=== PATIENT | male | born 1935 | race Caucasian/White ===

== ENCOUNTER 2019-05-26 15:54 | Inpatient (IN) ==
--- NOTE | 2019-05-26 18:42 | DR.GENAD ---
HPI Time Seen Time Seen by Provider: 05/26/19 18:20 PCP Primary Care Physician: BRIDGER Complaint/Symptoms Chief Complaint:: PT HAD HEART STENTS PLACED LAST Saturday05/22/2019 IN [facility]. LEFT FOOT STARTED GETTING SORE LAST NIGHT, DAUGHTER NOTICED RAISED SPOT ON BOTTOM OF OUTER SIDE OF FOOT. REDNESS NOTED TO TOP OF LEFT FOOT WELL. PT STATES THAT IT IS SORE AND HARD TO WALK ON FOOT. CALLED NURSE EDUCATOR IN [facility] AND THEY TOLD PT TO COME TO NEAREST ER. Source History Provided: Patient and Family Member Mode of Arrival Mode of Arrival: Ambulatory Timing Onset of Chief Complaint: 05/25/19 PMH PMH Past Medical History: Yes Past Medical History: Arthritis, Diabetes, Dyslipidemia, GERD and Hypertension Past Surgical History: Yes Surgical History: Angioplasty/Stents, Cholecystectomy and Other Past Surgical History Comment: HERNIA Family History History of Family Medical Conditions: Yes Family Medical History: Hypertension Social History Do you use any recreational Drugs:: No Lives With: Alone Lives Where: Home infectious screening In the last 2 months have you had wt loss of >10#?: NO Have you had fever, night sweats or hemotysis?: No Have you traveled outside the country in the last 6 months?: No Isolation: Standard PE Vital Signs Vitals: Temperature 97 F Pulse Rate 84 Respiratory Rate 22 Blood Pressure [Left Arm] 198/92 Blood Pressure 162/72 O2 Sat by Pulse Oximetry 99 ROR Labs Reviewed Result Diagrams: 05/26/19 18:30 05/26/19 18:30 Laboratory: WBC 12.0 X10^3/uL (3.6-10.0) H 05/26/19 18:30 RBC 4.77 X10^6/uL (4.7-6.0) 05/26/19 18:30 Hgb 14.7 g/dL (13.5-18.0) 05/26/19 18:30 Hct 42.8 % (42.0-54.0) 05/26/19 18:30 MCV 89.7 fL (80.0-100.0) 05/26/19 18:30 MCH 30.7 pg (27.0-34.0) 05/26/19 18:30 MCHC 34.3 g/dL (33.0-35.0) 05/26/19 18:30 RDW 13.6 % (11.6-16.5) 05/26/19 18:30 Plt Count 365 X10^3/uL (150.0-450.0) 05/26/19 18:30 MPV 8.1 fL (7.4-11.0) 05/26/19 18:30 Neut % (Auto) 75.7 % (42.0-75.0) H 05/26/19 18:30 Lymph % (Auto) 11.8 % (21.0-51.0) L 05/26/19 18:30 [place] % (Auto) 10.3 % (0.0-13.0) 05/26/19 18:30 Eos % (Auto) 1.6 % (0.9-2.9) 05/26/19 18:30 Baso % (Auto) 0.6 % (0.2-1.0) 05/26/19 18:30 Neut # (Auto) 9.1 x10^3/uL (2.2-4.8) H 05/26/19 18:30 Lymph # (Auto) 1.4 X10^3/uL (1.3-2.9) 05/26/19 18:30 [place] # (Auto) 1.2 x10^3/uL (0.3-0.8) H 05/26/19 18:30 Eos # (Auto) 0.2 x10^3/uL (0.0-0.2) 05/26/19 18:30 Baso # (Auto) 0.1 X10^3/uL (0.0-0.1) 05/26/19 18:30 Absolute Nucleated RBC 0.0 /100WBC 05/26/19 18:30 Sodium 140 mmol/L (136-145) 05/26/19 18:30 Corrected Sodium 141 mmol/L (136-145) 05/26/19 18:30 Potassium 3.8 mmol/L (3.5-5.1) 05/26/19 18:30 Chloride 105 mmol/L (98-107) 05/26/19 18:30 Carbon Dioxide 25.2 mmol/L (21-32) 05/26/19 18:30 BUN 24 mg/dL (7-18) H 05/26/19 18:30 Creatinine 0.92 mg/dL (0.70-1.30) 05/26/19 18:30 Est GFR (MDRD) Af Amer > 60 (>60) 05/26/19 18:30 Est GFR (MDRD) Non-Af > 60 (>60) 05/26/19 18:30 Glucose 138 mg/dL (65-99) H 05/26/19 18:30 Lactic Acid 1.1 mmol/L (0.4-2.0) 05/26/19 18:30 Calcium 10.4 mg/dL (8.5-10.1) H 05/26/19 18:30 Corrected Calcium TNP 05/26/19 18:30 Total Bilirubin 0.70 mg/dL (0.2-1.0) 05/26/19 18:30 AST 24 Units/L (15-37) 05/26/19 18:30 ALT 40 Units/L (12-78) 05/26/19 18:30 Alkaline Phosphatase 98 Units/L (46-116) 05/26/19 18:30 Total Protein 6.7 g/dL (6.4-8.2) 05/26/19 18:30 Albumin 3.4 g/dL (3.4-5.0) 05/26/19 18:30 Globulin 3.3 g/dL (2.5-4.5) 05/26/19 18:30 Albumin/Globulin Ratio 1.0 Ratio (1.1-2.1) L 05/26/19 18:30 Opioid Opioid Risk Tool Age (Zeb box if 16-45): No History of Preadolescent Sexual Abuse: No Total: 0 Total Score Risk Category: Low Risk Copyright: Shamir PRESCOTT predicting aberrant behaviors Diagnosis Discharge Problem: Anemia Qualifiers: Anemia type: iron deficiency Iron deficiency anemia type: unspecified iron deficiency Qualified Code(s): D50.9 - Iron deficiency anemia, unspecified Instructions Forms: Excuse From Work Patient Portal
[2019-05-26 18:51] LABS: BASOPHILS # (AUTO) 0.1 X10^3/uL (0.0-0.1); BASOPHILS % (AUTO) 0.6 % (0.2-1.0); EOSINOPHILS # (AUTO) 0.2 x10^3/uL (0.0-0.2); EOSINOPHILS % (AUTO) 1.6 % (0.9-2.9); HEMATOCRIT 42.8 % (42.0-54.0); HEMOGLOBIN 14.7 g/dL (13.5-18.0); LYMPHOCYTES # (AUTO) 1.4 X10^3/uL (1.3-2.9); LYMPHOCYTES % (AUTO) 11.8 % (21.0-51.0); MEAN CORPUSCULAR HEMOGLOBIN 30.7 pg (27.0-34.0); MEAN CORPUSCULAR HGB CONC 34.3 g/dL (33.0-35.0); MEAN CORPUSCULAR VOLUME 89.7 fL (80.0-100.0); MEAN PLATELET VOLUME 8.1 fL (7.4-11.0); MONOCYTES # (AUTO) 1.2 x10^3/uL (0.3-0.8); MONOCYTES % (AUTO) 10.3 % (0.0-13.0); NEUTROPHILS # (AUTO) 9.1 x10^3/uL (2.2-4.8); NEUTROPHILS % (AUTO) 75.7 % (42.0-75.0); PLATELET COUNT 365 X10^3/uL (150.0-450.0); RED BLOOD COUNT 4.77 X10^6/uL (4.7-6.0); RED CELL DISTRIBUTION WIDTH 13.6 % (11.6-16.5)
[2019-05-26 19:13] LABS: ALANINE AMINOTRANSFERASE 40 Units/L (12-78); ALBUMIN 3.4 g/dL (3.4-5.0); ALKALINE PHOSPHATASE 98 Units/L (46-116); ASPARTATE AMINO TRANSFERASE 24 Units/L (15-37); BLOOD UREA NITROGEN 24 mg/dL (7-18); CALCIUM 10.4 mg/dL (8.5-10.1); CARBON DIOXIDE 25.2 mmol/L (21-32); CHLORIDE 105 mmol/L (98-107); COR NA(FOR HYPERGLY) 141 mmol/L (136-145); CREATININE 0.92 mg/dL (0.70-1.30); SODIUM 140 mmol/L (136-145); TOTAL PROTEIN 6.7 g/dL (6.4-8.2); eGFR NON BLACK RACES > 60 (>60)
[2019-05-26 19:15] LABS: LACTIC ACID 1.1 mmol/L (0.4-2.0)
[2019-05-26] MEDS ORDERED: VANCOMYCIN HCL 1 G in D5W 250 ML IV 250 ML IV SCH (21:12)
[2019-05-26] MEDS ORDERED: GLUCOPHAGE ONE (21:37)
[2019-05-26] MEDS: COREG TAB 6.25 MG PO SCH (21:48)
[2019-05-26] MEDS: ARICEPT TAB 5 MG PO SCH (22:13)
[2019-05-26] MEDS: LIPITOR TAB 40 MG PO SCH (22:14)
[2019-05-26] MEDS: NAMENDA TAB 10 MG PO SCH (22:14)
[2019-05-26] MEDS: BRILINTA PO SCH (22:14)
[2019-05-26] MEDS: GLUCOPHAGE PO SCH (22:14)
[2019-05-26 22:37] LABS: BILIRUBIN,URINE NEGATIVE (NEGATIVE); BLOOD/HEMOGLOBIN,URINE NEGATIVE (NEGATIVE); GLUCOSE, URINE 1+ (NEGATIVE); KETONES,URINE 1+ (NEGATIVE); LEUKOCYTE ESTERASE ,URINE NEGATIVE (NEGATIVE); NITRITES,URINE NEGATIVE (NEGATIVE); PROTEIN,URINE 2+ (NEGATIVE); UROBILINOGEN,URINE NORMAL (NORMAL)
[2019-05-26] MEDS ORDERED: NS 250 ML IV 250 ML IV ONE (22:37)
[2019-05-26] MEDS ORDERED: VANCOMYCIN HCL ONE ×2 (22:37→23:03)
[2019-05-26 22:41] LABS: APPEARANCE,URINE CLEAR (CLEAR); COLOR,URINE YELLOW (YELLOW)
[2019-05-26 22:44] LABS: BACTERIA,URINE NEGATIVE /HPF (NEGATIVE); GRANULAR CASTS,URINE FEW /LPF (NEGATIVE); RBC,URINE 0-2 /HPF (0-3); SQUAMOUS EPITHELIAL CELL,UR RARE /HPF (NEGATIVE)
[2019-05-26] MEDS ORDERED: NS 500 ML IV 500 ML IV ONE (23:31)
[2019-05-26 23:33] LABS: CKMB % 2.2 % (<4); CREATINE KINASE MB 1.1 ng/mL (0-4.0); TROPONIN I 0.75 ng/mL (0-1.5)
[2019-05-26] MEDS: VANCOMYCIN HCL 500 MG, VANCOMYCIN HCL 1 G in D5W 250 ML IV 250 ML IV SCH (23:54)
[2019-05-27 00:32] VITALS: BMI 29.3
[2019-05-27 05:24] LABS: BASOPHILS # (AUTO) 0.2 X10^3/uL (0.0-0.1); BASOPHILS % (AUTO) 1.1 % (0.2-1.0); EOSINOPHILS # (AUTO) 0.3 x10^3/uL (0.0-0.2); EOSINOPHILS % (AUTO) 2.2 % (0.9-2.9); HEMATOCRIT 40.6 % (42.0-54.0); HEMOGLOBIN 13.4 g/dL (13.5-18.0); LYMPHOCYTES # (AUTO) 1.9 X10^3/uL (1.3-2.9); LYMPHOCYTES % (AUTO) 13.4 % (21.0-51.0); MEAN CORPUSCULAR HEMOGLOBIN 30.2 pg (27.0-34.0); MEAN CORPUSCULAR HGB CONC 32.9 g/dL (33.0-35.0); MEAN CORPUSCULAR VOLUME 91.8 fL (80.0-100.0); MEAN PLATELET VOLUME 8.8 fL (7.4-11.0); MONOCYTES # (AUTO) 1.4 x10^3/uL (0.3-0.8); MONOCYTES % (AUTO) 10.1 % (0.0-13.0); NEUTROPHILS # (AUTO) 10.2 x10^3/uL (2.2-4.8); NEUTROPHILS % (AUTO) 73.2 % (42.0-75.0); PLATELET COUNT 314 X10^3/uL (150.0-450.0); RED BLOOD COUNT 4.42 X10^6/uL (4.7-6.0); RED CELL DISTRIBUTION WIDTH 13.6 % (11.6-16.5)
[2019-05-27 05:56] LABS: PLATELET MORPHOLOGY COMMENT NORMAL (NORMAL); WHITE BLOOD COUNT 14.8 X10^3/uL (3.6-10.0)
[2019-05-27 06:01] LABS: ALANINE AMINOTRANSFERASE 39 Units/L (12-78); ALBUMIN 2.8 g/dL (3.4-5.0); ALKALINE PHOSPHATASE 93 Units/L (46-116); ASPARTATE AMINO TRANSFERASE 31 Units/L (15-37); BLOOD UREA NITROGEN 23 mg/dL (7-18); CALCIUM 9.8 mg/dL (8.5-10.1); CARBON DIOXIDE 23.3 mmol/L (21-32); CHLORIDE 108 mmol/L (98-107); COR CA(FOR HYPOALB) 10.8 mg/dL (8.5-10.1); COR NA(FOR HYPERGLY) 140 mmol/L (136-145); CREATINE KINASE 64 Units/L (39-308); CREATINE KINASE MB 1.3 ng/mL (0-4.0); CREATININE 0.68 mg/dL (0.70-1.30); SODIUM 140 mmol/L (136-145); TOTAL PROTEIN 5.9 g/dL (6.4-8.2); TROPONIN I 0.62 ng/mL (0-1.5); eGFR NON BLACK RACES > 60 (>60)
[2019-05-27] MEDS ORDERED: GLUCOPHAGE ONE ×2 (07:29→20:18)
[2019-05-27] MEDS: VANCOMYCIN HCL 500 MG, VANCOMYCIN HCL 1 G in D5W 250 ML IV 250 ML IV SCH ×2 (07:59→20:40)
[2019-05-27] MEDS: PROTONIX TAB 40 MG PO SCH (07:59)
[2019-05-27] MEDS: ASPIRIN EC 81 MG PO SCH (07:59)
[2019-05-27] MEDS: GLUCOPHAGE PO SCH ×2 (08:00→20:26)
[2019-05-27] MEDS: NORVASC TAB 10 MG PO SCH (08:00)
[2019-05-27] MEDS: MOBIC TAB 15 MG PO SCH (08:00)
[2019-05-27] MEDS: COREG TAB 6.25 MG PO SCH ×2 (08:00→20:26)
[2019-05-27] MEDS: BENICAR TAB 40 MG PO SCH (08:00)
[2019-05-27] MEDS: NAMENDA TAB 10 MG PO SCH ×2 (08:00→20:27)
[2019-05-27] MEDS: BRILINTA PO SCH ×2 (08:00→20:26)
--- NOTE | 2019-05-27 08:42 | DR.H&P ---
H&P - History & Physical for Day of: H&P Date: 05/26/19 - Chief Complaint Chief Complaint: LEFT FOOT PAIN, REDNESS, SWELLING - History of Present Illness History of Present Illness: IS A 84 YEAR OLD PATIENT OF OURS WHO PRESENTED TO THE ER WITH COMPLAINTS OF LEFT FOOT PAIN, REDNESS, AND EDEMA. PATIENT RECENTLY HAD STENTS PLACED ON 05/22/2019. [facility] REPAIR TECHNICIAN ADVISED THAT PATIENT REPORT TO THE ER. ON ARRIVAL, VITALS WERE 97.0-84-22-99%-162/72. LABS WERE OBTAINED. ABNORMAL LAB VALUES INCLUDE THE FOLLOWING: WBC 12.0, BUN 24, GLUCOSE 138, CALCIUM 10.4. CARDIAC ENZYMES WERE OBTAINED AND ARE WITHIN NORMAL LEVELS. URINALYSIS WAS OBTAINED AND IS UNREMARKABLE. BLOOD CULTURES OBTAINED. AN EKG WAS OBTAINED AND REVEALED: SINUS RHYTHM WITH HR 69. HE WAS ADMITTED FOR FURTHER EVALUATION AND TREATMENT OF CELLULITIS OF THE LEFT FOOT. HE WAS STARTED ON VANCOMYCIN 1G IV Q12H AND HOME MEDICATIONS WERE RESUMED. WE PLAN TO FOLLOW UP WITH AM LABS AND CONTINUE TO MONITOR. - Past Medical History Past Medical History: Hypertension, Dyslipidemia, Diabetes, GERD, Arthritis - Past Surgical History Surgical History: Angioplasty/Stents, Cholecystectomy - Family History Family Medical History: Diabetes Mellitus, Cancer, Hypertension - Social History Alcohol Use: None Drug Use: None Prescription drug monitoring program results: PDMP was not reviewed - Medications Home Medications: prednisone Allergy (Verified 05/21/19 10:19) CONTINUE taking the following medications aspirin [Aspirin Low Dose] 81 mg PO DAILY 05/26/19 [History] atorvastatin 80 mg PO HS 05/26/19 [History] carvedilol 6.25 mg PO BID 05/26/19 [History] hydralazine 25 mg PO TID 05/26/19 [History] ticagrelor [Brilinta] 90 mg PO BID 05/26/19 [History] - Review of Systems Constitutional: No Symptoms Reported Eyes: No Symptoms Reported ENT: No Symptoms Reported Respiratory: No Symptoms Reported Cardiovascular: Edema (LEFT FOOT TRACE EDEMA ) Gastrointestinal: No Symptoms Reported Genitourinary: No Symptoms Reported Musculoskeletal: Foot Pain (LEFT FOOT PAIN ) Neurological: No Symptoms Reported - Physical Exam Vital Signs: Temperature 98.1 F Pulse Rate [Right Brachial] 69 Pulse Rate 84 Respiratory Rate 14 Blood Pressure [Left Arm] 181/80 Blood Pressure 162/72 O2 Sat by Pulse Oximetry 96 Oriented: Normal Eyes: Normal Ear: Normal Nose: Normal Throat: Normal Respiratory: Diminished Throughout Cardiovascular: Edema (LEFT FOOT TRACE EDEMA ) : Normal Auscultation: Bowel Sounds: Normal Palpation: Normal Tenderness: Normal Skin: Normal Musculoskeletal: Left, Foot, Swelling, Tender Psychiatric: Normal Mood Description: Calm Affect: Normal Speech Pattern: Clear - Assessment/Plan (1) Cellulitis of foot, left Status: Acute Plan: ADMIT, VANCOMYCIN 1G IV Q12H, BLOOD CULTURES, RESUME HOME MEDS - Review Patient was examined?: Yes - Allergies Allergies/Adverse Reactions: Allergies Allergy/AdvReac Type Severity Reaction Status Date / Time prednisone Allergy Verified 05/21/19 10:19
[2019-05-27] MEDS ORDERED: AMLODIPINE OLMESARTAN PO SCH (09:00)
[2019-05-27] MEDS ORDERED: NS 1000 ML 1,000 ML ONE (12:24)
[2019-05-27] MEDS ORDERED: XYLOCAINE 1 % (PLAIN) ONE (12:24)
[2019-05-27] MEDS ORDERED: DILAUDID INJ ONE (12:46)
[2019-05-27] MEDS ORDERED: BACITRACIN VIAL ONE (12:49)
[2019-05-27] MEDS ORDERED: PERCOCET TAB 5/325 MG PO PRN (13:11)
--- NOTE | 2019-05-27 15:46 | OR.IMMED ---
Immediate Post-Op Note - Immediate Post-Op Note Pre-Op Diagnosis: Lt foot abscess with cellulitis . Post-Op Diagnosis: Lt foot abscess with skin necrosis and cellulitis . diabetic neuropathy . Procedure: excisional debridement and drainage Lt foot abscess . Surgeon/Caregiver Services Home: Jen. Specimens Removed: infected skin and necrotic tissue Lt foot . Estimated Blood Loss: 5 cc. Drains: NONE Complications: non Condition: Stable (to change dressing and packing daily ..)
[2019-05-27] MEDS: ARICEPT TAB 5 MG PO SCH (20:26)
[2019-05-27] MEDS: LIPITOR TAB 40 MG PO SCH (20:27)
--- NOTE | 2019-05-27 20:35 | PCM.PROG ---
Progress Note - Progress Note for Day of Date of Exam: 05/27/19 - Subjective Subjective: WAS ADMITTED FOR CELLULITIS OF THE LEFT FOOT. LEFT FOOT IS ALSO NOTED WITH AN ABSCESS TO THE ATERAL ASPECT OF THE FOOT. THERE IS ALSO CALLUS FORMATION AND A HEALED ULCER TO THE RIGHT LATERAL ASPECT OF THE FOOT. HE HAS A HISTORY OF CAD AND IS STATUS POST RECENT CARDIAC CATHETERIZATION WITH STENTING. TODAY, HE IS ALERT AND ORIENTED, SITTING UP IN BED ON MORNING ROUNDS. HE CONTINUES WITH PAIN AND ERYTHEM TO THE LEFT FOOT. HIS VITALS THIS MORNING ARE: 98.4-73-20-96%-163/80. LABS WERE OBTAINED. ABNORMAL LAB VALUES INCLUDE THE FOLLOWING: WBC 14.8, RBC 4.42, HGB 13.4, HCT 40.6, CHLORIDE 108, BUN 23, CREATININE 0.68, GLUCOSE 119, TOTAL PROTEIN 5.9, ALBUMIN 2.8. BLOOD AND WOUND CULTURES ARE PENDING. HE IS CURRENTLY RECEIVING VANCOMYCIN 1G IV Q12H. TODAY, WE WILL CONTINUE WITH CURRENT PLAN OF CARE AND CONSULT WITH FOR I&D AND DEBRIDEMENT. OTHERWISE, WE WILL FOLLOW UP WITH AM LABS AND CONTINUE TO MONITOR. - Past Medical Family Social History Past Med/Fam/Surg Hx: No changes since H&P Allergies: Allergies prednisone Allergy (Verified 05/21/19 10:19) - Review of Systems ROS: No change since H&P - Vital Signs and I&O's Vital Signs: Temperature 98.6 F Pulse Rate [Right Brachial] 60 Pulse Rate 59 Respiratory Rate 18 Blood Pressure [Left Arm] 162/73 Blood Pressure 138/67 O2 Sat by Pulse Oximetry 98 Intake and Output: Intake & Output 05/25/19 05/26/19 05/27/19 05/28/19 11:59 11:59 11:59 11:59 Intake Total 470 / 470 950 / 950 Output Total 95 / 95 Balance 470 / 470 855 / 855 - Physical Exam Oriented: Normal Eyes: Normal Ear: Normal Nose: Normal Throat: Normal Respiratory: Generalized, Diminished Cardiovascular: Edema (LEFT FOOT TRACE EDEMA ) : Normal Auscultation: Bowel Sounds: Normal Palpation: Normal Tenderness: Normal Skin: Normal, Wound (ABSCESS TO THE ATERAL ASPECT OF THE FOOT. THERE IS ALSO CALLUS FORMATION AND A HEALED ULCER TO THE RIGHT LATERAL ASPECT OF THE FOOT. ) Musculoskeletal: Left, Foot, Swelling, Tender Psychiatric: Normal Mood Description: Calm Affect: Normal Speech Pattern: Clear - Laboratory and Diagnostics Result Diagrams: 05/27/19 05:07 05/27/19 05:07 Labs: 05/27/19 13:00 Foot - Left Gram Stain - Final Laboratory WBC 14.8 X10^3/uL (3.6-10.0) H 05/27/19 05:07 RBC 4.42 X10^6/uL (4.7-6.0) L 05/27/19 05:07 Hgb 13.4 g/dL (13.5-18.0) L 05/27/19 05:07 Hct 40.6 % (42.0-54.0) L 05/27/19 05:07 MCV 91.8 fL (80.0-100.0) 05/27/19 05:07 MCH 30.2 pg (27.0-34.0) 05/27/19 05:07 MCHC 32.9 g/dL (33.0-35.0) L 05/27/19 05:07 RDW 13.6 % (11.6-16.5) 05/27/19 05:07 Plt Count 314 X10^3/uL (150.0-450.0) 05/27/19 05:07 Plt Count Comment Adequate (ADEQUATE) 05/27/19 05:07 MPV 8.8 fL (7.4-11.0) 05/27/19 05:07 Neut % (Auto) 73.2 % (42.0-75.0) 05/27/19 05:07 Lymph % (Auto) 13.4 % (21.0-51.0) L 05/27/19 05:07 [place] % (Auto) 10.1 % (0.0-13.0) 05/27/19 05:07 Eos % (Auto) 2.2 % (0.9-2.9) 05/27/19 05:07 Baso % (Auto) 1.1 % (0.2-1.0) H 05/27/19 05:07 Neut # (Auto) 10.2 x10^3/uL (2.2-4.8) H 05/27/19 05:07 Lymph # (Auto) 1.9 X10^3/uL (1.3-2.9) 05/27/19 05:07 [place] # (Auto) 1.4 x10^3/uL (0.3-0.8) H 05/27/19 05:07 Eos # (Auto) 0.3 x10^3/uL (0.0-0.2) H 05/27/19 05:07 Baso # (Auto) 0.2 X10^3/uL (0.0-0.1) H 05/27/19 05:07 Absolute Nucleated RBC 0.1 /100WBC 05/27/19 05:07 Plt Morphology Comment Normal (NORMAL) 05/27/19 05:07 RBC Morphology Normal (NORMAL) 05/27/19 05:07 Sodium 140 mmol/L (136-145) 05/27/19 05:07 Corrected Sodium 140 mmol/L (136-145) 05/27/19 05:07 Potassium 4.0 mmol/L (3.5-5.1) 05/27/19 05:07 Chloride 108 mmol/L (98-107) H 05/27/19 05:07 Carbon Dioxide 23.3 mmol/L (21-32) 05/27/19 05:07 BUN 23 mg/dL (7-18) H 05/27/19 05:07 Creatinine 0.68 mg/dL (0.70-1.30) L 05/27/19 05:07 Est GFR (MDRD) Af Amer > 60 (>60) 05/27/19 05:07 Est GFR (MDRD) Non-Af > 60 (>60) 05/27/19 05:07 Glucose 119 mg/dL (65-99) H 05/27/19 05:07 POC Glucose (mg/dL) 118 mg/dL (65-99) H 05/27/19 16:21 Lactic Acid 1.1 mmol/L (0.4-2.0) 05/26/19 18:30 Calcium 9.8 mg/dL (8.5-10.1) 05/27/19 05:07 Corrected Calcium 10.8 mg/dL (8.5-10.1) H 05/27/19 05:07 Total Bilirubin 0.70 mg/dL (0.2-1.0) 05/27/19 05:07 AST 31 Units/L (15-37) 05/27/19 05:07 ALT 39 Units/L (12-78) 05/27/19 05:07 Alkaline Phosphatase 93 Units/L (46-116) 05/27/19 05:07 Creatine Kinase 64 Units/L (39-308) 05/27/19 05:07 CK-MB (CK-2) 1.3 ng/mL (0-4.0) 05/27/19 05:07 CK/CKMB % Calc 2.0 % (<4) 05/27/19 05:07 Troponin I 0.62 ng/mL (0-1.5) 05/27/19 05:07 Total Protein 5.9 g/dL (6.4-8.2) L 05/27/19 05:07 Albumin 2.8 g/dL (3.4-5.0) L 05/27/19 05:07 Globulin 3.1 g/dL (2.5-4.5) 05/27/19 05:07 Albumin/Globulin Ratio 0.9 Ratio (1.1-2.1) L 05/27/19 05:07 Specimen Type Clean catch urine 05/26/19 22:20 Urine Color Yellow (YELLOW) 05/26/19 22:20 Urine Appearance Clear (CLEAR) 05/26/19 22:20 Urine pH 6.0 (5.0 - 8.0) 05/26/19 22:20 Ur Specific [place] 1.025 (1.000-1.030) 05/26/19 22:20 Urine Protein 2+ (NEGATIVE) 05/26/19 22:20 Urine Glucose (UA) 1+ (NEGATIVE) 05/26/19 22:20 Urine Ketones 1+ (NEGATIVE) 05/26/19 22:20 Urine Occult Blood Negative (NEGATIVE) 05/26/19 22:20 Urine Nitrite Negative (NEGATIVE) 05/26/19 22:20 Urine Bilirubin Negative (NEGATIVE) 05/26/19 22:20 Urine Urobilinogen Normal (NORMAL) 05/26/19 22:20 Ur Leukocyte Esterase Negative (NEGATIVE) 05/26/19 22:20 Urine RBC 0-2 /HPF (0-3) 05/26/19 22:20 Urine WBC 0-2 /HPF (0-5) 05/26/19 22:20 Ur Squamous Epith Cells Rare /HPF (NEGATIVE) 05/26/19 22:20 Urine Bacteria Negative /HPF (NEGATIVE) 05/26/19 22:20 Granular Casts Few /LPF (NEGATIVE) 05/26/19 22:20 Ur Culture Indicated? No/not indicated 05/26/19 22:20 Tissue Pathology To follow 05/27/19 13:00 - Plan (1) Cellulitis of foot, left Status: Acute Plan: SURGICAL CONSULT, VANCOMYCIN 1G IV Q12H, BLOOD CULTURES, RESUME HOME MEDS (2) Abscess Status: Acute Plan: SURGICAL CONSULT, CONTINUE TO MONITOR
[2019-05-28 04:59] LABS: BASOPHILS % (AUTO) 0.3 % (0.2-1.0); EOSINOPHILS # (AUTO) 0.2 x10^3/uL (0.0-0.2); EOSINOPHILS % (AUTO) 1.7 % (0.9-2.9); HEMOGLOBIN 12.8 g/dL (13.5-18.0); LYMPHOCYTES % (AUTO) 9.4 % (21.0-51.0); MEAN CORPUSCULAR HEMOGLOBIN 30.5 pg (27.0-34.0); MEAN CORPUSCULAR HGB CONC 33.7 g/dL (33.0-35.0); MEAN CORPUSCULAR VOLUME 90.4 fL (80.0-100.0); MEAN PLATELET VOLUME 8.5 fL (7.4-11.0); MONOCYTES # (AUTO) 1.1 x10^3/uL (0.3-0.8); MONOCYTES % (AUTO) 10.1 % (0.0-13.0); NEUTROPHILS # (AUTO) 8.5 x10^3/uL (2.2-4.8); NEUTROPHILS % (AUTO) 78.5 % (42.0-75.0); PLATELET COUNT 327 X10^3/uL (150.0-450.0); RED CELL DISTRIBUTION WIDTH 13.6 % (11.6-16.5); WHITE BLOOD COUNT 10.8 X10^3/uL (3.6-10.0)
[2019-05-28 05:13] LABS: ALANINE AMINOTRANSFERASE 47 Units/L (12-78); ALBUMIN 2.7 g/dL (3.4-5.0); ALKALINE PHOSPHATASE 106 Units/L (46-116); ASPARTATE AMINO TRANSFERASE 33 Units/L (15-37); BLOOD UREA NITROGEN 18 mg/dL (7-18); CALCIUM 9.4 mg/dL (8.5-10.1); CARBON DIOXIDE 23.9 mmol/L (21-32); CHLORIDE 106 mmol/L (98-107); COR CA(FOR HYPOALB) 10.4 mg/dL (8.5-10.1); COR NA(FOR HYPERGLY) 139 mmol/L (136-145); CREATININE 0.75 mg/dL (0.70-1.30); SODIUM 138 mmol/L (136-145); TOTAL PROTEIN 5.7 g/dL (6.4-8.2); eGFR NON BLACK RACES > 60 (>60)
[2019-05-28] MEDS ORDERED: POTASSIUM CHLORIDE LIQ 20 MEQ UDC PO PRN (05:41)
[2019-05-28] MEDS ORDERED: POTASSIUM CHL 60 MEQ/NS 0.45% 500 ML IV PRN (05:41)
[2019-05-28] MEDS ORDERED: MICRO K EXTEN CAP 10 MEQ PO PRN (05:41)
[2019-05-28] MEDS ORDERED: K-RIDER 10 MEQ/NS 100 ML 10 MEQ/100 ML BAG IV PRN (05:41)
[2019-05-28] MEDS ORDERED: POTASSIUM CHL 40 MEQ/NS 0.45% 500 ML IV PRN (05:41)
[2019-05-28] MEDS ORDERED: KLOR-CON PO PRN (05:41)
[2019-05-28] MEDS: K-DUR TAB 20 MEQ PO PRN ×2 (06:24→20:39)
[2019-05-28 08:45] LABS: CREATININE 0.94 mg/dL (0.70-1.30); VANCOMYCIN,TROUGH 10.8 ug/mL (15-20)
[2019-05-28] MEDS: PHARMACY COMMENT IV SCH (09:00)
[2019-05-28] MEDS ORDERED: GLUCOPHAGE ONE ×2 (09:07→20:13)
[2019-05-28] MEDS: VANCOMYCIN HCL 500 MG, VANCOMYCIN HCL 1 G in D5W 250 ML IV 250 ML IV SCH ×2 (09:44→20:35)
[2019-05-28] MEDS: MOBIC TAB 15 MG PO SCH (09:44)
[2019-05-28] MEDS: PROTONIX TAB 40 MG PO SCH (09:45)
[2019-05-28] MEDS: COREG TAB 6.25 MG PO SCH ×2 (09:45→20:36)
[2019-05-28] MEDS: BRILINTA PO SCH ×2 (09:45→20:36)
[2019-05-28] MEDS: GLUCOPHAGE PO SCH ×2 (09:45→20:36)
[2019-05-28] MEDS: NORVASC TAB 10 MG PO SCH (09:45)
[2019-05-28] MEDS: ASPIRIN EC 81 MG PO SCH (09:46)
[2019-05-28] MEDS: BENICAR TAB 40 MG PO SCH (09:46)
[2019-05-28] MEDS: NAMENDA TAB 10 MG PO SCH ×2 (09:46→20:36)
[2019-05-28] MEDS: MAGNESIUM SULFATE 1 GRAM/100 mL PREMIX 1 GM/100 ML BAG IV PRN ×2 (09:49→15:41)
--- NOTE | 2019-05-28 10:37 | DR.PROGNOT ---
Hospital Progress Notes - Progress Note for Day of: Progress Note Date: 05/28/19 - Chief Complaint Chief Complaint: only mild drainage from Lt foot abscess . less cellulitis . BS 161 . WBC normal . woumnd culture shows Gm + cocci . - Past Medical Family Social History Past Med/Fam/Surg Hx: No changes since H&P Allergies: Allergies prednisone Allergy (Verified 05/21/19 10:19) - Review Of Systems ROS: No change since H&P - Vital Signs Vital Signs: Temperature 98.4 F Pulse Rate [Right Brachial] 77 Pulse Rate 76 Respiratory Rate 26 Blood Pressure [Left Arm] 174/83 Blood Pressure 151/70 O2 Sat by Pulse Oximetry 96 - Physical Exam Oriented: Normal Eyes: Normal Ear: Normal Nose: Normal Throat: Normal Respiratory: Generalized, Diminished Cardiovascular: Edema (LEFT FOOT TRACE EDEMA ) : Normal GI:Auscultation: Normal GI:Palpation: Normal GI: Tenderness: Normal Skin: Normal, Wound (open wound 3x2cm LATERAL ASPECT OF THE FOOT. THERE IS ALSO CALLUS FORMATION AND A HEALED ULCER TO THE RIGHT LATERAL ASPECT OF THE FOOT. ) Musculoskeletal: Left, Foot, Swelling, Tender Psychiatric: Normal Mood Description: Calm Affect: Normal Speech Pattern: Clear, Appropriate - Laboratory and Diagnostics Result Diagrams: 05/28/19 03:45 05/28/19 08:16 Labs: 05/26/19 18:36 Blood Blood Culture - Preliminary 05/26/19 18:30 Blood Blood Culture - Preliminary 05/27/19 13:00 Foot - Left Gram Stain - Final 05/27/19 13:00 Foot - Left Wound Culture - Preliminary Laboratory WBC 10.8 X10^3/uL (3.6-10.0) H 05/28/19 03:45 RBC 4.20 X10^6/uL (4.7-6.0) L 05/28/19 03:45 Hgb 12.8 g/dL (13.5-18.0) L 05/28/19 03:45 Hct 38.0 % (42.0-54.0) L 05/28/19 03:45 MCV 90.4 fL (80.0-100.0) 05/28/19 03:45 MCH 30.5 pg (27.0-34.0) 05/28/19 03:45 MCHC 33.7 g/dL (33.0-35.0) 05/28/19 03:45 RDW 13.6 % (11.6-16.5) 05/28/19 03:45 Plt Count 327 X10^3/uL (150.0-450.0) 05/28/19 03:45 Plt Count Comment Adequate (ADEQUATE) 05/27/19 05:07 MPV 8.5 fL (7.4-11.0) 05/28/19 03:45 Neut % (Auto) 78.5 % (42.0-75.0) H 05/28/19 03:45 Lymph % (Auto) 9.4 % (21.0-51.0) L 05/28/19 03:45 [place] % (Auto) 10.1 % (0.0-13.0) 05/28/19 03:45 Eos % (Auto) 1.7 % (0.9-2.9) 05/28/19 03:45 Baso % (Auto) 0.3 % (0.2-1.0) 05/28/19 03:45 Neut # (Auto) 8.5 x10^3/uL (2.2-4.8) H 05/28/19 03:45 Lymph # (Auto) 1.0 X10^3/uL (1.3-2.9) L 05/28/19 03:45 [place] # (Auto) 1.1 x10^3/uL (0.3-0.8) H 05/28/19 03:45 Eos # (Auto) 0.2 x10^3/uL (0.0-0.2) 05/28/19 03:45 Baso # (Auto) 0.0 X10^3/uL (0.0-0.1) 05/28/19 03:45 Absolute Nucleated RBC 0.0 /100WBC 05/28/19 03:45 Plt Morphology Comment Normal (NORMAL) 05/27/19 05:07 RBC Morphology Normal (NORMAL) 05/27/19 05:07 Sodium 138 mmol/L (136-145) 05/28/19 03:45 Corrected Sodium 139 mmol/L (136-145) 05/28/19 03:45 Potassium 3.7 mmol/L (3.5-5.1) 05/28/19 03:45 Chloride 106 mmol/L (98-107) 05/28/19 03:45 Carbon Dioxide 23.9 mmol/L (21-32) 05/28/19 03:45 BUN 18 mg/dL (7-18) 05/28/19 03:45 Creatinine 0.94 mg/dL (0.70-1.30) 05/28/19 08:16 Est GFR (MDRD) Af Amer > 60 (>60) 05/28/19 03:45 Est GFR (MDRD) Non-Af > 60 (>60) 05/28/19 03:45 Glucose 137 mg/dL (65-99) H 05/28/19 03:45 POC Glucose (mg/dL) 161 mg/dL (65-99) H 05/28/19 05:55 Lactic Acid 1.1 mmol/L (0.4-2.0) 05/26/19 18:30 Calcium 9.4 mg/dL (8.5-10.1) 05/28/19 03:45 Corrected Calcium 10.4 mg/dL (8.5-10.1) H 05/28/19 03:45 Magnesium 1.7 mg/dL (1.7-2.9) 05/28/19 03:45 Total Bilirubin 0.50 mg/dL (0.2-1.0) 05/28/19 03:45 AST 33 Units/L (15-37) 05/28/19 03:45 ALT 47 Units/L (12-78) 05/28/19 03:45 Alkaline Phosphatase 106 Units/L (46-116) 05/28/19 03:45 Creatine Kinase 64 Units/L (39-308) 05/27/19 05:07 CK-MB (CK-2) 1.3 ng/mL (0-4.0) 05/27/19 05:07 CK/CKMB % Calc 2.0 % (<4) 05/27/19 05:07 Troponin I 0.62 ng/mL (0-1.5) 05/27/19 05:07 Total Protein 5.7 g/dL (6.4-8.2) L 05/28/19 03:45 Albumin 2.7 g/dL (3.4-5.0) L 05/28/19 03:45 Globulin 3.0 g/dL (2.5-4.5) 05/28/19 03:45 Albumin/Globulin Ratio 0.9 Ratio (1.1-2.1) L 05/28/19 03:45 Specimen Type Clean catch urine 05/26/19 22:20 Urine Color Yellow (YELLOW) 05/26/19 22:20 Urine Appearance Clear (CLEAR) 05/26/19 22:20 Urine pH 6.0 (5.0 - 8.0) 05/26/19 22:20 Ur Specific [place] 1.025 (1.000-1.030) 05/26/19 22:20 Urine Protein 2+ (NEGATIVE) 05/26/19 22:20 Urine Glucose (UA) 1+ (NEGATIVE) 05/26/19 22:20 Urine Ketones 1+ (NEGATIVE) 05/26/19 22:20 Urine Occult Blood Negative (NEGATIVE) 05/26/19 22:20 Urine Nitrite Negative (NEGATIVE) 05/26/19 22:20 Urine Bilirubin Negative (NEGATIVE) 05/26/19 22:20 Urine Urobilinogen Normal (NORMAL) 05/26/19 22:20 Ur Leukocyte Esterase Negative (NEGATIVE) 05/26/19 22:20 Urine RBC 0-2 /HPF (0-3) 05/26/19 22:20 Urine WBC 0-2 /HPF (0-5) 05/26/19 22:20 Ur Squamous Epith Cells Rare /HPF (NEGATIVE) 05/26/19 22:20 Urine Bacteria Negative /HPF (NEGATIVE) 05/26/19 22:20 Granular Casts Few /LPF (NEGATIVE) 05/26/19 22:20 Ur Culture Indicated? No/not indicated 05/26/19 22:20 Vancomycin Trough 10.8 ug/mL (15-20) L 05/28/19 08:16 Tissue Pathology To follow 05/27/19 13:00 - Assessment and Plan 1: Lt foot abscess and cellulitis , s/p debridement and drainage . DM with neuropathy . same IV ATB and local care . anticoagulant .. - Problem Patient Problems: Patient Problems Anemia (Acute) D64.9 Cellulitis of foot, left (Acute) L03.116 Abscess (Acute) L02.91
[2019-05-28] MEDS: ARICEPT TAB 5 MG PO SCH (20:36)
[2019-05-28] MEDS: LIPITOR TAB 40 MG PO SCH (20:36)
--- NOTE | 2019-05-28 20:49 | PCM.PROG ---
Progress Note - Progress Note for Day of Date of Exam: 05/28/19 - Subjective Subjective: WAS ADMITTED FOR CELLULITIS OF THE LEFT FOOT WITH AN ABSCESS TO THE LATERAL ASPECT OF THE FOOT. TOOK PATIENT TO THE OR YESTERDAY FOR DEBRIDEMENT AND DRAINAGE OF LEFT FOOT ABSCESS. TODAY, HE IS ALERT AND ORIENTED, SITTING UP IN BED ON MORNING ROUNDS. HE CONTINUES WITH PAIN TO THE LEFT FOOT. DRESSING IS DRY AND INTACT WITH A SMALL AMOUNT OF DRAINAGE NOTED. HIS VITALS THIS MORNING ARE: 98.4-85-24-95%-156/77. LABS WERE OBTAINED. ABNORMAL LAB VALUES INCLUDE THE FOLLOWING: WBC 10.8, RBC 4.20, HGB 12.8, HCT 38.0, GLUCOSE 137, TOTAL PROTEIN 5.7, ALBUMIN 2.7. BLOOD AND WOUND CULTURES ARE PENDING. HE IS CURRENTLY RECEIVING VANCOMYCIN 1G IV Q12H. TODAY, WE WILL CONTINUE WITH CURRENT PLAN OF CARE. OTHERWISE, WE WILL FOLLOW UP WITH AM LABS AND CONTINUE TO MONITOR. - Past Medical Family Social History Past Med/Fam/Surg Hx: No changes since H&P Allergies: Allergies prednisone Allergy (Verified 05/21/19 10:19) - Review of Systems ROS: No change since H&P - Vital Signs and I&O's Vital Signs: Temperature 98.5 F Pulse Rate [Right Brachial] 77 Pulse Rate 80 Respiratory Rate 32 Blood Pressure [Left Arm] 174/83 Blood Pressure 190/87 O2 Sat by Pulse Oximetry 99 Intake and Output: Intake & Output 05/26/19 05/27/19 05/28/19 05/29/19 11:59 11:59 11:59 11:59 Intake Total 470 / 470 2220 / 2220 450 / 450 Output Total 895 / 895 Balance 470 / 470 1325 / 1325 450 / 450 - Physical Exam Oriented: Normal Eyes: Normal Ear: Normal Nose: Normal Throat: Normal Respiratory: Generalized, Diminished Cardiovascular: Edema (LEFT FOOT TRACE EDEMA ) : Normal Auscultation: Bowel Sounds: Normal Tenderness: Normal Skin: Normal, Wound (open wound 3x2cm LATERAL ASPECT OF THE FOOT. THERE IS ALSO CALLUS FORMATION AND A HEALED ULCER TO THE RIGHT LATERAL ASPECT OF THE FOOT. ) Musculoskeletal: Left, Foot, Swelling, Tender Psychiatric: Normal Mood Description: Calm Affect: Normal Speech Pattern: Clear, Appropriate - Laboratory and Diagnostics Result Diagrams: 05/28/19 03:45 05/28/19 08:16 Labs: 05/28/19 18:30 Stool - Final 05/26/19 18:36 Blood Blood Culture - Preliminary 05/26/19 18:30 Blood Blood Culture - Preliminary 05/27/19 13:00 Foot - Left Gram Stain - Final 05/27/19 13:00 Foot - Left Wound Culture - Preliminary Laboratory WBC 10.8 X10^3/uL (3.6-10.0) H 05/28/19 03:45 RBC 4.20 X10^6/uL (4.7-6.0) L 05/28/19 03:45 Hgb 12.8 g/dL (13.5-18.0) L 05/28/19 03:45 Hct 38.0 % (42.0-54.0) L 05/28/19 03:45 MCV 90.4 fL (80.0-100.0) 05/28/19 03:45 MCH 30.5 pg (27.0-34.0) 05/28/19 03:45 MCHC 33.7 g/dL (33.0-35.0) 05/28/19 03:45 RDW 13.6 % (11.6-16.5) 05/28/19 03:45 Plt Count 327 X10^3/uL (150.0-450.0) 05/28/19 03:45 Plt Count Comment Adequate (ADEQUATE) 05/27/19 05:07 MPV 8.5 fL (7.4-11.0) 05/28/19 03:45 Neut % (Auto) 78.5 % (42.0-75.0) H 05/28/19 03:45 Lymph % (Auto) 9.4 % (21.0-51.0) L 05/28/19 03:45 [place] % (Auto) 10.1 % (0.0-13.0) 05/28/19 03:45 Eos % (Auto) 1.7 % (0.9-2.9) 05/28/19 03:45 Baso % (Auto) 0.3 % (0.2-1.0) 05/28/19 03:45 Neut # (Auto) 8.5 x10^3/uL (2.2-4.8) H 05/28/19 03:45 Lymph # (Auto) 1.0 X10^3/uL (1.3-2.9) L 05/28/19 03:45 [place] # (Auto) 1.1 x10^3/uL (0.3-0.8) H 05/28/19 03:45 Eos # (Auto) 0.2 x10^3/uL (0.0-0.2) 05/28/19 03:45 Baso # (Auto) 0.0 X10^3/uL (0.0-0.1) 05/28/19 03:45 Absolute Nucleated RBC 0.0 /100WBC 05/28/19 03:45 Plt Morphology Comment Normal (NORMAL) 05/27/19 05:07 RBC Morphology Normal (NORMAL) 05/27/19 05:07 Sodium 138 mmol/L (136-145) 05/28/19 03:45 Corrected Sodium 139 mmol/L (136-145) 05/28/19 03:45 Potassium 3.7 mmol/L (3.5-5.1) 05/28/19 03:45 Chloride 106 mmol/L (98-107) 05/28/19 03:45 Carbon Dioxide 23.9 mmol/L (21-32) 05/28/19 03:45 BUN 18 mg/dL (7-18) 05/28/19 03:45 Creatinine 0.94 mg/dL (0.70-1.30) 05/28/19 08:16 Est GFR (MDRD) Af Amer > 60 (>60) 05/28/19 03:45 Est GFR (MDRD) Non-Af > 60 (>60) 05/28/19 03:45 Glucose 137 mg/dL (65-99) H 05/28/19 03:45 POC Glucose (mg/dL) 126 mg/dL (65-99) H 05/28/19 20:38 Lactic Acid 1.1 mmol/L (0.4-2.0) 05/26/19 18:30 Calcium 9.4 mg/dL (8.5-10.1) 05/28/19 03:45 Corrected Calcium 10.4 mg/dL (8.5-10.1) H 05/28/19 03:45 Magnesium 1.7 mg/dL (1.7-2.9) 05/28/19 03:45 Total Bilirubin 0.50 mg/dL (0.2-1.0) 05/28/19 03:45 AST 33 Units/L (15-37) 05/28/19 03:45 ALT 47 Units/L (12-78) 05/28/19 03:45 Alkaline Phosphatase 106 Units/L (46-116) 05/28/19 03:45 Creatine Kinase 64 Units/L (39-308) 05/27/19 05:07 CK-MB (CK-2) 1.3 ng/mL (0-4.0) 05/27/19 05:07 CK/CKMB % Calc 2.0 % (<4) 05/27/19 05:07 Troponin I 0.62 ng/mL (0-1.5) 05/27/19 05:07 Total Protein 5.7 g/dL (6.4-8.2) L 05/28/19 03:45 Albumin 2.7 g/dL (3.4-5.0) L 05/28/19 03:45 Globulin 3.0 g/dL (2.5-4.5) 05/28/19 03:45 Albumin/Globulin Ratio 0.9 Ratio (1.1-2.1) L 05/28/19 03:45 Specimen Type Clean catch urine 05/26/19 22:20 Urine Color Yellow (YELLOW) 05/26/19 22:20 Urine Appearance Clear (CLEAR) 05/26/19 22:20 Urine pH 6.0 (5.0 - 8.0) 05/26/19 22:20 Ur Specific [place] 1.025 (1.000-1.030) 05/26/19 22:20 Urine Protein 2+ (NEGATIVE) 05/26/19 22:20 Urine Glucose (UA) 1+ (NEGATIVE) 05/26/19 22:20 Urine Ketones 1+ (NEGATIVE) 05/26/19 22:20 Urine Occult Blood Negative (NEGATIVE) 05/26/19 22:20 Urine Nitrite Negative (NEGATIVE) 05/26/19 22:20 Urine Bilirubin Negative (NEGATIVE) 05/26/19 22:20 Urine Urobilinogen Normal (NORMAL) 05/26/19 22:20 Ur Leukocyte Esterase Negative (NEGATIVE) 05/26/19 22:20 Urine RBC 0-2 /HPF (0-3) 05/26/19 22:20 Urine WBC 0-2 /HPF (0-5) 05/26/19 22:20 Ur Squamous Epith Cells Rare /HPF (NEGATIVE) 05/26/19 22:20 Urine Bacteria Negative /HPF (NEGATIVE) 05/26/19 22:20 Granular Casts Few /LPF (NEGATIVE) 05/26/19 22:20 Ur Culture Indicated? No/not indicated 05/26/19 22:20 Stool Description 200g,lt.brown,mucoid 05/28/19 18:30 Stl Occult Blood (IFOB) Positive (NEGATIVE) A 05/28/19 18:30 Stool for White Cells Positive (NEGATIVE) A 05/28/19 18:30 Stl C. diff Tox B Gene Positive (NEGATIVE) A 05/28/19 18:30 Stl C. diff [id number] Negative (NEGATIVE) 05/28/19 18:30 Vancomycin Trough 10.8 ug/mL (15-20) L 05/28/19 08:16 C. difficile Toxin A&B Negative (NEGATIVE) 05/28/19 18:30 Tissue Pathology To follow 05/27/19 13:00 - Plan (1) Cellulitis of foot, left Status: Acute Plan: STATUS POST I&D, VANCOMYCIN 1G IV Q12H, BLOOD CULTURES, RESUME HOME MEDS (2) Abscess Status: Acute Plan: STATUS POST I&D, VANCOMYCIN, CONTINUE TO MONITOR
[2019-05-29 04:52] LABS: BASOPHILS % (AUTO) 0.2 % (0.2-1.0); EOSINOPHILS # (AUTO) 0.1 x10^3/uL (0.0-0.2); EOSINOPHILS % (AUTO) 0.7 % (0.9-2.9); HEMATOCRIT 39.3 % (42.0-54.0); HEMOGLOBIN 13.4 g/dL (13.5-18.0); LYMPHOCYTES # (AUTO) 1.1 X10^3/uL (1.3-2.9); LYMPHOCYTES % (AUTO) 7.2 % (21.0-51.0); MEAN CORPUSCULAR HEMOGLOBIN 30.5 pg (27.0-34.0); MEAN CORPUSCULAR HGB CONC 34.1 g/dL (33.0-35.0); MEAN CORPUSCULAR VOLUME 89.6 fL (80.0-100.0); MEAN PLATELET VOLUME 8.5 fL (7.4-11.0); MONOCYTES # (AUTO) 1.2 x10^3/uL (0.3-0.8); MONOCYTES % (AUTO) 8.1 % (0.0-13.0); NEUTROPHILS # (AUTO) 12.8 x10^3/uL (2.2-4.8); NEUTROPHILS % (AUTO) 83.8 % (42.0-75.0); PLATELET COUNT 375 X10^3/uL (150.0-450.0); RED BLOOD COUNT 4.38 X10^6/uL (4.7-6.0); RED CELL DISTRIBUTION WIDTH 13.2 % (11.6-16.5); WHITE BLOOD COUNT 15.2 X10^3/uL (3.6-10.0)
[2019-05-29 05:00] LABS: ALANINE AMINOTRANSFERASE 55 Units/L (12-78); ALBUMIN 3.1 g/dL (3.4-5.0); ALKALINE PHOSPHATASE 121 Units/L (46-116); ASPARTATE AMINO TRANSFERASE 36 Units/L (15-37); BLOOD UREA NITROGEN 15 mg/dL (7-18); CALCIUM 9.5 mg/dL (8.5-10.1); CARBON DIOXIDE 23.6 mmol/L (21-32); CHLORIDE 104 mmol/L (98-107); COR CA(FOR HYPOALB) 10.2 mg/dL (8.5-10.1); COR NA(FOR HYPERGLY) 138 mmol/L (136-145); CREATININE 0.83 mg/dL (0.70-1.30); MAGNESIUM 1.8 mg/dL (1.7-2.9); SODIUM 136 mmol/L (136-145); TOTAL PROTEIN 6.3 g/dL (6.4-8.2); eGFR NON BLACK RACES > 60 (>60)
[2019-05-29] MEDS ORDERED: GLUCOPHAGE ONE (09:44)
[2019-05-29] MEDS: BENICAR TAB 40 MG PO SCH (09:49)
[2019-05-29] MEDS: PROTONIX TAB 40 MG PO SCH (09:49)
[2019-05-29] MEDS: GLUCOPHAGE PO SCH (09:49)
[2019-05-29] MEDS: COREG TAB 6.25 MG PO SCH (09:49)
[2019-05-29] MEDS: NORVASC TAB 10 MG PO SCH (09:50)
[2019-05-29] MEDS: ASPIRIN EC 81 MG PO SCH (09:50)
[2019-05-29] MEDS: BRILINTA PO SCH (09:50)
[2019-05-29] MEDS: NAMENDA TAB 10 MG PO SCH (09:50)
[2019-05-29] MEDS: MOBIC TAB 15 MG PO SCH (09:50)
[2019-05-29] MEDS: VANCOMYCIN HCL 500 MG, VANCOMYCIN HCL 1 G in D5W 250 ML IV 250 ML IV SCH (10:24)
[2019-05-29] MEDS ORDERED: D5W 250 ML IV 250 ML IV ONE (10:29)
[2019-05-29] MEDS ORDERED: VANCOMYCIN HCL ONE ×2 (10:29)
[2019-05-29] MEDS: PHARMACY COMMENT IV SCH (10:48)
[2019-05-29 11:36] VITALS: BP 184/84
== END 2019-05-29 13:20 | disposition home health service (06) | DRG 603 ==
LOC: ICU 15:59 → ER 15:59 → OBSVTOIN 18:54 → ICU 21:27
PROVIDERS: ADMIT Internal Medicine; ATTEND Internal Medicine
DX: Z98.890 Other specified postprocedural states; I10 Essential (primary) hypertension; B95.61 Methicillin susceptible Staphylococcus aureus infection as the cause of diseases classified elsewhere; L03.116 Cellulitis of left lower limb; K21.9 Gastro-esophageal reflux disease without esophagitis; E78.2 Mixed hyperlipidemia; E11.65 Type 2 diabetes mellitus with hyperglycemia; E11.42 Type 2 diabetes mellitus with diabetic polyneuropathy; I25.10 Atherosclerotic heart disease of native coronary artery without angina pectoris; L02.612 Cutaneous abscess of left foot; M79.672 Pain in left foot; I73.9 Peripheral vascular disease, unspecified; D50.9 Iron deficiency anemia, unspecified
CPT/HCPCS: 36415; 80053; 80202; 81001; 82270; 82550; 82553; 82565; 83605; 83630; 83735; 84484; 85025; 87040; 87045; 87070; 87075; 87077; 87186; 87205; 87324; 87427; 87449; 87493; 87899; 88305; 93005; 96365; 99284; A4222; J3490; J1170; J3370; J3475; J7030; J7040; J7060

== ENCOUNTER 2019-06-26 11:22 | Inpatient (IN) ==
[2019-06-26] MEDS ORDERED: PHARMACY CONSULT - VANCOMYCIN XX SCH (13:27)
[2019-06-26] MEDS ORDERED: BACITRACIN ZINC ONE (14:05)
[2019-06-26] MEDS ORDERED: HYDROGEN PEROXIDE 3% ONE (14:05)
[2019-06-26 14:06] LABS: BASOPHILS # (AUTO) 0.1 X10^3/uL (0.0-0.1); BASOPHILS % (AUTO) 0.4 % (0.2-1.0); HEMATOCRIT 37.1 % (42.0-54.0); HEMOGLOBIN 12.6 g/dL (13.5-18.0); LYMPHOCYTES # (AUTO) 0.7 X10^3/uL (1.3-2.9); LYMPHOCYTES % (AUTO) 3.9 % (21.0-51.0); MEAN CORPUSCULAR HEMOGLOBIN 29.9 pg (27.0-34.0); MEAN CORPUSCULAR HGB CONC 33.9 g/dL (33.0-35.0); MEAN CORPUSCULAR VOLUME 88.3 fL (80.0-100.0); MEAN PLATELET VOLUME 8.5 fL (7.4-11.0); MONOCYTES # (AUTO) 1.8 x10^3/uL (0.3-0.8); MONOCYTES % (AUTO) 9.9 % (0.0-13.0); NEUTROPHILS # (AUTO) 15.6 x10^3/uL (2.2-4.8); NEUTROPHILS % (AUTO) 85.8 % (42.0-75.0); PLATELET COUNT 438 X10^3/uL (150.0-450.0); RED BLOOD COUNT 4.21 X10^6/uL (4.7-6.0); RED CELL DISTRIBUTION WIDTH 13.4 % (11.6-16.5); WHITE BLOOD COUNT 18.2 X10^3/uL (3.6-10.0)
[2019-06-26 14:17] LABS: ALBUMIN 2.5 g/dL (3.4-5.0); CALCIUM 10.6 mg/dL (8.5-10.1); CARBON DIOXIDE 20.9 mmol/L (21-32); COR CA(FOR HYPOALB) 11.8 mg/dL (8.5-10.1); CREATININE 1.48 mg/dL (0.70-1.30); TOTAL PROTEIN 6.6 g/dL (6.4-8.2)
[2019-06-26] MEDS: NS 1000 ML 1,000 ML IV SCH (14:46)
[2019-06-26 14:52] VITALS: BMI 27.2
[2019-06-26] MEDS ORDERED: NS 250 ML IV 250 ML IV ONE (14:55)
[2019-06-26] MEDS: VANCOMYCIN HCL 250 MG, VANCOMYCIN HCL 1 G in D5W 250 ML IV 250 ML IV SCH (15:30)
--- NOTE | 2019-06-26 17:01 | MRI ---
HISTORY: Right foot cellulitis, 4th toe blueStudy: MRI right foot without contrastComparison:None Technique: Multiplanar multisequence MRI of the right foot was obtained utilizing standard departmental protocol without IV contrast.Findings:There is soft tissue edema at the lateral aspect of the forefoot overlying the 5th digit with at least 2 areas of ulceration noted along the lateral and plantar aspect of the foot that extend near but not directly to the cortical bone. Cortex appears intact on T1 images. There is mild marrow edema along the plantar aspect of the distal 5th metatarsal without pathologic fracture. There is periosteal edema of the 5th metatarsal head and proximal 5th phalanx as well as edema within the overlying 5th digit extensor tendon with mild tenosynovitis that is nonspecific. No evidence of tendon rupture. Please note evaluation for abscess is limited due to lack of IV contrast. There is nonspecific soft tissue edema along the plantar and dorsal aspect of the midfoot with trace tenosynovitis of the flexor tendons. A small ankle effusion is present. The ankle mortise demonstrates normal alignment.IMPRESSION:Soft tissue ulceration with surrounding cellulitic changes along the plantar and lateral aspect of the distal 5th digit that extends very near cortical bone but without cortical exposure. There is mild reactive marrow edema as well as periosteal edema that extends into the 5th digit extensor tendon sheath with mild tenosynovitis that is nonspecific. No cortical destruction or pathologic fracture is identified to suggest osteomyelitis. Evaluation for abscess is limited due to lack of IV contrast.Reported By:
[2019-06-26] MEDS: BRILINTA PO SCH (20:29)
[2019-06-26] MEDS: COREG TAB 6.25 MG PO SCH (20:29)
[2019-06-26] MEDS: LIPITOR TAB 40 MG PO SCH (20:29)
[2019-06-26] MEDS: ARICEPT TAB 5 MG PO SCH (20:29)
[2019-06-26] MEDS: NAMENDA TAB 10 MG PO SCH (20:30)
[2019-06-26] MEDS: APRESOLINE TAB 25 MG PO SCH (21:03)
[2019-06-26] MEDS: ZOSYN VIAL 3.375 GRAMS 3.375 G in NS 100 ML IV + SPIKE MINIBAG* 100 ML IV SCH (21:03)
[2019-06-27] MEDS: NS 1000 ML 1,000 ML IV SCH ×2 (02:28→15:35)
[2019-06-27] MEDS: ZOSYN VIAL 3.375 GRAMS 3.375 G in NS 100 ML IV + SPIKE MINIBAG* 100 ML IV SCH ×5 (05:22→21:15)
[2019-06-27] MEDS: APRESOLINE TAB 25 MG PO SCH ×4 (05:25→21:17)
[2019-06-27 05:28] LABS: BASOPHILS # (AUTO) 0.1 X10^3/uL (0.0-0.1); BASOPHILS % (AUTO) 0.3 % (0.2-1.0); HEMATOCRIT 34.2 % (42.0-54.0); HEMOGLOBIN 11.6 g/dL (13.5-18.0); LYMPHOCYTES # (AUTO) 0.7 X10^3/uL (1.3-2.9); LYMPHOCYTES % (AUTO) 4.7 % (21.0-51.0); MEAN CORPUSCULAR HEMOGLOBIN 29.8 pg (27.0-34.0); MEAN CORPUSCULAR HGB CONC 33.9 g/dL (33.0-35.0); MEAN CORPUSCULAR VOLUME 88.2 fL (80.0-100.0); MEAN PLATELET VOLUME 8.3 fL (7.4-11.0); MONOCYTES # (AUTO) 1.6 x10^3/uL (0.3-0.8); NEUTROPHILS # (AUTO) 12.4 x10^3/uL (2.2-4.8); PLATELET COUNT 384 X10^3/uL (150.0-450.0); RED BLOOD COUNT 3.88 X10^6/uL (4.7-6.0); RED CELL DISTRIBUTION WIDTH 13.5 % (11.6-16.5); WHITE BLOOD COUNT 14.7 X10^3/uL (3.6-10.0)
[2019-06-27 05:36] LABS: LACTIC ACID 1.5 mmol/L (0.4-2.0)
[2019-06-27 05:42] LABS: ALBUMIN 2.1 g/dL (3.4-5.0); CALCIUM 9.6 mg/dL (8.5-10.1); CARBON DIOXIDE 20.9 mmol/L (21-32); COR CA(FOR HYPOALB) 11.1 mg/dL (8.5-10.1); CREATININE 1.43 mg/dL (0.70-1.30); MAGNESIUM 1.6 mg/dL (1.7-2.9); TOTAL PROTEIN 5.7 g/dL (6.4-8.2)
[2019-06-27] MEDS ORDERED: POTASSIUM CHLORIDE LIQ 20 MEQ UDC PO PRN (05:57)
[2019-06-27] MEDS ORDERED: POTASSIUM CHL 40 MEQ/NS 0.45% 500 ML IV PRN (05:57)
[2019-06-27] MEDS ORDERED: POTASSIUM CHL 60 MEQ/NS 0.45% 500 ML IV PRN (05:57)
[2019-06-27] MEDS ORDERED: K-RIDER 10 MEQ/NS 100 ML 10 MEQ/100 ML BAG IV PRN (05:57)
[2019-06-27] MEDS ORDERED: MICRO K EXTEN CAP 10 MEQ PO PRN (05:57)
[2019-06-27] MEDS ORDERED: K-DUR TAB 20 MEQ PO ONE (06:23)
[2019-06-27] MEDS ORDERED: MAGNESIUM SULFATE 1 GRAM/100 mL PREMIX 1 G/100 ML BAG IV ONE (06:23)
[2019-06-27] MEDS: K-DUR TAB 20 MEQ PO PRN (06:34)
[2019-06-27] MEDS: MAGNESIUM SULFATE 1 GRAM/100 mL PREMIX 1 GM/100 ML BAG IV PRN ×2 (06:35→08:11)
[2019-06-27] MEDS ORDERED: GLUCOPHAGE ONE ×2 (08:04→17:05)
[2019-06-27] MEDS: NORVASC TAB 10 MG PO SCH (08:12)
[2019-06-27] MEDS: PROTONIX INJ 40 MG VIAL IVP SCH (08:12)
[2019-06-27] MEDS: BENICAR TAB 40 MG PO SCH (08:12)
[2019-06-27] MEDS: ASPIRIN EC 81 MG PO SCH (08:12)
[2019-06-27] MEDS: MOBIC TAB 15 MG PO SCH (08:12)
[2019-06-27] MEDS: NAMENDA TAB 10 MG PO SCH ×2 (08:13→21:16)
[2019-06-27] MEDS: GLUCOPHAGE PO SCH ×2 (08:13→17:08)
[2019-06-27] MEDS: BRILINTA PO SCH ×2 (08:13→21:16)
[2019-06-27] MEDS: COREG TAB 6.25 MG PO SCH ×2 (08:13→21:16)
[2019-06-27] MEDS: VANCOMYCIN HCL 250 MG, VANCOMYCIN HCL 1 G in D5W 250 ML IV 250 ML IV SCH (09:00)
[2019-06-27] MEDS: GENTAMICIN TOPICAL CRM TOP SCH (10:30)
--- NOTE | 2019-06-27 13:07 | PCM.PROG ---
Progress Note Progress Note for Day of Date of Exam: 06/27/19 Subjective Subjective: Patient seen at bedside, doing ok. He is admitted for b/l foot ulcers, right foot cellulitis. Patient reports redness is about the same, wound continues to drain. He states this started about a month ago when he had a callous and now it has progressed. MRI done yesterday did not show osteomy elitis. He is currently on Vancomycin and Zosyn. Past Medical Family Social History Past Med/Fam/Surg Hx: No changes since H&P Allergies: Allergies prednisone Allergy (Verified 05/21/19 10:19) Review of Systems ROS: No change since H&P Vital Signs and I&O's Vital Signs: Temperature 98.7 F Pulse Rate [Right Brachial] 69 Respiratory Rate 18 Blood Pressure [Right Arm] 113/58 Blood Pressure [Left Arm] 174/83 Blood Pressure 184/84 O2 Sat by Pulse Oximetry 97 Intake and Output: Intake & Output 06/24/19 06/25/19 06/26/19 06/27/19 23:59 23:59 23:59 23:59 Intake Total 760 / 760 1130 / 1130 Output Total 0 / 0 Balance 760 / 760 1130 / 1130 Physical Exam Oriented: Normal Eyes: Normal Respiratory: Normal Cardiovascular: Normal Auscultation: Bowel Sounds: Normal Palpation: Normal Tenderness: Normal Skin: Other (right foot 5th digit, wound with purulent drainage, ulcer at the plantar surface, left foot with wounds. ) Musculoskeletal: Right and Foot Psychiatric: Normal Mood Description: Calm Affect: Normal Speech Pattern: Clear and Appropriate Laboratory and Diagnostics Result Diagrams: 06/27/19 04:09 06/27/19 08:56 Labs: Laboratory WBC 14.7 X10^3/uL (3.6-10.0) H 06/27/19 04:09 RBC 3.88 X10^6/uL (4.7-6.0) L 06/27/19 04:09 Hgb 11.6 g/dL (13.5-18.0) L 06/27/19 04:09 Hct 34.2 % (42.0-54.0) L 06/27/19 04:09 MCV 88.2 fL (80.0-100.0) 06/27/19 04:09 MCH 29.8 pg (27.0-34.0) 06/27/19 04:09 MCHC 33.9 g/dL (33.0-35.0) 06/27/19 04:09 RDW 13.5 % (11.6-16.5) 06/27/19 04:09 Plt Count 384 X10^3/uL (150.0-450.0) 06/27/19 04:09 MPV 8.3 fL (7.4-11.0) 06/27/19 04:09 Neut % (Auto) 84.0 % (42.0-75.0) H 06/27/19 04:09 Lymph % (Auto) 4.7 % (21.0-51.0) L 06/27/19 04:09 [place] % (Auto) 11.0 % (0.0-13.0) 06/27/19 04:09 Eos % (Auto) 0.0 % (0.9-2.9) L 06/27/19 04:09 Baso % (Auto) 0.3 % (0.2-1.0) 06/27/19 04:09 Neut # (Auto) 12.4 x10^3/uL (2.2-4.8) H 06/27/19 04:09 Lymph # (Auto) 0.7 X10^3/uL (1.3-2.9) L 06/27/19 04:09 [place] # (Auto) 1.6 x10^3/uL (0.3-0.8) H 06/27/19 04:09 Eos # (Auto) 0.0 x10^3/uL (0.0-0.2) 06/27/19 04:09 Baso # (Auto) 0.1 X10^3/uL (0.0-0.1) 06/27/19 04:09 Absolute Nucleated RBC 0.0 /100WBC 06/27/19 04:09 Sodium 137 mmol/L (136-145) 06/27/19 04:09 Corrected Sodium 137 mmol/L (136-145) 06/27/19 04:09 Potassium 3.9 mmol/L (3.5-5.1) 06/27/19 08:56 Chloride 105 mmol/L (98-107) 06/27/19 04:09 Carbon Dioxide 20.9 mmol/L (21-32) L 06/27/19 04:09 BUN 40 mg/dL (7-18) H 06/27/19 04:09 Creatinine 1.43 mg/dL (0.70-1.30) H 06/27/19 04:09 Est GFR (MDRD) Af Amer 60 (>60) 06/27/19 04:09 Est GFR (MDRD) Non-Af 50 (>60) L 06/27/19 04:09 Glucose 117 mg/dL (65-99) H 06/27/19 04:09 POC Glucose (mg/dL) 132 mg/dL (65-99) H 06/27/19 11:58 Lactic Acid 1.5 mmol/L (0.4-2.0) 06/27/19 04:09 Calcium 9.6 mg/dL (8.5-10.1) 06/27/19 04:09 Corrected Calcium 11.1 mg/dL (8.5-10.1) H 06/27/19 04:09 Magnesium 1.6 mg/dL (1.7-2.9) L 06/27/19 04:09 Magnesium 1.6 mg/dL (1.7-2.9) L 06/27/19 04:09 Total Bilirubin 0.30 mg/dL (0.2-1.0) 06/27/19 04:09 AST 42 Units/L (15-37) H 06/27/19 04:09 ALT 38 Units/L (12-78) 06/27/19 04:09 Alkaline Phosphatase 117 Units/L (46-116) H 06/27/19 04:09 Total Protein 5.7 g/dL (6.4-8.2) L 06/27/19 04:09 Albumin 2.1 g/dL (3.4-5.0) L 06/27/19 04:09 Globulin 3.6 g/dL (2.5-4.5) 06/27/19 04:09 Albumin/Globulin Ratio 0.6 Ratio (1.1-2.1) L 06/27/19 04:09 Plan (1) Cellulitis of right foot: Status: Acute Narrative Support Text: MRI: soft tissue ulceration, cellulitic changes, periosteal edema with mild periosteal edema, no osteomyelitis. 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
[2019-06-27] MEDS: ARICEPT TAB 5 MG PO SCH (21:15)
[2019-06-27] MEDS: LIPITOR TAB 40 MG PO SCH (21:16)
[2019-06-28] MEDS: NS 1000 ML 1,000 ML IV SCH ×2 (04:26→18:08)
[2019-06-28] MEDS ORDERED: GLUCOPHAGE ONE ×2 (05:13→17:03)
[2019-06-28] MEDS: APRESOLINE TAB 25 MG PO SCH ×3 (05:30→21:18)
[2019-06-28] MEDS: ZOSYN VIAL 3.375 GRAMS 3.375 G in NS 100 ML IV + SPIKE MINIBAG* 100 ML IV SCH ×4 (05:30→21:18)
[2019-06-28] MEDS ORDERED: NS 100 ML IV 100 ML IV ONE (05:33)
[2019-06-28] MEDS ORDERED: NS 250 ML IV 250 ML IV ONE ×2 (05:33→07:57)
[2019-06-28 06:06] LABS: BASOPHILS % (AUTO) 0.3 % (0.2-1.0); HEMATOCRIT 33.3 % (42.0-54.0); HEMOGLOBIN 11.2 g/dL (13.5-18.0); LYMPHOCYTES # (AUTO) 0.9 X10^3/uL (1.3-2.9); LYMPHOCYTES % (AUTO) 8.4 % (21.0-51.0); MEAN CORPUSCULAR HEMOGLOBIN 29.7 pg (27.0-34.0); MEAN CORPUSCULAR HGB CONC 33.6 g/dL (33.0-35.0); MEAN CORPUSCULAR VOLUME 88.5 fL (80.0-100.0); MEAN PLATELET VOLUME 8.4 fL (7.4-11.0); MONOCYTES # (AUTO) 1.2 x10^3/uL (0.3-0.8); MONOCYTES % (AUTO) 11.4 % (0.0-13.0); NEUTROPHILS # (AUTO) 8.5 x10^3/uL (2.2-4.8); NEUTROPHILS % (AUTO) 79.9 % (42.0-75.0); PLATELET COUNT 356 X10^3/uL (150.0-450.0); RED BLOOD COUNT 3.76 X10^6/uL (4.7-6.0); RED CELL DISTRIBUTION WIDTH 13.2 % (11.6-16.5); WHITE BLOOD COUNT 10.7 X10^3/uL (3.6-10.0)
[2019-06-28] MEDS: GLUCOPHAGE PO SCH ×2 (06:09→17:13)
[2019-06-28 06:25] LABS: ALANINE AMINOTRANSFERASE 79 Units/L (12-78); ALKALINE PHOSPHATASE 146 Units/L (46-116); ASPARTATE AMINO TRANSFERASE 82 Units/L (15-37); BLOOD UREA NITROGEN 27 mg/dL (7-18); CALCIUM 9.2 mg/dL (8.5-10.1); CARBON DIOXIDE 20.7 mmol/L (21-32); CHLORIDE 109 mmol/L (98-107); COR CA(FOR HYPOALB) 10.8 mg/dL (8.5-10.1); COR NA(FOR HYPERGLY) 140 mmol/L (136-145); CREATININE 1.11 mg/dL (0.70-1.30); MAGNESIUM 1.8 mg/dL (1.7-2.9); SODIUM 139 mmol/L (136-145); TOTAL PROTEIN 5.4 g/dL (6.4-8.2); eGFR NON BLACK RACES > 60 (>60)
[2019-06-28] MEDS ORDERED: VANCOMYCIN HCL ONE (07:57)
[2019-06-28] MEDS: NORVASC TAB 10 MG PO SCH (08:39)
[2019-06-28] MEDS: NAMENDA TAB 10 MG PO SCH ×2 (08:39→20:37)
[2019-06-28] MEDS: ASPIRIN EC 81 MG PO SCH (08:39)
[2019-06-28] MEDS: PROTONIX INJ 40 MG VIAL IVP SCH (08:40)
[2019-06-28] MEDS: BRILINTA PO SCH ×2 (08:40→20:37)
[2019-06-28] MEDS: COREG TAB 6.25 MG PO SCH ×2 (08:40→20:37)
[2019-06-28] MEDS: BENICAR TAB 40 MG PO SCH (08:40)
[2019-06-28] MEDS: MOBIC TAB 15 MG PO SCH (08:42)
[2019-06-28] MEDS: VANCOMYCIN HCL 250 MG, VANCOMYCIN HCL 1 G in D5W 250 ML IV 250 ML IV SCH (08:42)
--- NOTE | 2019-06-28 13:23 | PCM.PROG ---
Progress Note Progress Note for Day of Date of Exam: 06/28/19 Subjective Subjective: Patient seen at bedside, no overnight events. He reports some diarrhea this AM, 2 episodes. Denies N/V or abdominal pain, eating well. He is admitted for b/l foot ulcers, right foot cellulitis. He is currently on Vancomycin and Zosyn. Past Medical Family Social History Past Med/Fam/Surg Hx: No changes since H&P Allergies: Allergies prednisone Allergy (Verified 05/21/19 10:19) Review of Systems ROS: No change since H&P Vital Signs and I&O's Vital Signs: Temperature 97.7 F Pulse Rate [Right Brachial] 72 Respiratory Rate 18 Blood Pressure [Right Arm] 126/64 Blood Pressure [Left Arm] 108/56 Blood Pressure 184/84 O2 Sat by Pulse Oximetry 96 Intake and Output: Intake & Output 06/25/19 06/26/19 06/27/19 06/28/19 23:59 23:59 23:59 23:59 Intake Total 760 / 760 3930 / 3930 640 / 640 Output Total 0 / 0 Balance 760 / 760 3930 / 3930 640 / 640 Physical Exam Oriented: Normal Eyes: Normal Respiratory: Normal Cardiovascular: Normal Auscultation: Bowel Sounds: Normal Tenderness: Normal Skin: Other (right foot 5th digit, wound with purulent drainage, ulcer at the plantar surface, left foot with wounds. ) Musculoskeletal: Right and Foot Psychiatric: Normal Mood Description: Calm Affect: Normal Speech Pattern: Clear and Appropriate Laboratory and Diagnostics Result Diagrams: 06/28/19 04:45 06/28/19 04:45 Labs: 06/27/19 11:45 Foot - Right Gram Stain - Final 06/27/19 11:45 Foot - Right Wound Culture - Preliminary 06/26/19 13:52 Blood Blood Culture - Preliminary 06/26/19 13:45 Blood Blood Culture - Preliminary Laboratory WBC 10.7 X10^3/uL (3.6-10.0) H 06/28/19 04:45 RBC 3.76 X10^6/uL (4.7-6.0) L 06/28/19 04:45 Hgb 11.2 g/dL (13.5-18.0) L 06/28/19 04:45 Hct 33.3 % (42.0-54.0) L 06/28/19 04:45 MCV 88.5 fL (80.0-100.0) 06/28/19 04:45 MCH 29.7 pg (27.0-34.0) 06/28/19 04:45 MCHC 33.6 g/dL (33.0-35.0) 06/28/19 04:45 RDW 13.2 % (11.6-16.5) 06/28/19 04:45 Plt Count 356 X10^3/uL (150.0-450.0) 06/28/19 04:45 MPV 8.4 fL (7.4-11.0) 06/28/19 04:45 Neut % (Auto) 79.9 % (42.0-75.0) H 06/28/19 04:45 Lymph % (Auto) 8.4 % (21.0-51.0) L 06/28/19 04:45 [place] % (Auto) 11.4 % (0.0-13.0) 06/28/19 04:45 Eos % (Auto) 0.0 % (0.9-2.9) L 06/28/19 04:45 Baso % (Auto) 0.3 % (0.2-1.0) 06/28/19 04:45 Neut # (Auto) 8.5 x10^3/uL (2.2-4.8) H 06/28/19 04:45 Lymph # (Auto) 0.9 X10^3/uL (1.3-2.9) L 06/28/19 04:45 [place] # (Auto) 1.2 x10^3/uL (0.3-0.8) H 06/28/19 04:45 Eos # (Auto) 0.0 x10^3/uL (0.0-0.2) 06/28/19 04:45 Baso # (Auto) 0.0 X10^3/uL (0.0-0.1) 06/28/19 04:45 Absolute Nucleated RBC 0.0 /100WBC 06/28/19 04:45 Sodium 139 mmol/L (136-145) 06/28/19 04:45 Corrected Sodium 140 mmol/L (136-145) 06/28/19 04:45 Potassium 3.7 mmol/L (3.5-5.1) 06/28/19 04:45 Chloride 109 mmol/L (98-107) H 06/28/19 04:45 Carbon Dioxide 20.7 mmol/L (21-32) L 06/28/19 04:45 BUN 27 mg/dL (7-18) H 06/28/19 04:45 Creatinine 1.11 mg/dL (0.70-1.30) 06/28/19 04:45 Est GFR (MDRD) Af Amer > 60 (>60) 06/28/19 04:45 Est GFR (MDRD) Non-Af > 60 (>60) 06/28/19 04:45 Glucose 122 mg/dL (65-99) H 06/28/19 04:45 POC Glucose (mg/dL) 167 mg/dL (65-99) H 06/28/19 11:16 Lactic Acid 1.5 mmol/L (0.4-2.0) 06/27/19 04:09 Calcium 9.2 mg/dL (8.5-10.1) 06/28/19 04:45 Corrected Calcium 10.8 mg/dL (8.5-10.1) H 06/28/19 04:45 Magnesium 1.8 mg/dL (1.7-2.9) 06/28/19 04:45 Total Bilirubin 0.30 mg/dL (0.2-1.0) 06/28/19 04:45 AST 82 Units/L (15-37) H 06/28/19 04:45 ALT 79 Units/L (12-78) H 06/28/19 04:45 Alkaline Phosphatase 146 Units/L (46-116) H 06/28/19 04:45 Total Protein 5.4 g/dL (6.4-8.2) L 06/28/19 04:45 Albumin 2.0 g/dL (3.4-5.0) L 06/28/19 04:45 Globulin 3.4 g/dL (2.5-4.5) 06/28/19 04:45 Albumin/Globulin Ratio 0.6 Ratio (1.1-2.1) L 06/28/19 04:45 Plan (1) Cellulitis of right foot: Status: Acute Plan: Continue wound care with daily dressing change, IV antibiotics: Vanc and Zosyn Follow cultures MRI negative for osteomyelitis. 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
[2019-06-28] MEDS: GENTAMICIN TOPICAL CRM TOP SCH (14:31)
[2019-06-28] MEDS: ARICEPT TAB 5 MG PO SCH (20:37)
[2019-06-28] MEDS: LIPITOR TAB 40 MG PO SCH (20:37)
[2019-06-29] MEDS ORDERED: GLUCOPHAGE ONE ×2 (05:14→17:14)
[2019-06-29 05:30] LABS: BASOPHILS % (AUTO) 0.5 % (0.2-1.0); HEMATOCRIT 32.8 % (42.0-54.0); HEMOGLOBIN 10.9 g/dL (13.5-18.0); LYMPHOCYTES # (AUTO) 1.3 X10^3/uL (1.3-2.9); LYMPHOCYTES % (AUTO) 13.8 % (21.0-51.0); MEAN CORPUSCULAR HEMOGLOBIN 29.9 pg (27.0-34.0); MEAN CORPUSCULAR HGB CONC 33.4 g/dL (33.0-35.0); MEAN CORPUSCULAR VOLUME 89.4 fL (80.0-100.0); MEAN PLATELET VOLUME 8.4 fL (7.4-11.0); MONOCYTES # (AUTO) 1.1 x10^3/uL (0.3-0.8); MONOCYTES % (AUTO) 12.4 % (0.0-13.0); NEUTROPHILS # (AUTO) 6.8 x10^3/uL (2.2-4.8); NEUTROPHILS % (AUTO) 73.3 % (42.0-75.0); PLATELET COUNT 347 X10^3/uL (150.0-450.0); RED BLOOD COUNT 3.66 X10^6/uL (4.7-6.0); RED CELL DISTRIBUTION WIDTH 13.3 % (11.6-16.5); WHITE BLOOD COUNT 9.2 X10^3/uL (3.6-10.0)
[2019-06-29 05:37] LABS: ALANINE AMINOTRANSFERASE 109 Units/L (12-78); ALKALINE PHOSPHATASE 197 Units/L (46-116); ASPARTATE AMINO TRANSFERASE 90 Units/L (15-37); BLOOD UREA NITROGEN 17 mg/dL (7-18); CALCIUM 9.1 mg/dL (8.5-10.1); CARBON DIOXIDE 22.2 mmol/L (21-32); CHLORIDE 109 mmol/L (98-107); COR CA(FOR HYPOALB) 10.7 mg/dL (8.5-10.1); CREATININE 0.87 mg/dL (0.70-1.30); SODIUM 140 mmol/L (136-145); TOTAL PROTEIN 5.3 g/dL (6.4-8.2); eGFR NON BLACK RACES > 60 (>60)
[2019-06-29] MEDS: APRESOLINE TAB 25 MG PO SCH ×3 (06:17→22:21)
[2019-06-29] MEDS: NS 1000 ML 1,000 ML IV SCH ×3 (06:18→19:50)
[2019-06-29] MEDS: GLUCOPHAGE PO SCH ×2 (06:18→17:18)
[2019-06-29] MEDS: ZOSYN VIAL 3.375 GRAMS 3.375 G in NS 100 ML IV + SPIKE MINIBAG* 100 ML IV SCH ×3 (06:18→22:22)
[2019-06-29] MEDS: K-DUR TAB 20 MEQ PO PRN (06:50)
[2019-06-29] MEDS ORDERED: PHARMACY COMMENT IV NR (08:30)
[2019-06-29] MEDS: BENICAR TAB 40 MG PO SCH (08:46)
[2019-06-29] MEDS: NAMENDA TAB 10 MG PO SCH ×2 (08:46→20:38)
[2019-06-29] MEDS: PROTONIX INJ 40 MG VIAL IVP SCH (08:46)
[2019-06-29] MEDS: NORVASC TAB 10 MG PO SCH (08:46)
[2019-06-29] MEDS: COREG TAB 6.25 MG PO SCH ×2 (08:46→20:38)
[2019-06-29] MEDS: MOBIC TAB 15 MG PO SCH (08:46)
[2019-06-29] MEDS: ASPIRIN EC 81 MG PO SCH (08:46)
--- NOTE | 2019-06-29 09:07 | DR.UPDATE ---
H&P Update History and Physical Update: History and Physical reviewed and patient examined. Changes noted: Yes with the following: WAS SEEN IN THE OFFICE DUE TO A RIGHT FOOT DIABETIC ULCER THAT HAS BEEN PRESENT FOR ONE MONTH. VISITING NURSES HAVE BEEN MANAGING WOUND AT HOME. PATIENT REPORTS REDNESS TO THE RIGHT F OOT AND THAT HE IS UNABLE TO BEAR WEIGHT ON THAT FOOT. THE 4TH TOE ON THE RIGHT FOOT IS NOTED TO BE PURPLE. THERE IS A WOUND THAT IS APPROXIMATELY 3CM WITH NECROSIS AND SLOUGHING OF THE SKIN. THERE IS A HEALING ULCER TO THE LEFT FOOT. HE WAS ADMITTED FOR FURTHER EVALUATION AND TREATMENT. ON ADMISSION, WE WILL CONSULT WITH , GENERAL SURGEON. WE WILL OBTAIN A LOWER EXTREMITY MRI. WE WILL START IV VANCOMYCIN AND IV ZOSYN. OTHERWISE, WE WILL FOLLOW UP WITH AM LABS AND CONTINUE TO MONITOR. Prescription drug monitoring program results: PDMP was not reviewed H&P Reviewed: Yes Patient was examined?: Yes
[2019-06-29 09:20] LABS: CREATININE 1.03 mg/dL (0.70-1.30); VANCOMYCIN,TROUGH 4.9 ug/mL (15-20)
[2019-06-29] MEDS: BRILINTA PO SCH ×2 (09:30→20:38)
[2019-06-29] MEDS ORDERED: NS 250 ML IV 250 ML IV ONE (09:33)
[2019-06-29] MEDS ORDERED: VANCOMYCIN HCL ONE ×2 (09:33)
[2019-06-29] MEDS: VANCOMYCIN HCL 250 MG, VANCOMYCIN HCL 1 G in D5W 250 ML IV 250 ML IV SCH ×2 (09:34→09:37)
[2019-06-29] MEDS: GENTAMICIN TOPICAL CRM TOP SCH (14:45)
[2019-06-29] MEDS: LIPITOR TAB 40 MG PO SCH (20:38)
[2019-06-29] MEDS: ARICEPT TAB 5 MG PO SCH (20:38)
[2019-06-29] MEDS: VANCOMYCIN HCL 1 G in D5W 250 ML IV 250 ML IV SCH (20:39)
[2019-06-30 05:49] LABS: BASOPHILS # (AUTO) 0.1 X10^3/uL (0.0-0.1); BASOPHILS % (AUTO) 0.6 % (0.2-1.0); HEMOGLOBIN 11.2 g/dL (13.5-18.0); LYMPHOCYTES # (AUTO) 1.2 X10^3/uL (1.3-2.9); LYMPHOCYTES % (AUTO) 12.8 % (21.0-51.0); MEAN CORPUSCULAR HEMOGLOBIN 30.3 pg (27.0-34.0); MEAN CORPUSCULAR HGB CONC 33.9 g/dL (33.0-35.0); MEAN CORPUSCULAR VOLUME 89.4 fL (80.0-100.0); MEAN PLATELET VOLUME 8.7 fL (7.4-11.0); MONOCYTES # (AUTO) 0.9 x10^3/uL (0.3-0.8); MONOCYTES % (AUTO) 10.4 % (0.0-13.0); NEUTROPHILS # (AUTO) 6.9 x10^3/uL (2.2-4.8); NEUTROPHILS % (AUTO) 76.2 % (42.0-75.0); PLATELET COUNT 362 X10^3/uL (150.0-450.0); RED BLOOD COUNT 3.69 X10^6/uL (4.7-6.0); RED CELL DISTRIBUTION WIDTH 13.5 % (11.6-16.5)
[2019-06-30] MEDS: ZOSYN VIAL 3.375 GRAMS 3.375 G in NS 100 ML IV + SPIKE MINIBAG* 100 ML IV SCH ×3 (05:50→22:45)
[2019-06-30] MEDS: APRESOLINE TAB 25 MG PO SCH ×3 (05:50→22:45)
[2019-06-30 06:06] LABS: ALANINE AMINOTRANSFERASE 90 Units/L (12-78); ALKALINE PHOSPHATASE 202 Units/L (46-116); ASPARTATE AMINO TRANSFERASE 61 Units/L (15-37); BLOOD UREA NITROGEN 15 mg/dL (7-18); CARBON DIOXIDE 21.9 mmol/L (21-32); CHLORIDE 109 mmol/L (98-107); COR CA(FOR HYPOALB) 10.6 mg/dL (8.5-10.1); CREATININE 0.89 mg/dL (0.70-1.30); SODIUM 140 mmol/L (136-145); TOTAL PROTEIN 5.3 g/dL (6.4-8.2); eGFR NON BLACK RACES > 60 (>60)
[2019-06-30] MEDS ORDERED: GLUCOPHAGE ONE ×2 (08:11→16:13)
[2019-06-30] MEDS: ASPIRIN EC 81 MG PO SCH (08:43)
[2019-06-30] MEDS: COREG TAB 6.25 MG PO SCH ×2 (08:43→21:15)
[2019-06-30] MEDS: NAMENDA TAB 10 MG PO SCH ×2 (08:43→21:15)
[2019-06-30] MEDS: PROTONIX INJ 40 MG VIAL IVP SCH (08:43)
[2019-06-30] MEDS: MOBIC TAB 15 MG PO SCH (08:43)
[2019-06-30] MEDS: NORVASC TAB 10 MG PO SCH (08:43)
[2019-06-30] MEDS: GLUCOPHAGE PO SCH ×2 (08:44→16:37)
[2019-06-30] MEDS: VANCOMYCIN HCL 1 G in D5W 250 ML IV 250 ML IV SCH ×2 (08:44→21:16)
[2019-06-30] MEDS: BENICAR TAB 40 MG PO SCH (08:44)
[2019-06-30] MEDS: NS 1000 ML 1,000 ML IV SCH ×2 (08:44→22:44)
[2019-06-30] MEDS: BRILINTA PO SCH ×2 (08:44→21:14)
[2019-06-30] MEDS: GENTAMICIN TOPICAL CRM TOP SCH (08:44)
[2019-06-30] MEDS: MAGNESIUM SULFATE 1 GRAM/100 mL PREMIX 1 GM/100 ML BAG IV PRN ×4 (14:45→18:50)
[2019-06-30] MEDS ORDERED: HYDROGEN PEROXIDE 3% ONE (15:30)
[2019-06-30] MEDS ORDERED: PHARMACY COMMENT IV NR (20:30)
[2019-06-30] MEDS: ARICEPT TAB 5 MG PO SCH (21:14)
[2019-06-30] MEDS: LIPITOR TAB 40 MG PO SCH (21:15)
[2019-07-01 05:22] LABS: BASOPHILS % (AUTO) 0.4 % (0.2-1.0); HEMATOCRIT 33.5 % (42.0-54.0); HEMOGLOBIN 11.2 g/dL (13.5-18.0); LYMPHOCYTES % (AUTO) 10.9 % (21.0-51.0); MEAN CORPUSCULAR HEMOGLOBIN 29.9 pg (27.0-34.0); MEAN CORPUSCULAR HGB CONC 33.6 g/dL (33.0-35.0); MEAN PLATELET VOLUME 8.8 fL (7.4-11.0); MONOCYTES # (AUTO) 0.9 x10^3/uL (0.3-0.8); MONOCYTES % (AUTO) 9.8 % (0.0-13.0); NEUTROPHILS # (AUTO) 7.1 x10^3/uL (2.2-4.8); NEUTROPHILS % (AUTO) 78.9 % (42.0-75.0); PLATELET COUNT 368 X10^3/uL (150.0-450.0); RED BLOOD COUNT 3.76 X10^6/uL (4.7-6.0); RED CELL DISTRIBUTION WIDTH 13.4 % (11.6-16.5)
[2019-07-01 05:37] LABS: ALANINE AMINOTRANSFERASE 81 Units/L (12-78); ALBUMIN 2.1 g/dL (3.4-5.0); ALKALINE PHOSPHATASE 210 Units/L (46-116); ASPARTATE AMINO TRANSFERASE 51 Units/L (15-37); BLOOD UREA NITROGEN 10 mg/dL (7-18); CALCIUM 8.7 mg/dL (8.5-10.1); CARBON DIOXIDE 22.5 mmol/L (21-32); CHLORIDE 107 mmol/L (98-107); COR CA(FOR HYPOALB) 10.2 mg/dL (8.5-10.1); COR NA(FOR HYPERGLY) 138 mmol/L (136-145); CREATININE 0.76 mg/dL (0.70-1.30); MAGNESIUM 1.9 mg/dL (1.7-2.9); SODIUM 137 mmol/L (136-145); TOTAL PROTEIN 5.3 g/dL (6.4-8.2); eGFR NON BLACK RACES > 60 (>60)
[2019-07-01] MEDS: APRESOLINE TAB 25 MG PO SCH ×3 (05:57→21:49)
[2019-07-01] MEDS: ZOSYN VIAL 3.375 GRAMS 3.375 G in NS 100 ML IV + SPIKE MINIBAG* 100 ML IV SCH ×3 (05:58→21:49)
[2019-07-01] MEDS ORDERED: GLUCOPHAGE ONE ×2 (08:20→16:13)
[2019-07-01] MEDS: VANCOMYCIN HCL 1 G in D5W 250 ML IV 250 ML IV SCH ×3 (08:37→22:11)
[2019-07-01] MEDS: ASPIRIN EC 81 MG PO SCH (08:38)
[2019-07-01] MEDS: NORVASC TAB 10 MG PO SCH (08:38)
[2019-07-01] MEDS: PROTONIX INJ 40 MG VIAL IVP SCH (08:38)
[2019-07-01] MEDS: BRILINTA PO SCH ×2 (08:38→21:47)
[2019-07-01] MEDS: BENICAR TAB 40 MG PO SCH (08:38)
[2019-07-01] MEDS: NAMENDA TAB 10 MG PO SCH ×2 (08:38→21:48)
[2019-07-01] MEDS: GENTAMICIN TOPICAL CRM TOP SCH (08:39)
[2019-07-01] MEDS: GLUCOPHAGE PO SCH ×2 (08:39→16:18)
[2019-07-01] MEDS: MOBIC TAB 15 MG PO SCH (08:39)
[2019-07-01] MEDS: COREG TAB 6.25 MG PO SCH ×2 (08:40→21:48)
--- NOTE | 2019-07-01 11:44 | PCM.PROG ---
Progress Note - Progress Note for Day of Date of Exam: 06/29/19 - Subjective Subjective: WAS ADMITTED FOR RIGHT FOOT CELLULITIS. TODAY, HE IS ALERT AND ORIENTED, LYING IN BED ON MORNING ROUNDS. HE CONTINUES WITH PAIN, ERYTHEM, EDEMA, AND REDNESS TO THE RIGHT FOOT. FORTH TOE ON THE RIGHT FOOT IS NECROTIC. HIS VITALS THIS MORNING ARE 98.8-68-20-97%-131/67. LABS WERE OBTAINED. ABNORMAL LAB VALUES INCLUDE THE FOLLOWING: RBC 3.66, HGB 10.9, HCT 32.8, CHLORIDE 109, GLUCOSE 109, AST 90, ALT 109, ALK PHOS 197, TOTAL PROTEIN 5.3, ALBUMIN 2.0. RIGHT FOOT WOUND CULTURE IS PENDING. BLOOD CULTURES ARE ALSO PENDING. HE IS CURRENTLY RECEIVING IV VANCOMYCIN, ZOSYN, GENTAMICIN CREAM, AND HOME MEDICATIONS WERE RESUMED. WE WILL CONTINUE WITH CURRENT PLAN OF CARE TODAY. OTHERWISE, WE WILL FOLLOW UP WITH AM LABS AND CONTINUE TO MONITOR. - Past Medical Family Social History Past Med/Fam/Surg Hx: No changes since H&P Allergies: Allergies prednisone Allergy (Verified 05/21/19 10:19) - Review of Systems ROS: No change since H&P - Vital Signs and I&O's Vital Signs: Temperature 98.9 F Pulse Rate [Right Brachial] 52 Respiratory Rate 20 Blood Pressure [Right Arm] 164/72 Blood Pressure [Left Arm] 108/56 Blood Pressure 184/84 O2 Sat by Pulse Oximetry 94 Intake and Output: Intake & Output 06/28/19 06/29/19 06/30/19 07/01/19 11:59 11:59 11:59 11:59 Intake Total 3440 / 3440 2390 / 2390 2735 / 2735 2089 Balance 3440 / 3440 2390 / 2390 2735 / 2735 2089 - Physical Exam Oriented: Normal Eyes: Normal Ear: Normal Nose: Normal Throat: Normal Respiratory: Normal Cardiovascular: Normal : Normal Auscultation: Bowel Sounds: Normal Palpation: Normal Tenderness: Normal Skin: Red, Tender, Hot, Other (right foot 5th digit, wound with purulent drainage, ulcer at the plantar surface, left foot with wounds.) Musculoskeletal: Right, Foot, Swelling, Tender Psychiatric: Normal Mood Description: Calm Affect: Normal Speech Pattern: Clear, Appropriate - Laboratory and Diagnostics Result Diagrams: 07/01/19 04:08 07/01/19 04:08 Labs: 06/27/19 11:45 Foot - Right Gram Stain - Final 06/27/19 11:45 Foot - Right Wound Culture - Final Staphylococcus Aureus 06/26/19 13:52 Blood Blood Culture - Preliminary 06/26/19 13:45 Blood Blood Culture - Preliminary Laboratory WBC 9.0 X10^3/uL (3.6-10.0) 07/01/19 04:08 RBC 3.76 X10^6/uL (4.7-6.0) L 07/01/19 04:08 Hgb 11.2 g/dL (13.5-18.0) L 07/01/19 04:08 Hct 33.5 % (42.0-54.0) L 07/01/19 04:08 MCV 89.0 fL (80.0-100.0) 07/01/19 04:08 MCH 29.9 pg (27.0-34.0) 07/01/19 04:08 MCHC 33.6 g/dL (33.0-35.0) 07/01/19 04:08 RDW 13.4 % (11.6-16.5) 07/01/19 04:08 Plt Count 368 X10^3/uL (150.0-450.0) 07/01/19 04:08 MPV 8.8 fL (7.4-11.0) 07/01/19 04:08 Neut % (Auto) 78.9 % (42.0-75.0) H 07/01/19 04:08 Lymph % (Auto) 10.9 % (21.0-51.0) L 07/01/19 04:08 [place] % (Auto) 9.8 % (0.0-13.0) 07/01/19 04:08 Eos % (Auto) 0.0 % (0.9-2.9) L 07/01/19 04:08 Baso % (Auto) 0.4 % (0.2-1.0) 07/01/19 04:08 Neut # (Auto) 7.1 x10^3/uL (2.2-4.8) H 07/01/19 04:08 Lymph # (Auto) 1.0 X10^3/uL (1.3-2.9) L 07/01/19 04:08 [place] # (Auto) 0.9 x10^3/uL (0.3-0.8) H 07/01/19 04:08 Eos # (Auto) 0.0 x10^3/uL (0.0-0.2) 07/01/19 04:08 Baso # (Auto) 0.0 X10^3/uL (0.0-0.1) 07/01/19 04:08 Absolute Nucleated RBC 0.1 /100WBC 07/01/19 04:08 Sodium 137 mmol/L (136-145) 07/01/19 04:08 Corrected Sodium 138 mmol/L (136-145) 07/01/19 04:08 Potassium 3.4 mmol/L (3.5-5.1) L 07/01/19 04:08 Chloride 107 mmol/L (98-107) 07/01/19 04:08 Carbon Dioxide 22.5 mmol/L (21-32) 07/01/19 04:08 BUN 10 mg/dL (7-18) 07/01/19 04:08 Creatinine 0.76 mg/dL (0.70-1.30) 07/01/19 04:08 Est GFR (MDRD) Af Amer > 60 (>60) 07/01/19 04:08 Est GFR (MDRD) Non-Af > 60 (>60) 07/01/19 04:08 Glucose 128 mg/dL (65-99) H 07/01/19 04:08 POC Glucose (mg/dL) 124 mg/dL (65-99) H 07/01/19 05:47 Lactic Acid 1.5 mmol/L (0.4-2.0) 06/27/19 04:09 Calcium 8.7 mg/dL (8.5-10.1) 07/01/19 04:08 Corrected Calcium 10.2 mg/dL (8.5-10.1) H 07/01/19 04:08 Magnesium 1.9 mg/dL (1.7-2.9) 07/01/19 04:08 Total Bilirubin 0.40 mg/dL (0.2-1.0) 07/01/19 04:08 AST 51 Units/L (15-37) H 07/01/19 04:08 ALT 81 Units/L (12-78) H 07/01/19 04:08 Alkaline Phosphatase 210 Units/L (46-116) H 07/01/19 04:08 Total Protein 5.3 g/dL (6.4-8.2) L 07/01/19 04:08 Albumin 2.1 g/dL (3.4-5.0) L 07/01/19 04:08 Globulin 3.2 g/dL (2.5-4.5) 07/01/19 04:08 Albumin/Globulin Ratio 0.7 Ratio (1.1-2.1) L 07/01/19 04:08 Vancomycin Trough 4.9 ug/mL (15-20) L 06/29/19 08:57 - Plan (1) Cellulitis of right foot Status: Acute Plan: Continue wound care with daily dressing change, IV antibiotics: Vanc and Zosyn. Follow cultures. MRI negative for osteomyelitis.
--- NOTE | 2019-07-01 11:49 | PCM.PROG ---
Progress Note - Progress Note for Day of Date of Exam: 06/30/19 - Subjective Subjective: WAS ADMITTED FOR RIGHT FOOT CELLULITIS. TODAY, HE IS ALERT AND ORIENTED, LYING IN BED ON MORNING ROUNDS. HE CONTINUES WITH PAIN, ERYTHEM, EDEMA, AND REDNESS TO THE RIGHT FOOT. FORTH TOE ON THE RIGHT FOOT IS NECROTIC. HIS VITALS THIS MORNING ARE 98.9-62-20-96%-131/64. LABS WERE OBTAINED. ABNORMAL LAB VALUES INCLUDE THE FOLLOWING: RBC 3.69, HGB 11.2, HCT 33.0, GLUCOSE 103, MAGNESIUM 1.4, AST 61, ALT 90, ALK PHOS 202, TOTAL PROTEIN 5.3, ALBUMIN 2.0. RIGHT FOOT WOUND CULTURE REPORTS GROWTH OF STAPHYLOCOCCUS AUREUS. BLOOD CULTURES ARE PENDING. HE IS CURRENTLY RECEIVING IV VANCOMYCIN, ZOSYN, GENTAMICIN CREAM, THE POTASSIUM AND MAGNESIUM PROTOCOLS, AND HOME MEDICATIONS WERE RESUMED. WE WILL CONTINUE WITH CURRENT PLAN OF CARE TODAY. OTHERWISE, WE WILL FOLLOW UP WITH AM LABS AND CONTINUE TO MONITOR. - Past Medical Family Social History Past Med/Fam/Surg Hx: No changes since H&P Allergies: Allergies prednisone Allergy (Verified 05/21/19 10:19) - Review of Systems ROS: No change since H&P - Vital Signs and I&O's Vital Signs: Temperature 98.9 F Pulse Rate [Right Brachial] 52 Respiratory Rate 20 Blood Pressure [Right Arm] 164/72 Blood Pressure [Left Arm] 108/56 Blood Pressure 184/84 O2 Sat by Pulse Oximetry 94 Intake and Output: Intake & Output 06/28/19 06/29/19 06/30/19 07/01/19 11:59 11:59 11:59 11:59 Intake Total 3440 / 3440 2390 / 2390 2735 / 2735 2089 Balance 3440 / 3440 2390 / 2390 2735 / 2735 2089 - Physical Exam Oriented: Normal Eyes: Normal Ear: Normal Nose: Normal Throat: Normal Respiratory: Normal Cardiovascular: Normal : Normal Auscultation: Bowel Sounds: Normal Palpation: Normal Tenderness: Normal Skin: Red, Tender, Hot, Other (right foot 5th digit, wound with purulent drainage, ulcer at the plantar surface, left foot with wounds.) Musculoskeletal: Right, Foot, Swelling, Tender Psychiatric: Normal Mood Description: Calm Affect: Normal Speech Pattern: Clear, Appropriate - Laboratory and Diagnostics Result Diagrams: 07/01/19 04:08 07/01/19 04:08 Labs: 06/27/19 11:45 Foot - Right Gram Stain - Final 06/27/19 11:45 Foot - Right Wound Culture - Final Staphylococcus Aureus 06/26/19 13:52 Blood Blood Culture - Preliminary 06/26/19 13:45 Blood Blood Culture - Preliminary Laboratory WBC 9.0 X10^3/uL (3.6-10.0) 07/01/19 04:08 RBC 3.76 X10^6/uL (4.7-6.0) L 07/01/19 04:08 Hgb 11.2 g/dL (13.5-18.0) L 07/01/19 04:08 Hct 33.5 % (42.0-54.0) L 07/01/19 04:08 MCV 89.0 fL (80.0-100.0) 07/01/19 04:08 MCH 29.9 pg (27.0-34.0) 07/01/19 04:08 MCHC 33.6 g/dL (33.0-35.0) 07/01/19 04:08 RDW 13.4 % (11.6-16.5) 07/01/19 04:08 Plt Count 368 X10^3/uL (150.0-450.0) 07/01/19 04:08 MPV 8.8 fL (7.4-11.0) 07/01/19 04:08 Neut % (Auto) 78.9 % (42.0-75.0) H 07/01/19 04:08 Lymph % (Auto) 10.9 % (21.0-51.0) L 07/01/19 04:08 [place] % (Auto) 9.8 % (0.0-13.0) 07/01/19 04:08 Eos % (Auto) 0.0 % (0.9-2.9) L 07/01/19 04:08 Baso % (Auto) 0.4 % (0.2-1.0) 07/01/19 04:08 Neut # (Auto) 7.1 x10^3/uL (2.2-4.8) H 07/01/19 04:08 Lymph # (Auto) 1.0 X10^3/uL (1.3-2.9) L 07/01/19 04:08 [place] # (Auto) 0.9 x10^3/uL (0.3-0.8) H 07/01/19 04:08 Eos # (Auto) 0.0 x10^3/uL (0.0-0.2) 07/01/19 04:08 Baso # (Auto) 0.0 X10^3/uL (0.0-0.1) 07/01/19 04:08 Absolute Nucleated RBC 0.1 /100WBC 07/01/19 04:08 Sodium 137 mmol/L (136-145) 07/01/19 04:08 Corrected Sodium 138 mmol/L (136-145) 07/01/19 04:08 Potassium 3.4 mmol/L (3.5-5.1) L 07/01/19 04:08 Chloride 107 mmol/L (98-107) 07/01/19 04:08 Carbon Dioxide 22.5 mmol/L (21-32) 07/01/19 04:08 BUN 10 mg/dL (7-18) 07/01/19 04:08 Creatinine 0.76 mg/dL (0.70-1.30) 07/01/19 04:08 Est GFR (MDRD) Af Amer > 60 (>60) 07/01/19 04:08 Est GFR (MDRD) Non-Af > 60 (>60) 07/01/19 04:08 Glucose 128 mg/dL (65-99) H 07/01/19 04:08 POC Glucose (mg/dL) 124 mg/dL (65-99) H 07/01/19 05:47 Lactic Acid 1.5 mmol/L (0.4-2.0) 06/27/19 04:09 Calcium 8.7 mg/dL (8.5-10.1) 07/01/19 04:08 Corrected Calcium 10.2 mg/dL (8.5-10.1) H 07/01/19 04:08 Magnesium 1.9 mg/dL (1.7-2.9) 07/01/19 04:08 Total Bilirubin 0.40 mg/dL (0.2-1.0) 07/01/19 04:08 AST 51 Units/L (15-37) H 07/01/19 04:08 ALT 81 Units/L (12-78) H 07/01/19 04:08 Alkaline Phosphatase 210 Units/L (46-116) H 07/01/19 04:08 Total Protein 5.3 g/dL (6.4-8.2) L 07/01/19 04:08 Albumin 2.1 g/dL (3.4-5.0) L 07/01/19 04:08 Globulin 3.2 g/dL (2.5-4.5) 07/01/19 04:08 Albumin/Globulin Ratio 0.7 Ratio (1.1-2.1) L 07/01/19 04:08 Vancomycin Trough 4.9 ug/mL (15-20) L 06/29/19 08:57 - Plan (1) Cellulitis of right foot Status: Acute Plan: Continue wound care with daily dressing change, IV antibiotics: Vanc and Zosyn. Follow cultures. MRI negative for osteomyelitis.
[2019-07-01] MEDS: K-DUR TAB 20 MEQ PO PRN (12:05)
[2019-07-01] MEDS: NS 1000 ML 1,000 ML IV SCH (14:27)
[2019-07-01 21:03] LABS: CREATININE 0.9 mg/dL (0.70-1.30); VANCOMYCIN,TROUGH 9.4 ug/mL (15-20)
--- NOTE | 2019-07-01 21:09 | PCM.PROG ---
Progress Note - Progress Note for Day of Date of Exam: 07/01/19 - Subjective Subjective: WAS ADMITTED FOR RIGHT FOOT CELLULITIS. TODAY, HE IS ALERT AND ORIENTED, LYING IN BED ON MORNING ROUNDS. HE CONTINUES WITH PAIN, ERYTHEM, EDEMA, AND REDNESS TO THE RIGHT FOOT. FORTH TOE ON THE RIGHT FOOT IS NECROTIC. HIS VITALS THIS MORNING ARE 98.9-52-20-94%-164/72. LABS WERE OBTAINED. ABNORMAL LAB VALUES INCLUDE THE FOLLOWING: RBC 3.79, HGB 11.2, HCT 33.5, POTASSIUM 3.4, GLUCOSE 128, AST 51, ALT 81, ALK PHOS 210, TOTAL PROTEIN 5.3, ALBUMIN 2.1. RIGHT FOOT WOUND CULTURE REPORTS GROWTH OF STAPHYLOCOCCUS AUREUS. BLOOD CULTURES ARE PENDING. HE IS CURRENTLY RECEIVING IV VANCOMYCIN, ZOSYN, GENTAMICIN CREAM, THE POTASSIUM AND MAGNESIUM PROTOCOLS, AND HOME MEDICATIONS WERE RESUMED. WE WILL CONTINUE WITH CURRENT PLAN OF CARE TODAY. WILL CONSULT WITH PATIENT TODAY. OTHERWISE, WE WILL FOLLOW UP WITH AM LABS AND CONTINUE TO MONITOR. - Past Medical Family Social History Past Med/Fam/Surg Hx: No changes since H&P Allergies: Allergies prednisone Allergy (Verified 05/21/19 10:19) - Review of Systems ROS: No change since H&P - Vital Signs and I&O's Vital Signs: Temperature 98.3 F Pulse Rate [Right Brachial] 82 Respiratory Rate 20 Blood Pressure [Right Arm] 183/87 Blood Pressure [Left Arm] 108/56 Blood Pressure 184/84 O2 Sat by Pulse Oximetry 95 Intake and Output: Intake & Output 06/29/19 06/30/19 07/01/19 07/02/19 11:59 11:59 11:59 11:59 Intake Total 2390 / 2390 2735 / 2735 2089 930 / 930 Balance 2390 / 2390 2735 / 2735 2089 930 / 930 - Physical Exam Oriented: Normal Eyes: Normal Ear: Normal Nose: Normal Throat: Normal Respiratory: Normal Cardiovascular: Normal : Normal Auscultation: Bowel Sounds: Normal Tenderness: Normal Skin: Red, Tender, Hot, Other (right foot 5th digit, wound with purulent drainage, ulcer at the plantar surface, left foot with wounds.) Musculoskeletal: Right, Foot, Swelling, Tender Psychiatric: Normal Mood Description: Calm Affect: Normal Speech Pattern: Clear, Appropriate - Laboratory and Diagnostics Result Diagrams: 07/01/19 04:08 07/01/19 20:30 Labs: 06/26/19 13:52 Blood Blood Culture - Final 06/26/19 13:45 Blood Blood Culture - Final 06/27/19 11:45 Foot - Right Gram Stain - Final 06/27/19 11:45 Foot - Right Wound Culture - Final Staphylococcus Aureus Laboratory WBC 9.0 X10^3/uL (3.6-10.0) 07/01/19 04:08 RBC 3.76 X10^6/uL (4.7-6.0) L 07/01/19 04:08 Hgb 11.2 g/dL (13.5-18.0) L 07/01/19 04:08 Hct 33.5 % (42.0-54.0) L 07/01/19 04:08 MCV 89.0 fL (80.0-100.0) 07/01/19 04:08 MCH 29.9 pg (27.0-34.0) 07/01/19 04:08 MCHC 33.6 g/dL (33.0-35.0) 07/01/19 04:08 RDW 13.4 % (11.6-16.5) 07/01/19 04:08 Plt Count 368 X10^3/uL (150.0-450.0) 07/01/19 04:08 MPV 8.8 fL (7.4-11.0) 07/01/19 04:08 Neut % (Auto) 78.9 % (42.0-75.0) H 07/01/19 04:08 Lymph % (Auto) 10.9 % (21.0-51.0) L 07/01/19 04:08 Snyder % (Auto) 9.8 % (0.0-13.0) 07/01/19 04:08 Eos % (Auto) 0.0 % (0.9-2.9) L 07/01/19 04:08 Baso % (Auto) 0.4 % (0.2-1.0) 07/01/19 04:08 Neut # (Auto) 7.1 x10^3/uL (2.2-4.8) H 07/01/19 04:08 Lymph # (Auto) 1.0 X10^3/uL (1.3-2.9) L 07/01/19 04:08 Snyder # (Auto) 0.9 x10^3/uL (0.3-0.8) H 07/01/19 04:08 Eos # (Auto) 0.0 x10^3/uL (0.0-0.2) 07/01/19 04:08 Baso # (Auto) 0.0 X10^3/uL (0.0-0.1) 07/01/19 04:08 Absolute Nucleated RBC 0.1 /100WBC 07/01/19 04:08 Sodium 137 mmol/L (136-145) 07/01/19 04:08 Corrected Sodium 138 mmol/L (136-145) 07/01/19 04:08 Potassium 3.4 mmol/L (3.5-5.1) L 07/01/19 04:08 Chloride 107 mmol/L (98-107) 07/01/19 04:08 Carbon Dioxide 22.5 mmol/L (21-32) 07/01/19 04:08 BUN 10 mg/dL (7-18) 07/01/19 04:08 Creatinine 0.90 mg/dL (0.70-1.30) 07/01/19 20:30 Est GFR (MDRD) Af Amer > 60 (>60) 07/01/19 04:08 Est GFR (MDRD) Non-Af > 60 (>60) 07/01/19 04:08 Glucose 128 mg/dL (65-99) H 07/01/19 04:08 POC Glucose (mg/dL) 138 mg/dL (65-99) H 07/01/19 20:22 Lactic Acid 1.5 mmol/L (0.4-2.0) 06/27/19 04:09 Calcium 8.7 mg/dL (8.5-10.1) 07/01/19 04:08 Corrected Calcium 10.2 mg/dL (8.5-10.1) H 07/01/19 04:08 Magnesium 1.9 mg/dL (1.7-2.9) 07/01/19 04:08 Total Bilirubin 0.40 mg/dL (0.2-1.0) 07/01/19 04:08 AST 51 Units/L (15-37) H 07/01/19 04:08 ALT 81 Units/L (12-78) H 07/01/19 04:08 Alkaline Phosphatase 210 Units/L (46-116) H 07/01/19 04:08 Total Protein 5.3 g/dL (6.4-8.2) L 07/01/19 04:08 Albumin 2.1 g/dL (3.4-5.0) L 07/01/19 04:08 Globulin 3.2 g/dL (2.5-4.5) 07/01/19 04:08 Albumin/Globulin Ratio 0.7 Ratio (1.1-2.1) L 07/01/19 04:08 Stl C. diff Tox B Gene Positive (NEGATIVE) A 07/01/19 15:47 Stl C. diff 027-NAP1-BI Negative (NEGATIVE) 07/01/19 15:47 Vancomycin Trough 9.4 ug/mL (15-20) L 07/01/19 20:30 C. difficile Toxin A&B Negative (NEGATIVE) 07/01/19 15:47 - Plan (1) Cellulitis of right foot Status: Acute Plan: Continue wound care with daily dressing change, IV antibiotics: Vanc and Zosyn. Follow cultures. MRI negative for osteomyelitis.
[2019-07-01] MEDS: ARICEPT TAB 5 MG PO SCH (21:47)
[2019-07-01] MEDS: LIPITOR TAB 40 MG PO SCH (21:48)
[2019-07-01] MEDS ORDERED: VANCOMYCIN HCL ONE (22:37)
[2019-07-01] MEDS: VANCOMYCIN HCL 250 MG, VANCOMYCIN HCL 1 G in NS 250 ML IV 250 ML IV SCH (22:45)
[2019-07-02] MEDS: APRESOLINE TAB 25 MG PO SCH ×3 (05:11→21:01)
[2019-07-02] MEDS: NS 1000 ML 1,000 ML IV SCH ×2 (05:12→15:56)
[2019-07-02] MEDS: ZOSYN VIAL 3.375 GRAMS 3.375 G in NS 100 ML IV + SPIKE MINIBAG* 100 ML IV SCH ×3 (05:24→22:41)
[2019-07-02 05:45] LABS: BASOPHILS # (AUTO) 0.1 X10^3/uL (0.0-0.1); BASOPHILS % (AUTO) 0.5 % (0.2-1.0); HEMATOCRIT 35.1 % (42.0-54.0); HEMOGLOBIN 12.1 g/dL (13.5-18.0); LYMPHOCYTES # (AUTO) 1.1 X10^3/uL (1.3-2.9); LYMPHOCYTES % (AUTO) 10.3 % (21.0-51.0); MEAN CORPUSCULAR HEMOGLOBIN 30.5 pg (27.0-34.0); MEAN CORPUSCULAR HGB CONC 34.5 g/dL (33.0-35.0); MEAN CORPUSCULAR VOLUME 88.4 fL (80.0-100.0); MEAN PLATELET VOLUME 8.5 fL (7.4-11.0); MONOCYTES # (AUTO) 0.9 x10^3/uL (0.3-0.8); MONOCYTES % (AUTO) 8.1 % (0.0-13.0); NEUTROPHILS # (AUTO) 8.6 x10^3/uL (2.2-4.8); NEUTROPHILS % (AUTO) 81.1 % (42.0-75.0); PLATELET COUNT 412 X10^3/uL (150.0-450.0); RED BLOOD COUNT 3.96 X10^6/uL (4.7-6.0); RED CELL DISTRIBUTION WIDTH 13.7 % (11.6-16.5); WHITE BLOOD COUNT 10.6 X10^3/uL (3.6-10.0)
[2019-07-02 06:03] LABS: ALANINE AMINOTRANSFERASE 75 Units/L (12-78); ALBUMIN 2.2 g/dL (3.4-5.0); ALKALINE PHOSPHATASE 233 Units/L (46-116); ASPARTATE AMINO TRANSFERASE 45 Units/L (15-37); BLOOD UREA NITROGEN 8 mg/dL (7-18); CALCIUM 8.6 mg/dL (8.5-10.1); CARBON DIOXIDE 22.7 mmol/L (21-32); CHLORIDE 108 mmol/L (98-107); COR NA(FOR HYPERGLY) 138 mmol/L (136-145); CREATININE 0.78 mg/dL (0.70-1.30); SODIUM 138 mmol/L (136-145); TOTAL PROTEIN 5.5 g/dL (6.4-8.2); eGFR NON BLACK RACES > 60 (>60)
[2019-07-02] MEDS ORDERED: BACITRACIN VIAL ONE (07:29)
[2019-07-02] MEDS ORDERED: LR 1000 ML IV 1,000 ML IV ONE (08:00)
[2019-07-02] MEDS ORDERED: FENTANYL INJ 100 mcg ONE (08:09)
[2019-07-02] MEDS ORDERED: XYLOCAINE 1 % (PLAIN) ONE (08:27)
--- NOTE | 2019-07-02 09:03 | OR.IMMED ---
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 Diabetic rt foot ulcer . 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 Diabetic ulcer lateral Rt foot 6x2 cm with tunnrling . Procedure: amputation Rt 4th toe . 2- debridement Rt foot ulcer . Surgeon/W[employer]ing [employer] Engine Operator: Jen Estimated Blood Loss: 5 to 10 cc Drains: NONE Condition: Stable (change dressing daily , same IV ATB .)
[2019-07-02] MEDS ORDERED: PHENERGAN INJ 25 MG IM PRN (09:06)
[2019-07-02] MEDS ORDERED: DILAUDID INJ IVP PRN (09:06)
[2019-07-02] MEDS ORDERED: BENADRYL INJ 50 MG VIAL IVP PRN (09:06)
[2019-07-02] MEDS ORDERED: REGLAN INJ 10 MG VIAL IVP PRN (09:06)
[2019-07-02] MEDS ORDERED: ZOFRAN INJ 4 MG VIAL IVP PRN (09:06)
[2019-07-02] MEDS ORDERED: NS IRRIGATION 1000 ML ONE (10:03)
[2019-07-02] MEDS ORDERED: GLUCOPHAGE ONE ×2 (10:05→15:44)
[2019-07-02] MEDS: NAMENDA TAB 10 MG PO SCH ×2 (10:07→20:29)
[2019-07-02] MEDS: MOBIC TAB 15 MG PO SCH (10:07)
[2019-07-02] MEDS: ASPIRIN EC 81 MG PO SCH (10:07)
[2019-07-02] MEDS: BENICAR TAB 40 MG PO SCH (10:07)
[2019-07-02] MEDS: BRILINTA PO SCH ×2 (10:07→20:28)
[2019-07-02] MEDS: GLUCOPHAGE PO SCH ×2 (10:07→16:10)
[2019-07-02] MEDS: NORVASC TAB 10 MG PO SCH (10:08)
[2019-07-02] MEDS: COREG TAB 6.25 MG PO SCH ×2 (10:08→20:28)
[2019-07-02] MEDS: GENTAMICIN TOPICAL CRM TOP SCH (10:08)
[2019-07-02] MEDS: PROTONIX INJ 40 MG VIAL IVP SCH (10:08)
[2019-07-02] MEDS: K-DUR TAB 20 MEQ PO PRN ×2 (10:15→13:31)
[2019-07-02] MEDS: VANCOMYCIN HCL 250 MG, VANCOMYCIN HCL 1 G in NS 250 ML IV 250 ML IV SCH ×3 (10:35→20:30)
--- NOTE | 2019-07-02 13:00 | PCM.PROG ---
Progress Note - Progress Note for Day of Date of Exam: 07/02/19 - Subjective Subjective: WAS ADMITTED FOR RIGHT FOOT CELLULITIS. TODAY, HE IS ALERT AND ORIENTED, LYING IN BED ON MORNING ROUNDS. HE CONTINUES WITH PAIN, ERYTHEM, EDEMA, AND REDNESS TO THE RIGHT FOOT. FORTH TOE ON THE RIGHT FOOT IS NECROTIC. HIS VITALS THIS MORNING ARE 97.8-70-20-97%-188/97. LABS WERE OBTAINED. ABNORMAL LAB VALUES INCLUDE THE FOLLOWING: WBC 10.6, RBC 3.96, HGB 12.1, HCT 35.1, POTASSIUM 3.0, CHLORIDE 108, GLUCOSE 119, AST 45, MAGNESIUM 1.6, ALK PHOS 233, TOTAL PROTEIN 5.5, ALBUMIN 2.2. RIGHT FOOT WOUND CULTURE REPORTS GROWTH OF STAPHYLOCOCCUS AUREUS. BLOOD CULTURES ARE NEGATIVE. HE IS CURRENTLY RECEIVING IV VANCOMYCIN, ZOSYN, GENTAMICIN CREAM, THE POTASSIUM AND MAGNESIUM PROTOCOLS, AND HOME MEDICATIONS WERE RESUMED. CONSULTED WITH PATIENT AND TOOK HIM TO THE OR THIS MORNING. WE SPOKE WITH HIM IN LENGTH, AT LEAST 16 MINUTES, REGUARDING PROCEDURE AND FINDINGS. HE REPORTED FINDINGS OF GANGRENE TO THE RIGHT FORTH TOE. TOE WAS AMPUTATED AND DEBRIDEMENT OF DIABETIC FOOT ULCER ON THE LATERAL ASPECT OF THE RIGHT FOOT WAS PERFORMED. WE WILL CONTINUE WITH CURRENT PLAN OF CARE TODAY. OTHERWISE, WE WILL FOLLOW UP WITH AM LABS AND CONTINUE TO MONITOR. - Past Medical Family Social History Past Med/Fam/Surg Hx: No changes since H&P Allergies: Allergies prednisone Allergy (Verified 05/21/19 10:19) - Review of Systems ROS: No change since H&P - Vital Signs and I&O's Vital Signs: Temperature 97.8 F Pulse Rate [Right Brachial] 56 Pulse Rate 58 Respiratory Rate 20 Blood Pressure [Right Arm] 156/74 Blood Pressure [Left Arm] 108/56 Blood Pressure 161/82 O2 Sat by Pulse Oximetry 98 Intake and Output: Intake & Output 06/30/19 07/01/19 07/02/19 07/03/19 11:59 11:59 11:59 11:59 Intake Total 2735 / 2735 2089 2910 / 2910 Output Total 100 / 100 Balance 2735 / 2735 2089 2810 / 2810 - Physical Exam Oriented: Normal Eyes: Normal Ear: Normal Nose: Normal Throat: Normal Respiratory: Normal Cardiovascular: Normal : Normal Auscultation: Bowel Sounds: Normal Palpation: Normal Tenderness: Normal Skin: Red, Tender, Hot, Other (right foot 5th digit, wound with purulent drainage, ulcer at the plantar surface, left foot with wounds.) Musculoskeletal: Right, Foot, Swelling, Tender Psychiatric: Normal Mood Description: Calm Affect: Normal Speech Pattern: Clear, Appropriate - Laboratory and Diagnostics Result Diagrams: 07/02/19 04:19 07/02/19 12:09 Labs: 06/26/19 13:52 Blood Blood Culture - Final 06/26/19 13:45 Blood Blood Culture - Final 06/27/19 11:45 Foot - Right Gram Stain - Final 06/27/19 11:45 Foot - Right Wound Culture - Final Staphylococcus Aureus Laboratory WBC 10.6 X10^3/uL (3.6-10.0) H 07/02/19 04:19 RBC 3.96 X10^6/uL (4.7-6.0) L 07/02/19 04:19 Hgb 12.1 g/dL (13.5-18.0) L 07/02/19 04:19 Hct 35.1 % (42.0-54.0) L 07/02/19 04:19 MCV 88.4 fL (80.0-100.0) 07/02/19 04:19 MCH 30.5 pg (27.0-34.0) 07/02/19 04:19 MCHC 34.5 g/dL (33.0-35.0) 07/02/19 04:19 RDW 13.7 % (11.6-16.5) 07/02/19 04:19 Plt Count 412 X10^3/uL (150.0-450.0) 07/02/19 04:19 MPV 8.5 fL (7.4-11.0) 07/02/19 04:19 Neut % (Auto) 81.1 % (42.0-75.0) H 07/02/19 04:19 Lymph % (Auto) 10.3 % (21.0-51.0) L 07/02/19 04:19 [place] % (Auto) 8.1 % (0.0-13.0) 07/02/19 04:19 Eos % (Auto) 0.0 % (0.9-2.9) L 07/02/19 04:19 Baso % (Auto) 0.5 % (0.2-1.0) 07/02/19 04:19 Neut # (Auto) 8.6 x10^3/uL (2.2-4.8) H 07/02/19 04:19 Lymph # (Auto) 1.1 X10^3/uL (1.3-2.9) L 07/02/19 04:19 [place] # (Auto) 0.9 x10^3/uL (0.3-0.8) H 07/02/19 04:19 Eos # (Auto) 0.0 x10^3/uL (0.0-0.2) 07/02/19 04:19 Baso # (Auto) 0.1 X10^3/uL (0.0-0.1) 07/02/19 04:19 Absolute Nucleated RBC 0.0 /100WBC 07/02/19 04:19 Sodium 138 mmol/L (136-145) 07/02/19 04:19 Corrected Sodium 138 mmol/L (136-145) 07/02/19 04:19 Potassium 3.5 mmol/L (3.5-5.1) 07/02/19 12:09 Chloride 108 mmol/L (98-107) H 07/02/19 04:19 Carbon Dioxide 22.7 mmol/L (21-32) 07/02/19 04:19 BUN 8 mg/dL (7-18) 07/02/19 04:19 Creatinine 0.78 mg/dL (0.70-1.30) 07/02/19 04:19 Est GFR (MDRD) Af Amer > 60 (>60) 07/02/19 04:19 Est GFR (MDRD) Non-Af > 60 (>60) 07/02/19 04:19 Glucose 119 mg/dL (65-99) H 07/02/19 04:19 POC Glucose (mg/dL) 129 mg/dL (65-99) H 07/02/19 10:40 Lactic Acid 1.5 mmol/L (0.4-2.0) 06/27/19 04:09 Calcium 8.6 mg/dL (8.5-10.1) 07/02/19 04:19 Corrected Calcium 10.0 mg/dL (8.5-10.1) 07/02/19 04:19 Magnesium 1.6 mg/dL (1.7-2.9) L 07/02/19 04:08 Total Bilirubin 0.30 mg/dL (0.2-1.0) 07/02/19 04:19 AST 45 Units/L (15-37) H 07/02/19 04:19 ALT 75 Units/L (12-78) 07/02/19 04:19 Alkaline Phosphatase 233 Units/L (46-116) H 07/02/19 04:19 Total Protein 5.5 g/dL (6.4-8.2) L 07/02/19 04:19 Albumin 2.2 g/dL (3.4-5.0) L 07/02/19 04:19 Globulin 3.3 g/dL (2.5-4.5) 07/02/19 04:19 Albumin/Globulin Ratio 0.7 Ratio (1.1-2.1) L 07/02/19 04:19 Stl C. diff Tox B Gene Positive (NEGATIVE) A 07/01/19 15:47 Stl C. diff 027-NAP1-BI Negative (NEGATIVE) 07/01/19 15:47 Vancomycin Trough 9.4 ug/mL (15-20) L 07/01/19 20:30 C. difficile Toxin A&B Negative (NEGATIVE) 07/01/19 15:47 - Plan (1) Cellulitis of right foot Status: Acute Plan: Continue wound care with daily dressing change, IV antibiotics: Vanc and Zosyn. Follow cultures. MRI negative for osteomyelitis.
[2019-07-02] MEDS: MAGNESIUM SULFATE 1 GRAM/100 mL PREMIX 1 GM/100 ML BAG IV PRN ×2 (13:28→16:11)
[2019-07-02] MEDS ORDERED: DIPRIVAN VIAL ONE (15:14)
[2019-07-02] MEDS ORDERED: PERCOCET TAB 5/325 MG PO PRN (15:58)
[2019-07-02] MEDS: LIPITOR TAB 40 MG PO SCH (20:28)
[2019-07-02] MEDS: ARICEPT TAB 5 MG PO SCH (20:28)
[2019-07-03] MEDS ORDERED: GLUCOPHAGE ONE ×2 (05:03→15:38)
[2019-07-03] MEDS: APRESOLINE TAB 25 MG PO SCH ×3 (06:05→22:00)
[2019-07-03] MEDS: ZOSYN VIAL 3.375 GRAMS 3.375 G in NS 100 ML IV + SPIKE MINIBAG* 100 ML IV SCH ×3 (06:05→22:42)
[2019-07-03] MEDS: GLUCOPHAGE PO SCH ×2 (06:05→16:05)
[2019-07-03 06:12] LABS: BASOPHILS # (AUTO) 0.1 X10^3/uL (0.0-0.1); BASOPHILS % (AUTO) 0.8 % (0.2-1.0); HEMATOCRIT 33.9 % (42.0-54.0); HEMOGLOBIN 11.6 g/dL (13.5-18.0); LYMPHOCYTES % (AUTO) 10.1 % (21.0-51.0); MEAN CORPUSCULAR HEMOGLOBIN 29.7 pg (27.0-34.0); MEAN CORPUSCULAR HGB CONC 34.1 g/dL (33.0-35.0); MEAN CORPUSCULAR VOLUME 87.1 fL (80.0-100.0); MEAN PLATELET VOLUME 7.8 fL (7.4-11.0); MONOCYTES # (AUTO) 0.8 x10^3/uL (0.3-0.8); NEUTROPHILS # (AUTO) 7.7 x10^3/uL (2.2-4.8); NEUTROPHILS % (AUTO) 81.1 % (42.0-75.0); PLATELET COUNT 436 X10^3/uL (150.0-450.0); RED BLOOD COUNT 3.89 X10^6/uL (4.7-6.0); RED CELL DISTRIBUTION WIDTH 13.4 % (11.6-16.5); WHITE BLOOD COUNT 9.5 X10^3/uL (3.6-10.0)
[2019-07-03 06:18] LABS: ALANINE AMINOTRANSFERASE 66 Units/L (12-78); ALBUMIN 2.3 g/dL (3.4-5.0); ALKALINE PHOSPHATASE 206 Units/L (46-116); ASPARTATE AMINO TRANSFERASE 41 Units/L (15-37); BLOOD UREA NITROGEN 6 mg/dL (7-18); CALCIUM 8.9 mg/dL (8.5-10.1); CARBON DIOXIDE 25.2 mmol/L (21-32); CHLORIDE 108 mmol/L (98-107); COR CA(FOR HYPOALB) 10.3 mg/dL (8.5-10.1); COR NA(FOR HYPERGLY) 139 mmol/L (136-145); CREATININE 0.74 mg/dL (0.70-1.30); MAGNESIUM 1.8 mg/dL (1.7-2.9); SODIUM 138 mmol/L (136-145); TOTAL PROTEIN 5.4 g/dL (6.4-8.2); eGFR NON BLACK RACES > 60 (>60)
[2019-07-03] MEDS: K-DUR TAB 20 MEQ PO PRN (06:39)
[2019-07-03 08:38] LABS: CREATININE 0.77 mg/dL (0.70-1.30); VANCOMYCIN,TROUGH 13.1 ug/mL (15-20)
[2019-07-03] MEDS: NORVASC TAB 10 MG PO SCH (08:42)
[2019-07-03] MEDS: NAMENDA TAB 10 MG PO SCH ×2 (08:42→20:35)
[2019-07-03] MEDS: BENICAR TAB 40 MG PO SCH (08:42)
[2019-07-03] MEDS: BRILINTA PO SCH ×2 (08:42→20:35)
[2019-07-03] MEDS: NS 1000 ML 1,000 ML IV SCH ×3 (08:42→17:09)
[2019-07-03] MEDS: MOBIC TAB 15 MG PO SCH (08:42)
[2019-07-03] MEDS: ASPIRIN EC 81 MG PO SCH (08:42)
[2019-07-03] MEDS: COREG TAB 6.25 MG PO SCH ×2 (08:43→20:35)
[2019-07-03] MEDS: GENTAMICIN TOPICAL CRM TOP SCH (08:43)
[2019-07-03] MEDS ORDERED: SUPRANE ONE (15:35)
[2019-07-03] MEDS: PROTONIX INJ 40 MG VIAL IVP SCH (15:36)
[2019-07-03] MEDS: VANCOMYCIN HCL 250 MG, VANCOMYCIN HCL 1 G in NS 250 ML IV 250 ML IV SCH ×2 (15:36→20:35)
--- NOTE | 2019-07-03 16:15 | DR.PROGNOT ---
Hospital Progress Notes - Progress Note for Day of: Progress Note Date: 07/03/19 - Chief Complaint Chief Complaint: s/p amputation Rt 4th toe . doing fairly well . dressing was changed .. less cellulitis of the foot . no bleeding . - Past Medical Family Social History Past Med/Fam/Surg Hx: No changes since H&P Allergies: Allergies prednisone Allergy (Verified 05/21/19 10:19) - Review Of Systems ROS: No change since H&P - Vital Signs Vital Signs: Temperature 98.0 F Pulse Rate [Right Brachial] 76 Pulse Rate 58 Respiratory Rate 20 Blood Pressure [Right Arm] 178/91 Blood Pressure [Left Arm] 176/86 Blood Pressure 161/82 O2 Sat by Pulse Oximetry 96 - Physical Exam Oriented: Normal Eyes: Normal Ear: Normal Nose: Normal Throat: Normal Respiratory: Normal Cardiovascular: Normal : Normal GI:Auscultation: Normal GI:Palpation: Normal GI: Tenderness: Normal Skin: Other (as above . less cellulitis Rt foot ulcer .. amputation site is clean . no active infection .) Musculoskeletal: Right, Foot, Swelling, Tender Psychiatric: Normal Mood Description: Calm Affect: Normal Speech Pattern: Clear, Appropriate - Laboratory and Diagnostics Result Diagrams: 07/03/19 05:45 07/03/19 07:53 Labs: 06/26/19 13:52 Blood Blood Culture - Final 06/26/19 13:45 Blood Blood Culture - Final 06/27/19 11:45 Foot - Right Gram Stain - Final 06/27/19 11:45 Foot - Right Wound Culture - Final Staphylococcus Aureus Laboratory WBC 9.5 X10^3/uL (3.6-10.0) 07/03/19 05:45 RBC 3.89 X10^6/uL (4.7-6.0) L 07/03/19 05:45 Hgb 11.6 g/dL (13.5-18.0) L 07/03/19 05:45 Hct 33.9 % (42.0-54.0) L 07/03/19 05:45 MCV 87.1 fL (80.0-100.0) 07/03/19 05:45 MCH 29.7 pg (27.0-34.0) 07/03/19 05:45 MCHC 34.1 g/dL (33.0-35.0) 07/03/19 05:45 RDW 13.4 % (11.6-16.5) 07/03/19 05:45 Plt Count 436 X10^3/uL (150.0-450.0) 07/03/19 05:45 MPV 7.8 fL (7.4-11.0) 07/03/19 05:45 Neut % (Auto) 81.1 % (42.0-75.0) H 07/03/19 05:45 Lymph % (Auto) 10.1 % (21.0-51.0) L 07/03/19 05:45 Barnes % (Auto) 8.0 % (0.0-13.0) 07/03/19 05:45 Eos % (Auto) 0.0 % (0.9-2.9) L 07/03/19 05:45 Baso % (Auto) 0.8 % (0.2-1.0) 07/03/19 05:45 Neut # (Auto) 7.7 x10^3/uL (2.2-4.8) H 07/03/19 05:45 Lymph # (Auto) 1.0 X10^3/uL (1.3-2.9) L 07/03/19 05:45 Barnes # (Auto) 0.8 x10^3/uL (0.3-0.8) 07/03/19 05:45 Eos # (Auto) 0.0 x10^3/uL (0.0-0.2) 07/03/19 05:45 Baso # (Auto) 0.1 X10^3/uL (0.0-0.1) 07/03/19 05:45 Absolute Nucleated RBC 0.0 /100WBC 07/03/19 05:45 Sodium 138 mmol/L (136-145) 07/03/19 05:45 Corrected Sodium 139 mmol/L (136-145) 07/03/19 05:45 Potassium 3.4 mmol/L (3.5-5.1) L 07/03/19 05:45 Chloride 108 mmol/L (98-107) H 07/03/19 05:45 Carbon Dioxide 25.2 mmol/L (21-32) 07/03/19 05:45 BUN 6 mg/dL (7-18) L 07/03/19 05:45 Creatinine 0.77 mg/dL (0.70-1.30) 07/03/19 07:53 Est GFR (MDRD) Af Amer > 60 (>60) 07/03/19 05:45 Est GFR (MDRD) Non-Af > 60 (>60) 07/03/19 05:45 Glucose 127 mg/dL (65-99) H 07/03/19 05:45 POC Glucose (mg/dL) 105 mg/dL (65-99) H 07/03/19 15:41 Lactic Acid 1.5 mmol/L (0.4-2.0) 06/27/19 04:09 Calcium 8.9 mg/dL (8.5-10.1) 07/03/19 05:45 Corrected Calcium 10.3 mg/dL (8.5-10.1) H 07/03/19 05:45 Magnesium 1.8 mg/dL (1.7-2.9) 07/03/19 05:45 Total Bilirubin 0.30 mg/dL (0.2-1.0) 07/03/19 05:45 AST 41 Units/L (15-37) H 07/03/19 05:45 ALT 66 Units/L (12-78) 07/03/19 05:45 Alkaline Phosphatase 206 Units/L (46-116) H 07/03/19 05:45 Total Protein 5.4 g/dL (6.4-8.2) L 07/03/19 05:45 Albumin 2.3 g/dL (3.4-5.0) L 07/03/19 05:45 Globulin 3.1 g/dL (2.5-4.5) 07/03/19 05:45 Albumin/Globulin Ratio 0.7 Ratio (1.1-2.1) L 07/03/19 05:45 Stl C. diff Tox B Gene Positive (NEGATIVE) A 07/01/19 15:47 Stl C. diff 027-NAP1-BI Negative (NEGATIVE) 07/01/19 15:47 Vancomycin Trough 13.1 ug/mL (15-20) L 07/03/19 07:53 C. difficile Toxin A&B Negative (NEGATIVE) 07/01/19 15:47 Tissue Pathology To follow 07/02/19 08:49 - Assessment and Plan 1: Post op amputation Rt 4th toe and debridement Rt foot ulcer . 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 same local care , IV ATB . keep for few days and arrange for VNA and OP f/u - Problem Patient Problems: Patient Problems Anemia (Acute) D64.9 Acute renal failure (Acute) N17.9 Hypomagnesemia (Acute) E83.42 Hypokalemia (Acute) E87.6 Foot ulcer (Acute) L97.509 Cellulitis of right foot (Acute) L03.115
[2019-07-03] MEDS: LIPITOR TAB 40 MG PO SCH (20:34)
[2019-07-03] MEDS: ARICEPT TAB 5 MG PO SCH (20:39)
[2019-07-03] MEDS ORDERED: STERILE WATER IRRIGATION IR ONE (21:34)
[2019-07-04] MEDS: NS 1000 ML 1,000 ML IV SCH ×3 (03:32→22:18)
[2019-07-04] MEDS: APRESOLINE TAB 25 MG PO SCH ×3 (05:00→22:00)
[2019-07-04] MEDS: ZOSYN VIAL 3.375 GRAMS 3.375 G in NS 100 ML IV + SPIKE MINIBAG* 100 ML IV SCH ×3 (05:01→22:02)
[2019-07-04] MEDS ORDERED: GLUCOPHAGE ONE ×2 (05:43→18:08)
[2019-07-04] MEDS: GLUCOPHAGE PO SCH ×2 (06:09→17:30)
[2019-07-04 06:17] LABS: BASOPHILS % (AUTO) 0.4 % (0.2-1.0); HEMATOCRIT 33.5 % (42.0-54.0); HEMOGLOBIN 11.5 g/dL (13.5-18.0); LYMPHOCYTES # (AUTO) 1.1 X10^3/uL (1.3-2.9); LYMPHOCYTES % (AUTO) 9.9 % (21.0-51.0); MEAN CORPUSCULAR HEMOGLOBIN 29.9 pg (27.0-34.0); MEAN CORPUSCULAR HGB CONC 34.4 g/dL (33.0-35.0); MEAN PLATELET VOLUME 7.7 fL (7.4-11.0); MONOCYTES % (AUTO) 8.9 % (0.0-13.0); NEUTROPHILS # (AUTO) 8.9 x10^3/uL (2.2-4.8); NEUTROPHILS % (AUTO) 80.8 % (42.0-75.0); PLATELET COUNT 439 X10^3/uL (150.0-450.0); RED BLOOD COUNT 3.85 X10^6/uL (4.7-6.0); RED CELL DISTRIBUTION WIDTH 13.4 % (11.6-16.5)
[2019-07-04 06:27] LABS: ALANINE AMINOTRANSFERASE 66 Units/L (12-78); ALBUMIN 2.3 g/dL (3.4-5.0); ALKALINE PHOSPHATASE 215 Units/L (46-116); ASPARTATE AMINO TRANSFERASE 46 Units/L (15-37); BLOOD UREA NITROGEN 7 mg/dL (7-18); CALCIUM 9.1 mg/dL (8.5-10.1); CARBON DIOXIDE 23.2 mmol/L (21-32); CHLORIDE 106 mmol/L (98-107); COR CA(FOR HYPOALB) 10.5 mg/dL (8.5-10.1); CREATININE 0.77 mg/dL (0.70-1.30); SODIUM 137 mmol/L (136-145); TOTAL PROTEIN 5.5 g/dL (6.4-8.2); eGFR NON BLACK RACES > 60 (>60)
[2019-07-04] MEDS: VANCOMYCIN HCL 250 MG, VANCOMYCIN HCL 1 G in NS 250 ML IV 250 ML IV SCH ×2 (08:19→21:30)
[2019-07-04] MEDS: MOBIC TAB 15 MG PO SCH (08:21)
[2019-07-04] MEDS: COREG TAB 6.25 MG PO SCH ×2 (08:21→22:01)
[2019-07-04] MEDS: BENICAR TAB 40 MG PO SCH (08:22)
[2019-07-04] MEDS: NAMENDA TAB 10 MG PO SCH ×2 (08:22→22:01)
[2019-07-04] MEDS: ASPIRIN EC 81 MG PO SCH (08:22)
[2019-07-04] MEDS: BRILINTA PO SCH ×2 (08:22→22:01)
[2019-07-04] MEDS: NORVASC TAB 10 MG PO SCH (08:23)
[2019-07-04] MEDS: PROTONIX INJ 40 MG VIAL IVP SCH (08:45)
[2019-07-04 08:46] LABS: CREATININE 0.86 mg/dL (0.70-1.30); VANCOMYCIN,TROUGH 13.3 ug/mL (15-20)
[2019-07-04] MEDS: GENTAMICIN TOPICAL CRM TOP SCH (09:00)
--- NOTE | 2019-07-04 10:48 | DR.PROGNOT ---
Hospital Progress Notes - Progress Note for Day of: Progress Note Date: 07/04/19 - Chief Complaint Chief Complaint: s/p amputation Rt 4th toe . doing fairly well . dressing was changed . mild erythema around the incision , no active drainage - Past Medical Family Social History Past Med/Fam/Surg Hx: No changes since H&P Allergies: Allergies prednisone Allergy (Verified 05/21/19 10:19) - Review Of Systems ROS: No change since H&P - Vital Signs Vital Signs: Temperature 98.5 F Pulse Rate [Left Brachial] 82 Pulse Rate [Right Brachial] 76 Pulse Rate 58 Respiratory Rate 18 Blood Pressure [Right Arm] 183/85 Blood Pressure [Left Arm] 178/92 Blood Pressure 161/82 O2 Sat by Pulse Oximetry 96 - Physical Exam Oriented: Normal Eyes: Normal Ear: Normal Nose: Normal Throat: Normal Respiratory: Normal Cardiovascular: Normal : Normal GI:Auscultation: Normal GI:Palpation: Normal GI: Tenderness: Normal Skin: Other (as above . less cellulitis Rt foot ulcer .. amputation site is clean . no active infection .) Musculoskeletal: Right, Foot, Swelling, Tender Psychiatric: Normal Mood Description: Calm Affect: Normal Speech Pattern: Clear, Appropriate - Laboratory and Diagnostics Result Diagrams: 07/04/19 05:24 07/04/19 08:19 Labs: 06/26/19 13:52 Blood Blood Culture - Final 06/26/19 13:45 Blood Blood Culture - Final 06/27/19 11:45 Foot - Right Gram Stain - Final 06/27/19 11:45 Foot - Right Wound Culture - Final Staphylococcus Aureus Laboratory WBC 11.0 X10^3/uL (3.6-10.0) H 07/04/19 05:24 RBC 3.85 X10^6/uL (4.7-6.0) L 07/04/19 05:24 Hgb 11.5 g/dL (13.5-18.0) L 07/04/19 05:24 Hct 33.5 % (42.0-54.0) L 07/04/19 05:24 MCV 87.0 fL (80.0-100.0) 07/04/19 05:24 MCH 29.9 pg (27.0-34.0) 07/04/19 05:24 MCHC 34.4 g/dL (33.0-35.0) 07/04/19 05:24 RDW 13.4 % (11.6-16.5) 07/04/19 05:24 Plt Count 439 X10^3/uL (150.0-450.0) 07/04/19 05:24 MPV 7.7 fL (7.4-11.0) 07/04/19 05:24 Neut % (Auto) 80.8 % (42.0-75.0) H 07/04/19 05:24 Lymph % (Auto) 9.9 % (21.0-51.0) L 07/04/19 05:24 [place] % (Auto) 8.9 % (0.0-13.0) 07/04/19 05:24 Eos % (Auto) 0.0 % (0.9-2.9) L 07/04/19 05:24 Baso % (Auto) 0.4 % (0.2-1.0) 07/04/19 05:24 Neut # (Auto) 8.9 x10^3/uL (2.2-4.8) H 07/04/19 05:24 Lymph # (Auto) 1.1 X10^3/uL (1.3-2.9) L 07/04/19 05:24 [place]ven # (Auto) 1.0 x10^3/uL (0.3-0.8) H 07/04/19 05:24 Eos # (Auto) 0.0 x10^3/uL (0.0-0.2) 07/04/19 05:24 Baso # (Auto) 0.0 X10^3/uL (0.0-0.1) 07/04/19 05:24 Absolute Nucleated RBC 0.1 /100WBC 07/04/19 05:24 Sodium 137 mmol/L (136-145) 07/04/19 05:24 Corrected Sodium TNP 07/04/19 05:24 Potassium 3.2 mmol/L (3.5-5.1) L 07/04/19 05:24 Chloride 106 mmol/L (98-107) 07/04/19 05:24 Carbon Dioxide 23.2 mmol/L (21-32) 07/04/19 05:24 BUN 7 mg/dL (7-18) 07/04/19 05:24 Creatinine 0.86 mg/dL (0.70-1.30) 07/04/19 08:19 Est GFR (MDRD) Af Amer > 60 (>60) 07/04/19 05:24 Est GFR (MDRD) Non-Af > 60 (>60) 07/04/19 05:24 Glucose 103 mg/dL (65-99) H 07/04/19 05:24 POC Glucose (mg/dL) 104 mg/dL (65-99) H 07/04/19 05:32 Lactic Acid 1.5 mmol/L (0.4-2.0) 06/27/19 04:09 Calcium 9.1 mg/dL (8.5-10.1) 07/04/19 05:24 Corrected Calcium 10.5 mg/dL (8.5-10.1) H 07/04/19 05:24 Magnesium 1.8 mg/dL (1.7-2.9) 07/03/19 05:45 Total Bilirubin 0.50 mg/dL (0.2-1.0) 07/04/19 05:24 AST 46 Units/L (15-37) H 07/04/19 05:24 ALT 66 Units/L (12-78) 07/04/19 05:24 Alkaline Phosphatase 215 Units/L (46-116) H 07/04/19 05:24 Total Protein 5.5 g/dL (6.4-8.2) L 07/04/19 05:24 Albumin 2.3 g/dL (3.4-5.0) L 07/04/19 05:24 Globulin 3.2 g/dL (2.5-4.5) 07/04/19 05:24 Albumin/Globulin Ratio 0.7 Ratio (1.1-2.1) L 07/04/19 05:24 Stl C. diff Tox B Gene Positive (NEGATIVE) A 07/01/19 15:47 Stl C. diff [id number] Negative (NEGATIVE) 07/01/19 15:47 Vancomycin Trough 13.3 ug/mL (15-20) L 07/04/19 08:19 C. difficile Toxin A&B Negative (NEGATIVE) 07/01/19 15:47 Tissue Pathology To follow 07/02/19 08:49 - Assessment and Plan 1: Post op amputation Rt 4th toe and debridement Rt foot ulcer . 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 same local care , IV ATB . keep for few days and arrange for VNA and OP f/u - Problem Patient Problems: Patient Problems Anemia (Acute) D64.9 Acute renal failure (Acute) N17.9 Hypomagnesemia (Acute) E83.42 Hypokalemia (Acute) E87.6 Foot ulcer (Acute) L97.509 Cellulitis of right foot (Acute) L03.115
[2019-07-04] MEDS: K-DUR TAB 20 MEQ PO PRN (11:37)
[2019-07-04] MEDS: LIPITOR TAB 40 MG PO SCH (22:00)
[2019-07-04] MEDS: ARICEPT TAB 5 MG PO SCH (22:01)
[2019-07-05] MEDS: NS 1000 ML 1,000 ML IV SCH (05:03)
[2019-07-05] MEDS: ZOSYN VIAL 3.375 GRAMS 3.375 G in NS 100 ML IV + SPIKE MINIBAG* 100 ML IV SCH ×3 (05:20→21:16)
[2019-07-05] MEDS: APRESOLINE TAB 25 MG PO SCH ×3 (05:20→21:16)
[2019-07-05 06:02] LABS: BASOPHILS # (AUTO) 0.1 X10^3/uL (0.0-0.1); BASOPHILS % (AUTO) 0.4 % (0.2-1.0); HEMATOCRIT 33.6 % (42.0-54.0); HEMOGLOBIN 11.5 g/dL (13.5-18.0); LYMPHOCYTES # (AUTO) 1.2 X10^3/uL (1.3-2.9); LYMPHOCYTES % (AUTO) 9.7 % (21.0-51.0); MEAN CORPUSCULAR HGB CONC 34.4 g/dL (33.0-35.0); MEAN CORPUSCULAR VOLUME 87.2 fL (80.0-100.0); MEAN PLATELET VOLUME 7.9 fL (7.4-11.0); MONOCYTES # (AUTO) 1.1 x10^3/uL (0.3-0.8); MONOCYTES % (AUTO) 8.9 % (0.0-13.0); NEUTROPHILS # (AUTO) 10.3 x10^3/uL (2.2-4.8); PLATELET COUNT 470 X10^3/uL (150.0-450.0); RED BLOOD COUNT 3.85 X10^6/uL (4.7-6.0); RED CELL DISTRIBUTION WIDTH 13.7 % (11.6-16.5); WHITE BLOOD COUNT 12.8 X10^3/uL (3.6-10.0)
[2019-07-05 06:20] LABS: ALANINE AMINOTRANSFERASE 73 Units/L (12-78); ALBUMIN 2.5 g/dL (3.4-5.0); ALKALINE PHOSPHATASE 222 Units/L (46-116); ASPARTATE AMINO TRANSFERASE 55 Units/L (15-37); BLOOD UREA NITROGEN 7 mg/dL (7-18); CALCIUM 9.2 mg/dL (8.5-10.1); CARBON DIOXIDE 22.6 mmol/L (21-32); CHLORIDE 107 mmol/L (98-107); COR CA(FOR HYPOALB) 10.4 mg/dL (8.5-10.1); CREATININE 0.81 mg/dL (0.70-1.30); SODIUM 140 mmol/L (136-145); TOTAL PROTEIN 5.7 g/dL (6.4-8.2); eGFR NON BLACK RACES > 60 (>60)
[2019-07-05] MEDS ORDERED: GLUCOPHAGE ONE ×2 (07:34→18:22)
[2019-07-05] MEDS: ASPIRIN EC 81 MG PO SCH (08:26)
[2019-07-05] MEDS: BENICAR TAB 40 MG PO SCH (08:44)
[2019-07-05] MEDS: GLUCOPHAGE PO SCH ×2 (08:44→17:30)
[2019-07-05] MEDS: BRILINTA PO SCH ×2 (08:44→20:37)
[2019-07-05] MEDS: NORVASC TAB 10 MG PO SCH (08:45)
[2019-07-05] MEDS: COREG TAB 6.25 MG PO SCH ×2 (08:45→20:38)
[2019-07-05] MEDS: MOBIC TAB 15 MG PO SCH (08:45)
[2019-07-05] MEDS: VANCOMYCIN HCL 250 MG, VANCOMYCIN HCL 1 G in NS 250 ML IV 250 ML IV SCH ×2 (08:46→20:45)
[2019-07-05] MEDS: PROTONIX INJ 40 MG VIAL IVP SCH (08:46)
[2019-07-05] MEDS: NAMENDA TAB 10 MG PO SCH ×2 (09:11→20:37)
[2019-07-05] MEDS: KLOR-CON PO PRN (09:12)
[2019-07-05] MEDS: GENTAMICIN TOPICAL CRM TOP SCH (11:45)
--- NOTE | 2019-07-05 12:40 | DR.PROGNOT ---
Hospital Progress Notes - Progress Note for Day of: Progress Note Date: 07/05/19 - Chief Complaint Chief Complaint: s/p amputation Rt 4th toe . doing fairly well . dressing was changed . cellulitis is subsiding ,mild erythema around the incisions , no active drainage - Past Medical Family Social History Past Med/Fam/Surg Hx: No changes since H&P Allergies: Allergies prednisone Allergy (Verified 05/21/19 10:19) - Review Of Systems ROS: No change since H&P - Vital Signs Vital Signs: Temperature 98.2 F Pulse Rate [Left Brachial] 67 Pulse Rate [Right Brachial] 76 Pulse Rate 58 Respiratory Rate 18 Blood Pressure [Right Arm] 152/69 Blood Pressure [Left Arm] 178/92 Blood Pressure 161/82 O2 Sat by Pulse Oximetry 97 - Physical Exam Oriented: Normal Eyes: Normal Ear: Normal Nose: Normal Throat: Normal Respiratory: Normal Cardiovascular: Normal : Normal GI:Auscultation: Normal GI:Palpation: Normal GI: Tenderness: Normal Skin: Other (as above . less cellulitis Rt foot ulcer .. amputation site is clean . no active infection .) Musculoskeletal: Right, Foot, Swelling, Tender Psychiatric: Normal Mood Description: Calm Affect: Normal Speech Pattern: Clear, Appropriate - Laboratory and Diagnostics Result Diagrams: 07/05/19 05:27 07/05/19 05:27 Labs: 06/26/19 13:52 Blood Blood Culture - Final 06/26/19 13:45 Blood Blood Culture - Final 06/27/19 11:45 Foot - Right Gram Stain - Final 06/27/19 11:45 Foot - Right Wound Culture - Final Staphylococcus Aureus Laboratory WBC 12.8 X10^3/uL (3.6-10.0) H 07/05/19 05:27 RBC 3.85 X10^6/uL (4.7-6.0) L 07/05/19 05:27 Hgb 11.5 g/dL (13.5-18.0) L 07/05/19 05:27 Hct 33.6 % (42.0-54.0) L 07/05/19 05:27 MCV 87.2 fL (80.0-100.0) 07/05/19 05:27 MCH 30.0 pg (27.0-34.0) 07/05/19 05:27 MCHC 34.4 g/dL (33.0-35.0) 07/05/19 05:27 RDW 13.7 % (11.6-16.5) 07/05/19 05:27 Plt Count 470 X10^3/uL (150.0-450.0) H 07/05/19 05:27 MPV 7.9 fL (7.4-11.0) 07/05/19 05:27 Neut % (Auto) 81.0 % (42.0-75.0) H 07/05/19 05:27 Lymph % (Auto) 9.7 % (21.0-51.0) L 07/05/19 05:27 [place] % (Auto) 8.9 % (0.0-13.0) 07/05/19 05:27 Eos % (Auto) 0.0 % (0.9-2.9) L 07/05/19 05:27 Baso % (Auto) 0.4 % (0.2-1.0) 07/05/19 05:27 Neut # (Auto) 10.3 x10^3/uL (2.2-4.8) H 07/05/19 05:27 Lymph # (Auto) 1.2 X10^3/uL (1.3-2.9) L 07/05/19 05:27 [place] # (Auto) 1.1 x10^3/uL (0.3-0.8) H 07/05/19 05:27 Eos # (Auto) 0.0 x10^3/uL (0.0-0.2) 07/05/19 05:27 Baso # (Auto) 0.1 X10^3/uL (0.0-0.1) 07/05/19 05:27 Absolute Nucleated RBC 0.0 /100WBC 07/05/19 05:27 Sodium 140 mmol/L (136-145) 07/05/19 05:27 Corrected Sodium TNP 07/05/19 05:27 Potassium 3.2 mmol/L (3.5-5.1) L 07/05/19 05:27 Chloride 107 mmol/L (98-107) 07/05/19 05:27 Carbon Dioxide 22.6 mmol/L (21-32) 07/05/19 05:27 BUN 7 mg/dL (7-18) 07/05/19 05:27 Creatinine 0.81 mg/dL (0.70-1.30) 07/05/19 05:27 Est GFR (MDRD) Af Amer > 60 (>60) 07/05/19 05:27 Est GFR (MDRD) Non-Af > 60 (>60) 07/05/19 05:27 Glucose 99 mg/dL (65-99) 07/05/19 05:27 POC Glucose (mg/dL) 111 mg/dL (65-99) H 07/05/19 11:15 Lactic Acid 1.5 mmol/L (0.4-2.0) 06/27/19 04:09 Calcium 9.2 mg/dL (8.5-10.1) 07/05/19 05:27 Corrected Calcium 10.4 mg/dL (8.5-10.1) H 07/05/19 05:27 Magnesium 1.8 mg/dL (1.7-2.9) 07/03/19 05:45 Total Bilirubin 0.40 mg/dL (0.2-1.0) 07/05/19 05:27 AST 55 Units/L (15-37) H 07/05/19 05:27 ALT 73 Units/L (12-78) 07/05/19 05:27 Alkaline Phosphatase 222 Units/L (46-116) H 07/05/19 05:27 Total Protein 5.7 g/dL (6.4-8.2) L 07/05/19 05:27 Albumin 2.5 g/dL (3.4-5.0) L 07/05/19 05:27 Globulin 3.2 g/dL (2.5-4.5) 07/05/19 05:27 Albumin/Globulin Ratio 0.8 Ratio (1.1-2.1) L 07/05/19 05:27 Stl C. diff Tox B Gene Positive (NEGATIVE) A 07/01/19 15:47 Stl C. diff 027-NAP1-BI Negative (NEGATIVE) 07/01/19 15:47 Vancomycin Trough 13.3 ug/mL (15-20) L 07/04/19 08:19 C. difficile Toxin A&B Negative (NEGATIVE) 07/01/19 15:47 Tissue Pathology To follow 07/02/19 08:49 - Assessment and Plan 1: Post op amputation Rt 4th toe and debridement Rt foot ulcer . 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 same local care , IV ATB . to arrange for VNA and OP F/U in 2 weeks .. - Problem Patient Problems: Patient Problems Anemia (Acute) D64.9 Acute renal failure (Acute) N17.9 Hypomagnesemia (Acute) E83.42 Hypokalemia (Acute) E87.6 Foot ulcer (Acute) L97.509 Cellulitis of right foot (Acute) L03.115
[2019-07-05] MEDS: ARICEPT TAB 5 MG PO SCH (20:37)
[2019-07-05] MEDS: LIPITOR TAB 40 MG PO SCH (20:38)
--- NOTE | 2019-07-05 21:49 | PCM.PROG ---
Progress Note - Progress Note for Day of Date of Exam: 07/03/19 - Subjective Subjective: WAS ADMITTED FOR RIGHT FOOT CELLULITIS. HE IS DAY 1 STATUS POST I&D AND AMPUTATION OF THE 4TH DIGIT OF THE RIGHT FOOT. TODAY, HE IS ALERT AND ORIENTED, LYING IN BED ON MORNING ROUNDS. HE CONTINUES WITH PAIN TO THE RIGHT FOOT. HIS VITALS THIS MORNING ARE 98.0-66-20-96%-179/85. LABS WERE OBTAINED. ABNORMAL LAB VALUES INCLUDE THE FOLLOWING: RBC 3.89, HGB 11.6, HCT 33.9, POTASSIUM 3.4, CHLORIDE 108, BUN 6, GLUCOSE 127, AST 41, ALK PHOS 206, TOTAL PROTEIN 5.5, ALBUMIN 2.3. RIGHT FOOT WOUND CULTURE REPORTS GROWTH OF STAPHYLOCOCCUS AUREUS. BLOOD CULTURES ARE NEGATIVE. HE IS CURRENTLY RECEIVING IV VANCOMYCIN, ZOSYN, GENTAMICIN CREAM, THE POTASSIUM AND MAGNESIUM PROTOCOLS, AND HOME MEDICATIONS WERE RESUMED. WE WILL CONTINUE WITH CURRENT PLAN OF CARE TODAY. OTHERWISE, WE WILL FOLLOW UP WITH AM LABS AND CONTINUE TO MONITOR. - Past Medical Family Social History Past Med/Fam/Surg Hx: No changes since H&P Allergies: Allergies prednisone Allergy (Verified 05/21/19 10:19) - Review of Systems ROS: No change since H&P - Vital Signs and I&O's Vital Signs: Temperature 98.0 F Pulse Rate [Left Brachial] 81 Pulse Rate [Right Brachial] 76 Pulse Rate 58 Respiratory Rate 18 Blood Pressure [Right Arm] 157/68 Blood Pressure [Left Arm] 178/92 Blood Pressure 161/82 O2 Sat by Pulse Oximetry 96 Intake and Output: Intake & Output 07/03/19 07/04/19 07/05/19 07/06/19 11:59 11:59 11:59 11:59 Intake Total 1823 / 1823 2129 384 / 384 Output Total 470 / 470 Balance 1353 / 1353 2129 384 / 384 - Physical Exam Oriented: Normal Eyes: Normal Ear: Normal Nose: Normal Throat: Normal Respiratory: Normal Cardiovascular: Normal : Normal Auscultation: Bowel Sounds: Normal Palpation: Normal Tenderness: Normal Skin: Other (as above . less cellulitis Rt foot ulcer .. amputation site is clean . no active infection .) Musculoskeletal: Right, Foot, Swelling, Tender Psychiatric: Normal Mood Description: Calm Affect: Normal Speech Pattern: Clear, Appropriate - Laboratory and Diagnostics Result Diagrams: 07/05/19 05:27 07/05/19 05:27 Labs: 06/26/19 13:52 Blood Blood Culture - Final 06/26/19 13:45 Blood Blood Culture - Final 06/27/19 11:45 Foot - Right Gram Stain - Final 06/27/19 11:45 Foot - Right Wound Culture - Final Staphylococcus Aureus Laboratory WBC 12.8 X10^3/uL (3.6-10.0) H 07/05/19 05:27 RBC 3.85 X10^6/uL (4.7-6.0) L 07/05/19 05:27 Hgb 11.5 g/dL (13.5-18.0) L 07/05/19 05:27 Hct 33.6 % (42.0-54.0) L 07/05/19 05:27 MCV 87.2 fL (80.0-100.0) 07/05/19 05:27 MCH 30.0 pg (27.0-34.0) 07/05/19 05:27 MCHC 34.4 g/dL (33.0-35.0) 07/05/19 05:27 RDW 13.7 % (11.6-16.5) 07/05/19 05:27 Plt Count 470 X10^3/uL (150.0-450.0) H 07/05/19 05:27 MPV 7.9 fL (7.4-11.0) 07/05/19 05:27 Neut % (Auto) 81.0 % (42.0-75.0) H 07/05/19 05:27 Lymph % (Auto) 9.7 % (21.0-51.0) L 07/05/19 05:27 [place] % (Auto) 8.9 % (0.0-13.0) 07/05/19 05:27 Eos % (Auto) 0.0 % (0.9-2.9) L 07/05/19 05:27 Baso % (Auto) 0.4 % (0.2-1.0) 07/05/19 05:27 Neut # (Auto) 10.3 x10^3/uL (2.2-4.8) H 07/05/19 05:27 Lymph # (Auto) 1.2 X10^3/uL (1.3-2.9) L 07/05/19 05:27 [place] # (Auto) 1.1 x10^3/uL (0.3-0.8) H 07/05/19 05:27 Eos # (Auto) 0.0 x10^3/uL (0.0-0.2) 07/05/19 05:27 Baso # (Auto) 0.1 X10^3/uL (0.0-0.1) 07/05/19 05:27 Absolute Nucleated RBC 0.0 /100WBC 07/05/19 05:27 Sodium 140 mmol/L (136-145) 07/05/19 05:27 Corrected Sodium TNP 07/05/19 05:27 Potassium 3.2 mmol/L (3.5-5.1) L 07/05/19 05:27 Chloride 107 mmol/L (98-107) 07/05/19 05:27 Carbon Dioxide 22.6 mmol/L (21-32) 07/05/19 05:27 BUN 7 mg/dL (7-18) 07/05/19 05:27 Creatinine 0.81 mg/dL (0.70-1.30) 07/05/19 05:27 Est GFR (MDRD) Af Amer > 60 (>60) 07/05/19 05:27 Est GFR (MDRD) Non-Af > 60 (>60) 07/05/19 05:27 Glucose 99 mg/dL (65-99) 07/05/19 05:27 POC Glucose (mg/dL) 113 mg/dL (65-99) H 07/05/19 20:05 Lactic Acid 1.5 mmol/L (0.4-2.0) 06/27/19 04:09 Calcium 9.2 mg/dL (8.5-10.1) 07/05/19 05:27 Corrected Calcium 10.4 mg/dL (8.5-10.1) H 07/05/19 05:27 Magnesium 1.8 mg/dL (1.7-2.9) 07/03/19 05:45 Total Bilirubin 0.40 mg/dL (0.2-1.0) 07/05/19 05:27 AST 55 Units/L (15-37) H 07/05/19 05:27 ALT 73 Units/L (12-78) 07/05/19 05:27 Alkaline Phosphatase 222 Units/L (46-116) H 07/05/19 05:27 Total Protein 5.7 g/dL (6.4-8.2) L 07/05/19 05:27 Albumin 2.5 g/dL (3.4-5.0) L 07/05/19 05:27 Globulin 3.2 g/dL (2.5-4.5) 07/05/19 05:27 Albumin/Globulin Ratio 0.8 Ratio (1.1-2.1) L 07/05/19 05:27 Stl C. diff Tox B Gene Positive (NEGATIVE) A 07/01/19 15:47 Stl C. diff 027-NAP1-BI Negative (NEGATIVE) 07/01/19 15:47 Vancomycin Trough 13.3 ug/mL (15-20) L 07/04/19 08:19 C. difficile Toxin A&B Negative (NEGATIVE) 07/01/19 15:47 Tissue Pathology To follow 07/02/19 08:49 - Plan (1) Cellulitis of right foot Status: Acute Plan: STATUS POST I&D AND AMPUTATION OF 4TH DIGIT. Continue wound care with daily dressing change, IV antibiotics: Vanc and Zosyn. MRI negative for osteomyelitis.
[2019-07-06] MEDS ORDERED: GLUCOPHAGE ONE (05:04)
[2019-07-06] MEDS: ZOSYN VIAL 3.375 GRAMS 3.375 G in NS 100 ML IV + SPIKE MINIBAG* 100 ML IV SCH (05:10)
[2019-07-06] MEDS: APRESOLINE TAB 25 MG PO SCH (05:10)
[2019-07-06] MEDS: NS 1000 ML 1,000 ML IV SCH ×2 (05:11→11:00)
[2019-07-06] MEDS: GLUCOPHAGE PO SCH (06:03)
[2019-07-06 06:07] LABS: BASOPHILS # (AUTO) 0.1 X10^3/uL (0.0-0.1); BASOPHILS % (AUTO) 0.7 % (0.2-1.0); HEMATOCRIT 34.8 % (42.0-54.0); HEMOGLOBIN 11.7 g/dL (13.5-18.0); LYMPHOCYTES # (AUTO) 0.9 X10^3/uL (1.3-2.9); MEAN CORPUSCULAR HEMOGLOBIN 29.5 pg (27.0-34.0); MEAN CORPUSCULAR HGB CONC 33.6 g/dL (33.0-35.0); MEAN CORPUSCULAR VOLUME 87.7 fL (80.0-100.0); MEAN PLATELET VOLUME 7.8 fL (7.4-11.0); MONOCYTES # (AUTO) 1.1 x10^3/uL (0.3-0.8); MONOCYTES % (AUTO) 9.2 % (0.0-13.0); NEUTROPHILS # (AUTO) 9.4 x10^3/uL (2.2-4.8); NEUTROPHILS % (AUTO) 82.1 % (42.0-75.0); PLATELET COUNT 443 X10^3/uL (150.0-450.0); RED BLOOD COUNT 3.97 X10^6/uL (4.7-6.0); RED CELL DISTRIBUTION WIDTH 13.9 % (11.6-16.5); WHITE BLOOD COUNT 11.4 X10^3/uL (3.6-10.0)
[2019-07-06 06:15] LABS: BLOOD UREA NITROGEN 9 mg/dL (7-18); CALCIUM 9.4 mg/dL (8.5-10.1); CHLORIDE 106 mmol/L (98-107); CREATININE 0.84 mg/dL (0.70-1.30); SODIUM 141 mmol/L (136-145); eGFR NON BLACK RACES > 60 (>60)
[2019-07-06 06:35] LABS: ALANINE AMINOTRANSFERASE 75 Units/L (12-78); ALBUMIN 2.5 g/dL (3.4-5.0); ALKALINE PHOSPHATASE 231 Units/L (46-116); ASPARTATE AMINO TRANSFERASE 60 Units/L (15-37); COR CA(FOR HYPOALB) 10.6 mg/dL (8.5-10.1); TOTAL PROTEIN 5.7 g/dL (6.4-8.2)
[2019-07-06] MEDS: KLOR-CON PO PRN (06:39)
[2019-07-06] MEDS: MOBIC TAB 15 MG PO SCH (08:39)
[2019-07-06] MEDS: NAMENDA TAB 10 MG PO SCH (08:40)
[2019-07-06] MEDS: PROTONIX INJ 40 MG VIAL IVP SCH (08:40)
[2019-07-06] MEDS: NORVASC TAB 10 MG PO SCH (08:40)
[2019-07-06] MEDS: COREG TAB 6.25 MG PO SCH (08:40)
[2019-07-06] MEDS: BRILINTA PO SCH (08:40)
[2019-07-06] MEDS: BENICAR TAB 40 MG PO SCH (08:42)
[2019-07-06] MEDS: ASPIRIN EC 81 MG PO SCH (08:43)
[2019-07-06] MEDS: GENTAMICIN TOPICAL CRM TOP SCH (09:00)
[2019-07-06 09:04] LABS: CREATININE 0.83 mg/dL (0.70-1.30)
[2019-07-06] MEDS: VANCOMYCIN HCL 250 MG, VANCOMYCIN HCL 1 G in NS 250 ML IV 250 ML IV SCH (09:57)
--- NOTE | 2019-07-06 10:46 | PCM.PROG ---
Progress Note - Progress Note for Day of Date of Exam: 07/04/19 - Subjective Subjective: WAS ADMITTED FOR RIGHT FOOT CELLULITIS. HE IS DAY 2 STATUS POST I&D AND AMPUTATION OF THE 4TH DIGIT OF THE RIGHT FOOT. TODAY, HE IS ALERT AND ORIENTED, LYING IN BED ON MORNING ROUNDS. HE CONTINUES WITH PAIN TO THE RIGHT FOOT. MILD ERYTHEM NOTED AROUND INCISION BUT NO ACTIVE DRAINING. HIS VITALS THIS MORNING ARE 98.5-82-18-96%-183/85. LABS WERE OBTAINED. ABNORMAL LAB VALUES INCLUDE THE FOLLOWING: WBC 11.0, RBC 3.85, HGB 11.5, HCT 33.5, POTASSIUM 3.2, GLUCOSE 103, AST 46, ALK PHOS 215, TOTAL PROTEIN 5.5, ALBUMIN 2.3. RIGHT FOOT WOUND CULTURE REPORTS GROWTH OF STAPHYLOCOCCUS AUREUS. BLOOD CULTURES ARE NEGATIVE. HE IS CURRENTLY RECEIVING IV VANCOMYCIN, ZOSYN, GENTAMICIN CREAM, THE POTASSIUM AND MAGNESIUM PROTOCOLS, AND HOME MEDICATIONS WERE RESUMED. WE WILL CONTINUE WITH CURRENT PLAN OF CARE TODAY. CASE MANAGEMENT WILL ARRANGE FOR VISITING NURSES FOR WOUND CARE. OTHERWISE, WE WILL FOLLOW UP WITH AM LABS AND CONTINUE TO MONITOR. - Past Medical Family Social History Past Med/Fam/Surg Hx: No changes since H&P Allergies: Allergies prednisone Allergy (Verified 05/21/19 10:19) - Review of Systems ROS: No change since H&P - Vital Signs and I&O's Vital Signs: Temperature 97.7 F Pulse Rate [Left Brachial] 66 Pulse Rate [Right Brachial] 76 Pulse Rate 58 Respiratory Rate 18 Blood Pressure [Right Arm] 183/85 Blood Pressure [Left Arm] 156/69 Blood Pressure 161/82 O2 Sat by Pulse Oximetry 96 Intake and Output: Intake & Output 07/03/19 07/04/19 07/05/19 07/06/19 11:59 11:59 11:59 11:59 Intake Total 1823 / 1823 2129 / 2323 Output Total 470 / 470 Balance 1353 / 1353 2129 / 2314 - Physical Exam Oriented: Normal Eyes: Normal Ear: Normal Nose: Normal Throat: Normal Respiratory: Normal Cardiovascular: Normal : Normal Auscultation: Bowel Sounds: Normal Tenderness: Normal Skin: Other (as above . less cellulitis Rt foot ulcer .. amputation site is clean . no active infection .) Musculoskeletal: Right, Foot, Swelling, Tender Psychiatric: Normal Mood Description: Calm Affect: Normal Speech Pattern: Clear, Appropriate - Laboratory and Diagnostics Result Diagrams: 07/06/19 05:35 07/06/19 08:40 Labs: 07/06/19 06:30 Stool - Final 06/26/19 13:52 Blood Blood Culture - Final 06/26/19 13:45 Blood Blood Culture - Final 06/27/19 11:45 Foot - Right Gram Stain - Final 06/27/19 11:45 Foot - Right Wound Culture - Final Staphylococcus Aureus Laboratory WBC 11.4 X10^3/uL (3.6-10.0) H 07/06/19 05:35 RBC 3.97 X10^6/uL (4.7-6.0) L 07/06/19 05:35 Hgb 11.7 g/dL (13.5-18.0) L 07/06/19 05:35 Hct 34.8 % (42.0-54.0) L 07/06/19 05:35 MCV 87.7 fL (80.0-100.0) 07/06/19 05:35 MCH 29.5 pg (27.0-34.0) 07/06/19 05:35 MCHC 33.6 g/dL (33.0-35.0) 07/06/19 05:35 RDW 13.9 % (11.6-16.5) 07/06/19 05:35 Plt Count 443 X10^3/uL (150.0-450.0) 07/06/19 05:35 MPV 7.8 fL (7.4-11.0) 07/06/19 05:35 Neut % (Auto) 82.1 % (42.0-75.0) H 07/06/19 05:35 Lymph % (Auto) 8.0 % (21.0-51.0) L 07/06/19 05:35 [place] % (Auto) 9.2 % (0.0-13.0) 07/06/19 05:35 Eos % (Auto) 0.0 % (0.9-2.9) L 07/06/19 05:35 Baso % (Auto) 0.7 % (0.2-1.0) 07/06/19 05:35 Neut # (Auto) 9.4 x10^3/uL (2.2-4.8) H 07/06/19 05:35 Lymph # (Auto) 0.9 X10^3/uL (1.3-2.9) L 07/06/19 05:35 [place] # (Auto) 1.1 x10^3/uL (0.3-0.8) H 07/06/19 05:35 Eos # (Auto) 0.0 x10^3/uL (0.0-0.2) 07/06/19 05:35 Baso # (Auto) 0.1 X10^3/uL (0.0-0.1) 07/06/19 05:35 Absolute Nucleated RBC 0.0 /100WBC 07/06/19 05:35 Sodium 141 mmol/L (136-145) 07/06/19 05:35 Corrected Sodium TNP 07/06/19 05:35 Potassium 3.4 mmol/L (3.5-5.1) L 07/06/19 08:40 Chloride 106 mmol/L (98-107) 07/06/19 05:35 Carbon Dioxide 23.0 mmol/L (21-32) 07/06/19 05:35 BUN 9 mg/dL (7-18) 07/06/19 05:35 Creatinine 0.83 mg/dL (0.70-1.30) 07/06/19 08:40 Est GFR (MDRD) Af Amer > 60 (>60) 07/06/19 05:35 Est GFR (MDRD) Non-Af > 60 (>60) 07/06/19 05:35 Glucose 107 mg/dL (65-99) H 07/06/19 05:35 POC Glucose (mg/dL) 104 mg/dL (65-99) H 07/06/19 05:13 Lactic Acid 1.5 mmol/L (0.4-2.0) 06/27/19 04:09 Calcium 9.4 mg/dL (8.5-10.1) 07/06/19 05:35 Corrected Calcium 10.6 mg/dL (8.5-10.1) H 07/06/19 05:35 Magnesium 1.5 mg/dL (1.7-2.9) L 07/06/19 05:35 Total Bilirubin 0.40 mg/dL (0.2-1.0) 07/06/19 05:35 AST 60 Units/L (15-37) H 07/06/19 05:35 ALT 75 Units/L (12-78) 07/06/19 05:35 Alkaline Phosphatase 231 Units/L (46-116) H 07/06/19 05:35 Total Protein 5.7 g/dL (6.4-8.2) L 07/06/19 05:35 Albumin 2.5 g/dL (3.4-5.0) L 07/06/19 05:35 Globulin 3.2 g/dL (2.5-4.5) 07/06/19 05:35 Albumin/Globulin Ratio 0.8 Ratio (1.1-2.1) L 07/06/19 05:35 Stool Description [address] 07/06/19 06:30 Stl Occult Blood (IFOB) Negative (NEGATIVE) 07/06/19 06:30 Stool for White Cells Positive (NEGATIVE) A 07/06/19 06:30 Stl C. diff Tox B Gene Positive (NEGATIVE) A 07/06/19 06:30 Stl C. diff 027-NAP1-BI Negative (NEGATIVE) 07/06/19 06:30 Vancomycin Trough 12.0 ug/mL (15-20) L 07/06/19 08:40 C. difficile Toxin A&B Negative (NEGATIVE) 07/06/19 06:30 Tissue Pathology To follow 07/02/19 08:49 - Plan (1) Cellulitis of right foot Status: Acute Plan: STATUS POST I&D AND AMPUTATION OF 4TH DIGIT. Continue wound care with daily dressing change, IV antibiotics: Vanc and Zosyn. MRI negative for osteomyelitis.
--- NOTE | 2019-07-06 10:49 | PCM.PROG ---
Progress Note - Progress Note for Day of Date of Exam: 07/05/19 - Subjective Subjective: WAS ADMITTED FOR RIGHT FOOT CELLULITIS. HE IS DAY 3 STATUS POST I&D AND AMPUTATION OF THE 4TH DIGIT OF THE RIGHT FOOT. TODAY, HE IS ALERT AND ORIENTED, LYING IN BED ON MORNING ROUNDS. HE CONTINUES WITH PAIN TO THE RIGHT FOOT. MILD ERYTHEM NOTED AROUND INCISION BUT NO ACTIVE DRAINING. HIS VITALS THIS MORNING ARE 98.2-67-18-97%-152/69. LABS WERE OBTAINED. ABNORMAL LAB VALUES INCLUDE THE FOLLOWING: WBC 12.8, RBC 3.85, HGB 11.5, HCT 33.6, PLT COUNT 470, POTASSIUM 3.2, AST 55, ALK PHOS 222, TOTAL PROTEIN 5.7, ALBUMIN 2.5. RIGHT FOOT WOUND CULTURE REPORTS GROWTH OF STAPHYLOCOCCUS AUREUS. BLOOD CULTURES ARE NEGATIVE. HE IS CURRENTLY RECEIVING IV VANCOMYCIN, ZOSYN, GENTAMICIN CREAM, THE POTASSIUM AND MAGNESIUM PROTOCOLS, AND HOME MEDICATIONS WERE RESUMED. WE WILL CONTINUE WITH CURRENT PLAN OF CARE TODAY. CASE MANAGEMENT WILL ARRANGE FOR VISITING NURSES FOR WOUND CARE. OTHERWISE, WE WILL FOLLOW UP WITH AM LABS AND CONTINUE TO MONITOR. - Past Medical Family Social History Past Med/Fam/Surg Hx: No changes since H&P Allergies: Allergies prednisone Allergy (Verified 05/21/19 10:19) - Review of Systems ROS: No change since H&P - Vital Signs and I&O's Vital Signs: Temperature 97.7 F Pulse Rate [Left Brachial] 66 Pulse Rate [Right Brachial] 76 Pulse Rate 58 Respiratory Rate 18 Blood Pressure [Right Arm] 183/85 Blood Pressure [Left Arm] 156/69 Blood Pressure 161/82 O2 Sat by Pulse Oximetry 96 Intake and Output: Intake & Output 07/03/19 07/04/19 07/05/19 07/06/19 11:59 11:59 11:59 11:59 Intake Total 1823 / 1823 2129 / 2129 / 2323 Output Total 470 / 470 Balance 1353 / 1353 2129 / 231 - Physical Exam Oriented: Normal Eyes: Normal Ear: Normal Nose: Normal Throat: Normal Respiratory: Normal Cardiovascular: Normal : Normal Auscultation: Bowel Sounds: Normal Tenderness: Normal Skin: Other (as above . less cellulitis Rt foot ulcer .. amputation site is clean . no active infection .) Musculoskeletal: Right, Foot, Swelling, Tender Psychiatric: Normal Mood Description: Calm Affect: Normal Speech Pattern: Clear, Appropriate - Laboratory and Diagnostics Result Diagrams: 07/06/19 05:35 07/06/19 08:40 Labs: 07/06/19 06:30 Stool - Final 06/26/19 13:52 Blood Blood Culture - Final 06/26/19 13:45 Blood Blood Culture - Final 06/27/19 11:45 Foot - Right Gram Stain - Final 06/27/19 11:45 Foot - Right Wound Culture - Final Staphylococcus Aureus Laboratory WBC 11.4 X10^3/uL (3.6-10.0) H 07/06/19 05:35 RBC 3.97 X10^6/uL (4.7-6.0) L 07/06/19 05:35 Hgb 11.7 g/dL (13.5-18.0) L 07/06/19 05:35 Hct 34.8 % (42.0-54.0) L 07/06/19 05:35 MCV 87.7 fL (80.0-100.0) 07/06/19 05:35 MCH 29.5 pg (27.0-34.0) 07/06/19 05:35 MCHC 33.6 g/dL (33.0-35.0) 07/06/19 05:35 RDW 13.9 % (11.6-16.5) 07/06/19 05:35 Plt Count 443 X10^3/uL (150.0-450.0) 07/06/19 05:35 MPV 7.8 fL (7.4-11.0) 07/06/19 05:35 Neut % (Auto) 82.1 % (42.0-75.0) H 07/06/19 05:35 Lymph % (Auto) 8.0 % (21.0-51.0) L 07/06/19 05:35 [place] % (Auto) 9.2 % (0.0-13.0) 07/06/19 05:35 Eos % (Auto) 0.0 % (0.9-2.9) L 07/06/19 05:35 Baso % (Auto) 0.7 % (0.2-1.0) 07/06/19 05:35 Neut # (Auto) 9.4 x10^3/uL (2.2-4.8) H 07/06/19 05:35 Lymph # (Auto) 0.9 X10^3/uL (1.3-2.9) L 07/06/19 05:35 [place] # (Auto) 1.1 x10^3/uL (0.3-0.8) H 07/06/19 05:35 Eos # (Auto) 0.0 x10^3/uL (0.0-0.2) 07/06/19 05:35 Baso # (Auto) 0.1 X10^3/uL (0.0-0.1) 07/06/19 05:35 Absolute Nucleated RBC 0.0 /100WBC 07/06/19 05:35 Sodium 141 mmol/L (136-145) 07/06/19 05:35 Corrected Sodium TNP 07/06/19 05:35 Potassium 3.4 mmol/L (3.5-5.1) L 07/06/19 08:40 Chloride 106 mmol/L (98-107) 07/06/19 05:35 Carbon Dioxide 23.0 mmol/L (21-32) 07/06/19 05:35 BUN 9 mg/dL (7-18) 07/06/19 05:35 Creatinine 0.83 mg/dL (0.70-1.30) 07/06/19 08:40 Est GFR (MDRD) Af Amer > 60 (>60) 07/06/19 05:35 Est GFR (MDRD) Non-Af > 60 (>60) 07/06/19 05:35 Glucose 107 mg/dL (65-99) H 07/06/19 05:35 POC Glucose (mg/dL) 104 mg/dL (65-99) H 07/06/19 05:13 Lactic Acid 1.5 mmol/L (0.4-2.0) 06/27/19 04:09 Calcium 9.4 mg/dL (8.5-10.1) 07/06/19 05:35 Corrected Calcium 10.6 mg/dL (8.5-10.1) H 07/06/19 05:35 Magnesium 1.5 mg/dL (1.7-2.9) L 07/06/19 05:35 Total Bilirubin 0.40 mg/dL (0.2-1.0) 07/06/19 05:35 AST 60 Units/L (15-37) H 07/06/19 05:35 ALT 75 Units/L (12-78) 07/06/19 05:35 Alkaline Phosphatase 231 Units/L (46-116) H 07/06/19 05:35 Total Protein 5.7 g/dL (6.4-8.2) L 07/06/19 05:35 Albumin 2.5 g/dL (3.4-5.0) L 07/06/19 05:35 Globulin 3.2 g/dL (2.5-4.5) 07/06/19 05:35 Albumin/Globulin Ratio 0.8 Ratio (1.1-2.1) L 07/06/19 05:35 Stool Description [address] 07/06/19 06:30 Stl Occult Blood (IFOB) Negative (NEGATIVE) 07/06/19 06:30 Stool for White Cells Positive (NEGATIVE) A 07/06/19 06:30 Stl C. diff Tox B Gene Positive (NEGATIVE) A 07/06/19 06:30 Stl C. diff [id number]-[id number] Negative (NEGATIVE) 07/06/19 06:30 Vancomycin Trough 12.0 ug/mL (15-20) L 07/06/19 08:40 C. difficile Toxin A&B Negative (NEGATIVE) 07/06/19 06:30 Tissue Pathology To follow 07/02/19 08:49 - Plan (1) Cellulitis of right foot Status: Acute Plan: STATUS POST I&D AND AMPUTATION OF 4TH DIGIT. Continue wound care with daily dressing change, IV antibiotics: Vanc and Zosyn. MRI negative for osteomyelitis.
[2019-07-06] MEDS ORDERED: MAG-OX TAB PO ONE (11:59)
[2019-07-06 12:16] VITALS: BP 159/73
== END 2019-07-06 14:00 | disposition home health service (06) | DRG 580 ==
LOC: MED/SURG 13:17
PROVIDERS: ADMIT Internal Medicine; ATTEND Internal Medicine
DX: I96 Gangrene, not elsewhere classified; I10 Essential (primary) hypertension; E11.52 Type 2 diabetes mellitus with diabetic peripheral angiopathy with gangrene; L97.519 Non-pressure chronic ulcer of other part of right foot with unspecified severity; B95.61 Methicillin susceptible Staphylococcus aureus infection as the cause of diseases classified elsewhere; E11.621 Type 2 diabetes mellitus with foot ulcer; D64.89 Other specified anemias; R26.89 Other abnormalities of gait and mobility; L03.115 Cellulitis of right lower limb
CPT/HCPCS: 36415; 73718; 80053; 80202; 82270; 82565; 83605; 83630; 83735; 84132; 85025; 87040; 87045; 87070; 87075; 87077; 87186; 87205; 87324; 87427; 87449; 87493; 87899; 88304; 88311; 97110; 97112; 97161; 99100; A4216; A4222; C9113; J3490; J2543; J2704; J3010; J3370; J3475; J3480; J7030; J7050; J7060; J7120

== ENCOUNTER 2019-08-28 10:20 | Inpatient (IN) ==
[2019-08-28 12:07] LABS: BASOPHILS % (AUTO) 0.2 % (0.2-1.0); EOSINOPHILS % (AUTO) 0.2 % (0.9-2.9); HEMATOCRIT 32.9 % (42.0-54.0); HEMOGLOBIN 10.9 g/dL (13.5-18.0); LYMPHOCYTES # (AUTO) 1.1 X10^3/uL (1.3-2.9); LYMPHOCYTES % (AUTO) 4.9 % (21.0-51.0); MEAN CORPUSCULAR HEMOGLOBIN 29.6 pg (27.0-34.0); MEAN CORPUSCULAR HGB CONC 33.2 g/dL (33.0-35.0); MEAN CORPUSCULAR VOLUME 89.1 fL (80.0-100.0); MEAN PLATELET VOLUME 8.7 fL (7.4-11.0); MONOCYTES # (AUTO) 2.3 x10^3/uL (0.3-0.8); MONOCYTES % (AUTO) 10.3 % (0.0-13.0); NEUTROPHILS # (AUTO) 18.9 x10^3/uL (2.2-4.8); NEUTROPHILS % (AUTO) 84.4 % (42.0-75.0); PLATELET COUNT 555 X10^3/uL (150.0-450.0); RED BLOOD COUNT 3.69 X10^6/uL (4.7-6.0); WHITE BLOOD COUNT 22.3 X10^3/uL (3.6-10.0)
[2019-08-28 12:16] LABS: ALANINE AMINOTRANSFERASE 80 Units/L (12-78); ALBUMIN 2.2 g/dL (3.4-5.0); ALKALINE PHOSPHATASE 496 Units/L (46-116); ASPARTATE AMINO TRANSFERASE 64 Units/L (15-37); BLOOD UREA NITROGEN 25 mg/dL (7-18); CARBON DIOXIDE 22.8 mmol/L (21-32); CHLORIDE 102 mmol/L (98-107); COR CA(FOR HYPOALB) 12.4 mg/dL (8.5-10.1); COR NA(FOR HYPERGLY) 138 mmol/L (136-145); CREATININE 0.98 mg/dL (0.70-1.30); SODIUM 136 mmol/L (136-145); TOTAL PROTEIN 7.3 g/dL (6.4-8.2); eGFR NON BLACK RACES > 60 (>60)
[2019-08-28 12:25] LABS: BAND NEUTROPHILS % 1 % (0-10)
[2019-08-28 12:26] LABS: PLATELET MORPHOLOGY COMMENT NORMAL (NORMAL)
--- NOTE | 2019-08-28 13:00 | DR.PROGNOT ---
Hospital Progress Notes - Progress Note for Day of: Progress Note Date: 08/28/19 - Chief Complaint Chief Complaint: was treated as an out Pt for Rt foot diabetic ulcer , S/P recent Rt 4th toe amputation . still having cellulitis extending to the ankle with warm foot with eryhtema . pt is very weak with unsteady gait and very poor appetite . - Past Medical Family Social History Past Med/Fam/Surg Hx: No changes since H&P Allergies: Allergies prednisone Allergy (Verified 07/29/19 08:17) - Review Of Systems ROS: No change since H&P - Vital Signs Vital Signs: Blood Pressure [Right Arm] 159/73 Blood Pressure [Left Arm] 156/69 Blood Pressure 128/66 - Physical Exam Oriented: Normal Eyes: Normal Ear: Normal Nose: Normal Respiratory: Normal Cardiovascular: Normal : Normal GI:Auscultation: Normal GI:Palpation: Normal GI: Tenderness: Normal Skin: Other (4x3cm diabetic ulcer lateral Rt foot with erythema and edema extending to the ankle . another 2x1cm ulcer on the plantar aspect of the Rt foot ) - Laboratory and Diagnostics Result Diagrams: 08/28/19 10:43 08/28/19 10:43 Labs: Laboratory WBC 22.3 X10^3/uL (3.6-10.0) H 08/28/19 10:43 RBC 3.69 X10^6/uL (4.7-6.0) L 08/28/19 10:43 Hgb 10.9 g/dL (13.5-18.0) L 08/28/19 10:43 Hct 32.9 % (42.0-54.0) L 08/28/19 10:43 MCV 89.1 fL (80.0-100.0) 08/28/19 10:43 MCH 29.6 pg (27.0-34.0) 08/28/19 10:43 MCHC 33.2 g/dL (33.0-35.0) 08/28/19 10:43 RDW 15.0 % (11.6-16.5) 08/28/19 10:43 Plt Count 555 X10^3/uL (150.0-450.0) H 08/28/19 10:43 Plt Count Comment Increased (ADEQUATE) 08/28/19 10:43 MPV 8.7 fL (7.4-11.0) 08/28/19 10:43 Neut % (Auto) 84.4 % (42.0-75.0) H 08/28/19 10:43 Lymph % (Auto) 4.9 % (21.0-51.0) L 08/28/19 10:43 [place] % (Auto) 10.3 % (0.0-13.0) 08/28/19 10:43 Eos % (Auto) 0.2 % (0.9-2.9) L 08/28/19 10:43 Baso % (Auto) 0.2 % (0.2-1.0) 08/28/19 10:43 Neut # (Auto) 18.9 x10^3/uL (2.2-4.8) H 08/28/19 10:43 Lymph # (Auto) 1.1 X10^3/uL (1.3-2.9) L 08/28/19 10:43 [place] # (Auto) 2.3 x10^3/uL (0.3-0.8) H 08/28/19 10:43 Eos # (Auto) 0.0 x10^3/uL (0.0-0.2) 08/28/19 10:43 Baso # (Auto) 0.0 X10^3/uL (0.0-0.1) 08/28/19 10:43 Absolute Nucleated RBC 0.0 /100WBC 08/28/19 10:43 Total Counted 100 08/28/19 10:43 Neutrophils % (Manual) 91 % (39-76) H 08/28/19 10:43 Band Neutrophils % 1 % (0-10) 08/28/19 10:43 Lymphocytes % (Manual) 3 % (13-43) L 08/28/19 10:43 Monocytes % (Manual) 5 % (4-9) 08/28/19 10:43 Plt Morphology Comment Normal (NORMAL) 08/28/19 10:43 RBC Morphology Normal (NORMAL) 08/28/19 10:43 Sodium 136 mmol/L (136-145) 08/28/19 10:43 Corrected Sodium 138 mmol/L (136-145) 08/28/19 10:43 Potassium 3.4 mmol/L (3.5-5.1) L 08/28/19 10:43 Chloride 102 mmol/L (98-107) 08/28/19 10:43 Carbon Dioxide 22.8 mmol/L (21-32) 08/28/19 10:43 BUN 25 mg/dL (7-18) H 08/28/19 10:43 Creatinine 0.98 mg/dL (0.70-1.30) 08/28/19 10:43 Est GFR (MDRD) Af Amer > 60 (>60) 08/28/19 10:43 Est GFR (MDRD) Non-Af > 60 (>60) 08/28/19 10:43 Glucose 188 mg/dL (65-99) H 08/28/19 10:43 Calcium 11.0 mg/dL (8.5-10.1) H 08/28/19 10:43 Corrected Calcium 12.4 mg/dL (8.5-10.1) H 08/28/19 10:43 Total Bilirubin 0.50 mg/dL (0.2-1.0) 08/28/19 10:43 AST 64 Units/L (15-37) H 08/28/19 10:43 ALT 80 Units/L (12-78) H 08/28/19 10:43 Alkaline Phosphatase 496 Units/L (46-116) H 08/28/19 10:43 Total Protein 7.3 g/dL (6.4-8.2) 08/28/19 10:43 Albumin 2.2 g/dL (3.4-5.0) L 08/28/19 10:43 Globulin 5.1 g/dL (2.5-4.5) H 08/28/19 10:43 Albumin/Globulin Ratio 0.4 Ratio (1.1-2.1) L 08/28/19 10:43 - Assessment and Plan 1: celluitis Rt foot.. Diabetic ulcer lateral Rt foor possible osteomyelitis . diabetic neuropathy both feet . DM. poor general condition , dizziness and poor appetite . on IV vancomycin , local care of the ulcer and diabetic control .
[2019-08-28 13:19] VITALS: BMI 25.0
[2019-08-28] MEDS ORDERED: NS 1/2 1000 ML IV 1,000 ML IV ONE ×2 (14:58→21:07)
[2019-08-28] MEDS: NS 1/2 1000 ML IV 1,000 ML IV SCH ×3 (14:59→21:23)
[2019-08-28] MEDS ORDERED: POTASSIUM CHL 40 MEQ/NS 0.45% 500 ML IV PRN (17:53)
[2019-08-28] MEDS ORDERED: MICRO K EXTEN CAP 10 MEQ PO PRN (17:53)
[2019-08-28] MEDS ORDERED: POTASSIUM CHLORIDE LIQ 20 MEQ UDC PO PRN (17:53)
[2019-08-28] MEDS ORDERED: POTASSIUM CHL 60 MEQ/NS 0.45% 500 ML IV PRN (17:53)
[2019-08-28] MEDS ORDERED: KLOR-CON PO PRN (17:53)
[2019-08-28] MEDS: K-DUR TAB 20 MEQ PO PRN (20:33)
[2019-08-28] MEDS: MAGNESIUM SULFATE 1 GRAM/100 mL PREMIX 1 GM/100 ML BAG IV PRN ×2 (20:33→21:47)
[2019-08-28] MEDS: SNACK - Diabetic Appropriate PO SCH (20:34)
[2019-08-28] MEDS ORDERED: NORCO 5/325 MG TAB PO PRN (21:24)
[2019-08-29] MEDS: NS 1/2 1000 ML IV 1,000 ML IV SCH ×3 (06:14→22:13)
[2019-08-29 06:56] LABS: BASOPHILS # (AUTO) 0.1 X10^3/uL (0.0-0.1); BASOPHILS % (AUTO) 0.4 % (0.2-1.0); EOSINOPHILS # (AUTO) 0.2 x10^3/uL (0.0-0.2); EOSINOPHILS % (AUTO) 1.3 % (0.9-2.9); HEMATOCRIT 29.6 % (42.0-54.0); LYMPHOCYTES # (AUTO) 1.2 X10^3/uL (1.3-2.9); LYMPHOCYTES % (AUTO) 6.9 % (21.0-51.0); MEAN CORPUSCULAR HEMOGLOBIN 29.8 pg (27.0-34.0); MEAN CORPUSCULAR HGB CONC 33.9 g/dL (33.0-35.0); MEAN CORPUSCULAR VOLUME 87.8 fL (80.0-100.0); MEAN PLATELET VOLUME 8.2 fL (7.4-11.0); MONOCYTES # (AUTO) 1.8 x10^3/uL (0.3-0.8); MONOCYTES % (AUTO) 10.2 % (0.0-13.0); NEUTROPHILS # (AUTO) 13.9 x10^3/uL (2.2-4.8); NEUTROPHILS % (AUTO) 81.2 % (42.0-75.0); PLATELET COUNT 473 X10^3/uL (150.0-450.0); RED BLOOD COUNT 3.38 X10^6/uL (4.7-6.0); RED CELL DISTRIBUTION WIDTH 15.3 % (11.6-16.5); WHITE BLOOD COUNT 17.2 X10^3/uL (3.6-10.0)
[2019-08-29 07:10] LABS: ALANINE AMINOTRANSFERASE 69 Units/L (12-78); ALKALINE PHOSPHATASE 443 Units/L (46-116); ASPARTATE AMINO TRANSFERASE 64 Units/L (15-37); BLOOD UREA NITROGEN 19 mg/dL (7-18); CARBON DIOXIDE 25.6 mmol/L (21-32); CHLORIDE 103 mmol/L (98-107); COR CA(FOR HYPOALB) 11.6 mg/dL (8.5-10.1); COR NA(FOR HYPERGLY) 138 mmol/L (136-145); CREATININE 0.68 mg/dL (0.70-1.30); MAGNESIUM 1.9 mg/dL (1.7-2.9); SODIUM 137 mmol/L (136-145); TOTAL PROTEIN 6.5 g/dL (6.4-8.2); eGFR NON BLACK RACES > 60 (>60)
[2019-08-29] MEDS ORDERED: NS 1/2 1000 ML IV 1,000 ML IV ONE (08:38)
[2019-08-29] MEDS: LOVENOX INJ 40 MG SYR SC SCH (08:43)
[2019-08-29] MEDS ORDERED: VANCOMYCIN HCL 1 G in D5W 250 ML IV 250 ML IV SCH (09:00)
[2019-08-29] MEDS ORDERED: LOVENOX INJ 40 MG SYR SC SCH (09:00)
[2019-08-29] MEDS ORDERED: VANCOMYCIN HCL 250 MG, VANCOMYCIN HCL 1 G in D5W 250 ML IV 250 ML IV SCH (09:00)
--- NOTE | 2019-08-29 09:52 | DR.PROGNOT ---
Hospital Progress Notes - Progress Note for Day of: Progress Note Date: 08/29/19 - Chief Complaint Chief Complaint: more alert and talkative today . WBC 17.3 , was 22.3 last night . K 3.1 . BS 135. Alk Ph 443. - Past Medical Family Social History Past Med/Fam/Surg Hx: No changes since H&P Allergies: Allergies prednisone Allergy (Verified 08/28/19 13:06) - Review Of Systems ROS: No change since H&P - Vital Signs Vital Signs: Temperature 98.4 F Pulse Rate [Left Brachial] 74 Respiratory Rate 18 Blood Pressure [Right Arm] 159/73 Blood Pressure [Left Arm] 130/62 Blood Pressure 128/66 O2 Sat by Pulse Oximetry 98 - Physical Exam Oriented: Normal Eyes: Normal Ear: Normal Nose: Normal Respiratory: Normal Cardiovascular: Normal : Normal GI:Auscultation: Normal GI:Palpation: Normal GI: Tenderness: Normal Skin: Other (4x3cm diabetic ulcer lateral Rt foot with erythema and edema extending to the ankle . another 2x1cm ulcer on the plantar aspect of the Rt foot ) Speech Pattern: Clear, Appropriate - Laboratory and Diagnostics Result Diagrams: 08/29/19 05:55 08/29/19 05:55 Labs: 08/28/19 12:55 Foot - Right Gram Stain - Final 08/28/19 12:55 Foot - Right Wound Culture - Preliminary Laboratory WBC 17.2 X10^3/uL (3.6-10.0) H 08/29/19 05:55 RBC 3.38 X10^6/uL (4.7-6.0) L 08/29/19 05:55 Hgb 10.0 g/dL (13.5-18.0) L 08/29/19 05:55 Hct 29.6 % (42.0-54.0) L 08/29/19 05:55 MCV 87.8 fL (80.0-100.0) 08/29/19 05:55 MCH 29.8 pg (27.0-34.0) 08/29/19 05:55 MCHC 33.9 g/dL (33.0-35.0) 08/29/19 05:55 RDW 15.3 % (11.6-16.5) 08/29/19 05:55 Plt Count 473 X10^3/uL (150.0-450.0) H 08/29/19 05:55 Plt Count Comment Increased (ADEQUATE) 08/28/19 10:43 MPV 8.2 fL (7.4-11.0) 08/29/19 05:55 Neut % (Auto) 81.2 % (42.0-75.0) H 08/29/19 05:55 Lymph % (Auto) 6.9 % (21.0-51.0) L 08/29/19 05:55 [place] % (Auto) 10.2 % (0.0-13.0) 08/29/19 05:55 Eos % (Auto) 1.3 % (0.9-2.9) 08/29/19 05:55 Baso % (Auto) 0.4 % (0.2-1.0) 08/29/19 05:55 Neut # (Auto) 13.9 x10^3/uL (2.2-4.8) H 08/29/19 05:55 Lymph # (Auto) 1.2 X10^3/uL (1.3-2.9) L 08/29/19 05:55 [place] # (Auto) 1.8 x10^3/uL (0.3-0.8) H 08/29/19 05:55 Eos # (Auto) 0.2 x10^3/uL (0.0-0.2) 08/29/19 05:55 Baso # (Auto) 0.1 X10^3/uL (0.0-0.1) 08/29/19 05:55 Absolute Nucleated RBC 0.0 /100WBC 08/29/19 05:55 Total Counted 100 08/28/19 10:43 Neutrophils % (Manual) 91 % (39-76) H 08/28/19 10:43 Band Neutrophils % 1 % (0-10) 08/28/19 10:43 Lymphocytes % (Manual) 3 % (13-43) L 08/28/19 10:43 Monocytes % (Manual) 5 % (4-9) 08/28/19 10:43 Plt Morphology Comment Normal (NORMAL) 08/28/19 10:43 RBC Morphology Normal (NORMAL) 08/28/19 10:43 Sodium 137 mmol/L (136-145) 08/29/19 05:55 Corrected Sodium 138 mmol/L (136-145) 08/29/19 05:55 Potassium 3.1 mmol/L (3.5-5.1) L 08/29/19 05:55 Chloride 103 mmol/L (98-107) 08/29/19 05:55 Carbon Dioxide 25.6 mmol/L (21-32) 08/29/19 05:55 BUN 19 mg/dL (7-18) H 08/29/19 05:55 Creatinine 0.68 mg/dL (0.70-1.30) L 08/29/19 05:55 Est GFR (MDRD) Af Amer > 60 (>60) 08/29/19 05:55 Est GFR (MDRD) Non-Af > 60 (>60) 08/29/19 05:55 Glucose 135 mg/dL (65-99) H 08/29/19 05:55 Calcium 10.0 mg/dL (8.5-10.1) 08/29/19 05:55 Corrected Calcium 11.6 mg/dL (8.5-10.1) H 08/29/19 05:55 Magnesium 1.9 mg/dL (1.7-2.9) 08/29/19 05:55 Total Bilirubin 0.50 mg/dL (0.2-1.0) 08/29/19 05:55 AST 64 Units/L (15-37) H 08/29/19 05:55 ALT 69 Units/L (12-78) 08/29/19 05:55 Alkaline Phosphatase 443 Units/L (46-116) H 08/29/19 05:55 Total Protein 6.5 g/dL (6.4-8.2) 08/29/19 05:55 Albumin 2.0 g/dL (3.4-5.0) L 08/29/19 05:55 Globulin 4.5 g/dL (2.5-4.5) 08/29/19 05:55 Albumin/Globulin Ratio 0.4 Ratio (1.1-2.1) L 08/29/19 05:55 - Assessment and Plan 1: celluitis Rt foot.. Diabetic ulcer lateral Rt foor possible osteomyelitis . diabetic neuropathy both feet . DM. poor general condition , dizziness and poor appetite . elevated liver enzymes . on IV vancomycin , local care of the ulcer and diabetic control . medical cosult by Dr Valdes . physical Tx .
[2019-08-29] MEDS: VANCOMYCIN HCL 250 MG, VANCOMYCIN HCL 1 G in NS 250 ML IV 250 ML IV SCH (13:00)
[2019-08-29] MEDS: K-DUR TAB 20 MEQ PO PRN (13:19)
[2019-08-29] MEDS: MAGNESIUM SULFATE 1 GRAM/100 mL PREMIX 1 GM/100 ML BAG IV PRN ×2 (18:26→20:27)
[2019-08-29] MEDS: SNACK - Diabetic Appropriate PO SCH (20:00)
[2019-08-30] MEDS ORDERED: NS 1/2 1000 ML IV 1,000 ML IV ONE (01:31)
[2019-08-30] MEDS: NS 1/2 1000 ML IV 1,000 ML IV SCH ×4 (01:45→22:06)
[2019-08-30 07:12] LABS: BASOPHILS # (AUTO) 0.1 X10^3/uL (0.0-0.1); BASOPHILS % (AUTO) 0.3 % (0.2-1.0); EOSINOPHILS # (AUTO) 0.1 x10^3/uL (0.0-0.2); EOSINOPHILS % (AUTO) 0.7 % (0.9-2.9); HEMATOCRIT 30.8 % (42.0-54.0); HEMOGLOBIN 10.3 g/dL (13.5-18.0); LYMPHOCYTES # (AUTO) 1.4 X10^3/uL (1.3-2.9); LYMPHOCYTES % (AUTO) 7.1 % (21.0-51.0); MEAN CORPUSCULAR HEMOGLOBIN 29.5 pg (27.0-34.0); MEAN CORPUSCULAR HGB CONC 33.5 g/dL (33.0-35.0); MEAN CORPUSCULAR VOLUME 87.9 fL (80.0-100.0); MEAN PLATELET VOLUME 8.2 fL (7.4-11.0); MONOCYTES % (AUTO) 10.6 % (0.0-13.0); NEUTROPHILS # (AUTO) 15.6 x10^3/uL (2.2-4.8); NEUTROPHILS % (AUTO) 81.3 % (42.0-75.0); PLATELET COUNT 515 X10^3/uL (150.0-450.0); RED BLOOD COUNT 3.51 X10^6/uL (4.7-6.0); RED CELL DISTRIBUTION WIDTH 15.3 % (11.6-16.5); WHITE BLOOD COUNT 19.2 X10^3/uL (3.6-10.0)
[2019-08-30 07:27] LABS: ALANINE AMINOTRANSFERASE 71 Units/L (12-78); ALBUMIN 1.9 g/dL (3.4-5.0); ALKALINE PHOSPHATASE 426 Units/L (46-116); ASPARTATE AMINO TRANSFERASE 66 Units/L (15-37); BLOOD UREA NITROGEN 10 mg/dL (7-18); CALCIUM 9.8 mg/dL (8.5-10.1); CARBON DIOXIDE 24.2 mmol/L (21-32); CHLORIDE 102 mmol/L (98-107); COR CA(FOR HYPOALB) 11.5 mg/dL (8.5-10.1); COR NA(FOR HYPERGLY) 137 mmol/L (136-145); CREATININE 0.82 mg/dL (0.70-1.30); SODIUM 135 mmol/L (136-145); TOTAL PROTEIN 6.6 g/dL (6.4-8.2); eGFR NON BLACK RACES > 60 (>60)
[2019-08-30] MEDS ORDERED: HumuLIN R SC PRN (07:51)
[2019-08-30] MEDS: LOVENOX INJ 40 MG SYR SC SCH (09:33)
[2019-08-30] MEDS: K-DUR TAB 20 MEQ PO PRN (09:35)
--- NOTE | 2019-08-30 10:17 | DR.PROGNOT ---
Hospital Progress Notes - Progress Note for Day of: Progress Note Date: 08/30/19 - Chief Complaint Chief Complaint: more alert and oriented . c/p some pain Rt foot . . BS 188. Alk Ph 443.WBC 19.2 - Past Medical Family Social History Past Med/Fam/Surg Hx: No changes since H&P Allergies: Allergies prednisone Allergy (Verified 08/28/19 13:06) - Review Of Systems ROS: No change since H&P - Vital Signs Vital Signs: Temperature 98.9 F Pulse Rate [Left Brachial] 79 Respiratory Rate 20 Blood Pressure [Right Arm] 159/73 Blood Pressure [Left Arm] 160/75 Blood Pressure 128/66 O2 Sat by Pulse Oximetry 94 - Physical Exam Oriented: Normal Eyes: Normal Ear: Normal Nose: Normal Respiratory: Normal Cardiovascular: Normal : Normal GI:Auscultation: Normal GI:Palpation: Normal GI: Tenderness: Normal Skin: Other (4x3cm diabetic ulcer lateral Rt foot with erythema and edema extending to the ankle with swelling on the dorsal aspect of the foot with erythema .. another 2x1cm ulcer on the plantar aspect of the Rt foot ) Speech Pattern: Clear, Appropriate - Laboratory and Diagnostics Result Diagrams: 08/30/19 06:22 08/30/19 06:22 Labs: 08/28/19 14:47 Blood Blood Culture - Preliminary 08/28/19 14:29 Blood Blood Culture - Preliminary 08/28/19 12:55 Foot - Right Gram Stain - Final 08/28/19 12:55 Foot - Right Wound Culture - Final Staphylococcus Aureus Laboratory WBC 19.2 X10^3/uL (3.6-10.0) H 08/30/19 06:22 RBC 3.51 X10^6/uL (4.7-6.0) L 08/30/19 06:22 Hgb 10.3 g/dL (13.5-18.0) L 08/30/19 06:22 Hct 30.8 % (42.0-54.0) L 08/30/19 06:22 MCV 87.9 fL (80.0-100.0) 08/30/19 06:22 MCH 29.5 pg (27.0-34.0) 08/30/19 06:22 MCHC 33.5 g/dL (33.0-35.0) 08/30/19 06:22 RDW 15.3 % (11.6-16.5) 08/30/19 06:22 Plt Count 515 X10^3/uL (150.0-450.0) H 08/30/19 06:22 Plt Count Comment Increased (ADEQUATE) 08/28/19 10:43 MPV 8.2 fL (7.4-11.0) 08/30/19 06:22 Neut % (Auto) 81.3 % (42.0-75.0) H 08/30/19 06:22 Lymph % (Auto) 7.1 % (21.0-51.0) L 08/30/19 06:22 [place] % (Auto) 10.6 % (0.0-13.0) 08/30/19 06:22 Eos % (Auto) 0.7 % (0.9-2.9) L 08/30/19 06:22 Baso % (Auto) 0.3 % (0.2-1.0) 08/30/19 06:22 Neut # (Auto) 15.6 x10^3/uL (2.2-4.8) H 08/30/19 06:22 Lymph # (Auto) 1.4 X10^3/uL (1.3-2.9) 08/30/19 06:22 [place] # (Auto) 2.0 x10^3/uL (0.3-0.8) H 08/30/19 06:22 Eos # (Auto) 0.1 x10^3/uL (0.0-0.2) 08/30/19 06:22 Baso # (Auto) 0.1 X10^3/uL (0.0-0.1) 08/30/19 06:22 Absolute Nucleated RBC 0.0 /100WBC 08/30/19 06:22 Total Counted 100 08/28/19 10:43 Neutrophils % (Manual) 91 % (39-76) H 08/28/19 10:43 Band Neutrophils % 1 % (0-10) 08/28/19 10:43 Lymphocytes % (Manual) 3 % (13-43) L 08/28/19 10:43 Monocytes % (Manual) 5 % (4-9) 08/28/19 10:43 Plt Morphology Comment Normal (NORMAL) 08/28/19 10:43 RBC Morphology Normal (NORMAL) 08/28/19 10:43 Sodium 135 mmol/L (136-145) L 08/30/19 06:22 Corrected Sodium 137 mmol/L (136-145) 08/30/19 06:22 Potassium 3.5 mmol/L (3.5-5.1) 08/30/19 06:22 Chloride 102 mmol/L (98-107) 08/30/19 06:22 Carbon Dioxide 24.2 mmol/L (21-32) 08/30/19 06:22 BUN 10 mg/dL (7-18) 08/30/19 06:22 Creatinine 0.82 mg/dL (0.70-1.30) 08/30/19 06:22 Est GFR (MDRD) Af Amer > 60 (>60) 08/30/19 06:22 Est GFR (MDRD) Non-Af > 60 (>60) 08/30/19 06:22 Glucose 188 mg/dL (65-99) H 08/30/19 06:22 Calcium 9.8 mg/dL (8.5-10.1) 08/30/19 06:22 Corrected Calcium 11.5 mg/dL (8.5-10.1) H 08/30/19 06:22 Magnesium 2.0 mg/dL (1.7-2.9) 08/30/19 06:22 Total Bilirubin 0.50 mg/dL (0.2-1.0) 08/30/19 06:22 AST 66 Units/L (15-37) H 08/30/19 06:22 ALT 71 Units/L (12-78) 08/30/19 06:22 Alkaline Phosphatase 426 Units/L (46-116) H 08/30/19 06:22 Total Protein 6.6 g/dL (6.4-8.2) 08/30/19 06:22 Albumin 1.9 g/dL (3.4-5.0) L 08/30/19 06:22 Globulin 4.7 g/dL (2.5-4.5) H 08/30/19 06:22 Albumin/Globulin Ratio 0.4 Ratio (1.1-2.1) L 08/30/19 06:22 - Assessment and Plan 1: celluitis Rt foot.. Diabetic ulcer lateral Rt foor possible osteomyelitis . diabetic neuropathy both feet . DM. poor general condition , dizziness and poor appetite . elevated liver enzymes . on IV vancomycin , local care of the ulcer and diabetic control . medical cosult by Dr Valdes . physical Tx .
[2019-08-30] MEDS: NORVASC TAB 10 MG PO SCH (12:35)
[2019-08-30] MEDS: ASPIRIN EC 81 MG PO SCH (12:35)
[2019-08-30] MEDS: BENICAR TAB 40 MG PO SCH (12:36)
[2019-08-30] MEDS: VANCOMYCIN HCL 250 MG, VANCOMYCIN HCL 1 G in NS 250 ML IV 250 ML IV SCH ×4 (12:36)
[2019-08-30] MEDS: APRESOLINE TAB 25 MG PO SCH ×2 (15:00→20:59)
[2019-08-30] MEDS ORDERED: GLUCOPHAGE ONE (17:59)
[2019-08-30] MEDS: GLUCOPHAGE PO SCH (18:00)
[2019-08-30] MEDS ORDERED: PHARMACY COMMENT IV NR (20:30)
[2019-08-30] MEDS: SNACK - Diabetic Appropriate PO SCH (20:30)
[2019-08-30] MEDS: LIPITOR TAB 40 MG PO SCH (20:59)
[2019-08-30] MEDS: BRILINTA PO SCH (20:59)
[2019-08-30] MEDS: ARICEPT TAB 5 MG PO SCH (20:59)
[2019-08-30] MEDS: COREG TAB 6.25 MG PO SCH (20:59)
[2019-08-30] MEDS: NAMENDA TAB 10 MG PO SCH (20:59)
[2019-08-30 23:52] LABS: CREATININE 0.65 mg/dL (0.70-1.30); VANCOMYCIN,TROUGH 9.3 ug/mL (15-20)
[2019-08-31] MEDS ORDERED: NS 250 ML IV 250 ML IV ONE (00:24)
[2019-08-31] MEDS ORDERED: VANCOMYCIN HCL ONE ×2 (00:24→00:25)
[2019-08-31] MEDS: VANCOMYCIN HCL 500 MG, VANCOMYCIN HCL 1 G in D5W 250 ML IV 250 ML IV SCH ×3 (00:39→20:46)
[2019-08-31] MEDS ORDERED: GLUCOPHAGE ONE ×2 (05:06→19:03)
[2019-08-31] MEDS: APRESOLINE TAB 25 MG PO SCH ×3 (05:25→21:48)
[2019-08-31] MEDS: NS 1/2 1000 ML IV 1,000 ML IV SCH ×3 (05:25→18:29)
[2019-08-31] MEDS: GLUCOPHAGE PO SCH ×2 (06:00→19:00)
[2019-08-31 06:13] LABS: BASOPHILS # (AUTO) 0.1 X10^3/uL (0.0-0.1); BASOPHILS % (AUTO) 0.3 % (0.2-1.0); EOSINOPHILS # (AUTO) 0.2 x10^3/uL (0.0-0.2); EOSINOPHILS % (AUTO) 1.5 % (0.9-2.9); HEMATOCRIT 29.5 % (42.0-54.0); HEMOGLOBIN 9.9 g/dL (13.5-18.0); LYMPHOCYTES # (AUTO) 1.4 X10^3/uL (1.3-2.9); LYMPHOCYTES % (AUTO) 8.6 % (21.0-51.0); MEAN CORPUSCULAR HEMOGLOBIN 29.7 pg (27.0-34.0); MEAN CORPUSCULAR HGB CONC 33.5 g/dL (33.0-35.0); MEAN CORPUSCULAR VOLUME 88.4 fL (80.0-100.0); MEAN PLATELET VOLUME 8.1 fL (7.4-11.0); MONOCYTES # (AUTO) 1.6 x10^3/uL (0.3-0.8); MONOCYTES % (AUTO) 9.9 % (0.0-13.0); NEUTROPHILS # (AUTO) 13.1 x10^3/uL (2.2-4.8); NEUTROPHILS % (AUTO) 79.7 % (42.0-75.0); PLATELET COUNT 469 X10^3/uL (150.0-450.0); RED BLOOD COUNT 3.33 X10^6/uL (4.7-6.0); RED CELL DISTRIBUTION WIDTH 15.7 % (11.6-16.5); WHITE BLOOD COUNT 16.5 X10^3/uL (3.6-10.0)
[2019-08-31 06:29] LABS: ALANINE AMINOTRANSFERASE 64 Units/L (12-78); ALBUMIN 1.7 g/dL (3.4-5.0); ALKALINE PHOSPHATASE 380 Units/L (46-116); ASPARTATE AMINO TRANSFERASE 63 Units/L (15-37); BLOOD UREA NITROGEN 9 mg/dL (7-18); CALCIUM 9.6 mg/dL (8.5-10.1); CARBON DIOXIDE 24.8 mmol/L (21-32); CHLORIDE 104 mmol/L (98-107); COR CA(FOR HYPOALB) 11.4 mg/dL (8.5-10.1); COR NA(FOR HYPERGLY) 137 mmol/L (136-145); CREATININE 0.64 mg/dL (0.70-1.30); SODIUM 136 mmol/L (136-145); TOTAL PROTEIN 6.2 g/dL (6.4-8.2); eGFR NON BLACK RACES > 60 (>60)
[2019-08-31] MEDS: LOVENOX INJ 40 MG SYR SC SCH (09:29)
[2019-08-31] MEDS: BENICAR TAB 40 MG PO SCH (09:29)
[2019-08-31] MEDS: NAMENDA TAB 10 MG PO SCH ×2 (09:29→20:45)
[2019-08-31] MEDS: BRILINTA PO SCH ×2 (09:29→20:45)
[2019-08-31] MEDS: NORVASC TAB 10 MG PO SCH (09:29)
[2019-08-31] MEDS: ASPIRIN EC 81 MG PO SCH (09:29)
[2019-08-31] MEDS: COREG TAB 6.25 MG PO SCH ×2 (09:29→20:45)
--- NOTE | 2019-08-31 17:33 | DR.PROGNOT ---
Hospital Progress Notes - Progress Note for Day of: Progress Note Date: 08/31/19 - Chief Complaint Chief Complaint: alert and oriented . c/p some pain Rt foot . . BS 159. Alk Ph 380.WBC 16.5. having MRI Rt foot. - Past Medical Family Social History Past Med/Fam/Surg Hx: No changes since H&P Allergies: Allergies prednisone Allergy (Verified 08/28/19 13:06) - Review Of Systems ROS: No change since H&P - Vital Signs Vital Signs: Temperature 98.3 F Pulse Rate [Left Brachial] 66 Respiratory Rate 18 Blood Pressure [Right Arm] 159/73 Blood Pressure [Left Arm] 141/65 Blood Pressure 128/66 O2 Sat by Pulse Oximetry 99 - Physical Exam Oriented: Normal Eyes: Normal Ear: Normal Nose: Normal Respiratory: Normal Cardiovascular: Normal : Normal GI:Auscultation: Normal GI:Palpation: Normal GI: Tenderness: Normal Skin: Other (4x3cm diabetic ulcer lateral Rt foot with erythema and edema extending to the ankle with swelling on the dorsal aspect of the foot with erythema .. another 2x1cm ulcer on the plantar aspect of the Rt foot ) Speech Pattern: Clear, Appropriate - Laboratory and Diagnostics Result Diagrams: 08/31/19 05:48 08/31/19 05:48 Labs: 08/28/19 14:47 Blood Blood Culture - Final Staphylococcus Aureus 08/28/19 14:29 Blood Blood Culture - Final Staphylococcus Aureus 08/28/19 12:55 Foot - Right Gram Stain - Final 08/28/19 12:55 Foot - Right Wound Culture - Final Staphylococcus Aureus Laboratory WBC 16.5 X10^3/uL (3.6-10.0) H 08/31/19 05:48 RBC 3.33 X10^6/uL (4.7-6.0) L 08/31/19 05:48 Hgb 9.9 g/dL (13.5-18.0) L 08/31/19 05:48 Hct 29.5 % (42.0-54.0) L 08/31/19 05:48 MCV 88.4 fL (80.0-100.0) 08/31/19 05:48 MCH 29.7 pg (27.0-34.0) 08/31/19 05:48 MCHC 33.5 g/dL (33.0-35.0) 08/31/19 05:48 RDW 15.7 % (11.6-16.5) 08/31/19 05:48 Plt Count 469 X10^3/uL (150.0-450.0) H 08/31/19 05:48 Plt Count Comment Increased (ADEQUATE) 08/28/19 10:43 MPV 8.1 fL (7.4-11.0) 08/31/19 05:48 Neut % (Auto) 79.7 % (42.0-75.0) H 08/31/19 05:48 Lymph % (Auto) 8.6 % (21.0-51.0) L 08/31/19 05:48 [place] % (Auto) 9.9 % (0.0-13.0) 08/31/19 05:48 Eos % (Auto) 1.5 % (0.9-2.9) 08/31/19 05:48 Baso % (Auto) 0.3 % (0.2-1.0) 08/31/19 05:48 Neut # (Auto) 13.1 x10^3/uL (2.2-4.8) H 08/31/19 05:48 Lymph # (Auto) 1.4 X10^3/uL (1.3-2.9) 08/31/19 05:48 [place] # (Auto) 1.6 x10^3/uL (0.3-0.8) H 08/31/19 05:48 Eos # (Auto) 0.2 x10^3/uL (0.0-0.2) 08/31/19 05:48 Baso # (Auto) 0.1 X10^3/uL (0.0-0.1) 08/31/19 05:48 Absolute Nucleated RBC 0.0 /100WBC 08/31/19 05:48 Total Counted 100 08/28/19 10:43 Neutrophils % (Manual) 91 % (39-76) H 08/28/19 10:43 Band Neutrophils % 1 % (0-10) 08/28/19 10:43 Lymphocytes % (Manual) 3 % (13-43) L 08/28/19 10:43 Monocytes % (Manual) 5 % (4-9) 08/28/19 10:43 Plt Morphology Comment Normal (NORMAL) 08/28/19 10:43 RBC Morphology Normal (NORMAL) 08/28/19 10:43 Sodium 136 mmol/L (136-145) 08/31/19 05:48 Corrected Sodium 137 mmol/L (136-145) 08/31/19 05:48 Potassium 3.6 mmol/L (3.5-5.1) 08/31/19 05:48 Chloride 104 mmol/L (98-107) 08/31/19 05:48 Carbon Dioxide 24.8 mmol/L (21-32) 08/31/19 05:48 BUN 9 mg/dL (7-18) 08/31/19 05:48 Creatinine 0.64 mg/dL (0.70-1.30) L 08/31/19 05:48 Est GFR (MDRD) Af Amer > 60 (>60) 08/31/19 05:48 Est GFR (MDRD) Non-Af > 60 (>60) 08/31/19 05:48 Glucose 159 mg/dL (65-99) H 08/31/19 05:48 Calcium 9.6 mg/dL (8.5-10.1) 08/31/19 05:48 Corrected Calcium 11.4 mg/dL (8.5-10.1) H 08/31/19 05:48 Magnesium 2.0 mg/dL (1.7-2.9) 08/30/19 06:22 Total Bilirubin 0.60 mg/dL (0.2-1.0) 08/31/19 05:48 AST 63 Units/L (15-37) H 08/31/19 05:48 ALT 64 Units/L (12-78) 08/31/19 05:48 Alkaline Phosphatase 380 Units/L (46-116) H 08/31/19 05:48 Total Protein 6.2 g/dL (6.4-8.2) L 08/31/19 05:48 Albumin 1.7 g/dL (3.4-5.0) L 08/31/19 05:48 Globulin 4.5 g/dL (2.5-4.5) 08/31/19 05:48 Albumin/Globulin Ratio 0.4 Ratio (1.1-2.1) L 08/31/19 05:48 Vancomycin Trough 9.3 ug/mL (15-20) L 08/30/19 23:02 - Assessment and Plan 1: celluitis Rt foot.. Diabetic ulcer lateral Rt foor possible osteomyelitis . diabetic neuropathy both feet . DM. liver dysfunction. same IV ATB and local care. elevated liver enzymes . on IV vancomycin , local care of the ulcer and diabetic control . medical cosult by Dr Valdes . physical Tx .
[2019-08-31] MEDS: K-DUR TAB 20 MEQ PO PRN (20:45)
[2019-08-31] MEDS: LIPITOR TAB 40 MG PO SCH (20:45)
[2019-08-31] MEDS: ARICEPT TAB 5 MG PO SCH (20:45)
[2019-08-31] MEDS: SNACK - Diabetic Appropriate PO SCH (21:47)
[2019-09-01] MEDS: PERCOCET TAB 5/325 MG PO PRN ×2 (03:06→14:24)
[2019-09-01] MEDS: APRESOLINE TAB 25 MG PO SCH ×3 (05:45→21:40)
[2019-09-01] MEDS: NS 1/2 1000 ML IV 1,000 ML IV SCH (05:45)
[2019-09-01 06:31] LABS: BASOPHILS % (AUTO) 0.3 % (0.2-1.0); EOSINOPHILS # (AUTO) 0.3 x10^3/uL (0.0-0.2); EOSINOPHILS % (AUTO) 1.5 % (0.9-2.9); HEMOGLOBIN 9.9 g/dL (13.5-18.0); LYMPHOCYTES # (AUTO) 1.1 X10^3/uL (1.3-2.9); LYMPHOCYTES % (AUTO) 6.7 % (21.0-51.0); MEAN CORPUSCULAR HEMOGLOBIN 29.9 pg (27.0-34.0); MEAN CORPUSCULAR HGB CONC 34.1 g/dL (33.0-35.0); MEAN CORPUSCULAR VOLUME 87.6 fL (80.0-100.0); MEAN PLATELET VOLUME 8.2 fL (7.4-11.0); MONOCYTES # (AUTO) 1.6 x10^3/uL (0.3-0.8); MONOCYTES % (AUTO) 9.2 % (0.0-13.0); NEUTROPHILS # (AUTO) 14.1 x10^3/uL (2.2-4.8); NEUTROPHILS % (AUTO) 82.3 % (42.0-75.0); PLATELET COUNT 510 X10^3/uL (150.0-450.0); RED BLOOD COUNT 3.32 X10^6/uL (4.7-6.0); RED CELL DISTRIBUTION WIDTH 15.5 % (11.6-16.5); WHITE BLOOD COUNT 17.1 X10^3/uL (3.6-10.0)
[2019-09-01 06:50] LABS: ALANINE AMINOTRANSFERASE 70 Units/L (12-78); ALBUMIN 1.7 g/dL (3.4-5.0); ALKALINE PHOSPHATASE 391 Units/L (46-116); ASPARTATE AMINO TRANSFERASE 72 Units/L (15-37); BLOOD UREA NITROGEN 9 mg/dL (7-18); CALCIUM 9.7 mg/dL (8.5-10.1); CARBON DIOXIDE 24.1 mmol/L (21-32); CHLORIDE 103 mmol/L (98-107); COR CA(FOR HYPOALB) 11.5 mg/dL (8.5-10.1); COR NA(FOR HYPERGLY) 136 mmol/L (136-145); CREATININE 0.75 mg/dL (0.70-1.30); SODIUM 134 mmol/L (136-145); TOTAL PROTEIN 6.2 g/dL (6.4-8.2); eGFR NON BLACK RACES > 60 (>60)
[2019-09-01 07:33] LABS: PREALBUMIN 8.5 mg/dL (18-35.7)
[2019-09-01] MEDS ORDERED: PHARMACY COMMENT IV NR ×2 (08:30→20:30)
[2019-09-01] MEDS ORDERED: GLUCOPHAGE ONE ×2 (08:52→16:58)
[2019-09-01] MEDS: ALBUMIN HUMAN 25%- 100 ML 100 ML IV SCH (09:05)
[2019-09-01] MEDS: GLUCOPHAGE PO SCH ×2 (09:07→17:25)
[2019-09-01] MEDS: COREG TAB 6.25 MG PO SCH ×2 (09:08→21:40)
[2019-09-01] MEDS: BRILINTA PO SCH ×2 (09:08→21:41)
[2019-09-01] MEDS: BENICAR TAB 40 MG PO SCH (09:08)
[2019-09-01] MEDS: LOVENOX INJ 40 MG SYR SC SCH (09:08)
[2019-09-01] MEDS: NAMENDA TAB 10 MG PO SCH ×2 (09:08→21:41)
[2019-09-01] MEDS: ASPIRIN EC 81 MG PO SCH (09:08)
[2019-09-01] MEDS: NORVASC TAB 10 MG PO SCH (09:08)
[2019-09-01] MEDS: VANCOMYCIN HCL 500 MG, VANCOMYCIN HCL 1 G in D5W 250 ML IV 250 ML IV SCH ×2 (10:08→21:41)
--- NOTE | 2019-09-01 10:13 | MRI ---
HISTORYCELLULITIS, R/O OSTEOMYELITISSTUDYEXT right LOWER NON-JOINT W W/O IV CONCOMPARISONMRI 06/26/2019TECHNIQUEMRI of the right ankle and foot without IV contrast is performed using standard sequences in multiple planes. 20 cc MultiHance IV contrast is used.FINDINGSDiffuse soft tissue edema in the right foot and ankle has worsened since prior study. There is prominent enhancement of the soft tissue edema consistent with cellulitis. In the dorsum of the forefoot there is nonenhancing fluid in the subcutaneous soft tissues. This likely represents an abscess measuring 4.1 cm in length and 3.0 x 2.0 cm in axial dimensions. It extends between the 1st and 2nd metatarsals proximally and may involve the 1st and 2nd tarsal-metatarsal joints.There appear to be a few microabscesses in the dorsum of the forefoot, also. These are seen adjacent to the dorsum of the proximal head of the 1st metatarsal and midshaft of the 4th metatarsal. Another probable microabscess is seen more proximally and medially, superficial to the proximal aspect of the cuboid bone.There is osteomyelitis within the 5th metatarsal which is partially destroyed. Likely associated skin ulcer is seen in this region. Probable mild involvement of the base of the 5th proximal phalanx by osteomyelitis but the distal phalanx appears normal. 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 This is a changed appearance since prior study. There is serpiginous decreased T1 signal and increased T2 signal without enhancement. Findings could represent chronic osteomyelitis changes and possibly necrotic bone. There may be similar involvement of the base of the 2nd metatarsal, also somewhat similar appearance is seen within the 3rd cuneiform bone and cuboid bone, also new since prior study.IMPRESSIONDiffuse cellulitis with abscess in the dorsum of the foot. Abscess measures 4.1 cm in length and 3.0 x 2.0 cm in axial dimensions. This abscess extend between the 1st and 2nd metatarsals and may involve the 1st and 2nd tarsal-metatarsal joints.Osteomyelitis in the 5th metatarsal and likely the base of the 5th proximal phalanx.New abnormal appearance of the 3rd and 4th metatarsal shafts and base of the 2nd metatarsal. Similar appearance is now seen in the 3rd cuneiform bone and cuboid bone. There is no associated enhancement. This could be devascularized bone.Electronically signed by: Brock Hill (Sep 01, 2019 10:12:03)
--- NOTE | 2019-09-01 13:02 | DR.PROGNOT ---
Hospital Progress Notes - Progress Note for Day of: Progress Note Date: 09/01/19 - Chief Complaint Chief Complaint: felling better , more active and alert . MRI showed abscess Rt foot 4 cm between 1st and 2n metetarsals and possible tarsal-metatarsal joints as well as osteomyelitis of the 5th metatarsal and phalanx . - Past Medical Family Social History Past Med/Fam/Surg Hx: No changes since H&P Allergies: Allergies prednisone Allergy (Verified 08/28/19 13:06) - Review Of Systems ROS: No change since H&P - Vital Signs Vital Signs: Temperature 98.8 F Pulse Rate [Left Brachial] 81 Respiratory Rate 18 Blood Pressure [Right Arm] 159/73 Blood Pressure [Left Arm] 163/72 Blood Pressure 128/66 O2 Sat by Pulse Oximetry 97 - Physical Exam Oriented: Normal Eyes: Normal Ear: Normal Nose: Normal Respiratory: Normal Cardiovascular: Normal : Normal GI:Auscultation: Normal GI:Palpation: Normal GI: Tenderness: Normal Skin: Other (4x3cm diabetic ulcer lateral Rt foot with erythema and edema extending to the ankle with swelling on the dorsal aspect of the foot with erythema .. another 2x1cm ulcer on the plantar aspect of the Rt foot ) Speech Pattern: Clear, Appropriate - Laboratory and Diagnostics Result Diagrams: 09/01/19 05:42 09/01/19 05:42 Labs: 08/28/19 14:47 Blood Blood Culture - Final Staphylococcus Aureus 08/28/19 14:29 Blood Blood Culture - Final Staphylococcus Aureus 08/28/19 12:55 Foot - Right Gram Stain - Final 08/28/19 12:55 Foot - Right Wound Culture - Final Staphylococcus Aureus Laboratory WBC 17.1 X10^3/uL (3.6-10.0) H 09/01/19 05:42 RBC 3.32 X10^6/uL (4.7-6.0) L 09/01/19 05:42 Hgb 9.9 g/dL (13.5-18.0) L 09/01/19 05:42 Hct 29.0 % (42.0-54.0) L 09/01/19 05:42 MCV 87.6 fL (80.0-100.0) 09/01/19 05:42 MCH 29.9 pg (27.0-34.0) 09/01/19 05:42 MCHC 34.1 g/dL (33.0-35.0) 09/01/19 05:42 RDW 15.5 % (11.6-16.5) 09/01/19 05:42 Plt Count 510 X10^3/uL (150.0-450.0) H 09/01/19 05:42 Plt Count Comment Increased (ADEQUATE) 08/28/19 10:43 MPV 8.2 fL (7.4-11.0) 09/01/19 05:42 Neut % (Auto) 82.3 % (42.0-75.0) H 09/01/19 05:42 Lymph % (Auto) 6.7 % (21.0-51.0) L 09/01/19 05:42 [place] % (Auto) 9.2 % (0.0-13.0) 09/01/19 05:42 Eos % (Auto) 1.5 % (0.9-2.9) 09/01/19 05:42 Baso % (Auto) 0.3 % (0.2-1.0) 09/01/19 05:42 Neut # (Auto) 14.1 x10^3/uL (2.2-4.8) H 09/01/19 05:42 Lymph # (Auto) 1.1 X10^3/uL (1.3-2.9) L 09/01/19 05:42 [place] # (Auto) 1.6 x10^3/uL (0.3-0.8) H 09/01/19 05:42 Eos # (Auto) 0.3 x10^3/uL (0.0-0.2) H 09/01/19 05:42 Baso # (Auto) 0.0 X10^3/uL (0.0-0.1) 09/01/19 05:42 Absolute Nucleated RBC 0.0 /100WBC 09/01/19 05:42 Total Counted 100 08/28/19 10:43 Neutrophils % (Manual) 91 % (39-76) H 08/28/19 10:43 Band Neutrophils % 1 % (0-10) 08/28/19 10:43 Lymphocytes % (Manual) 3 % (13-43) L 08/28/19 10:43 Monocytes % (Manual) 5 % (4-9) 08/28/19 10:43 Plt Morphology Comment Normal (NORMAL) 08/28/19 10:43 RBC Morphology Normal (NORMAL) 08/28/19 10:43 Sodium 134 mmol/L (136-145) L 09/01/19 05:42 Corrected Sodium 136 mmol/L (136-145) 09/01/19 05:42 Potassium 3.6 mmol/L (3.5-5.1) 09/01/19 05:42 Chloride 103 mmol/L (98-107) 09/01/19 05:42 Carbon Dioxide 24.1 mmol/L (21-32) 09/01/19 05:42 BUN 9 mg/dL (7-18) 09/01/19 05:42 Creatinine 0.75 mg/dL (0.70-1.30) 09/01/19 05:42 Est GFR (MDRD) Af Amer > 60 (>60) 09/01/19 05:42 Est GFR (MDRD) Non-Af > 60 (>60) 09/01/19 05:42 Glucose 175 mg/dL (65-99) H 09/01/19 05:42 POC Glucose (mg/dL) 200 mg/dL (65-99) H 09/01/19 11:36 Calcium 9.7 mg/dL (8.5-10.1) 09/01/19 05:42 Corrected Calcium 11.5 mg/dL (8.5-10.1) H 09/01/19 05:42 Magnesium 2.0 mg/dL (1.7-2.9) 08/30/19 06:22 Total Bilirubin 0.60 mg/dL (0.2-1.0) 09/01/19 05:42 AST 72 Units/L (15-37) H 09/01/19 05:42 ALT 70 Units/L (12-78) 09/01/19 05:42 Alkaline Phosphatase 391 Units/L (46-116) H 09/01/19 05:42 Total Protein 6.2 g/dL (6.4-8.2) L 09/01/19 05:42 Albumin 1.7 g/dL (3.4-5.0) L 09/01/19 05:42 Globulin 4.5 g/dL (2.5-4.5) 09/01/19 05:42 Albumin/Globulin Ratio 0.4 Ratio (1.1-2.1) L 09/01/19 05:42 Prealbumin 8.5 mg/dL (18-35.7) L 09/01/19 05:42 Vancomycin Trough 9.3 ug/mL (15-20) L 08/30/19 23:02 - Assessment and Plan 1: abscess rt foot with cellulitis and osteomeylitis. Diabetic ulcer lateral Rt foor. diabetic neuropathy both feet . DM. liver dysfunction. same IV ATB and local care.and to drain the abscess in the OR. on IV vancomycin , local care of the ulcer and diabetic control . medical cosult by Dr Valdes . physical Tx .
--- NOTE | 2019-09-01 13:30 | DR.CONSULT ---
Consult - Consultation for Day of: Date: 08/30/19 - Chief Complaint Chief Complaint: RIGHT FOOT REDNESS, SWELLING, DIABETIC ULCER - History of Present Illness History of Present Illness: IS A 84 YEAR OLD PATIENT OF OURS WHO HAS BEEN FOLLOWED BY , GENERAL SURGEON. 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 HE HAD ALSO RECEIVED OUTPATIENT TREATMENT FOR A LARGE DECUBITUS ULCER TO THE LATERAL ASPECT OF THE RIGHT FOOT WITH CELLULITIS. AT FOLLOW UP VISIT, DECIDED TO ADMIT PATIENT FOR IV ANTIBIOTIC THERAPY DUE TO THE FACT THAT CELLULITIS HAD NOT RESPONDED APPROPRIATELY TO ORAL ANTIBIOTICS. WE WERE CONSULTED FOR MEDICAL MANANGEMENT. TODAY, PATIENT IS ALERT AND ORIENTED, LYING IN BED ON MORNING ROUNDS. HE REPORTS RIGHT FOOT PAIN THIS MORNING. ON EXAMINATION, HEART IS REGULAR IN RATE AND RHYTHM. BILATERAL LUNGS ARE NOTED WITH DIMINISHED LUNG SOUNDS THROUGHOUT. ABDOMEN IS ROUND, SOFT, AND NON-TENDER WITH NORMAL BOWEL SOUNDS NOTED IN ALL QUADRANTS. RIGHT LOWER EXTREMITY IS NOTED WITH A 4X3 DIABETIC ULCER TO THE LATERAL FOOT WITH ERYTHEMA AND EDEMA EXTENDING TO THE ANKLE WITH SWELLING ON THE DORSAL ASPECT OF THE FOOT WITH ERYTHEMA. THERE IS ANOTHER 2X1 CM ULCER ON THE PLANTAR ASPECT OF THE RIGHT FOOT. HIS VITALS THIS MORNING ARE: 98.9-79-20-94%-160/75. LABS WERE OBTAINED. ABNORMAL LAB VALUES INCLUDE THE FOLLOWING: WBC 19.2, RBC 3.51, HGB 10.3, HCT 30.8, PLT COUNT 515, SODIUM 135, GLUCOSE 188, AST 66, ALK PHOS 426, ALBUMIN 1.9. WOUND CULTURE WAS SET UP AND REVEALS GROWTH OF STAPHYLOCOCCUS AUREUS. HE IS CURRENTLY RECEIVING 1/2NS AT KVO, VANCOMYCIN IV, THE POTASSIUM AND MAGNESIUM PROTOCOLS, HUMULIN R SLIDING SCALE. WE WILL RESUME HOME MEDICATIONS TODAY. HE IS SCHEDULED FOR A LOWER EXTREMITY MRI IN THE MORNING. OTHERWISE, WE WILL FOLLOW UP WITH AM LABS AND CONTINUE TO MONITOR. - Past Medical History Past Medical History: Hypertension, Dyslipidemia, Diabetes, GERD, Arthritis - Past Surgical History Surgical History: Cholecystectomy, Tonsillectomy - Family History Family Medical History: Diabetes Mellitus, Cancer, Hypertension - Social History Does patient currently use any type of tobacco product: No Have you used tobacco products in the last 12 months: No Type of Tobacco Use: None Does any household member use tobacco: No Alcohol Use: None Drug Use: None - Medications Home Medications: prednisone Allergy (Verified 08/28/19 13:06) CONTINUE taking the following medications amlodipine-olmesartan 1 tab PO DAILY 08/28/19 [History] - Review of Systems Constitutional: Fever, Weakness Eyes: No Symptoms Reported ENT: No Symptoms Reported Respiratory: No Symptoms Reported Cardiovascular: No Symptoms Reported Gastrointestinal: No Symptoms Reported Genitourinary: No Symptoms Reported Musculoskeletal: See HPI, Foot Pain (RIGHT FOOT PAIN ) Skin: See HPI, Wound Neurological: Weakness - Physical Exam Vital Signs: Temperature 98.8 F Pulse Rate [Left Brachial] 81 Respiratory Rate 18 Blood Pressure [Right Arm] 159/73 Blood Pressure [Left Arm] 163/72 Blood Pressure 128/66 O2 Sat by Pulse Oximetry 97 Oriented: Normal Eyes: Normal Ear: Normal Nose: Normal Throat: Normal Respiratory: Diminished Throughout Cardiovascular: Normal : Normal Auscultation: Bowel Sounds: Normal Palpation: Normal Tenderness: Normal Skin: Wound (4X3 DIABETIC ULCER TO THE LATERAL FOOT WITH ERYTHEMA AND EDEMA EXTENDING TO THE ANKLE WITH SWELLING ON THE DORSAL ASPECT OF THE FOOT WITH ERYTHEMA. THERE IS ANOTHER 2X1 CM ULCER ON THE PLANTAR ASPECT OF THE RIGHT FOOT) Musculoskeletal: Right, Foot, Swelling, Tender Psychiatric: Normal Mood Description: Calm Affect: Normal Speech Pattern: Clear - Allergies Allergies/Adverse Reactions: Allergies Allergy/AdvReac Type Severity Reaction Status Date / Time prednisone Allergy Verified 08/28/19 13:06
--- NOTE | 2019-09-01 14:24 | PCM.PROG ---
Progress Note - Progress Note for Day of Date of Exam: 08/31/19 - Subjective Subjective: IS BEING TREATED FOR RIGHT LOWER EXTREMITY CELLULITIS AND INFECTED DECUBITUS ULCER. WE WERE CONSULTED FOR MEDICAL MANANGEMENT. TODAY, PATIENT IS ALERT AND ORIENTED, LYING IN BED ON MORNING ROUNDS. HE REPORTS RIGHT FOOT PAIN THIS MORNING. ON EXAMINATION, HEART IS REGULAR IN RATE AND RHYTHM. BILATERAL LUNGS ARE NOTED WITH DIMINISHED LUNG SOUNDS THROUGHOUT. ABDOMEN IS ROUND, SOFT, AND NON-TENDER WITH NORMAL BOWEL SOUNDS NOTED IN ALL QUADRANTS. RIGHT LOWER EXTREMITY IS NOTED WITH A 4X3 DIABETIC ULCER TO THE LATERAL FOOT WITH ERYTHEMA AND EDEMA EXTENDING TO THE ANKLE WITH SWELLING ON THE DORSAL ASPECT OF THE FOOT WITH ERYTHEMA. THERE IS ANOTHER 2X1 CM ULCER ON THE PLANTAR ASPECT OF THE RIGHT FOOT. HIS VITALS THIS MORNING ARE: 98.8-81-22-97%-163/72. LABS WERE OBTAINED. ABNORMAL LAB VALUES INCLUDE THE FOLLOWING: WBC 16.5, RBC 3.33, HGB 9.9, HCT 29.5, CREATININE 0.64, GLUCOSE 159, AST 63, ALK PHOS 380, TOTAL PROTEIN 6.2, ALBUMIN 1.7. WOUND CULTURE WAS SET UP AND REVEALS GROWTH OF STAPHYLOCOCCUS AUREUS. BLOOD CULTURES ARE ALSO POSITIVE FOR STAPHYLOCOCCUS AUREUS. 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 HE IS CURRENTLY RECEIVING 1/2NS AT [facility], VANCOMYCIN IV, THE POTASSIUM AND MAGNESIUM PROTOCOLS, HUMULIN R SLIDING SCALE. WE WILL RESUME HOME MEDICATIONS TODAY. HE IS SCHEDULED FOR A LOWER EXTREMITY MRI IN THE MORNING. OTHERWISE, WE WILL FOLLOW UP WITH AM LABS AND CONTINUE TO MONITOR. - Past Medical Family Social History Past Med/Fam/Surg Hx: No changes since H&P Allergies: Allergies prednisone Allergy (Verified 08/28/19 13:06) - Review of Systems ROS: No change since H&P - Vital Signs and I&O's Vital Signs: Temperature 98.8 F Pulse Rate [Left Brachial] 81 Respiratory Rate 18 Blood Pressure [Right Arm] 159/73 Blood Pressure [Left Arm] 163/72 Blood Pressure 128/66 O2 Sat by Pulse Oximetry 97 Intake and Output: Intake & Output 08/30/19 08/31/19 09/01/19 09/02/19 11:59 11:59 11:59 11:59 Intake Total 2190 / 2190 1340 / 1340 2510 / 2510 Balance 0 / 0 1340 / 1340 2510 / 0 - Physical Exam Oriented: Normal Eyes: Normal Ear: Normal Nose: Normal Throat: Normal Respiratory: Normal Cardiovascular: Normal : Normal Auscultation: Bowel Sounds: Normal Palpation: Normal Tenderness: Normal Skin: Wound (4X3 DIABETIC ULCER TO THE LATERAL FOOT WITH ERYTHEMA AND EDEMA EXTENDING TO THE ANKLE WITH SWELLING ON THE DORSAL ASPECT OF THE FOOT WITH ERYTHEMA. THERE IS ANOTHER 2X1 CM ULCER ON THE PLANTAR ASPECT OF THE RIGHT FOOT) Musculoskeletal: Right, Foot, Swelling, Tender Psychiatric: Normal Mood Description: Calm Affect: Normal Speech Pattern: Clear - Laboratory and Diagnostics Result Diagrams: 09/01/19 05:42 09/01/19 05:42 Labs: 08/28/19 14:47 Blood Blood Culture - Final Staphylococcus Aureus 08/28/19 14:29 Blood Blood Culture - Final Staphylococcus Aureus 08/28/19 12:55 Foot - Right Gram Stain - Final 08/28/19 12:55 Foot - Right Wound Culture - Final Staphylococcus Aureus Laboratory WBC 17.1 X10^3/uL (3.6-10.0) H 09/01/19 05:42 RBC 3.32 X10^6/uL (4.7-6.0) L 09/01/19 05:42 Hgb 9.9 g/dL (13.5-18.0) L 09/01/19 05:42 Hct 29.0 % (42.0-54.0) L 09/01/19 05:42 MCV 87.6 fL (80.0-100.0) 09/01/19 05:42 MCH 29.9 pg (27.0-34.0) 09/01/19 05:42 MCHC 34.1 g/dL (33.0-35.0) 09/01/19 05:42 RDW 15.5 % (11.6-16.5) 09/01/19 05:42 Plt Count 510 X10^3/uL (150.0-450.0) H 09/01/19 05:42 Plt Count Comment Increased (ADEQUATE) 08/28/19 10:43 MPV 8.2 fL (7.4-11.0) 09/01/19 05:42 Neut % (Auto) 82.3 % (42.0-75.0) H 09/01/19 05:42 Lymph % (Auto) 6.7 % (21.0-51.0) L 09/01/19 05:42 [place] % (Auto) 9.2 % (0.0-13.0) 09/01/19 05:42 Eos % (Auto) 1.5 % (0.9-2.9) 09/01/19 05:42 Baso % (Auto) 0.3 % (0.2-1.0) 09/01/19 05:42 Neut # (Auto) 14.1 x10^3/uL (2.2-4.8) H 09/01/19 05:42 Lymph # (Auto) 1.1 X10^3/uL (1.3-2.9) L 09/01/19 05:42 [place] # (Auto) 1.6 x10^3/uL (0.3-0.8) H 09/01/19 05:42 Eos # (Auto) 0.3 x10^3/uL (0.0-0.2) H 09/01/19 05:42 Baso # (Auto) 0.0 X10^3/uL (0.0-0.1) 09/01/19 05:42 Absolute Nucleated RBC 0.0 /100WBC 09/01/19 05:42 Total Counted 100 08/28/19 10:43 Neutrophils % (Manual) 91 % (39-76) H 08/28/19 10:43 Band Neutrophils % 1 % (0-10) 08/28/19 10:43 Lymphocytes % (Manual) 3 % (13-43) L 08/28/19 10:43 Monocytes % (Manual) 5 % (4-9) 08/28/19 10:43 Plt Morphology Comment Normal (NORMAL) 08/28/19 10:43 RBC Morphology Normal (NORMAL) 08/28/19 10:43 Sodium 134 mmol/L (136-145) L 09/01/19 05:42 Corrected Sodium 136 mmol/L (136-145) 09/01/19 05:42 Potassium 3.6 mmol/L (3.5-5.1) 09/01/19 05:42 Chloride 103 mmol/L (98-107) 09/01/19 05:42 Carbon Dioxide 24.1 mmol/L (21-32) 09/01/19 05:42 BUN 9 mg/dL (7-18) 09/01/19 05:42 Creatinine 0.75 mg/dL (0.70-1.30) 09/01/19 05:42 Est GFR (MDRD) Af Amer > 60 (>60) 09/01/19 05:42 Est GFR (MDRD) Non-Af > 60 (>60) 09/01/19 05:42 Glucose 175 mg/dL (65-99) H 09/01/19 05:42 POC Glucose (mg/dL) 200 mg/dL (65-99) H 09/01/19 11:36 Calcium 9.7 mg/dL (8.5-10.1) 09/01/19 05:42 Corrected Calcium 11.5 mg/dL (8.5-10.1) H 09/01/19 05:42 Magnesium 2.0 mg/dL (1.7-2.9) 08/30/19 06:22 Total Bilirubin 0.60 mg/dL (0.2-1.0) 09/01/19 05:42 AST 72 Units/L (15-37) H 09/01/19 05:42 ALT 70 Units/L (12-78) 09/01/19 05:42 Alkaline Phosphatase 391 Units/L (46-116) H 09/01/19 05:42 Total Protein 6.2 g/dL (6.4-8.2) L 09/01/19 05:42 Albumin 1.7 g/dL (3.4-5.0) L 09/01/19 05:42 Globulin 4.5 g/dL (2.5-4.5) 09/01/19 05:42 Albumin/Globulin Ratio 0.4 Ratio (1.1-2.1) L 09/01/19 05:42 Prealbumin 8.5 mg/dL (18-35.7) L 09/01/19 05:42 Vancomycin Trough 9.3 ug/mL (15-20) L 08/30/19 23:02 - Plan (1) Cellulitis of right foot Status: Acute (2) Diabetes mellitus Status: Acute Qualifiers: Diabetes mellitus type: type 2 Diabetes mellitus intermediate accountant insulin use: unspecified intermediate accountant insulin use status Diabetes mellitus complication status: with other specified complication Qualified Code(s): E11.69 - Type 2 diabetes mellitus with other specified complication Plan: HUMULIN R SLIDING SCALE, METFORMIN, CONTINUE TO MONITOR
[2019-09-01 19:53] LABS: CREATININE 0.72 mg/dL (0.70-1.30)
--- NOTE | 2019-09-01 20:57 | PCM.PROG ---
Progress Note - Progress Note for Day of Date of Exam: 09/01/19 - Subjective Subjective: IS BEING TREATED FOR RIGHT LOWER EXTREMITY CELLULITIS AND INFECTED DECUBITUS ULCER. WE WERE CONSULTED FOR MEDICAL MANANGEMENT. TODAY, PATIENT IS ALERT AND ORIENTED, LYING IN BED ON MORNING ROUNDS. HE REPORTS RIGHT FOOT PAIN THIS MORNING. ON EXAMINATION, HEART IS REGULAR IN RATE AND RHYTHM. BILATERAL LUNGS ARE NOTED WITH DIMINISHED LUNG SOUNDS THROUGHOUT. ABDOMEN IS ROUND, SOFT, AND NON-TENDER WITH NORMAL BOWEL SOUNDS NOTED IN ALL QUADRANTS. RIGHT LOWER EXTREMITY IS NOTED WITH A 4X3 DIABETIC ULCER TO THE LATERAL FOOT WITH ERYTHEMA AND EDEMA EXTENDING TO THE ANKLE WITH SWELLING ON THE DORSAL ASPECT OF THE FOOT WITH ERYTHEMA. THERE IS ANOTHER 2X1 CM ULCER ON THE PLANTAR ASPECT OF THE RIGHT FOOT. ERYTHEMA IS SLIGHTLY IMPROVED SINCE YESTERDAY. HIS VITALS THIS MORNING ARE: 98.0-80-18-94%-167/72. LABS WERE OBTAINED. ABNORMAL LAB VALUES INCLUDE THE FOLLOWING: WBC 17.1, RBC 3.32, HGB 9.9, HCT 29.0, PLT COUNT 510, SODIUM 134, GLUCOSE 175, AST 72, ALK PHOS 391, TOTAL PROTEIN 6.2, ALBUMIN 1.7. WOUND AND BLOOD CULTURES REVEALED GROWTH OF STAPHYLOCOCCUS AUREUS. 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 HE IS CURRENTLY RECEIVING 1/2NS AT [facility], VANCOMYCIN IV, THE POTASSIUM AND MAGNESIUM PROTOCOLS, HUMULIN R SLIDING SCALE. WE WILL RESUME HOME MEDICATIONS TODAY. OTHERWISE, WE WILL FOLLOW UP WITH AM LABS AND CONTINUE TO MONITOR. - Past Medical Family Social History Past Med/Fam/Surg Hx: No changes since H&P Allergies: Allergies prednisone Allergy (Verified 08/28/19 13:06) - Review of Systems ROS: No change since H&P - Vital Signs and I&O's Vital Signs: Temperature 98.4 F Pulse Rate [Left Brachial] 80 Respiratory Rate 20 Blood Pressure [Right Arm] 159/73 Blood Pressure [Left Arm] 145/68 Blood Pressure 128/66 O2 Sat by Pulse Oximetry 98 Intake and Output: Intake & Output 08/30/19 08/31/19 09/01/19 09/02/19 11:59 11:59 11:59 11:59 Intake Total 2190 / 2190 1340 / 1340 2510 / 2510 1050 / 1050 Balance 2190 / 2190 1340 / 1340 2510 / 2510 1050 / 1050 - Physical Exam Oriented: Normal Eyes: Normal Ear: Normal Nose: Normal Throat: Normal Respiratory: Normal Cardiovascular: Normal : Normal Auscultation: Bowel Sounds: Normal Tenderness: Normal Skin: Wound (4X3 DIABETIC ULCER TO THE LATERAL FOOT WITH ERYTHEMA AND EDEMA EXTENDING TO THE ANKLE WITH SWELLING ON THE DORSAL ASPECT OF THE FOOT WITH ERYTHEMA. THERE IS ANOTHER 2X1 CM ULCER ON THE PLANTAR ASPECT OF THE RIGHT FOOT) Musculoskeletal: Right, Foot, Swelling, Tender Psychiatric: Normal Mood Description: Calm Affect: Normal Speech Pattern: Clear - Laboratory and Diagnostics Result Diagrams: 09/01/19 05:42 09/01/19 19:25 Labs: 08/28/19 14:47 Blood Blood Culture - Final Staphylococcus Aureus 08/28/19 14:29 Blood Blood Culture - Final Staphylococcus Aureus 08/28/19 12:55 Foot - Right Gram Stain - Final 08/28/19 12:55 Foot - Right Wound Culture - Final Staphylococcus Aureus Laboratory WBC 17.1 X10^3/uL (3.6-10.0) H 09/01/19 05:42 RBC 3.32 X10^6/uL (4.7-6.0) L 09/01/19 05:42 Hgb 9.9 g/dL (13.5-18.0) L 09/01/19 05:42 Hct 29.0 % (42.0-54.0) L 09/01/19 05:42 MCV 87.6 fL (80.0-100.0) 09/01/19 05:42 MCH 29.9 pg (27.0-34.0) 09/01/19 05:42 MCHC 34.1 g/dL (33.0-35.0) 09/01/19 05:42 RDW 15.5 % (11.6-16.5) 09/01/19 05:42 Plt Count 510 X10^3/uL (150.0-450.0) H 09/01/19 05:42 Plt Count Comment Increased (ADEQUATE) 08/28/19 10:43 MPV 8.2 fL (7.4-11.0) 09/01/19 05:42 Neut % (Auto) 82.3 % (42.0-75.0) H 09/01/19 05:42 Lymph % (Auto) 6.7 % (21.0-51.0) L 09/01/19 05:42 [place] % (Auto) 9.2 % (0.0-13.0) 09/01/19 05:42 Eos % (Auto) 1.5 % (0.9-2.9) 09/01/19 05:42 Baso % (Auto) 0.3 % (0.2-1.0) 09/01/19 05:42 Neut # (Auto) 14.1 x10^3/uL (2.2-4.8) H 09/01/19 05:42 Lymph # (Auto) 1.1 X10^3/uL (1.3-2.9) L 09/01/19 05:42 [place] # (Auto) 1.6 x10^3/uL (0.3-0.8) H 09/01/19 05:42 Eos # (Auto) 0.3 x10^3/uL (0.0-0.2) H 09/01/19 05:42 Baso # (Auto) 0.0 X10^3/uL (0.0-0.1) 09/01/19 05:42 Absolute Nucleated RBC 0.0 /100WBC 09/01/19 05:42 Total Counted 100 08/28/19 10:43 Neutrophils % (Manual) 91 % (39-76) H 08/28/19 10:43 Band Neutrophils % 1 % (0-10) 08/28/19 10:43 Lymphocytes % (Manual) 3 % (13-43) L 08/28/19 10:43 Monocytes % (Manual) 5 % (4-9) 08/28/19 10:43 Plt Morphology Comment Normal (NORMAL) 08/28/19 10:43 RBC Morphology Normal (NORMAL) 08/28/19 10:43 Sodium 134 mmol/L (136-145) L 09/01/19 05:42 Corrected Sodium 136 mmol/L (136-145) 09/01/19 05:42 Potassium 3.6 mmol/L (3.5-5.1) 09/01/19 05:42 Chloride 103 mmol/L (98-107) 09/01/19 05:42 Carbon Dioxide 24.1 mmol/L (21-32) 09/01/19 05:42 BUN 9 mg/dL (7-18) 09/01/19 05:42 Creatinine 0.72 mg/dL (0.70-1.30) 09/01/19 19:25 Est GFR (MDRD) Af Amer > 60 (>60) 09/01/19 05:42 Est GFR (MDRD) Non-Af > 60 (>60) 09/01/19 05:42 Glucose 175 mg/dL (65-99) H 09/01/19 05:42 POC Glucose (mg/dL) 179 mg/dL (65-99) H 09/01/19 20:10 Calcium 9.7 mg/dL (8.5-10.1) 09/01/19 05:42 Corrected Calcium 11.5 mg/dL (8.5-10.1) H 09/01/19 05:42 Magnesium 2.0 mg/dL (1.7-2.9) 08/30/19 06:22 Total Bilirubin 0.60 mg/dL (0.2-1.0) 09/01/19 05:42 AST 72 Units/L (15-37) H 09/01/19 05:42 ALT 70 Units/L (12-78) 09/01/19 05:42 Alkaline Phosphatase 391 Units/L (46-116) H 09/01/19 05:42 Total Protein 6.2 g/dL (6.4-8.2) L 09/01/19 05:42 Albumin 1.7 g/dL (3.4-5.0) L 09/01/19 05:42 Globulin 4.5 g/dL (2.5-4.5) 09/01/19 05:42 Albumin/Globulin Ratio 0.4 Ratio (1.1-2.1) L 09/01/19 05:42 Prealbumin 8.5 mg/dL (18-35.7) L 09/01/19 05:42 Vancomycin Trough 18.0 ug/mL (15-20) 09/01/19 19:25 - Plan (1) Cellulitis of right foot Status: Acute (2) Diabetes mellitus Status: Acute Qualifiers: Diabetes mellitus type: type 2 Diabetes mellitus usp insulin use: unspecified buttermaker continuous churn insulin use status Diabetes mellitus complication status: with other specified complication Qualified Code(s): E11.69 - Type 2 diabetes mellitus with other specified complication Plan: HUMULIN R SLIDING SCALE, METFORMIN, CONTINUE TO MONITOR
[2019-09-01] MEDS: SNACK - Diabetic Appropriate PO SCH (21:39)
[2019-09-01] MEDS: LIPITOR TAB 40 MG PO SCH (21:40)
[2019-09-01] MEDS: ARICEPT TAB 5 MG PO SCH (21:41)
[2019-09-02] MEDS ORDERED: GLUCOPHAGE ONE ×2 (05:16→17:46)
[2019-09-02] MEDS ORDERED: NS 1/2 1000 ML IV 1,000 ML IV ONE (05:17)
[2019-09-02] MEDS: NS 1/2 1000 ML IV 1,000 ML IV SCH ×3 (05:43→18:15)
[2019-09-02] MEDS: APRESOLINE TAB 25 MG PO SCH ×3 (05:43→21:08)
[2019-09-02] MEDS: GLUCOPHAGE PO SCH ×2 (06:17→18:05)
[2019-09-02 06:39] LABS: BASOPHILS # (AUTO) 0.1 X10^3/uL (0.0-0.1); BASOPHILS % (AUTO) 0.4 % (0.2-1.0); EOSINOPHILS # (AUTO) 0.3 x10^3/uL (0.0-0.2); EOSINOPHILS % (AUTO) 1.8 % (0.9-2.9); HEMOGLOBIN 9.4 g/dL (13.5-18.0); LYMPHOCYTES # (AUTO) 1.2 X10^3/uL (1.3-2.9); LYMPHOCYTES % (AUTO) 7.7 % (21.0-51.0); MEAN CORPUSCULAR HEMOGLOBIN 29.5 pg (27.0-34.0); MEAN CORPUSCULAR HGB CONC 33.5 g/dL (33.0-35.0); MEAN PLATELET VOLUME 8.1 fL (7.4-11.0); MONOCYTES # (AUTO) 1.4 x10^3/uL (0.3-0.8); MONOCYTES % (AUTO) 8.9 % (0.0-13.0); NEUTROPHILS # (AUTO) 12.6 x10^3/uL (2.2-4.8); NEUTROPHILS % (AUTO) 81.2 % (42.0-75.0); PLATELET COUNT 488 X10^3/uL (150.0-450.0); RED BLOOD COUNT 3.18 X10^6/uL (4.7-6.0); RED CELL DISTRIBUTION WIDTH 15.2 % (11.6-16.5); WHITE BLOOD COUNT 15.5 X10^3/uL (3.6-10.0)
[2019-09-02 06:58] LABS: ALANINE AMINOTRANSFERASE 75 Units/L (12-78); ALBUMIN 1.9 g/dL (3.4-5.0); ALKALINE PHOSPHATASE 380 Units/L (46-116); ASPARTATE AMINO TRANSFERASE 76 Units/L (15-37); BLOOD UREA NITROGEN 7 mg/dL (7-18); CALCIUM 9.8 mg/dL (8.5-10.1); CARBON DIOXIDE 24.6 mmol/L (21-32); CHLORIDE 101 mmol/L (98-107); COR CA(FOR HYPOALB) 11.5 mg/dL (8.5-10.1); COR NA(FOR HYPERGLY) 135 mmol/L (136-145); CREATININE 0.64 mg/dL (0.70-1.30); SODIUM 133 mmol/L (136-145); TOTAL PROTEIN 6.1 g/dL (6.4-8.2); eGFR NON BLACK RACES > 60 (>60)
[2019-09-02] MEDS: ALBUMIN HUMAN 25%- 100 ML 100 ML IV SCH (08:26)
[2019-09-02] MEDS: VANCOMYCIN HCL 500 MG, VANCOMYCIN HCL 1 G in D5W 250 ML IV 250 ML IV SCH ×2 (08:29→20:38)
[2019-09-02] MEDS: COREG TAB 6.25 MG PO SCH ×2 (08:30→20:37)
[2019-09-02] MEDS: ASPIRIN EC 81 MG PO SCH (09:56)
[2019-09-02] MEDS: NORVASC TAB 10 MG PO SCH (09:56)
[2019-09-02] MEDS: LOVENOX INJ 40 MG SYR SC SCH (09:57)
[2019-09-02] MEDS: NAMENDA TAB 10 MG PO SCH ×2 (09:57→20:37)
[2019-09-02] MEDS: BRILINTA PO SCH ×2 (09:57→20:38)
[2019-09-02] MEDS: BENICAR TAB 40 MG PO SCH (09:57)
[2019-09-02] MEDS ORDERED: VERSED ONE (10:27)
[2019-09-02] MEDS: K-RIDER 10 MEQ/NS 100 ML 10 MEQ/100 ML BAG IV PRN ×4 (11:25→18:08)
[2019-09-02] MEDS ORDERED: LR 1000 ML IV 1,000 ML IV ONE (11:31)
[2019-09-02] MEDS ORDERED: ANCEF 1 GRAM IV PREMIX* 2 G/100 ML BAG IV ONE (11:32)
[2019-09-02] MEDS ORDERED: XYLOCAINE 1 % (PLAIN) ONE (11:59)
[2019-09-02] MEDS ORDERED: POLYMYXIN B SULFATE ONE (12:05)
--- NOTE | 2019-09-02 12:30 | OR.IMMED ---
Immediate Post-Op Note - Immediate Post-Op Note Pre-Op Diagnosis: Rt foot abscess. Post-Op Diagnosis: Rt foot abscess .on the dorsal aspect . Procedure: I&D Rt foot abscess. Surgeon/Agile Developer: Jen Condition: Stable (packed with Iodoform packing)
[2019-09-02] MEDS: LIPITOR TAB 40 MG PO SCH (20:37)
[2019-09-02] MEDS: SNACK - Diabetic Appropriate PO SCH (20:37)
[2019-09-02] MEDS: ARICEPT TAB 5 MG PO SCH (20:38)
[2019-09-02] MEDS: PERCOCET TAB 5/325 MG PO PRN (21:08)
--- NOTE | 2019-09-02 21:31 | PCM.PROG ---
Progress Note - Progress Note for Day of Date of Exam: 09/02/19 - Subjective Subjective: IS BEING TREATED FOR RIGHT LOWER EXTREMITY CELLULITIS AND INFECTED DECUBITUS ULCER. TODAY, PATIENT IS ALERT AND ORIENTED, LYING IN BED ON MORNING ROUNDS. HE REPORTS RIGHT FOOT PAIN THIS MORNING. ON EXAMINATION, HEART IS REGULAR IN RATE AND RHYTHM. BILATERAL LUNGS ARE NOTED WITH DIMINISHED LUNG SOUNDS THROUGHOUT. ABDOMEN IS ROUND, SOFT, AND NON-TENDER WITH NORMAL BOWEL SOUNDS NOTED IN ALL QUADRANTS. RIGHT LOWER EXTREMITY IS NOTED WITH A 4X3 DIABETIC ULCER TO THE LATERAL FOOT WITH ERYTHEMA AND EDEMA EXTENDING TO THE ANKLE WITH SWELLING ON THE DORSAL ASPECT OF THE FOOT WITH ERYTHEMA. THERE IS ANOTHER 2X1 CM ULCER ON THE PLANTAR ASPECT OF THE RIGHT FOOT. ERYTHEMA IS SLIGHTLY IMPROVED SINCE YESTERDAY. HIS VITALS THIS MORNING ARE: 98.7-78-18-96%-151/70. LABS WERE OBTAINED. ABNORMAL LAB VALUES INCLUDE THE FOLLOWING: WBC 15.5, RBC 3.18, HGB 9.4, HCT 28.0, SODIUM 133, POTASSIUM 3.3, CREATININE 0.64, GLUCOSE 167, AST 76, ALK PHOS 380, TOTAL PROTEIN 6.1, ALBUMIN 1.9. WOUND AND BLOOD CULTURES REVEALED GROWTH OF STAPHYLOCOCCUS AUREUS. 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 IT ALSO REVEALED AN ABSCESS IN THE DORSUM OF THE FOOT. HE IS CURRENTLY RECEIVING 1/2NS AT [facility], VANCOMYCIN IV, THE POTASSIUM AND MAGNESIUM PROTOCOLS, HUMULIN R SLIDING SCALE. HOME MEDICATIONS WERE RESUMED. PLANS TO TAKE PATIENT TO THE OR THIS MORNING FOR I&D OF ABSCESS. OTHERWISE, WE WILL FOLLOW UP WITH AM LABS AND CONTINUE TO MONITOR. - Past Medical Family Social History Past Med/Fam/Surg Hx: No changes since H&P Allergies: Allergies prednisone Allergy (Verified 08/28/19 13:06) - Review of Systems ROS: No change since H&P - Vital Signs and I&O's Vital Signs: Temperature 98.1 F Pulse Rate [Left Brachial] 73 Respiratory Rate 20 Blood Pressure [Right Arm] 141/66 Blood Pressure [Left Arm] 147/69 Blood Pressure 128/66 O2 Sat by Pulse Oximetry 98 Intake and Output: Intake & Output 08/31/19 09/01/19 09/02/19 09/03/19 11:59 11:59 11:59 11:59 Intake Total 1340 / 1340 2510 / 2510 1760 / 1760 700 / 700 Output Total 500 / 500 Balance 1340 / 1340 2510 / 2510 1760 / 1760 200 / 200 - Physical Exam Oriented: Normal Eyes: Normal Ear: Normal Nose: Normal Throat: Normal Respiratory: Normal Cardiovascular: Normal : Normal Auscultation: Bowel Sounds: Normal Tenderness: Normal Skin: Wound (4X3 DIABETIC ULCER TO THE LATERAL FOOT WITH ERYTHEMA AND EDEMA EXTENDING TO THE ANKLE WITH SWELLING ON THE DORSAL ASPECT OF THE FOOT WITH ER YTHEMA. THERE IS ANOTHER 2X1 CM ULCER ON THE PLANTAR ASPECT OF THE RIGHT FOOT) Musculoskeletal: Right, Foot, Swelling, Tender Psychiatric: Normal Mood Description: Calm Affect: Normal Speech Pattern: Clear, Appropriate - Laboratory and Diagnostics Result Diagrams: 09/02/19 06:00 09/02/19 06:00 Labs: 09/02/19 12:10 Foot - Right Gram Stain - Final 08/28/19 14:47 Blood Blood Culture - Final Staphylococcus Aureus 08/28/19 14:29 Blood Blood Culture - Final Staphylococcus Aureus 08/28/19 12:55 Foot - Right Gram Stain - Final 08/28/19 12:55 Foot - Right Wound Culture - Final Staphylococcus Aureus Laboratory WBC 15.5 X10^3/uL (3.6-10.0) H 09/02/19 06:00 RBC 3.18 X10^6/uL (4.7-6.0) L 09/02/19 06:00 Hgb 9.4 g/dL (13.5-18.0) L 09/02/19 06:00 Hct 28.0 % (42.0-54.0) L 09/02/19 06:00 MCV 88.0 fL (80.0-100.0) 09/02/19 06:00 MCH 29.5 pg (27.0-34.0) 09/02/19 06:00 MCHC 33.5 g/dL (33.0-35.0) 09/02/19 06:00 RDW 15.2 % (11.6-16.5) 09/02/19 06:00 Plt Count 488 X10^3/uL (150.0-450.0) H 09/02/19 06:00 Plt Count Comment Increased (ADEQUATE) 08/28/19 10:43 MPV 8.1 fL (7.4-11.0) 09/02/19 06:00 Neut % (Auto) 81.2 % (42.0-75.0) H 09/02/19 06:00 Lymph % (Auto) 7.7 % (21.0-51.0) L 09/02/19 06:00 [place] % (Auto) 8.9 % (0.0-13.0) 09/02/19 06:00 Eos % (Auto) 1.8 % (0.9-2.9) 09/02/19 06:00 Baso % (Auto) 0.4 % (0.2-1.0) 09/02/19 06:00 Neut # (Auto) 12.6 x10^3/uL (2.2-4.8) H 09/02/19 06:00 Lymph # (Auto) 1.2 X10^3/uL (1.3-2.9) L 09/02/19 06:00 [place] # (Auto) 1.4 x10^3/uL (0.3-0.8) H 09/02/19 06:00 Eos # (Auto) 0.3 x10^3/uL (0.0-0.2) H 09/02/19 06:00 Baso # (Auto) 0.1 X10^3/uL (0.0-0.1) 09/02/19 06:00 Absolute Nucleated RBC 0.0 /100WBC 09/02/19 06:00 Total Counted 100 08/28/19 10:43 Neutrophils % (Manual) 91 % (39-76) H 08/28/19 10:43 Band Neutrophils % 1 % (0-10) 08/28/19 10:43 Lymphocytes % (Manual) 3 % (13-43) L 08/28/19 10:43 Monocytes % (Manual) 5 % (4-9) 08/28/19 10:43 Plt Morphology Comment Normal (NORMAL) 08/28/19 10:43 RBC Morphology Normal (NORMAL) 08/28/19 10:43 Sodium 133 mmol/L (136-145) L 09/02/19 06:00 Corrected Sodium 135 mmol/L (136-145) L 09/02/19 06:00 Potassium 3.3 mmol/L (3.5-5.1) L 09/02/19 06:00 Chloride 101 mmol/L (98-107) 09/02/19 06:00 Carbon Dioxide 24.6 mmol/L (21-32) 09/02/19 06:00 BUN 7 mg/dL (7-18) 09/02/19 06:00 Creatinine 0.64 mg/dL (0.70-1.30) L 09/02/19 06:00 Est GFR (MDRD) Af Amer > 60 (>60) 09/02/19 06:00 Est GFR (MDRD) Non-Af > 60 (>60) 09/02/19 06:00 Glucose 167 mg/dL (65-99) H 09/02/19 06:00 POC Glucose (mg/dL) 139 mg/dL (65-99) H 09/02/19 20:17 Calcium 9.8 mg/dL (8.5-10.1) 09/02/19 06:00 Corrected Calcium 11.5 mg/dL (8.5-10.1) H 09/02/19 06:00 Magnesium 2.0 mg/dL (1.7-2.9) 08/30/19 06:22 Total Bilirubin 0.60 mg/dL (0.2-1.0) 09/02/19 06:00 AST 76 Units/L (15-37) H 09/02/19 06:00 ALT 75 Units/L (12-78) 09/02/19 06:00 Alkaline Phosphatase 380 Units/L (46-116) H 09/02/19 06:00 Total Protein 6.1 g/dL (6.4-8.2) L 09/02/19 06:00 Albumin 1.9 g/dL (3.4-5.0) L 09/02/19 06:00 Globulin 4.2 g/dL (2.5-4.5) 09/02/19 06:00 Albumin/Globulin Ratio 0.5 Ratio (1.1-2.1) L 09/02/19 06:00 Prealbumin 8.5 mg/dL (18-35.7) L 09/01/19 05:42 Carcinoembryonic Ag 1.1 ng/mL (0.0-3.0) 08/28/19 10:54 Vancomycin Trough 18.0 ug/mL (15-20) 09/01/19 19:25 - Plan (1) Cellulitis of right foot Status: Acute (2) Diabetes mellitus Status: Acute Qualifiers: Diabetes mellitus type: type 2 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
[2019-09-03] MEDS: NS 1/2 1000 ML IV 1,000 ML IV SCH ×3 (01:47→21:34)
[2019-09-03] MEDS ORDERED: GLUCOPHAGE ONE ×2 (05:31→16:47)
[2019-09-03] MEDS: GLUCOPHAGE PO SCH ×2 (06:07→17:07)
[2019-09-03] MEDS: APRESOLINE TAB 25 MG PO SCH ×3 (06:08→21:35)
[2019-09-03 06:35] LABS: BASOPHILS % (AUTO) 0.2 % (0.2-1.0); EOSINOPHILS # (AUTO) 0.4 x10^3/uL (0.0-0.2); EOSINOPHILS % (AUTO) 2.5 % (0.9-2.9); HEMOGLOBIN 9.5 g/dL (13.5-18.0); LYMPHOCYTES # (AUTO) 1.2 X10^3/uL (1.3-2.9); LYMPHOCYTES % (AUTO) 7.9 % (21.0-51.0); MEAN CORPUSCULAR HEMOGLOBIN 29.7 pg (27.0-34.0); MEAN CORPUSCULAR VOLUME 87.3 fL (80.0-100.0); MONOCYTES # (AUTO) 1.4 x10^3/uL (0.3-0.8); MONOCYTES % (AUTO) 9.1 % (0.0-13.0); NEUTROPHILS # (AUTO) 11.9 x10^3/uL (2.2-4.8); NEUTROPHILS % (AUTO) 80.3 % (42.0-75.0); PLATELET COUNT 488 X10^3/uL (150.0-450.0); RED BLOOD COUNT 3.21 X10^6/uL (4.7-6.0); RED CELL DISTRIBUTION WIDTH 15.3 % (11.6-16.5); WHITE BLOOD COUNT 14.8 X10^3/uL (3.6-10.0)
[2019-09-03 06:52] LABS: ALANINE AMINOTRANSFERASE 72 Units/L (12-78); ALKALINE PHOSPHATASE 361 Units/L (46-116); ASPARTATE AMINO TRANSFERASE 84 Units/L (15-37); BLOOD UREA NITROGEN 8 mg/dL (7-18); CALCIUM 9.8 mg/dL (8.5-10.1); CARBON DIOXIDE 25.2 mmol/L (21-32); CHLORIDE 102 mmol/L (98-107); COR CA(FOR HYPOALB) 11.4 mg/dL (8.5-10.1); COR NA(FOR HYPERGLY) 136 mmol/L (136-145); CREATININE 0.67 mg/dL (0.70-1.30); SODIUM 135 mmol/L (136-145); TOTAL PROTEIN 6.2 g/dL (6.4-8.2); eGFR NON BLACK RACES > 60 (>60)
[2019-09-03] MEDS: LOVENOX INJ 40 MG SYR SC SCH (08:50)
[2019-09-03] MEDS: BENICAR TAB 40 MG PO SCH (08:53)
[2019-09-03] MEDS: ALBUMIN HUMAN 25%- 100 ML 100 ML IV SCH (08:53)
[2019-09-03] MEDS: NAMENDA TAB 10 MG PO SCH ×2 (08:54→20:50)
[2019-09-03] MEDS: BRILINTA PO SCH ×2 (08:54→20:50)
[2019-09-03] MEDS: ASPIRIN EC 81 MG PO SCH (08:54)
[2019-09-03] MEDS: NORVASC TAB 10 MG PO SCH (08:55)
[2019-09-03] MEDS: COREG TAB 6.25 MG PO SCH ×2 (08:55→20:50)
[2019-09-03] MEDS: VANCOMYCIN HCL 500 MG, VANCOMYCIN HCL 1 G in D5W 250 ML IV 250 ML IV SCH ×2 (10:15→21:36)
[2019-09-03] MEDS: PERCOCET TAB 5/325 MG PO PRN (19:39)
--- NOTE | 2019-09-03 19:51 | PCM.PROG ---
Progress Note - Progress Note for Day of Date of Exam: 09/03/19 - Subjective Subjective: IS BEING TREATED FOR RIGHT LOWER EXTREMITY CELLULITIS AND INFECTED DECUBITUS ULCER. TOOK PATIENT TO THE OR YESTERDAY FOR I&D OF ABSCESS TO FOOT. TODAY, PATIENT IS ALERT AND ORIENTED, LYING IN BED ON MORNING ROUNDS. HE REPORTS RIGHT FOOT PAIN THIS MORNING. ON EXAMINATION, HEART IS REGULAR IN RATE AND RHYTHM. BILATERAL LUNGS ARE NOTED WITH DIMINISHED LUNG SOUNDS THROUGHOUT. ABDOMEN IS ROUND, SOFT, AND NON-TENDER WITH NORMAL BOWEL SOUNDS NOTED IN ALL QUADRANTS. RIGHT LOWER EXTREMITY IS NOTED WITH A 4X3 DIABETIC ULCER TO THE LATERAL FOOT WITH ERYTHEMA AND EDEMA EXTENDING TO THE ANKLE WITH SWELLING ON THE DORSAL ASPECT OF THE FOOT WITH ERYTHEMA. DRESSING NOTED WITH MINIMAL DRAINAGE. THERE IS ANOTHER 2X1 CM ULCER ON THE PLANTAR ASPECT OF THE RIGHT FOOT. ERYTHEMA IS SLIGHTLY IMPROVED SINCE YESTERDAY. HIS VITALS THIS MORNING ARE: 98.0-72-18-98%-154/69. LABS WERE OBTAINED. ABNORMAL LAB VALUES INCLUDE THE FOLLOWING: WBC 14.8, RBC 3.21, HGB 9.5, HCT 28.0, PLT COUNT 488, SODIUM 135, POTASSIUM 3.4, CREATININE 0.67, GLUCOSE 145, AST 84, ALK PHOS 361, TOTAL PROTEIN 6.2, ALUBMIN 2.0. WOUND AND BLOOD CULTURES REVEALED GROWTH OF STAPHYLOCOCCUS AUREUS. HE IS CURRENTLY RECEIVING 1/2NS AT KVO, ALBUMIN 25% IV DAILY, VANCOMYCIN IV, THE POTASSIUM AND MAGNESIUM PROTOCOLS, HUMULIN R SLIDING SCALE. HOME MEDICATIONS WERE RESUMED. WE WILL CONTINUE WITH CURRENT PLAN OF CARE TODAY. OTHERWISE, WE WILL FOLLOW UP WITH AM LABS AND CONTINUE TO MONITOR. - Past Medical Family Social History Past Med/Fam/Surg Hx: No changes since H&P Allergies: Allergies prednisone Allergy (Verified 08/28/19 13:06) - Review of Systems ROS: No change since H&P - Vital Signs and I&O's Vital Signs: Temperature 97.9 F Pulse Rate [Left Brachial] 70 Respiratory Rate 18 Blood Pressure [Right Arm] 130/67 Blood Pressure [Left Arm] 156/73 Blood Pressure 128/66 O2 Sat by Pulse Oximetry 98 Intake and Output: Intake & Output 09/01/19 09/02/19 09/03/19 09/04/19 11:59 11:59 11:59 11:59 Intake Total 2510 / 2510 1760 / 1759 920 / 920 Output Total 500 / 500 Balance 2509 / 2509 1760 / 1760 1465 / 1465 920 / 920 - Physical Exam Oriented: Normal Eyes: Normal Ear: Normal Nose: Normal Throat: Normal Respiratory: Normal Cardiovascular: Normal : Normal Auscultation: Bowel Sounds: Normal Tenderness: Normal Skin: Wound (4X3 DIABETIC ULCER TO THE LATERAL FOOT WITH ERYTHEMA AND EDEMA EXTENDING TO THE ANKLE WITH SWELLING ON THE DORSAL ASPECT OF THE FOOT WITH ERYTHEMA. THERE IS ANOTHER 2X1 CM ULCER ON THE PLANTAR ASPECT OF THE RIGHT FOOT) Musculoskeletal: Right, Foot, Swelling, Tender Psychiatric: Normal Mood Description: Calm Affect: Normal Speech Pattern: Clear, Appropriate - Laboratory and Diagnostics Result Diagrams: 09/03/19 05:54 09/03/19 05:54 Labs: 09/02/19 12:10 Foot - Right Gram Stain - Final 09/02/19 12:10 Foot - Right Wound Culture - Preliminary 08/28/19 14:47 Blood Blood Culture - Final Staphylococcus Aureus 08/28/19 14:29 Blood Blood Culture - Final Staphylococcus Aureus 08/28/19 12:55 Foot - Right Gram Stain - Final 08/28/19 12:55 Foot - Right Wound Culture - Final Staphylococcus Aureus Laboratory WBC 14.8 X10^3/uL (3.6-10.0) H 09/03/19 05:54 RBC 3.21 X10^6/uL (4.7-6.0) L 09/03/19 05:54 Hgb 9.5 g/dL (13.5-18.0) L 09/03/19 05:54 Hct 28.0 % (42.0-54.0) L 09/03/19 05:54 MCV 87.3 fL (80.0-100.0) 09/03/19 05:54 MCH 29.7 pg (27.0-34.0) 09/03/19 05:54 MCHC 34.0 g/dL (33.0-35.0) 09/03/19 05:54 RDW 15.3 % (11.6-16.5) 09/03/19 05:54 Plt Count 488 X10^3/uL (150.0-450.0) H 09/03/19 05:54 Plt Count Comment Increased (ADEQUATE) 08/28/19 10:43 MPV 8.0 fL (7.4-11.0) 09/03/19 05:54 Neut % (Auto) 80.3 % (42.0-75.0) H 09/03/19 05:54 Lymph % (Auto) 7.9 % (21.0-51.0) L 09/03/19 05:54 [place] % (Auto) 9.1 % (0.0-13.0) 09/03/19 05:54 Eos % (Auto) 2.5 % (0.9-2.9) 09/03/19 05:54 Baso % (Auto) 0.2 % (0.2-1.0) 09/03/19 05:54 Neut # (Auto) 11.9 x10^3/uL (2.2-4.8) H 09/03/19 05:54 Lymph # (Auto) 1.2 X10^3/uL (1.3-2.9) L 09/03/19 05:54 [place] # (Auto) 1.4 x10^3/uL (0.3-0.8) H 09/03/19 05:54 Eos # (Auto) 0.4 x10^3/uL (0.0-0.2) H 09/03/19 05:54 Baso # (Auto) 0.0 X10^3/uL (0.0-0.1) 09/03/19 05:54 Absolute Nucleated RBC 0.0 /100WBC 09/03/19 05:54 Total Counted 100 08/28/19 10:43 Neutrophils % (Manual) 91 % (39-76) H 08/28/19 10:43 Band Neutrophils % 1 % (0-10) 08/28/19 10:43 Lymphocytes % (Manual) 3 % (13-43) L 08/28/19 10:43 Monocytes % (Manual) 5 % (4-9) 08/28/19 10:43 Plt Morphology Comment Normal (NORMAL) 08/28/19 10:43 RBC Morphology Normal (NORMAL) 08/28/19 10:43 Sodium 135 mmol/L (136-145) L 09/03/19 05:54 Corrected Sodium 136 mmol/L (136-145) 09/03/19 05:54 Potassium 3.4 mmol/L (3.5-5.1) L 09/03/19 05:54 Chloride 102 mmol/L (98-107) 09/03/19 05:54 Carbon Dioxide 25.2 mmol/L (21-32) 09/03/19 05:54 BUN 8 mg/dL (7-18) 09/03/19 05:54 Creatinine 0.67 mg/dL (0.70-1.30) L 09/03/19 05:54 Est GFR (MDRD) Af Amer > 60 (>60) 09/03/19 05:54 Est GFR (MDRD) Non-Af > 60 (>60) 09/03/19 05:54 Glucose 145 mg/dL (65-99) H 09/03/19 05:54 POC Glucose (mg/dL) 150 mg/dL (65-99) H 09/03/19 05:21 Calcium 9.8 mg/dL (8.5-10.1) 09/03/19 05:54 Corrected Calcium 11.4 mg/dL (8.5-10.1) H 09/03/19 05:54 Magnesium 2.0 mg/dL (1.7-2.9) 08/30/19 06:22 Total Bilirubin 0.60 mg/dL (0.2-1.0) 09/03/19 05:54 AST 84 Units/L (15-37) H 09/03/19 05:54 ALT 72 Units/L (12-78) 09/03/19 05:54 Alkaline Phosphatase 361 Units/L (46-116) H 09/03/19 05:54 Total Protein 6.2 g/dL (6.4-8.2) L 09/03/19 05:54 Albumin 2.0 g/dL (3.4-5.0) L 09/03/19 05:54 Globulin 4.2 g/dL (2.5-4.5) 09/03/19 05:54 Albumin/Globulin Ratio 0.5 Ratio (1.1-2.1) L 09/03/19 05:54 Prealbumin 8.5 mg/dL (18-35.7) L 09/01/19 05:42 Carcinoembryonic Ag 1.1 ng/mL (0.0-3.0) 08/28/19 10:54 Vancomycin Trough 18.0 ug/mL (15-20) 09/01/19 19:25 - Plan (1) Cellulitis of right foot Status: Acute (2) Diabetes mellitus Status: Acute Qualifiers: Diabetes mellitus type: type 2 Diabetes mellitus terminal computer operator insulin use: unspecified skilled nursing insulin use status Diabetes mellitus complication status: with other specified complication Qualified Code(s): E11.69 - Type 2 diabetes mellitus with other specified complication Plan: HUMULIN R SLIDING SCALE, METFORMIN, CONTINUE TO MONITOR
[2019-09-03] MEDS: LIPITOR TAB 40 MG PO SCH (20:49)
[2019-09-03] MEDS: ARICEPT TAB 5 MG PO SCH (20:50)
[2019-09-03] MEDS: SNACK - Diabetic Appropriate PO SCH (20:50)
[2019-09-03 20:52] LABS: CREATININE 0.6 mg/dL (0.70-1.30); VANCOMYCIN,TROUGH 16.7 ug/mL (15-20)
[2019-09-04] MEDS ORDERED: ZOFRAN INJ 4 MG VIAL IVP PRN (03:27)
[2019-09-04] MEDS ORDERED: ZOFRAN INJ 4 MG VIAL ONE (03:28)
[2019-09-04] MEDS ORDERED: GLUCOPHAGE ONE (05:12)
[2019-09-04] MEDS: APRESOLINE TAB 25 MG PO SCH (05:37)
[2019-09-04] MEDS: GLUCOPHAGE PO SCH (06:05)
[2019-09-04 06:10] LABS: BASOPHILS # (AUTO) 0.1 X10^3/uL (0.0-0.1); BASOPHILS % (AUTO) 0.5 % (0.2-1.0); EOSINOPHILS # (AUTO) 0.2 x10^3/uL (0.0-0.2); EOSINOPHILS % (AUTO) 1.7 % (0.9-2.9); HEMATOCRIT 28.3 % (42.0-54.0); HEMOGLOBIN 9.7 g/dL (13.5-18.0); LYMPHOCYTES # (AUTO) 0.8 X10^3/uL (1.3-2.9); LYMPHOCYTES % (AUTO) 5.2 % (21.0-51.0); MEAN CORPUSCULAR HEMOGLOBIN 29.9 pg (27.0-34.0); MEAN CORPUSCULAR HGB CONC 34.2 g/dL (33.0-35.0); MEAN CORPUSCULAR VOLUME 87.6 fL (80.0-100.0); MEAN PLATELET VOLUME 8.1 fL (7.4-11.0); MONOCYTES # (AUTO) 1.2 x10^3/uL (0.3-0.8); MONOCYTES % (AUTO) 8.6 % (0.0-13.0); NEUTROPHILS # (AUTO) 12.2 x10^3/uL (2.2-4.8); PLATELET COUNT 509 X10^3/uL (150.0-450.0); RED BLOOD COUNT 3.23 X10^6/uL (4.7-6.0); RED CELL DISTRIBUTION WIDTH 15.2 % (11.6-16.5); WHITE BLOOD COUNT 14.5 X10^3/uL (3.6-10.0)
[2019-09-04 06:30] LABS: ALANINE AMINOTRANSFERASE 98 Units/L (12-78); ALBUMIN 2.2 g/dL (3.4-5.0); ALKALINE PHOSPHATASE 380 Units/L (46-116); ASPARTATE AMINO TRANSFERASE 121 Units/L (15-37); BLOOD UREA NITROGEN 8 mg/dL (7-18); CALCIUM 9.9 mg/dL (8.5-10.1); CARBON DIOXIDE 25.7 mmol/L (21-32); CHLORIDE 101 mmol/L (98-107); COR CA(FOR HYPOALB) 11.3 mg/dL (8.5-10.1); COR NA(FOR HYPERGLY) 136 mmol/L (136-145); CREATININE 0.65 mg/dL (0.70-1.30); SODIUM 135 mmol/L (136-145); TOTAL PROTEIN 6.3 g/dL (6.4-8.2); eGFR NON BLACK RACES > 60 (>60)
[2019-09-04] MEDS: K-DUR TAB 20 MEQ PO PRN (06:43)
[2019-09-04] MEDS: NORVASC TAB 10 MG PO SCH (09:48)
[2019-09-04] MEDS: BRILINTA PO SCH (09:48)
[2019-09-04] MEDS: ASPIRIN EC 81 MG PO SCH (09:48)
[2019-09-04] MEDS: NAMENDA TAB 10 MG PO SCH (09:48)
[2019-09-04] MEDS: ALBUMIN HUMAN 25%- 100 ML 100 ML IV SCH (09:49)
[2019-09-04] MEDS: BENICAR TAB 40 MG PO SCH (09:49)
[2019-09-04] MEDS: COREG TAB 6.25 MG PO SCH (09:49)
[2019-09-04] MEDS: LOVENOX INJ 40 MG SYR SC SCH (09:49)
[2019-09-04] MEDS: NS 1/2 1000 ML IV 1,000 ML IV SCH (11:33)
[2019-09-04] MEDS: VANCOMYCIN HCL 500 MG, VANCOMYCIN HCL 1 G in D5W 250 ML IV 250 ML IV SCH (11:34)
--- NOTE | 2019-09-04 11:58 | DR.PROGNOT ---
Hospital Progress Notes - Progress Note for Day of: Progress Note Date: 09/04/19 - Chief Complaint Chief Complaint: feeling better today with less pain . packing was changed . less erythema and only mild drainage from the abscess cavity . the infection is controled with ATB . - Past Medical Family Social History Past Med/Fam/Surg Hx: No changes since H&P Allergies: Allergies prednisone Allergy (Verified 08/28/19 13:06) - Review Of Systems ROS: No change since H&P - Vital Signs Vital Signs: Temperature 98.2 F Pulse Rate [Left Brachial] 78 Respiratory Rate 18 Blood Pressure [Right Arm] 130/67 Blood Pressure [Left Arm] 144/69 Blood Pressure 128/66 O2 Sat by Pulse Oximetry 96 - Physical Exam Oriented: Normal Eyes: Normal Ear: Normal Nose: Normal Throat: Normal Respiratory: Normal Cardiovascular: Normal : Normal GI:Auscultation: Normal GI:Palpation: Normal GI: Tenderness: Normal Skin: Wound Musculoskeletal: Right, Foot, Swelling, Tender Psychiatric: Normal Mood Description: Calm Affect: Normal Speech Pattern: Clear, Appropriate - Laboratory and Diagnostics Result Diagrams: 09/04/19 05:30 09/04/19 08:40 Labs: 09/02/19 12:10 Foot - Right Gram Stain - Final 09/02/19 12:10 Foot - Right Wound Culture - Final Staphylococcus Aureus 08/28/19 14:47 Blood Blood Culture - Final Staphylococcus Aureus 08/28/19 14:29 Blood Blood Culture - Final Staphylococcus Aureus 08/28/19 12:55 Foot - Right Gram Stain - Final 08/28/19 12:55 Foot - Right Wound Culture - Final Staphylococcus Aureus Laboratory WBC 14.5 X10^3/uL (3.6-10.0) H 09/04/19 05:30 RBC 3.23 X10^6/uL (4.7-6.0) L 09/04/19 05:30 Hgb 9.7 g/dL (13.5-18.0) L 09/04/19 05:30 Hct 28.3 % (42.0-54.0) L 09/04/19 05:30 MCV 87.6 fL (80.0-100.0) 09/04/19 05:30 MCH 29.9 pg (27.0-34.0) 09/04/19 05:30 MCHC 34.2 g/dL (33.0-35.0) 09/04/19 05:30 RDW 15.2 % (11.6-16.5) 09/04/19 05:30 Plt Count 509 X10^3/uL (150.0-450.0) H 09/04/19 05:30 Plt Count Comment Increased (ADEQUATE) 08/28/19 10:43 MPV 8.1 fL (7.4-11.0) 09/04/19 05:30 Neut % (Auto) 84.0 % (42.0-75.0) H 09/04/19 05:30 Lymph % (Auto) 5.2 % (21.0-51.0) L 09/04/19 05:30 [place] % (Auto) 8.6 % (0.0-13.0) 09/04/19 05:30 Eos % (Auto) 1.7 % (0.9-2.9) 09/04/19 05:30 Baso % (Auto) 0.5 % (0.2-1.0) 09/04/19 05:30 Neut # (Auto) 12.2 x10^3/uL (2.2-4.8) H 09/04/19 05:30 Lymph # (Auto) 0.8 X10^3/uL (1.3-2.9) L 09/04/19 05:30 [place] # (Auto) 1.2 x10^3/uL (0.3-0.8) H 09/04/19 05:30 Eos # (Auto) 0.2 x10^3/uL (0.0-0.2) 09/04/19 05:30 Baso # (Auto) 0.1 X10^3/uL (0.0-0.1) 09/04/19 05:30 Absolute Nucleated RBC 0.0 /100WBC 09/04/19 05:30 Total Counted 100 08/28/19 10:43 Neutrophils % (Manual) 91 % (39-76) H 08/28/19 10:43 Band Neutrophils % 1 % (0-10) 08/28/19 10:43 Lymphocytes % (Manual) 3 % (13-43) L 08/28/19 10:43 Monocytes % (Manual) 5 % (4-9) 08/28/19 10:43 Plt Morphology Comment Normal (NORMAL) 08/28/19 10:43 RBC Morphology Normal (NORMAL) 08/28/19 10:43 Sodium 135 mmol/L (136-145) L 09/04/19 05:30 Corrected Sodium 136 mmol/L (136-145) 09/04/19 05:30 Potassium 3.6 mmol/L (3.5-5.1) 09/04/19 08:40 Chloride 101 mmol/L (98-107) 09/04/19 05:30 Carbon Dioxide 25.7 mmol/L (21-32) 09/04/19 05:30 BUN 8 mg/dL (7-18) 09/04/19 05:30 Creatinine 0.65 mg/dL (0.70-1.30) L 09/04/19 05:30 Est GFR (MDRD) Af Amer > 60 (>60) 09/04/19 05:30 Est GFR (MDRD) Non-Af > 60 (>60) 09/04/19 05:30 Glucose 129 mg/dL (65-99) H 09/04/19 05:30 POC Glucose (mg/dL) 124 mg/dL (65-99) H 09/04/19 05:23 Calcium 9.9 mg/dL (8.5-10.1) 09/04/19 05:30 Corrected Calcium 11.3 mg/dL (8.5-10.1) H 09/04/19 05:30 Magnesium 1.5 mg/dL (1.7-2.9) L 09/04/19 05:30 Total Bilirubin 0.70 mg/dL (0.2-1.0) 09/04/19 05:30 AST 121 Units/L (15-37) H 09/04/19 05:30 ALT 98 Units/L (12-78) H 09/04/19 05:30 Alkaline Phosphatase 380 Units/L (46-116) H 09/04/19 05:30 Total Protein 6.3 g/dL (6.4-8.2) L 09/04/19 05:30 Albumin 2.2 g/dL (3.4-5.0) L 09/04/19 05:30 Globulin 4.1 g/dL (2.5-4.5) 09/04/19 05:30 Albumin/Globulin Ratio 0.5 Ratio (1.1-2.1) L 09/04/19 05:30 Prealbumin 8.5 mg/dL (18-35.7) L 09/01/19 05:42 Carcinoembryonic Ag 1.1 ng/mL (0.0-3.0) 08/28/19 10:54 Vancomycin Trough 16.7 ug/mL (15-20) 09/03/19 20:10 - Assessment and Plan 1: Rt foot abscess with cellulitis with cellulitis and 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 Diabetic ulcer lateral Rt foor. diabetic neuropathy both feet . DM. liver dysfunction. for placement to continue local care , ATB and PT . to D/C today and follow next week. - Problem Patient Problems: Patient Problems Diabetes mellitus (Acute) E11.9
[2019-09-04 12:25] VITALS: BP 139/65
== END 2019-09-04 13:20 | DRG 603 ==
LOC: OBS 10:31 → MED/SURG 12:19
PROVIDERS: ADMIT Surgery; ATTEND Surgery
DX: B95.62 Methicillin resistant Staphylococcus aureus infection as the cause of diseases classified elsewhere; M19.90 Unspecified osteoarthritis, unspecified site; I10 Essential (primary) hypertension; L02.611 Cutaneous abscess of right foot; R42 Dizziness and giddiness; L03.115 Cellulitis of right lower limb; E11.621 Type 2 diabetes mellitus with foot ulcer; R26.89 Other abnormalities of gait and mobility; E78.49 Other hyperlipidemia; M86.9 Osteomyelitis, unspecified; Z89.421 Acquired absence of other right toe(s)
CPT/HCPCS: 36415; 73720; 80053; 80202; 82378; 82565; 83735; 84132; 84134; 85025; 87040; 87070; 87075; 87076; 87077; 87186; 87205; 97110; 97116; 97161; 99100; A4222; J1650; J1815; J2250; J2405; J3370; J3475; J3480; J7050; J7060; P9047

== ENCOUNTER 2019-09-14 12:58 | Inpatient (IN) ==
--- NOTE | 2019-09-14 13:33 | DR.DIZZY ---
HPI Time seen Time Seen by Provider: 09/14/19 13:20 PCP Primary Care Physician: TREVA Complaint Chief Complaint:: BETH CALLED AND STATED THAT THIS MORNING PATIENT HAD C/O DIZZINESS ALL VITALS SIGNS WAS GOOD AT THAT TIME THEY TRIED TO CALL AND THERE WAS NOW ANSWER AND NOW PATIENT IS VOMITING UP BIG BLOOD CLOTS. PATIENT STATES THAT HE STARTED VOMITING THIS MORNING AND IS HAVING LOWER STOMACH PAIN. Source History Provided: Snf Mode of Arrival Mode of Arrival: Stretcher Timing Onset of Chief Complaint: 09/14/19 PMH PMH Past Medical History: Yes Past Medical History: Arthritis, Diabetes, Dyslipidemia, GERD and Hypertension Past Surgical History: Yes Surgical History: Cholecystectomy and Tonsillectomy Family History History of Family Medical Conditions: Yes Family Medical History: Diabetes Mellitus, Cancer and Hypertension Social History Alcohol Use: None Do you use any recreational Drugs:: No infectious screening Have you traveled outside the country in the last 6 months?: No Isolation: Contact PE Vital Signs Vitals: Temperature 97.7 F Pulse Rate 71 Respiratory Rate 18 Blood Pressure [Right Arm] 130/67 Blood Pressure [Left Arm] 139/65 Blood Pressure 103/59 O2 Sat by Pulse Oximetry 100 ROR Labs Reviewed Result Diagrams: 09/14/19 13:10 09/14/19 13:10 Laboratory: WBC 22.7 X10^3/uL (3.6-10.0) H 09/14/19 13:10 RBC 2.53 X10^6/uL (4.7-6.0) L 09/14/19 13:10 Hgb 7.5 g/dL (13.5-18.0) L 09/14/19 13:10 Hct 22.5 % (42.0-54.0) L 09/14/19 13:10 MCV 89.1 fL (80.0-100.0) 09/14/19 13:10 MCH 29.7 pg (27.0-34.0) 09/14/19 13:10 MCHC 33.3 g/dL (33.0-35.0) 09/14/19 13:10 RDW 15.9 % (11.6-16.5) 09/14/19 13:10 Plt Count 546 X10^3/uL (150.0-450.0) H 09/14/19 13:10 Plt Count Comment Adequate (ADEQUATE) 09/14/19 13:10 MPV 8.1 fL (7.4-11.0) 09/14/19 13:10 Neut % (Auto) 89.6 % (42.0-75.0) H 09/14/19 13:10 Lymph % (Auto) 7.0 % (21.0-51.0) L 09/14/19 13:10 [place] % (Auto) 3.0 % (0.0-13.0) 09/14/19 13:10 Eos % (Auto) 0.0 % (0.9-2.9) L 09/14/19 13:10 Baso % (Auto) 0.4 % (0.2-1.0) 09/14/19 13:10 Neut # (Auto) 20.4 x10^3/uL (2.2-4.8) H 09/14/19 13:10 Lymph # (Auto) 1.6 X10^3/uL (1.3-2.9) 09/14/19 13:10 [place] # (Auto) 0.7 x10^3/uL (0.3-0.8) 09/14/19 13:10 Eos # (Auto) 0.0 x10^3/uL (0.0-0.2) 09/14/19 13:10 Baso # (Auto) 0.1 X10^3/uL (0.0-0.1) 09/14/19 13:10 Absolute Nucleated RBC 0.0 /100WBC 09/14/19 13:10 Total Counted 100 09/14/19 13:10 Neutrophils % (Manual) 90 % (39-76) H 09/14/19 13:10 Lymphocytes % (Manual) 10 % (13-43) L 09/14/19 13:10 Plt Morphology Comment Normal (NORMAL) 09/14/19 13:10 RBC Morphology Normal (NORMAL) 09/14/19 13:10 PT 15.7 SECONDS (11.8-14.3) 09/14/19 13:10 INR Target Range - 09/14/19 13:10 INR 1.30 (0.8-1.3) 09/14/19 13:10 APTT 31.8 SECONDS (22.9-36.5) 09/14/19 13:10 PTT Comment - 09/14/19 13:10 Sodium 137 mmol/L (136-145) 09/14/19 13:10 Corrected Sodium 140 mmol/L (136-145) 09/14/19 13:10 Potassium 5.6 mmol/L (3.5-5.1) H 09/14/19 13:10 Chloride 104 mmol/L (98-107) 09/14/19 13:10 Carbon Dioxide 19.9 mmol/L (21-32) L 09/14/19 13:10 BUN 44 mg/dL (7-18) H 09/14/19 13:10 Creatinine 1.41 mg/dL (0.70-1.30) H 09/14/19 13:10 Est GFR (MDRD) Af Amer > 60 (>60) 09/14/19 13:10 Est GFR (MDRD) Non-Af 51 (>60) L 09/14/19 13:10 Glucose 235 mg/dL (65-99) H 09/14/19 13:10 Lactic Acid 5.7 mmol/L (0.4-2.0) H 09/14/19 17:18 Calcium 10.2 mg/dL (8.5-10.1) H 09/14/19 13:10 Corrected Calcium 11.5 mg/dL (8.5-10.1) H 09/14/19 13:10 Total Bilirubin 0.30 mg/dL (0.2-1.0) 09/14/19 13:10 AST 47 Units/L (15-37) H 09/14/19 13:10 ALT 49 Units/L (12-78) 09/14/19 13:10 Alkaline Phosphatase 217 Units/L (46-116) H 09/14/19 13:10 Total Protein 5.9 g/dL (6.4-8.2) L 09/14/19 13:10 Albumin 2.4 g/dL (3.4-5.0) L 09/14/19 13:10 Globulin 3.5 g/dL (2.5-4.5) 09/14/19 13:10 Albumin/Globulin Ratio 0.7 Ratio (1.1-2.1) L 09/14/19 13:10 Specimen Type Clean catch urine 09/14/19 17:05 Urine Color Yellow (YELLOW) 09/14/19 17:05 Urine Appearance Slightly hazy (CLEAR) 09/14/19 17:05 Urine pH 5.0 (5.0 - 8.0) 09/14/19 17:05 Ur Specific [place] 1.020 (1.000-1.030) 09/14/19 17:05 Urine Protein 2+ (NEGATIVE) 09/14/19 17:05 Urine Glucose (UA) Negative (NEGATIVE) 09/14/19 17:05 Urine Ketones 1+ (NEGATIVE) 09/14/19 17:05 Urine Occult Blood 1+ (NEGATIVE) 09/14/19 17:05 Urine Nitrite Negative (NEGATIVE) 09/14/19 17:05 Urine Bilirubin Negative (NEGATIVE) 09/14/19 17:05 Urine Urobilinogen Normal (NORMAL) 09/14/19 17:05 Ur Leukocyte Esterase Negative (NEGATIVE) 09/14/19 17:05 Urine RBC 5-10 /HPF (0-3) A 09/14/19 17:05 Urine WBC 3-5 /HPF (0-5) 09/14/19 17:05 Ur Squamous Epith Cells Few /HPF (NEGATIVE) 09/14/19 17:05 Calcium Oxalate Crystal Moderate /HPF (NEGATIVE) 09/14/19 17:05 Urine Bacteria Trace /HPF (NEGATIVE) 09/14/19 17:05 Urine Mucus Few /HPF (NEGATIVE) 09/14/19 17:05 Ur Culture Indicated? No/not indicated 09/14/19 17:05 Blood Type O POSITIVE 09/14/19 15:14 Antibody Screen Negative 09/14/19 15:14 Opioid Opioid Risk Tool Age (Zeb box if 16-45): No History of Preadolescent Sexual Abuse: No Total: 0 Total Score Risk Category: Low Risk Copyright: Shamir PRESCOTT predicting aberrant behaviors Instructions Forms: Excuse From Work Patient Portal
[2019-09-14 13:45] LABS: BASOPHILS # (AUTO) 0.1 X10^3/uL (0.0-0.1); BASOPHILS % (AUTO) 0.4 % (0.2-1.0); HEMATOCRIT 22.5 % (42.0-54.0); HEMOGLOBIN 7.5 g/dL (13.5-18.0); LYMPHOCYTES # (AUTO) 1.6 X10^3/uL (1.3-2.9); MEAN CORPUSCULAR HEMOGLOBIN 29.7 pg (27.0-34.0); MEAN CORPUSCULAR HGB CONC 33.3 g/dL (33.0-35.0); MEAN CORPUSCULAR VOLUME 89.1 fL (80.0-100.0); MEAN PLATELET VOLUME 8.1 fL (7.4-11.0); MONOCYTES # (AUTO) 0.7 x10^3/uL (0.3-0.8); NEUTROPHILS # (AUTO) 20.4 x10^3/uL (2.2-4.8); NEUTROPHILS % (AUTO) 89.6 % (42.0-75.0); PLATELET COUNT 546 X10^3/uL (150.0-450.0); RED BLOOD COUNT 2.53 X10^6/uL (4.7-6.0); RED CELL DISTRIBUTION WIDTH 15.9 % (11.6-16.5); WHITE BLOOD COUNT 22.7 X10^3/uL (3.6-10.0)
[2019-09-14 13:56] LABS: PLATELET MORPHOLOGY COMMENT NORMAL (NORMAL)
[2019-09-14 13:59] LABS: ALANINE AMINOTRANSFERASE 49 Units/L (12-78); ALBUMIN 2.4 g/dL (3.4-5.0); ALKALINE PHOSPHATASE 217 Units/L (46-116); ASPARTATE AMINO TRANSFERASE 47 Units/L (15-37); BLOOD UREA NITROGEN 44 mg/dL (7-18); CALCIUM 10.2 mg/dL (8.5-10.1); CARBON DIOXIDE 19.9 mmol/L (21-32); CHLORIDE 104 mmol/L (98-107); COR CA(FOR HYPOALB) 11.5 mg/dL (8.5-10.1); CREATININE 1.41 mg/dL (0.70-1.30); SODIUM 137 mmol/L (136-145); TOTAL PROTEIN 5.9 g/dL (6.4-8.2); eGFR NON BLACK RACES 51 (>60)
[2019-09-14 14:01] LABS: COR NA(FOR HYPERGLY) 140 mmol/L (136-145)
[2019-09-14] MEDS ORDERED: ZOFRAN INJ 4 MG VIAL IVP ONE ×2 (14:03→15:19)
[2019-09-14] MEDS ORDERED: ZOFRAN INJ 4 MG VIAL ONE ×2 (14:09→15:20)
[2019-09-14] MEDS ORDERED: NS 100 ML IV 100 ML IV ONE (14:09)
[2019-09-14] MEDS ORDERED: PROTONIX INJ 40 MG VIAL ONE (14:09)
[2019-09-14] MEDS: PROTONIX INJ 40 MG VIAL 80 MG in NS 100 ML IV 80 ML IV SCH (14:21)
--- NOTE | 2019-09-14 14:31 | RAD ---
HISTORYWeek and dizzySTUDYAP [id number] heart size, essentially clear lungs and pleural spaces. There is no mediastinal or hilar lesion.IMPRESSIONNo acute or significant chronic chest abnormality identified.Electronically signed by: AMANDA GREGORY (Sep 14, 2019 14:29:39)
[2019-09-14] MEDS ORDERED: ZOSYN VIAL 3.375 GRAMS 3.375 G in NS 100 ML IV + SPIKE MINIBAG* 100 ML IV ONE (17:03)
--- NOTE | 2019-09-14 17:16 | CT ---
HISTORYVOMITING LARGE CLOTS OF BLOOD-PT DRANK CONTRAST BUT VOMITED IT BACK UPSTUDYABDOMEN/PELVIS WITH CONCOMPARISONNoneTECHNIQUEMultiple axial images of the abdomen and pelvis were obtained from the lung bases to the pubic symphysis with the administration of IV contrast. Dose reduction techniques including Automated Exposure Control (AEC) and adjustment of mA and kV were utilized.FINDINGSChronic appearing changes are seen within the visualized lungs. The liver, spleen, adrenals, and right kidney are grossly unremarkable in appearance. Subcentimeter foci of decreased attenuation within the left kidney are too small to accurately characterize. Bilateral perinephric stranding is noted. Otherwise no CT evidence of hydronephrosis is identified. The pancreas is partially fatty replaced. Surgical clips are seen within the gallbladder fossa. The stomach is somewhat distended and heterogeneous in appearance. These findings may reflect non digested food stuffs and diluted oral contrast. Correlate clinically. If symptoms persist correlation with endoscopy may be helpful. A moderate size hiatal hernia is noted. Stool and gas are seen throughout the colon to the level of the rectum. The appendix is not well defined. No significant inflammatory changes are appreciated within the right lower quadrant. The prostate is prominent heterogeneous in appearance. Calcifications are noted within the prostate. The prostate compresses along the inferior margin of the urinary bladder. Degenerative changes are seen within the visualized spine.IMPRESSIONModerate-sized hiatal hernia.Somewhat distended appearance of the stomach as discussed above.Cholecystectomy.Electronically signed by: KALINA MOCK (Sep 14, 2019 17:14:29)
[2019-09-14] MEDS ORDERED: ZOSYN VIAL 3.375 GRAMS IV ONE (17:36)
[2019-09-14] MEDS ORDERED: NS 100 ML IV + SPIKE MINIBAG* 100 ML IV ONE (17:36)
[2019-09-14 17:37] LABS: BILIRUBIN,URINE NEGATIVE (NEGATIVE); BLOOD/HEMOGLOBIN,URINE 1+ (NEGATIVE); GLUCOSE, URINE NEGATIVE (NEGATIVE); KETONES,URINE 1+ (NEGATIVE); LEUKOCYTE ESTERASE ,URINE NEGATIVE (NEGATIVE); NITRITES,URINE NEGATIVE (NEGATIVE); PROTEIN,URINE 2+ (NEGATIVE); UROBILINOGEN,URINE NORMAL (NORMAL)
[2019-09-14 17:47] LABS: APPEARANCE,URINE SLIGHTLY HAZY (CLEAR); BACTERIA,URINE TRACE /HPF (NEGATIVE); CALCIUM OXALATE CRYSTALS,UR MODERATE /HPF (NEGATIVE); COLOR,URINE YELLOW (YELLOW); SQUAMOUS EPITHELIAL CELL,UR FEW /HPF (NEGATIVE)
[2019-09-14 17:48] LABS: MUCUS,URINE FEW /HPF (NEGATIVE)
--- NOTE | 2019-09-14 18:00 | RAD ---
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 There are lytic/permeative changes of the 5th metatarsal with periosteal reaction concerning for osteomyelitis with associated pathologic fractures. There is overlying soft tissue edema in this region. No definite subcutaneous gas identified.Electronically signed by: MEEK JACKSON (Sep 14, 2019 17:58:32)
[2019-09-14] MEDS ORDERED: ZOFRAN INJ 4 MG VIAL IVP PRN (19:12)
[2019-09-14 20:43] VITALS: BMI 24.0
[2019-09-14] MEDS ORDERED: HumuLIN R SUBCUT PRN (20:55)
[2019-09-14] MEDS: NS 1000 ML 1,000 ML IV SCH (20:59)
[2019-09-14] MEDS: COREG TAB 6.25 MG PO SCH (21:00)
[2019-09-14] MEDS ORDERED: PHARMACY CONSULT LTC MEDICATIONS XX SCH (21:00)
[2019-09-14] MEDS ORDERED: GLUCOPHAGE ONE (21:37)
[2019-09-14] MEDS: NAMENDA TAB 10 MG PO SCH (21:54)
[2019-09-14] MEDS: ARICEPT TAB 5 MG PO SCH (21:54)
[2019-09-14] MEDS: LIPITOR TAB 40 MG PO SCH (21:55)
[2019-09-14] MEDS: ZOSYN VIAL 3.375 GRAMS 3.375 G in NS 100 ML IV + SPIKE MINIBAG* 100 ML IV SCH (22:00)
[2019-09-14] MEDS: APRESOLINE TAB 25 MG PO SCH (22:00)
[2019-09-14] MEDS: LEVAQUIN PREMIX IV 500 MG 500 MG/100 ML BAG IV SCH (22:30)
[2019-09-14 23:30] LABS: HEMOGLOBIN 6.6 g/dL (13.5-18.0)
[2019-09-14] MEDS ORDERED: TYLENOL 325 MG TAB PO ONE (23:44)
[2019-09-14] MEDS ORDERED: BENADRYL INJ 50 MG VIAL IVP ONE (23:44)
[2019-09-15] MEDS: GLUCOPHAGE PO SCH ×3 (00:10→21:41)
[2019-09-15] MEDS: ZOSYN VIAL 3.375 GRAMS 3.375 G in NS 100 ML IV + SPIKE MINIBAG* 100 ML IV SCH ×4 (00:24→22:03)
[2019-09-15] MEDS: PROTONIX INJ 40 MG VIAL 80 MG in NS 100 ML IV 80 ML IV SCH ×5 (00:26→21:09)
[2019-09-15] MEDS ORDERED: NS 250 ML IV 250 ML IV ONE (01:29)
[2019-09-15] MEDS: NS 1000 ML 1,000 ML IV SCH ×2 (06:17→16:32)
[2019-09-15] MEDS: APRESOLINE TAB 25 MG PO SCH ×3 (06:26→22:02)
[2019-09-15] MEDS ORDERED: AMLODIPINE OLMESARTAN PO SCH (09:00)
[2019-09-15] MEDS ORDERED: GLUCOPHAGE ONE ×2 (09:32→19:49)
[2019-09-15] MEDS: NORVASC TAB 10 MG PO SCH (09:48)
[2019-09-15] MEDS: BENICAR TAB 40 MG PO SCH (09:48)
[2019-09-15] MEDS: NAMENDA TAB 10 MG PO SCH ×2 (09:49→21:15)
[2019-09-15] MEDS: ASPIRIN EC 81 MG PO SCH (09:49)
[2019-09-15] MEDS: COREG TAB 6.25 MG PO SCH ×2 (09:49→21:15)
[2019-09-15] MEDS: LEVAQUIN PREMIX IV 500 MG 500 MG/100 ML BAG IV SCH (09:50)
[2019-09-15 10:58] LABS: BASOPHILS # (AUTO) 0.1 X10^3/uL (0.0-0.1); BASOPHILS % (AUTO) 0.6 % (0.2-1.0); HEMATOCRIT 24.5 % (42.0-54.0); HEMOGLOBIN 8.2 g/dL (13.5-18.0); LYMPHOCYTES # (AUTO) 1.9 X10^3/uL (1.3-2.9); LYMPHOCYTES % (AUTO) 9.8 % (21.0-51.0); MEAN CORPUSCULAR HEMOGLOBIN 29.7 pg (27.0-34.0); MEAN CORPUSCULAR HGB CONC 33.5 g/dL (33.0-35.0); MEAN CORPUSCULAR VOLUME 88.5 fL (80.0-100.0); MEAN PLATELET VOLUME 7.7 fL (7.4-11.0); MONOCYTES # (AUTO) 1.5 x10^3/uL (0.3-0.8); MONOCYTES % (AUTO) 7.7 % (0.0-13.0); NEUTROPHILS # (AUTO) 16.3 x10^3/uL (2.2-4.8); NEUTROPHILS % (AUTO) 81.9 % (42.0-75.0); PLATELET COUNT 371 X10^3/uL (150.0-450.0); RED BLOOD COUNT 2.76 X10^6/uL (4.7-6.0); RED CELL DISTRIBUTION WIDTH 15.6 % (11.6-16.5); WHITE BLOOD COUNT 19.8 X10^3/uL (3.6-10.0)
[2019-09-15 11:12] LABS: ALANINE AMINOTRANSFERASE 35 Units/L (12-78); ALBUMIN 2.4 g/dL (3.4-5.0); ALKALINE PHOSPHATASE 178 Units/L (46-116); ASPARTATE AMINO TRANSFERASE 32 Units/L (15-37); BLOOD UREA NITROGEN 50 mg/dL (7-18); CALCIUM 10.3 mg/dL (8.5-10.1); CARBON DIOXIDE 23.8 mmol/L (21-32); CHLORIDE 107 mmol/L (98-107); COR CA(FOR HYPOALB) 11.6 mg/dL (8.5-10.1); COR NA(FOR HYPERGLY) 140 mmol/L (136-145); CREATININE 1.25 mg/dL (0.70-1.30); SODIUM 139 mmol/L (136-145); TOTAL PROTEIN 5.8 g/dL (6.4-8.2); eGFR NON BLACK RACES 58 (>60)
[2019-09-15 11:14] LABS: LACTIC ACID 2.8 mmol/L (0.4-2.0)
[2019-09-15] MEDS ORDERED: BUTT CREAM (COMPOUND) ONE (13:32)
--- NOTE | 2019-09-15 19:15 | DR.H&P ---
H&P - History & Physical for Day of: H&P Date: 09/14/19 - Chief Complaint Chief Complaint: COUGHING UP BLOOD, DIZZINESS, RIGHT FOOT PAIN, ABDOMINAL PAIN - History of Present Illness History of Present Illness: IS A 84 YEAR OLD PATIENT OF OURS WHO IS A RESIDENT OF [facility]. HE PRESENTED WITH COMPLAINTS OF DIZZINESS AND HEMATEMESIS. HE ALSO REPORTS LOWER ABDOMINAL PAIN AND RIGHT FOT PAIN. SYMPTOMS STARTED EARLIER IN THE DAY. PMH INCLUDES ARTHRITIS, DIABETES, DYSLIPIDEMIA, GERD, AND HTN. ON ARRIVAL TO THE ER, VITALS WERE 97.7-71-18-100%-103/59. LABS WERE OBTAINED. ABNORMAL LAB VALUES INCLUDE THE FOLLOWING: WBC 22.7, RBC 2.53, HGB 7.5, HCT 22.5, PLT COUNT 546, POTASSIUM 5.6, CARBON DIOXIDE 19.9, BUN 44, CREATININE 1.41, GLUCOSE 235, LACTIC ACID 5.7, CALCIUM 10.2, AST 47, ALK PHOS 217, TOTAL PROTEIN 5.9, ALBUMIN 2.4. URINALYSIS REVEALED: WBC 3-5, RBC 5-10, BACTERIA TRACE, LEUKOCYTES NEGATIVE. STOOL IS POSITIVE FOR OCCULT BLOOD. BLOOD CULTURES WERE SET UP. A CHEST XRAY WAS OBTAINED AND REVEALED: No acute or significant chronic chest abnormality identified. ABDOMEN/PELVIS CT WITH CONTRAST OBTAINED AND REVEALED: Moderate-sized hiatal hernia. Somewhat distended appearance of the stomach. Cholecystectomy. 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 There are lytic/permeative changes of the 5th metatarsal with periosteal reaction concerning for osteomyelitis with associated pathologic fractures. There is overlying soft tissue edema in this region. No definite subcutaneous gas identified. HE HAS BEEN RECEIVING BACTRIM AND CLINDAMYCIN FOR TREATEMENT OF OSTEOMYELITIS. HE WAS GIVEN ZOSYN 3.375G IV X 1 AND ZOFRAN 4MG IV X 2 DOSES. HE WAS ADMITTED FOR FURTHER EVALUATION AND TREATMENT OF GI BLEED, ANEMIA, AND CELLULITIS WITH OSTEOMYELITIS OF THE RIGHT FOOT. WE TYPE AND SCREENED PATIENT AND TRANSFUSED WITH TWO UNITS OF PRBC. FOLLOW UP H&H HAD DECREASED TO 6.6. WE WILL TRANSFUSE TWO ADDITIONAL UNITS TODAY. HE WAS STARTED ON NS AT 75 ML/HR, ZOSYN 3.375G IV TID, LEVAQUIN 500MG IV DAILY, IV PROTONIX DRIP, HUMULIN R SLIDIDNG SCALE, AND HOME MEDICATIONS WERE RESUMED. WE WILL CONSULT WITH , WEB CONTENT PRODUCER. OTHERWISE, WE WILL FOLLOW UP WITH AM LABS AND CONTINUE TO MONITOR. - Past Medical History Past Medical History: Hypertension, Dyslipidemia, Diabetes, GERD, Arthritis - Past Surgical History Surgical History: Angioplasty/Stents, Cholecystectomy, Ortho Surgery, Tonsillectomy - Family History Family Medical History: Diabetes Mellitus, Cancer, Hypertension - Social History Alcohol Use: None Drug Use: None - Medications Home Medications: prednisone Allergy (Verified 08/28/19 13:06) CONTINUE taking the following medications olmesartan 40 mg PO DAILY 09/14/19 [History] amlodipine 10 mg PO DAILY 09/15/19 [History] multivitamin with minerals [Multiple Vitamin-Minerals] 1 tab PO DAILY 09/15/19 [History] - Review of Systems Constitutional: Weakness Eyes: No Symptoms Reported ENT: No Symptoms Reported Respiratory: No Symptoms Reported Cardiovascular: Light Headedness Gastrointestinal: See HPI, Abdominal Pain, Other (HEMATEMESIS) Genitourinary: No Symptoms Reported Musculoskeletal: No Symptoms Reported Skin: No Symptoms Reported Neurological: Weakness - Physical Exam Vital Signs: Temperature 98.1 F Pulse Rate [Left Radial] 74 Pulse Rate 71 Respiratory Rate 16 Blood Pressure [Right Arm] 130/61 Blood Pressure [Left Arm] 139/65 Blood Pressure 103/59 O2 Sat by Pulse Oximetry 99 Oriented: Normal Eyes: Normal Ear: Normal Nose: Normal Throat: Normal Respiratory: Diminished Throughout Cardiovascular: Normal : Normal Auscultation: Bowel Sounds: Normal Palpation: Normal Tenderness: Diffuse, Moderate. negative: Rebound, Guarding, Rigidity Skin: Normal Musculoskeletal: Normal Psychiatric: Normal Mood Description: Calm Affect: Normal Speech Pattern: Clear - Assessment/Plan (1) GI bleed Qualifiers: GI bleed type/associated pathology: gastrointestinal hemorrhage with hematemesis Qualified Code(s): K92.0 - Hematemesis Status: Acute Plan: ADMIT, NS AT 75 ML/HR, ZOSYN 3.375G IV TID, LEVAQUIN 500MG IV DAILY, IV PROTONIX DRIP, HUMULIN R SLIDIDNG SCALE, AND HOME MEDICATIONS WERE RESUMED. WE WILL CONSULT WITH , WEB CONTENT PRODUCER. (2) Anemia Qualifiers: Anemia type: unspecified type Qualified Code(s): D64.9 - Anemia, unspecified Status: Acute Plan: TRANSFUSE 2 UNITS PRBC (3) Cellulitis of right foot Status: Acute Plan: IV ANTIBIOTICS, CONTINUE TO MONITOR (4) Osteomyelitis Qualifiers: Osteomyelitis type: unspecified type Osteomyelitis location: foot Laterality: right Qualified Code(s): M86.9 - Osteomyelitis, unspecified Status: Acute Plan: IV ANTIBIOTICS, CONTINUE TO MONITOR - Allergies Allergies/Adverse Reactions: Allergies Allergy/AdvReac Type Severity Reaction Status Date / Time prednisone Allergy Verified 08/28/19 13:06
[2019-09-15] MEDS: SNACK - Diabetic Appropriate PO SCH (20:00)
[2019-09-15] MEDS: LIPITOR TAB 40 MG PO SCH (21:14)
[2019-09-15] MEDS: ARICEPT TAB 5 MG PO SCH (21:14)
[2019-09-15] MEDS: RESTORIL CAP 15 MG PO PRN (22:01)
[2019-09-16] MEDS: NS 1000 ML 1,000 ML IV SCH ×5 (00:49→22:07)
[2019-09-16] MEDS ORDERED: NS 250 ML IV 250 ML IV ONE ×2 (04:34→22:57)
[2019-09-16] MEDS: APRESOLINE TAB 25 MG PO SCH ×3 (06:11→22:07)
[2019-09-16] MEDS: PROTONIX INJ 40 MG VIAL 80 MG in NS 100 ML IV 80 ML IV SCH ×2 (06:11→19:44)
[2019-09-16 06:12] LABS: BASOPHILS # (AUTO) 0.1 X10^3/uL (0.0-0.1); BASOPHILS % (AUTO) 0.5 % (0.2-1.0); HEMATOCRIT 21.8 % (42.0-54.0); HEMOGLOBIN 7.4 g/dL (13.5-18.0); LYMPHOCYTES # (AUTO) 2.2 X10^3/uL (1.3-2.9); LYMPHOCYTES % (AUTO) 14.2 % (21.0-51.0); MEAN CORPUSCULAR HEMOGLOBIN 29.6 pg (27.0-34.0); MEAN CORPUSCULAR HGB CONC 33.8 g/dL (33.0-35.0); MEAN CORPUSCULAR VOLUME 87.6 fL (80.0-100.0); MEAN PLATELET VOLUME 7.7 fL (7.4-11.0); MONOCYTES # (AUTO) 1.3 x10^3/uL (0.3-0.8); MONOCYTES % (AUTO) 8.4 % (0.0-13.0); NEUTROPHILS # (AUTO) 11.7 x10^3/uL (2.2-4.8); NEUTROPHILS % (AUTO) 76.9 % (42.0-75.0); PLATELET COUNT 336 X10^3/uL (150.0-450.0); RED BLOOD COUNT 2.49 X10^6/uL (4.7-6.0); RED CELL DISTRIBUTION WIDTH 15.6 % (11.6-16.5); WHITE BLOOD COUNT 15.2 X10^3/uL (3.6-10.0)
[2019-09-16] MEDS: ZOSYN VIAL 3.375 GRAMS 3.375 G in NS 100 ML IV + SPIKE MINIBAG* 100 ML IV SCH ×3 (06:12→22:08)
[2019-09-16 06:23] LABS: ALANINE AMINOTRANSFERASE 36 Units/L (12-78); ALBUMIN 2.3 g/dL (3.4-5.0); ALKALINE PHOSPHATASE 158 Units/L (46-116); ASPARTATE AMINO TRANSFERASE 30 Units/L (15-37); BLOOD UREA NITROGEN 29 mg/dL (7-18); CALCIUM 9.7 mg/dL (8.5-10.1); CARBON DIOXIDE 23.1 mmol/L (21-32); CHLORIDE 110 mmol/L (98-107); COR CA(FOR HYPOALB) 11.1 mg/dL (8.5-10.1); CREATININE 0.91 mg/dL (0.70-1.30); SODIUM 140 mmol/L (136-145); TOTAL PROTEIN 5.3 g/dL (6.4-8.2); eGFR NON BLACK RACES > 60 (>60)
[2019-09-16 06:36] LABS: PLATELET MORPHOLOGY COMMENT NORMAL (NORMAL)
[2019-09-16] MEDS ORDERED: GLUCOPHAGE ONE (08:26)
--- NOTE | 2019-09-16 09:01 | DR.CONSULT ---
Consult - Consultation for Day of: Date: 09/15/19 - Chief Complaint Chief Complaint: Patient referred for anemia and GI Bleed. Patient with complaints of vomiting. - History of Present Illness History of Present Illness: Patient is a 84 yo male who was referred for anemia and GI Bleed. Patient with complaints of vomiting blood clots a couple days ago. Patient denies dysphagia, dyspepsia, nausea, abdominal pain, constipation, diarrhea, melena and hematochezia. Patient states he has had colonoscopy and EGD but was a long time ago. Abdomen and pelvis CT showed Moderate-sized hiatal hernia. Somewhat distended appearance of the stomach as discussed above. Cholecystectomy. hgb 8.2 after 2 units of PRBC up from 6.6, hct 24.5, Plt 371, BUN 29, Creatinine 0.91, hemoocult positive. - Past Medical History Past Medical History: Hypertension, Dyslipidemia, Diabetes, GERD, Arthritis - Past Surgical History Surgical History: Angioplasty/Stents, Cholecystectomy, Ortho Surgery, Tonsillectomy - Family History Family Medical History: Diabetes Mellitus, Cancer, Hypertension - Social History Alcohol Use: None Drug Use: None - Medications Home Medications: prednisone Allergy (Verified 08/28/19 13:06) CONTINUE taking the following medications olmesartan 40 mg PO DAILY 09/14/19 [History] amlodipine 10 mg PO DAILY 09/15/19 [History] multivitamin with minerals [Multiple Vitamin-Minerals] 1 tab PO DAILY 09/15/19 [History] - Review of Systems Gastrointestinal: No Symptoms Reported, See HPI. denies: Nausea, Vomiting, Abdominal Pain, Diarrhea, Constipation, Melena, Hematochezia, Other - Physical Exam Vital Signs: Temperature 97.9 F Pulse Rate [Left Radial] 74 Pulse Rate 71 Respiratory Rate 20 Blood Pressure [Right Arm] 149/61 Blood Pressure [Left Arm] 139/65 Blood Pressure 103/59 O2 Sat by Pulse Oximetry 97 Oriented: Normal Eyes: Normal Ear: Normal Nose: Normal Throat: Normal Respiratory: Clear Throughout Cardiovascular: Normal Auscultation: Bowel Sounds: Normal Palpation: Normal, Other (no distention). negative: Spleen Enlarged, Liver Enlarged, Mass Pulsatile Tenderness: Normal (non tender) Skin: Normal Musculoskeletal: Normal Psychiatric: Normal Mood Description: Calm, Appropriate Affect: Normal Speech Pattern: Clear, Appropriate - Plan Plan: Assessment. 1. Hematemesis, Occult GI Bleed, Anemia. Plan. 1. Protonix IV, Monitor Hgb, Transfuse as needed, EGD on . Plan reviewed with Dr. Pelaez - Allergies Allergies/Adverse Reactions: Allergies Allergy/AdvReac Type Severity Reaction Status Date / Time prednisone Allergy Verified 08/28/19 13:06
[2019-09-16] MEDS: COREG TAB 6.25 MG PO SCH ×2 (09:18→22:04)
[2019-09-16] MEDS: NAMENDA TAB 10 MG PO SCH ×2 (09:18→22:06)
[2019-09-16] MEDS: LEVAQUIN PREMIX IV 500 MG 500 MG/100 ML BAG IV SCH (09:18)
[2019-09-16] MEDS: BENICAR TAB 40 MG PO SCH (09:18)
[2019-09-16] MEDS: ASPIRIN EC 81 MG PO SCH (09:19)
[2019-09-16] MEDS: NORVASC TAB 10 MG PO SCH (09:19)
[2019-09-16] MEDS: GLUCOPHAGE PO SCH ×2 (09:20→22:05)
[2019-09-16] MEDS ORDERED: TYLENOL 325 MG TAB PO ONE ×2 (14:12→14:13)
[2019-09-16] MEDS ORDERED: NS 500 ML IV 500 ML IV ONE (14:23)
[2019-09-16] MEDS: NS 500 ML IV 500 ML IV SCH (19:44)
[2019-09-16] MEDS: SNACK - Diabetic Appropriate PO SCH (20:00)
--- NOTE | 2019-09-16 21:02 | PCM.PROG ---
Progress Note - Progress Note for Day of Date of Exam: 09/16/19 - Subjective Subjective: WAS ADMITTED FOR GI BLEED, ANEMIA, CELLULITIS OF THE RIGHT FOOT, AND OSTEOMYELITIS. HE HAS RECEIVED TWO UNITS OF PACKED RED BLOOD CELLS SINCE ADMISSION. TODAY, HE IS ALERT AND ORIENTED, LYING IN BED ON MORNING ROUNDS. HE REPORTS WEAKNESS AND NAUSEA TODAY. ON EXAMINATION, HEART IS REGULAR IN RATE AND RHYTHM. BILATERAL LUNGS ARE NOTED WITH DIMINISHED LUNG SOUNDS THROUGHOUT. ABDOMEN IS ROUND, SOFT, AND NON-TENDER WITH NORMAL BOWEL SOUNDS NOTED IN ALL QUADRANTS. HIS VITALS THIS MORNING ARE: 98.8-83-18-98%-149/58. LABS WERE OBTAINED. ABNORMAL LAB VALUES INCLUDE THE FOLLOWING: WBC 15.2, RBC 2.49, HGB 7.4, HCT 21.8, CHLORIDE 110, BUN 29, ALK PHOS 158, TOTAL PROTEIN 5.3, ALBUMIN 2.3. BLOOD CULTURES ARE PENDING. HE IS CURRENTLY RECEIVING NS AT 75 ML/HR, ZOSYN 3.375G IV TID, LEVAQUIN 500MG IV DAILY, IV PROTONIX DRIP, HUMULIN R SLIDIDNG SCALE, AND HOME MEDICATIONS WERE RESUMED. WE WILL TRANSFUSE TWO ADDITIONAL UNITS OF PRBC TODAY. PLANS FOR AN EGD TOMORROW. WE ARE IN AGREEMENT WITH PLANS. OTHERWISE, WE PLAN TO FOLLOW UP WITH AM LABS AND CONTINUE TO MONITOR. - Past Medical Family Social History Past Med/Fam/Surg Hx: No changes since H&P Allergies: Allergies prednisone Allergy (Verified 08/28/19 13:06) - Review of Systems ROS: No change since H&P - Vital Signs and I&O's Vital Signs: Temperature 99.1 F Pulse Rate [Left Radial] 79 Pulse Rate 71 Respiratory Rate 20 Blood Pressure [Right Arm] 121/61 Blood Pressure [Left Arm] 139/65 Blood Pressure 103/59 O2 Sat by Pulse Oximetry 98 Intake and Output: Intake & Output 09/14/19 09/15/19 09/16/19 09/17/19 11:59 11:59 11:59 11:59 Intake Total 1529 / 1529 1616 / 1616 440 / 440 Output Total 650 / 650 Balance 879 / 879 1616 / 1616 440 / 440 - Physical Exam Oriented: Normal Eyes: Normal Ear: Normal Nose: Normal Throat: Normal Respiratory: Diminished Cardiovascular: Normal : Normal Auscultation: Bowel Sounds: Normal Palpation: Normal Tenderness: Normal (non tender) Skin: Normal Musculoskeletal: Normal Psychiatric: Normal Mood Description: Calm, Appropriate Affect: Normal Speech Pattern: Clear, Appropriate - Laboratory and Diagnostics Result Diagrams: 09/16/19 05:33 09/16/19 05:33 Labs: 09/14/19 17:23 Blood Blood Culture - Preliminary 09/14/19 17:18 Blood Blood Culture - Preliminary Laboratory WBC 15.2 X10^3/uL (3.6-10.0) H 09/16/19 05:33 RBC 2.49 X10^6/uL (4.7-6.0) L 09/16/19 05:33 Hgb 7.4 g/dL (13.5-18.0) L 09/16/19 05:33 Hct 21.8 % (42.0-54.0) L 09/16/19 05:33 MCV 87.6 fL (80.0-100.0) 09/16/19 05:33 MCH 29.6 pg (27.0-34.0) 09/16/19 05:33 MCHC 33.8 g/dL (33.0-35.0) 09/16/19 05:33 RDW 15.6 % (11.6-16.5) 09/16/19 05:33 Plt Count 336 X10^3/uL (150.0-450.0) 09/16/19 05:33 Plt Count Comment Adequate (ADEQUATE) 09/16/19 05:33 MPV 7.7 fL (7.4-11.0) 09/16/19 05:33 Neut % (Auto) 76.9 % (42.0-75.0) H 09/16/19 05:33 Lymph % (Auto) 14.2 % (21.0-51.0) L 09/16/19 05:33 [place] % (Auto) 8.4 % (0.0-13.0) 09/16/19 05:33 Eos % (Auto) 0.0 % (0.9-2.9) L 09/16/19 05:33 Baso % (Auto) 0.5 % (0.2-1.0) 09/16/19 05:33 Neut # (Auto) 11.7 x10^3/uL (2.2-4.8) H 09/16/19 05:33 Lymph # (Auto) 2.2 X10^3/uL (1.3-2.9) 09/16/19 05:33 [place] # (Auto) 1.3 x10^3/uL (0.3-0.8) H 09/16/19 05:33 Eos # (Auto) 0.0 x10^3/uL (0.0-0.2) 09/16/19 05:33 Baso # (Auto) 0.1 X10^3/uL (0.0-0.1) 09/16/19 05:33 Absolute Nucleated RBC 0.0 /100WBC 09/16/19 05:33 Total Counted 100 09/14/19 13:10 Neutrophils % (Manual) 90 % (39-76) H 09/14/19 13:10 Lymphocytes % (Manual) 10 % (13-43) L 09/14/19 13:10 Plt Morphology Comment Normal (NORMAL) 09/16/19 05:33 RBC Morphology Normal (NORMAL) 09/16/19 05:33 PT 15.7 SECONDS (11.8-14.3) 09/14/19 13:10 INR Target Range - 09/14/19 13:10 INR 1.30 (0.8-1.3) 09/14/19 13:10 APTT 31.8 SECONDS (22.9-36.5) 09/14/19 13:10 PTT Comment - 09/14/19 13:10 Sodium 140 mmol/L (136-145) 09/16/19 05:33 Corrected Sodium TNP 09/16/19 05:33 Potassium 3.8 mmol/L (3.5-5.1) 09/16/19 05:33 Chloride 110 mmol/L (98-107) H 09/16/19 05:33 Carbon Dioxide 23.1 mmol/L (21-32) 09/16/19 05:33 BUN 29 mg/dL (7-18) H 09/16/19 05:33 Creatinine 0.91 mg/dL (0.70-1.30) 09/16/19 05:33 Est GFR (MDRD) Af Amer > 60 (>60) 09/16/19 05:33 Est GFR (MDRD) Non-Af > 60 (>60) 09/16/19 05:33 Glucose 95 mg/dL (65-99) 09/16/19 05:33 POC Glucose (mg/dL) 97 mg/dL (65-99) 09/16/19 19:59 Lactic Acid 2.8 mmol/L (0.4-2.0) H 09/15/19 10:47 Calcium 9.7 mg/dL (8.5-10.1) 09/16/19 05:33 Corrected Calcium 11.1 mg/dL (8.5-10.1) H 09/16/19 05:33 Total Bilirubin 0.30 mg/dL (0.2-1.0) 09/16/19 05:33 AST 30 Units/L (15-37) 09/16/19 05:33 ALT 36 Units/L (12-78) 09/16/19 05:33 Alkaline Phosphatase 158 Units/L (46-116) H 09/16/19 05:33 Total Protein 5.3 g/dL (6.4-8.2) L 09/16/19 05:33 Albumin 2.3 g/dL (3.4-5.0) L 09/16/19 05:33 Globulin 3.0 g/dL (2.5-4.5) 09/16/19 05:33 Albumin/Globulin Ratio 0.8 Ratio (1.1-2.1) L 09/16/19 05:33 Specimen Type Clean catch urine 09/14/19 17:05 Urine Color Yellow (YELLOW) 09/14/19 17:05 Urine Appearance Slightly hazy (CLEAR) 09/14/19 17:05 Urine pH 5.0 (5.0 - 8.0) 09/14/19 17:05 Ur Specific [place] 1.020 (1.000-1.030) 09/14/19 17:05 Urine Protein 2+ (NEGATIVE) 09/14/19 17:05 Urine Glucose (UA) Negative (NEGATIVE) 09/14/19 17:05 Urine Ketones 1+ (NEGATIVE) 09/14/19 17:05 Urine Occult Blood 1+ (NEGATIVE) 09/14/19 17:05 Urine Nitrite Negative (NEGATIVE) 09/14/19 17:05 Urine Bilirubin Negative (NEGATIVE) 09/14/19 17:05 Urine Urobilinogen Normal (NORMAL) 09/14/19 17:05 Ur Leukocyte Esterase Negative (NEGATIVE) 09/14/19 17:05 Urine RBC 5-10 /HPF (0-3) A 09/14/19 17:05 Urine WBC 3-5 /HPF (0-5) 09/14/19 17:05 Ur Squamous Epith Cells Few /HPF (NEGATIVE) 09/14/19 17:05 Calcium Oxalate Crystal Moderate /HPF (NEGATIVE) 09/14/19 17:05 Urine Bacteria Trace /HPF (NEGATIVE) 09/14/19 17:05 Urine Mucus Few /HPF (NEGATIVE) 09/14/19 17:05 Ur Culture Indicated? No/not indicated 09/14/19 17:05 Stool Description 20g unformed brown 09/15/19 09:00 Stl Occult Blood (IFOB) Positive (NEGATIVE) A 09/15/19 09:00 Blood Type O POSITIVE 09/14/19 15:14 Antibody Screen Negative 09/14/19 15:14 Crossmatch See Detail 09/14/19 15:14 - Plan (1) GI bleed Status: Acute Qualifiers: GI bleed type/associated pathology: gastrointestinal hemorrhage with hematemesis Qualified Code(s): K92.0 - Hematemesis Plan: NS AT 75 ML/HR, ZOSYN 3.375G IV TID, LEVAQUIN 500MG IV DAILY, IV PROTONIX DRIP, HUMULIN R SLIDIDNG SCALE, AND HOME MEDICATIONS WERE RESUMED. EGD TOMORROW, CONTINUE TO MONITOR (2) Anemia Status: Acute Qualifiers: Anemia type: unspecified type Qualified Code(s): D64.9 - Anemia, unspecified Plan: TRANSFUSE 2 UNITS PRBC (3) Cellulitis of right foot Status: Acute Plan: IV ANTIBIOTICS, CONTINUE TO MONITOR (4) Osteomyelitis Status: Acute Qualifiers: Osteomyelitis type: unspecified type Osteomyelitis location: foot Laterality: right Qualified Code(s): M86.9 - Osteomyelitis, unspecified Plan: IV ANTIBIOTICS, CONTINUE TO MONITOR
[2019-09-16] MEDS: ARICEPT TAB 5 MG PO SCH (22:04)
[2019-09-16] MEDS: LIPITOR TAB 40 MG PO SCH (22:05)
[2019-09-16] MEDS: RESTORIL CAP 15 MG PO PRN (22:08)
[2019-09-17 02:55] LABS: BASOPHILS # (AUTO) 0.1 X10^3/uL (0.0-0.1); BASOPHILS % (AUTO) 0.5 % (0.2-1.0); HEMATOCRIT 27.6 % (42.0-54.0); HEMOGLOBIN 9.2 g/dL (13.5-18.0); LYMPHOCYTES # (AUTO) 2.1 X10^3/uL (1.3-2.9); LYMPHOCYTES % (AUTO) 15.8 % (21.0-51.0); MEAN CORPUSCULAR HEMOGLOBIN 29.3 pg (27.0-34.0); MEAN CORPUSCULAR HGB CONC 33.3 g/dL (33.0-35.0); MEAN CORPUSCULAR VOLUME 87.9 fL (80.0-100.0); MEAN PLATELET VOLUME 7.5 fL (7.4-11.0); MONOCYTES # (AUTO) 1.2 x10^3/uL (0.3-0.8); MONOCYTES % (AUTO) 9.3 % (0.0-13.0); NEUTROPHILS # (AUTO) 9.8 x10^3/uL (2.2-4.8); NEUTROPHILS % (AUTO) 74.4 % (42.0-75.0); PLATELET COUNT 302 X10^3/uL (150.0-450.0); RED BLOOD COUNT 3.14 X10^6/uL (4.7-6.0); RED CELL DISTRIBUTION WIDTH 16.9 % (11.6-16.5); WHITE BLOOD COUNT 13.2 X10^3/uL (3.6-10.0)
[2019-09-17 03:10] LABS: ALANINE AMINOTRANSFERASE 35 Units/L (12-78); ALBUMIN 2.4 g/dL (3.4-5.0); ALKALINE PHOSPHATASE 167 Units/L (46-116); ASPARTATE AMINO TRANSFERASE 35 Units/L (15-37); BLOOD UREA NITROGEN 17 mg/dL (7-18); CALCIUM 9.3 mg/dL (8.5-10.1); CARBON DIOXIDE 25.4 mmol/L (21-32); CHLORIDE 107 mmol/L (98-107); COR CA(FOR HYPOALB) 10.6 mg/dL (8.5-10.1); CREATININE 0.88 mg/dL (0.70-1.30); SODIUM 138 mmol/L (136-145); TOTAL PROTEIN 5.5 g/dL (6.4-8.2); eGFR NON BLACK RACES > 60 (>60)
[2019-09-17] MEDS: PROTONIX INJ 40 MG VIAL 80 MG in NS 100 ML IV 80 ML IV SCH ×3 (03:14→14:16)
[2019-09-17] MEDS: APRESOLINE TAB 25 MG PO SCH ×3 (06:08→21:00)
[2019-09-17] MEDS: ZOSYN VIAL 3.375 GRAMS 3.375 G in NS 100 ML IV + SPIKE MINIBAG* 100 ML IV SCH ×3 (06:09→21:00)
[2019-09-17] MEDS ORDERED: NORVASC TAB 10 MG PO SCH (09:00)
[2019-09-17] MEDS ORDERED: STERILE WATER IRRIGATION IR ONE (10:41)
[2019-09-17] MEDS: NS 1000 ML 1,000 ML IV SCH (11:59)
[2019-09-17] MEDS: LEVAQUIN PREMIX IV 500 MG 500 MG/100 ML BAG IV SCH (12:00)
[2019-09-17] MEDS ORDERED: DIPRIVAN VIAL 20 ML ONE (14:31)
[2019-09-17] MEDS ORDERED: GLUCOPHAGE ONE ×2 (15:19→20:15)
[2019-09-17] MEDS: ASPIRIN EC 81 MG PO SCH (15:57)
[2019-09-17] MEDS: TAB-A-VITE PO SCH (15:57)
[2019-09-17] MEDS: NORVASC TAB 10 MG PO SCH (15:58)
[2019-09-17] MEDS: BENICAR TAB 40 MG PO SCH (15:58)
[2019-09-17] MEDS: COREG TAB 6.25 MG PO SCH ×2 (15:59→20:55)
[2019-09-17] MEDS: GLUCOPHAGE PO SCH ×2 (15:59→21:00)
[2019-09-17] MEDS: NAMENDA TAB 10 MG PO SCH ×2 (16:00→20:56)
[2019-09-17] MEDS: LIPITOR TAB 40 MG PO SCH (20:54)
[2019-09-17] MEDS: RESTORIL CAP 15 MG PO PRN (20:55)
[2019-09-17] MEDS: ARICEPT TAB 5 MG PO SCH (20:56)
[2019-09-17] MEDS: SNACK - Diabetic Appropriate PO SCH (21:00)
--- NOTE | 2019-09-17 21:29 | PCM.PROG ---
Progress Note - Progress Note for Day of Date of Exam: 09/17/19 - Subjective Subjective: WAS ADMITTED FOR GI BLEED, ANEMIA, CELLULITIS OF THE RIGHT FOOT, AND OSTEOMYELITIS. HE HAS RECEIVED FOUR UNITS OF PACKED RED BLOOD CELLS SINCE ADMISSION. TODAY, HE IS ALERT AND ORIENTED, LYING IN BED ON MORNING ROUNDS. HE REPORTS WEAKNESS AND NAUSEA TODAY. ON EXAMINATION, HEART IS REGULAR IN RATE AND RHYTHM. BILATERAL LUNGS ARE NOTED WITH DIMINISHED LUNG SOUNDS THROUGHOUT. ABDOMEN IS ROUND, SOFT, AND NON-TENDER WITH NORMAL BOWEL SOUNDS NOTED IN ALL QUADRANTS. HIS VITALS THIS MORNING ARE: 98.3-88-20-98%-173/81. LABS WERE OBTAINED. ABNORMAL LAB VALUES INCLUDE THE FOLLOWING: WBC 13.2, RBC 3.14, HGB 9.2, HCT 27.6, ALK PHOS 167, TOTAL PROTEIN 5.5, ALBUMIN 2.4. BLOOD CULTURES ARE PENDING. HE IS CURRENTLY RECEIVING NS AT 75 ML/HR, ZOSYN 3.375G IV TID, LEVAQUIN 500MG IV DAILY, IV PROTONIX DRIP, HUMULIN R SLIDIDNG SCALE, AND HOME MEDICATIONS WERE RESUMED. PLANS FOR AN EGD TODAY. WE ARE IN AGREEMENT WITH PLANS. OTHERWISE, WE PLAN TO FOLLOW UP WITH AM LABS AND CONTINUE TO MONITOR. - Past Medical Family Social History Past Med/Fam/Surg Hx: No changes since H&P Allergies: Allergies prednisone Allergy (Verified 08/28/19 13:06) - Review of Systems ROS: No change since H&P - Vital Signs and I&O's Vital Signs: Temperature 97.9 F Pulse Rate [Right Brachial] 76 Pulse Rate [Left Radial] 72 Pulse Rate 71 Respiratory Rate 18 Blood Pressure [Right Arm] 138/69 Blood Pressure [Left Arm] 170/74 Blood Pressure 103/59 O2 Sat by Pulse Oximetry 98 Intake and Output: Intake & Output 09/15/19 09/16/19 09/17/19 09/18/19 11:59 11:59 11:59 11:59 Intake Total 1529 / 1529 2216 / 2216 4005 / 4005 100 / 100 Output Total 650 / 650 Balance 879 / 879 2216 / 2216 4005 / 4005 100 / 100 - Physical Exam Oriented: Normal Eyes: Normal Ear: Normal Nose: Normal Throat: Normal Respiratory: Diminished Cardiovascular: Normal : Normal Auscultation: Bowel Sounds: Normal Tenderness: Normal (non tender) Skin: Normal Musculoskeletal: Normal Psychiatric: Normal Mood Description: Calm, Appropriate Affect: Normal Speech Pattern: Clear, Appropriate - Laboratory and Diagnostics Result Diagrams: 09/17/19 02:37 09/17/19 02:37 Labs: 09/14/19 17:23 Blood Blood Culture - Preliminary 09/14/19 17:18 Blood Blood Culture - Preliminary Laboratory WBC 13.2 X10^3/uL (3.6-10.0) H 09/17/19 02:37 RBC 3.14 X10^6/uL (4.7-6.0) L 09/17/19 02:37 Hgb 9.2 g/dL (13.5-18.0) L 09/17/19 02:37 Hct 27.6 % (42.0-54.0) L 09/17/19 02:37 MCV 87.9 fL (80.0-100.0) 09/17/19 02:37 MCH 29.3 pg (27.0-34.0) 09/17/19 02:37 MCHC 33.3 g/dL (33.0-35.0) 09/17/19 02:37 RDW 16.9 % (11.6-16.5) H 09/17/19 02:37 Plt Count 302 X10^3/uL (150.0-450.0) 09/17/19 02:37 Plt Count Comment Adequate (ADEQUATE) 09/16/19 05:33 MPV 7.5 fL (7.4-11.0) 09/17/19 02:37 Neut % (Auto) 74.4 % (42.0-75.0) 09/17/19 02:37 Lymph % (Auto) 15.8 % (21.0-51.0) L 09/17/19 02:37 [place] % (Auto) 9.3 % (0.0-13.0) 09/17/19 02:37 Eos % (Auto) 0.0 % (0.9-2.9) L 09/17/19 02:37 Baso % (Auto) 0.5 % (0.2-1.0) 09/17/19 02:37 Neut # (Auto) 9.8 x10^3/uL (2.2-4.8) H 09/17/19 02:37 Lymph # (Auto) 2.1 X10^3/uL (1.3-2.9) 09/17/19 02:37 [place] # (Auto) 1.2 x10^3/uL (0.3-0.8) H 09/17/19 02:37 Eos # (Auto) 0.0 x10^3/uL (0.0-0.2) 09/17/19 02:37 Baso # (Auto) 0.1 X10^3/uL (0.0-0.1) 09/17/19 02:37 Absolute Nucleated RBC 0.2 /100WBC 09/17/19 02:37 Total Counted 100 09/14/19 13:10 Neutrophils % (Manual) 90 % (39-76) H 09/14/19 13:10 Lymphocytes % (Manual) 10 % (13-43) L 09/14/19 13:10 Plt Morphology Comment Normal (NORMAL) 09/16/19 05:33 RBC Morphology Normal (NORMAL) 09/16/19 05:33 PT 15.7 SECONDS (11.8-14.3) 09/14/19 13:10 INR Target Range - 09/14/19 13:10 INR 1.30 (0.8-1.3) 09/14/19 13:10 APTT 31.8 SECONDS (22.9-36.5) 09/14/19 13:10 PTT Comment - 09/14/19 13:10 Sodium 138 mmol/L (136-145) 09/17/19 02:37 Corrected Sodium TNP 09/17/19 02:37 Potassium 3.6 mmol/L (3.5-5.1) 09/17/19 02:37 Chloride 107 mmol/L (98-107) 09/17/19 02:37 Carbon Dioxide 25.4 mmol/L (21-32) 09/17/19 02:37 BUN 17 mg/dL (7-18) 09/17/19 02:37 Creatinine 0.88 mg/dL (0.70-1.30) 09/17/19 02:37 Est GFR (MDRD) Af Amer > 60 (>60) 09/17/19 02:37 Est GFR (MDRD) Non-Af > 60 (>60) 09/17/19 02:37 Glucose 94 mg/dL (65-99) 09/17/19 02:37 POC Glucose (mg/dL) 164 mg/dL (65-99) H 09/17/19 17:17 Lactic Acid 2.8 mmol/L (0.4-2.0) H 09/15/19 10:47 Calcium 9.3 mg/dL (8.5-10.1) 09/17/19 02:37 Corrected Calcium 10.6 mg/dL (8.5-10.1) H 09/17/19 02:37 Magnesium 1.7 mg/dL (1.7-2.9) 09/17/19 02:37 Total Bilirubin 0.70 mg/dL (0.2-1.0) 09/17/19 02:37 AST 35 Units/L (15-37) 09/17/19 02:37 ALT 35 Units/L (12-78) 09/17/19 02:37 Alkaline Phosphatase 167 Units/L (46-116) H 09/17/19 02:37 Total Protein 5.5 g/dL (6.4-8.2) L 09/17/19 02:37 Albumin 2.4 g/dL (3.4-5.0) L 09/17/19 02:37 Globulin 3.1 g/dL (2.5-4.5) 09/17/19 02:37 Albumin/Globulin Ratio 0.8 Ratio (1.1-2.1) L 09/17/19 02:37 Specimen Type Clean catch urine 09/14/19 17:05 Urine Color Yellow (YELLOW) 09/14/19 17:05 Urine Appearance Slightly hazy (CLEAR) 09/14/19 17:05 Urine pH 5.0 (5.0 - 8.0) 09/14/19 17:05 Ur Specific [place] 1.020 (1.000-1.030) 09/14/19 17:05 Urine Protein 2+ (NEGATIVE) 09/14/19 17:05 Urine Glucose (UA) Negative (NEGATIVE) 09/14/19 17:05 Urine Ketones 1+ (NEGATIVE) 09/14/19 17:05 Urine Occult Blood 1+ (NEGATIVE) 09/14/19 17:05 Urine Nitrite Negative (NEGATIVE) 09/14/19 17:05 Urine Bilirubin Negative (NEGATIVE) 09/14/19 17:05 Urine Urobilinogen Normal (NORMAL) 09/14/19 17:05 Ur Leukocyte Esterase Negative (NEGATIVE) 09/14/19 17:05 Urine RBC 5-10 /HPF (0-3) A 09/14/19 17:05 Urine WBC 3-5 /HPF (0-5) 09/14/19 17:05 Ur Squamous Epith Cells Few /HPF (NEGATIVE) 09/14/19 17:05 Calcium Oxalate Crystal Moderate /HPF (NEGATIVE) 09/14/19 17:05 Urine Bacteria Trace /HPF (NEGATIVE) 09/14/19 17:05 Urine Mucus Few /HPF (NEGATIVE) 09/14/19 17:05 Ur Culture Indicated? No/not indicated 09/14/19 17:05 Stool Description 20g unformed brown 09/15/19 09:00 Stl Occult Blood (IFOB) Positive (NEGATIVE) A 09/15/19 09:00 Tissue Pathology To follow 09/17/19 14:41 Blood Type O POSITIVE 09/14/19 15:14 Antibody Screen Negative 09/14/19 15:14 Crossmatch See Detail 09/14/19 15:14 - Plan (1) GI bleed Status: Acute Qualifiers: GI bleed type/associated pathology: gastrointestinal hemorrhage with hematemesis Qualified Code(s): K92.0 - Hematemesis Plan: NS AT 75 ML/HR, ZOSYN 3.375G IV TID, LEVAQUIN 500MG IV DAILY, IV PROTONIX DRIP, HUMULIN R SLIDIDNG SCALE, AND HOME MEDICATIONS WERE RESUMED. EGD TOMORROW, CONTINUE TO MONITOR (2) Anemia Status: Acute Qualifiers: Anemia type: unspecified type Qualified Code(s): D64.9 - Anemia, unspecified Plan: TRANSFUSE 2 UNITS PRBC (3) Cellulitis of right foot Status: Acute Plan: IV ANTIBIOTICS, CONTINUE TO MONITOR (4) Osteomyelitis Status: Acute Qualifiers: Osteomyelitis type: unspecified type Osteomyelitis location: foot Laterality: right Qualified Code(s): M86.9 - Osteomyelitis, unspecified Plan: IV ANTIBIOTICS, CONTINUE TO MONITOR
[2019-09-18] MEDS: NS 1000 ML 1,000 ML IV SCH ×4 (02:04→21:09)
[2019-09-18] MEDS: PROTONIX INJ 40 MG VIAL 80 MG in NS 100 ML IV 80 ML IV SCH ×4 (02:05→21:09)
[2019-09-18] MEDS: APRESOLINE TAB 25 MG PO SCH ×3 (05:51→21:08)
[2019-09-18] MEDS: ZOSYN VIAL 3.375 GRAMS 3.375 G in NS 100 ML IV + SPIKE MINIBAG* 100 ML IV SCH ×3 (05:51→21:08)
[2019-09-18 06:15] LABS: BASOPHILS # (AUTO) 0.1 X10^3/uL (0.0-0.1); BASOPHILS % (AUTO) 0.5 % (0.2-1.0); HEMATOCRIT 27.1 % (42.0-54.0); HEMOGLOBIN 9.1 g/dL (13.5-18.0); LYMPHOCYTES # (AUTO) 1.4 X10^3/uL (1.3-2.9); LYMPHOCYTES % (AUTO) 12.1 % (21.0-51.0); MEAN CORPUSCULAR HEMOGLOBIN 29.8 pg (27.0-34.0); MEAN CORPUSCULAR HGB CONC 33.6 g/dL (33.0-35.0); MEAN CORPUSCULAR VOLUME 88.5 fL (80.0-100.0); MEAN PLATELET VOLUME 7.5 fL (7.4-11.0); MONOCYTES # (AUTO) 1.1 x10^3/uL (0.3-0.8); MONOCYTES % (AUTO) 9.8 % (0.0-13.0); NEUTROPHILS % (AUTO) 77.6 % (42.0-75.0); PLATELET COUNT 295 X10^3/uL (150.0-450.0); RED BLOOD COUNT 3.07 X10^6/uL (4.7-6.0); WHITE BLOOD COUNT 11.6 X10^3/uL (3.6-10.0)
[2019-09-18 06:36] LABS: ALANINE AMINOTRANSFERASE 31 Units/L (12-78); ALBUMIN 2.2 g/dL (3.4-5.0); ALKALINE PHOSPHATASE 180 Units/L (46-116); ASPARTATE AMINO TRANSFERASE 31 Units/L (15-37); BLOOD UREA NITROGEN 10 mg/dL (7-18); CARBON DIOXIDE 23.8 mmol/L (21-32); CHLORIDE 107 mmol/L (98-107); COR CA(FOR HYPOALB) 10.4 mg/dL (8.5-10.1); COR NA(FOR HYPERGLY) 138 mmol/L (136-145); SODIUM 138 mmol/L (136-145); TOTAL PROTEIN 5.2 g/dL (6.4-8.2); eGFR NON BLACK RACES > 60 (>60)
[2019-09-18] MEDS ORDERED: GLUCOPHAGE ONE ×2 (09:20→19:58)
[2019-09-18] MEDS: NORVASC TAB 10 MG PO SCH (09:50)
[2019-09-18] MEDS: LEVAQUIN PREMIX IV 500 MG 500 MG/100 ML BAG IV SCH (10:04)
[2019-09-18] MEDS: BENICAR TAB 40 MG PO SCH (10:04)
[2019-09-18] MEDS: TAB-A-VITE PO SCH (10:04)
[2019-09-18] MEDS: GLUCOPHAGE PO SCH ×2 (10:05→20:20)
[2019-09-18] MEDS: COREG TAB 6.25 MG PO SCH ×2 (10:05→20:23)
[2019-09-18] MEDS: ASPIRIN EC 81 MG PO SCH (10:05)
[2019-09-18] MEDS: NAMENDA TAB 10 MG PO SCH ×2 (10:05→20:19)
[2019-09-18] MEDS: NS 500 ML IV 500 ML IV SCH (16:49)
[2019-09-18] MEDS: ARICEPT TAB 5 MG PO SCH (20:20)
[2019-09-18] MEDS: LIPITOR TAB 40 MG PO SCH (20:20)
[2019-09-18] MEDS: RESTORIL CAP 15 MG PO PRN (20:20)
[2019-09-18] MEDS: SNACK - Diabetic Appropriate PO SCH (21:08)
[2019-09-19] MEDS: PERCOCET TAB 5/325 MG PO PRN ×2 (02:04→20:37)
[2019-09-19] MEDS: PROTONIX INJ 40 MG VIAL 80 MG in NS 100 ML IV 80 ML IV SCH ×2 (05:43→21:28)
[2019-09-19] MEDS: ZOSYN VIAL 3.375 GRAMS 3.375 G in NS 100 ML IV + SPIKE MINIBAG* 100 ML IV SCH ×3 (05:44→21:29)
[2019-09-19] MEDS: APRESOLINE TAB 25 MG PO SCH ×3 (05:44→21:29)
[2019-09-19 06:09] LABS: BASOPHILS % (AUTO) 0.4 % (0.2-1.0); HEMATOCRIT 28.4 % (42.0-54.0); HEMOGLOBIN 9.6 g/dL (13.5-18.0); LYMPHOCYTES # (AUTO) 1.3 X10^3/uL (1.3-2.9); LYMPHOCYTES % (AUTO) 12.5 % (21.0-51.0); MEAN CORPUSCULAR HEMOGLOBIN 30.1 pg (27.0-34.0); MEAN CORPUSCULAR VOLUME 88.7 fL (80.0-100.0); MEAN PLATELET VOLUME 8.1 fL (7.4-11.0); MONOCYTES # (AUTO) 1.1 x10^3/uL (0.3-0.8); MONOCYTES % (AUTO) 10.6 % (0.0-13.0); NEUTROPHILS # (AUTO) 8.1 x10^3/uL (2.2-4.8); NEUTROPHILS % (AUTO) 76.5 % (42.0-75.0); PLATELET COUNT 326 X10^3/uL (150.0-450.0); RED CELL DISTRIBUTION WIDTH 16.5 % (11.6-16.5); WHITE BLOOD COUNT 10.6 X10^3/uL (3.6-10.0)
[2019-09-19 06:17] LABS: ALANINE AMINOTRANSFERASE 29 Units/L (12-78); ALBUMIN 2.2 g/dL (3.4-5.0); ALKALINE PHOSPHATASE 172 Units/L (46-116); ASPARTATE AMINO TRANSFERASE 30 Units/L (15-37); BLOOD UREA NITROGEN 5 mg/dL (7-18); CARBON DIOXIDE 23.1 mmol/L (21-32); CHLORIDE 107 mmol/L (98-107); COR CA(FOR HYPOALB) 10.4 mg/dL (8.5-10.1); COR NA(FOR HYPERGLY) 140 mmol/L (136-145); CREATININE 0.69 mg/dL (0.70-1.30); SODIUM 140 mmol/L (136-145); TOTAL PROTEIN 5.3 g/dL (6.4-8.2); eGFR NON BLACK RACES > 60 (>60)
[2019-09-19] MEDS ORDERED: POTASSIUM CHLORIDE LIQ 20 MEQ UDC PO PRN (07:03)
[2019-09-19] MEDS ORDERED: MICRO K EXTEN CAP 10 MEQ PO PRN (07:03)
[2019-09-19] MEDS ORDERED: POTASSIUM CHL 40 MEQ/NS 0.45% 500 ML IV PRN (07:03)
[2019-09-19] MEDS ORDERED: K-RIDER 10 MEQ/NS 100 ML 10 MEQ/100 ML BAG IV PRN (07:03)
[2019-09-19] MEDS ORDERED: POTASSIUM CHL 60 MEQ/NS 0.45% 500 ML IV PRN (07:03)
[2019-09-19] MEDS ORDERED: KLOR-CON PO PRN (07:03)
[2019-09-19] MEDS ORDERED: GLUCOPHAGE ONE ×2 (08:33→19:52)
[2019-09-19] MEDS: COREG TAB 6.25 MG PO SCH ×2 (08:39→20:38)
[2019-09-19] MEDS: BENICAR TAB 40 MG PO SCH (08:39)
[2019-09-19] MEDS: GLUCOPHAGE PO SCH ×2 (08:39→20:38)
[2019-09-19] MEDS: NAMENDA TAB 10 MG PO SCH ×2 (08:39→20:37)
[2019-09-19] MEDS: LEVAQUIN PREMIX IV 500 MG 500 MG/100 ML BAG IV SCH (08:40)
[2019-09-19] MEDS: TAB-A-VITE PO SCH (08:46)
[2019-09-19] MEDS: ASPIRIN EC 81 MG PO SCH (08:46)
[2019-09-19] MEDS: NORVASC TAB 10 MG PO SCH (08:47)
[2019-09-19] MEDS: MAGNESIUM SULFATE 1 GRAM/100 mL PREMIX 1 GM/100 ML BAG IV PRN (12:36)
[2019-09-19] MEDS ORDERED: NYSTATIN CREAM ONE (14:15)
[2019-09-19] MEDS ORDERED: NYSTATIN POWDER ONE (14:16)
[2019-09-19] MEDS: NYSTATIN POWDER TOP SCH ×2 (14:30→21:29)
[2019-09-19] MEDS: NYSTATIN CREAM TOP SCH ×2 (14:30→21:30)
[2019-09-19] MEDS: ARICEPT TAB 5 MG PO SCH (20:37)
[2019-09-19] MEDS: RESTORIL CAP 15 MG PO PRN (20:37)
[2019-09-19] MEDS: LIPITOR TAB 40 MG PO SCH (20:38)
[2019-09-19] MEDS: SNACK - Diabetic Appropriate PO SCH (21:28)
[2019-09-19] MEDS: NS 1000 ML 1,000 ML IV SCH (21:30)
[2019-09-20] MEDS: NYSTATIN CREAM TOP SCH ×3 (05:21→21:53)
[2019-09-20] MEDS: APRESOLINE TAB 25 MG PO SCH ×3 (05:54→21:52)
[2019-09-20] MEDS: ZOSYN VIAL 3.375 GRAMS 3.375 G in NS 100 ML IV + SPIKE MINIBAG* 100 ML IV SCH ×3 (05:54→21:53)
[2019-09-20 06:25] LABS: BASOPHILS % (AUTO) 0.5 % (0.2-1.0); HEMATOCRIT 26.8 % (42.0-54.0); HEMOGLOBIN 9.1 g/dL (13.5-18.0); LYMPHOCYTES # (AUTO) 1.5 X10^3/uL (1.3-2.9); LYMPHOCYTES % (AUTO) 14.5 % (21.0-51.0); MEAN CORPUSCULAR HEMOGLOBIN 30.4 pg (27.0-34.0); MEAN CORPUSCULAR HGB CONC 34.2 g/dL (33.0-35.0); MEAN CORPUSCULAR VOLUME 89.1 fL (80.0-100.0); MONOCYTES # (AUTO) 1.2 x10^3/uL (0.3-0.8); MONOCYTES % (AUTO) 11.6 % (0.0-13.0); NEUTROPHILS # (AUTO) 7.6 x10^3/uL (2.2-4.8); NEUTROPHILS % (AUTO) 73.4 % (42.0-75.0); PLATELET COUNT 320 X10^3/uL (150.0-450.0); RED CELL DISTRIBUTION WIDTH 17.1 % (11.6-16.5); WHITE BLOOD COUNT 10.4 X10^3/uL (3.6-10.0)
[2019-09-20 06:38] LABS: ALANINE AMINOTRANSFERASE 25 Units/L (12-78); ALBUMIN 2.1 g/dL (3.4-5.0); ALKALINE PHOSPHATASE 156 Units/L (46-116); ASPARTATE AMINO TRANSFERASE 29 Units/L (15-37); BLOOD UREA NITROGEN 4 mg/dL (7-18); CALCIUM 9.1 mg/dL (8.5-10.1); CARBON DIOXIDE 22.9 mmol/L (21-32); CHLORIDE 109 mmol/L (98-107); COR CA(FOR HYPOALB) 10.6 mg/dL (8.5-10.1); CREATININE 0.69 mg/dL (0.70-1.30); MAGNESIUM 1.8 mg/dL (1.7-2.9); SODIUM 140 mmol/L (136-145); TOTAL PROTEIN 5.2 g/dL (6.4-8.2); eGFR NON BLACK RACES > 60 (>60)
[2019-09-20] MEDS ORDERED: GLUCOPHAGE ONE ×2 (08:23→19:40)
[2019-09-20] MEDS: COREG TAB 6.25 MG PO SCH ×2 (09:17→20:32)
[2019-09-20] MEDS: GLUCOPHAGE PO SCH ×2 (09:18→20:32)
[2019-09-20] MEDS: ASPIRIN EC 81 MG PO SCH (09:19)
[2019-09-20] MEDS: BENICAR TAB 40 MG PO SCH (09:19)
[2019-09-20] MEDS: NORVASC TAB 10 MG PO SCH (09:19)
[2019-09-20] MEDS: K-DUR TAB 20 MEQ PO PRN ×3 (09:19→14:44)
[2019-09-20] MEDS: NAMENDA TAB 10 MG PO SCH ×2 (09:20→20:33)
[2019-09-20] MEDS: LEVAQUIN PREMIX IV 500 MG 500 MG/100 ML BAG IV SCH (09:20)
[2019-09-20] MEDS: TAB-A-VITE PO SCH (09:20)
[2019-09-20] MEDS: PROTONIX INJ 40 MG VIAL 80 MG in NS 100 ML IV 80 ML IV SCH ×3 (09:59→20:30)
[2019-09-20] MEDS: NS 1000 ML 1,000 ML IV SCH (09:59)
[2019-09-20] MEDS: NYSTATIN POWDER TOP SCH ×2 (10:00→20:34)
[2019-09-20] MEDS: MAGNESIUM SULFATE 1 GRAM/100 mL PREMIX 1 GM/100 ML BAG IV PRN ×2 (11:14→12:26)
--- NOTE | 2019-09-20 16:00 | PCM.PROG ---
Progress Note - Progress Note for Day of Date of Exam: 09/18/19 - Subjective Subjective: WAS ADMITTED FOR GI BLEED, ANEMIA, CELLULITIS OF THE RIGHT FOOT, AND OSTEOMYELITIS. HE HAS RECEIVED FOUR UNITS OF PACKED RED BLOOD CELLS SINCE ADMISSION. TODAY, HE IS ALERT AND ORIENTED, LYING IN BED ON MORNING ROUNDS. HE REPORTS WEAKNESS AND NAUSEA TODAY. ON EXAMINATION, HEART IS REGULAR IN RATE AND RHYTHM. BILATERAL LUNGS ARE NOTED WITH DIMINISHED LUNG SOUNDS THROUGHOUT. ABDOMEN IS ROUND, SOFT, AND NON-TENDER WITH NORMAL BOWEL SOUNDS NOTED IN ALL QUADRANTS. HIS VITALS THIS MORNING ARE: 98.6-89-20-92%-147/76. LABS WERE OBTAINED. ABNORMAL LAB VALUES INCLUDE THE FOLLOWING: WBC 11.6, RBC 3.07, HGB 9.1, HCT 27.1, POTASSIUM 3.2, GLUCOSE 115, ALK PHOS 180, TOTAL PROTEIN 5.2, ALBUMIN 2.2. BLOOD CULTURES ARE PENDING. 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 HE IS CURRENTLY RECEIVING NS AT 75 ML/HR, ZOSYN 3.375G IV TID, LEVAQUIN 500MG IV DAILY, IV PROTONIX DRIP, HUMULIN R SLIDIDNG SCALE, AND HOME MEDICATIONS WERE RESUMED. WE WILL CONTINUE WITH CURRENT PLAN OF CARE TODAY. OTHERWISE, WE PLAN TO FOLLOW UP WITH AM LABS AND CONTINUE TO MONITOR. - Past Medical Family Social History Past Med/Fam/Surg Hx: No changes since H&P Allergies: Allergies prednisone Allergy (Verified 08/28/19 13:06) - Review of Systems ROS: No change since H&P - Vital Signs and I&O's Vital Signs: Temperature 98.0 F Pulse Rate [Right Brachial] 67 Pulse Rate [Left Radial] 72 Pulse Rate 71 Respiratory Rate 20 Blood Pressure [Right Arm] 143/72 Blood Pressure [Left Arm] 154/65 Blood Pressure 103/59 O2 Sat by Pulse Oximetry 98 Intake and Output: Intake & Output 09/18/19 09/19/19 09/20/19 09/21/19 11:59 11:59 11:59 11:59 Intake Total 2180 / 2180 2079 / 2079 1400 / 1400 360 / 360 Output Total 175 / 175 200 / 200 Balance 2180 / 2180 2080 / 2080 1225 / 1225 160 / 160 - Physical Exam Oriented: Normal Eyes: Normal Ear: Normal Nose: Normal Throat: Normal Respiratory: Diminished Cardiovascular: Normal : Normal Auscultation: Bowel Sounds: Normal Palpation: Normal Tenderness: Normal (non tender) Skin: Normal Musculoskeletal: Normal Psychiatric: Normal Mood Description: Calm, Appropriate Affect: Normal Speech Pattern: Clear, Appropriate - Laboratory and Diagnostics Result Diagrams: 09/20/19 05:35 09/20/19 12:04 Labs: 09/18/19 06:23 Drainage Wound Culture - Preliminary 09/14/19 17:23 Blood Blood Culture - Preliminary 09/14/19 17:18 Blood Blood Culture - Preliminary Laboratory WBC 10.4 X10^3/uL (3.6-10.0) H 09/20/19 05:35 RBC 3.00 X10^6/uL (4.7-6.0) L 09/20/19 05:35 Hgb 9.1 g/dL (13.5-18.0) L 09/20/19 05:35 Hct 26.8 % (42.0-54.0) L 09/20/19 05:35 MCV 89.1 fL (80.0-100.0) 09/20/19 05:35 MCH 30.4 pg (27.0-34.0) 09/20/19 05:35 MCHC 34.2 g/dL (33.0-35.0) 09/20/19 05:35 RDW 17.1 % (11.6-16.5) H 09/20/19 05:35 Plt Count 320 X10^3/uL (150.0-450.0) 09/20/19 05:35 Plt Count Comment Adequate (ADEQUATE) 09/16/19 05:33 MPV 8.0 fL (7.4-11.0) 09/20/19 05:35 Neut % (Auto) 73.4 % (42.0-75.0) 09/20/19 05:35 Lymph % (Auto) 14.5 % (21.0-51.0) L 09/20/19 05:35 [place] % (Auto) 11.6 % (0.0-13.0) 09/20/19 05:35 Eos % (Auto) 0.0 % (0.9-2.9) L 09/20/19 05:35 Baso % (Auto) 0.5 % (0.2-1.0) 09/20/19 05:35 Neut # (Auto) 7.6 x10^3/uL (2.2-4.8) H 09/20/19 05:35 Lymph # (Auto) 1.5 X10^3/uL (1.3-2.9) 09/20/19 05:35 [place] # (Auto) 1.2 x10^3/uL (0.3-0.8) H 09/20/19 05:35 Eos # (Auto) 0.0 x10^3/uL (0.0-0.2) 09/20/19 05:35 Baso # (Auto) 0.0 X10^3/uL (0.0-0.1) 09/20/19 05:35 Absolute Nucleated RBC 0.0 /100WBC 09/20/19 05:35 Total Counted 100 09/14/19 13:10 Neutrophils % (Manual) 90 % (39-76) H 09/14/19 13:10 Lymphocytes % (Manual) 10 % (13-43) L 09/14/19 13:10 Plt Morphology Comment Normal (NORMAL) 09/16/19 05:33 RBC Morphology Normal (NORMAL) 09/16/19 05:33 PT 15.7 SECONDS (11.8-14.3) 09/14/19 13:10 INR Target Range - 09/14/19 13:10 INR 1.30 (0.8-1.3) 09/14/19 13:10 APTT 31.8 SECONDS (22.9-36.5) 09/14/19 13:10 PTT Comment - 09/14/19 13:10 Sodium 140 mmol/L (136-145) 09/20/19 05:35 Corrected Sodium TNP 09/20/19 05:35 Potassium 3.4 mmol/L (3.5-5.1) L 09/20/19 12:04 Chloride 109 mmol/L (98-107) H 09/20/19 05:35 Carbon Dioxide 22.9 mmol/L (21-32) 09/20/19 05:35 BUN 4 mg/dL (7-18) L 09/20/19 05:35 Creatinine 0.69 mg/dL (0.70-1.30) L 09/20/19 05:35 Est GFR (MDRD) Af Amer > 60 (>60) 09/20/19 05:35 Est GFR (MDRD) Non-Af > 60 (>60) 09/20/19 05:35 Glucose 92 mg/dL (65-99) 09/20/19 05:35 POC Glucose (mg/dL) 105 mg/dL (65-99) H 09/20/19 11:47 Lactic Acid 2.8 mmol/L (0.4-2.0) H 09/15/19 10:47 Calcium 9.1 mg/dL (8.5-10.1) 09/20/19 05:35 Corrected Calcium 10.6 mg/dL (8.5-10.1) H 09/20/19 05:35 Magnesium 1.8 mg/dL (1.7-2.9) 09/20/19 05:35 Total Bilirubin 0.30 mg/dL (0.2-1.0) 09/20/19 05:35 AST 29 Units/L (15-37) 09/20/19 05:35 ALT 25 Units/L (12-78) 09/20/19 05:35 Alkaline Phosphatase 156 Units/L (46-116) H 09/20/19 05:35 Total Protein 5.2 g/dL (6.4-8.2) L 09/20/19 05:35 Albumin 2.1 g/dL (3.4-5.0) L 09/20/19 05:35 Globulin 3.1 g/dL (2.5-4.5) 09/20/19 05:35 Albumin/Globulin Ratio 0.7 Ratio (1.1-2.1) L 09/20/19 05:35 Specimen Type Clean catch urine 09/14/19 17:05 Urine Color Yellow (YELLOW) 09/14/19 17:05 Urine Appearance Slightly hazy (CLEAR) 09/14/19 17:05 Urine pH 5.0 (5.0 - 8.0) 09/14/19 17:05 Ur Specific [place] 1.020 (1.000-1.030) 09/14/19 17:05 Urine Protein 2+ (NEGATIVE) 09/14/19 17:05 Urine Glucose (UA) Negative (NEGATIVE) 09/14/19 17:05 Urine Ketones 1+ (NEGATIVE) 09/14/19 17:05 Urine Occult Blood 1+ (NEGATIVE) 09/14/19 17:05 Urine Nitrite Negative (NEGATIVE) 09/14/19 17:05 Urine Bilirubin Negative (NEGATIVE) 09/14/19 17:05 Urine Urobilinogen Normal (NORMAL) 09/14/19 17:05 Ur Leukocyte Esterase Negative (NEGATIVE) 09/14/19 17:05 Urine RBC 5-10 /HPF (0-3) A 09/14/19 17:05 Urine WBC 3-5 /HPF (0-5) 09/14/19 17:05 Ur Squamous Epith Cells Few /HPF (NEGATIVE) 09/14/19 17:05 Calcium Oxalate Crystal Moderate /HPF (NEGATIVE) 09/14/19 17:05 Urine Bacteria Trace /HPF (NEGATIVE) 09/14/19 17:05 Urine Mucus Few /HPF (NEGATIVE) 09/14/19 17:05 Ur Culture Indicated? No/not indicated 09/14/19 17:05 Stool Description 20g unformed brown 09/15/19 09:00 Stl Occult Blood (IFOB) Positive (NEGATIVE) A 09/15/19 09:00 Tissue Pathology To follow 09/17/19 14:41 Blood Type O POSITIVE 09/14/19 15:14 Antibody Screen Negative 09/14/19 15:14 Crossmatch See Detail 09/14/19 15:14 - Plan (1) GI bleed Status: Acute Qualifiers: GI bleed type/associated pathology: gastrointestinal hemorrhage with hematemesis Qualified Code(s): K92.0 - Hematemesis Plan: NS AT 75 ML/HR, ZOSYN 3.375G IV TID, LEVAQUIN 500MG IV DAILY, IV PROTONIX DRIP, HUMULIN R SLIDIDNG SCALE, AND HOME MEDICATIONS WERE RESUMED. EGD TOMORROW, CONTINUE TO MONITOR (2) Anemia Status: Acute Qualifiers: Anemia type: unspecified type Qualified Code(s): D64.9 - Anemia, unspecified Plan: CONTINUE TO MONITOR (3) Cellulitis of right foot Status: Acute Plan: IV ANTIBIOTICS, CONTINUE TO MONITOR (4) Osteomyelitis Status: Acute Qualifiers: Osteomyelitis type: unspecified type Osteomyelitis location: foot Laterality: right Qualified Code(s): M86.9 - Osteomyelitis, unspecified Plan: IV ANTIBIOTICS, CONTINUE TO MONITOR
--- NOTE | 2019-09-20 17:54 | PCM.PROG ---
Progress Note - Progress Note for Day of Date of Exam: 09/19/19 - Subjective Subjective: WAS ADMITTED FOR GI BLEED, ANEMIA, CELLULITIS OF THE RIGHT FOOT, AND OSTEOMYELITIS. EGD REVEALED: A LARGE EG JUCTION ULCER, LIKELY HEALING MOHSEN-ROMERO TEAR, 5CM HIATAL HERNIA, AND EROSIVE GASTRITIS. HE HAS RECEIVED FOUR UNITS OF PACKED RED BLOOD CELLS SINCE ADMISSION. TODAY, HE IS ALERT AND ORIENTED, LYING IN BED ON MORNING ROUNDS. HE REPORTS WEAKNESS AND NAUSEA TODAY. ON EXAMINATION, HEART IS REGULAR IN RATE AND RHYTHM. BILATERAL LUNGS ARE NOTED WITH DIMINISHED LUNG SOUNDS THROUGHOUT. ABDOMEN IS ROUND, SOFT, AND NON-TENDER WITH NORMAL BOWEL SOUNDS NOTED IN ALL QUADRANTS. HIS VITALS THIS MORNING ARE: 97.7-80-20-98%-143/76. LABS WERE OBTAINED. ABNORMAL LAB VALUES INCLUDE THE FOLLOWING: WBC 10.6, RBC 3.20, HGB 9.6, HCT 28.4, POTASSIUM 3.0, BUN 5, CREATININE 0.69, GLUCOSE 111, MAGNESIUM 1.5, ALK PHOS 172, TOTAL PROTEIN 5.3, ALBUMIN 2.2. BLOOD CULTURES ARE PENDING. HE IS CURRENTLY RECEIVING NS AT 75 ML/HR, ZOSYN 3.375G IV TID, LEVAQUIN 500MG IV DAILY, IV PROTONIX DRIP, HUMULIN R SLIDIDNG SCALE, AND HOME MEDICATIONS WERE RESUMED. WE WILL CONTINUE WITH CURRENT PLAN OF CARE TODAY. OTHERWISE, WE PLAN TO FOLLOW UP WITH AM LABS AND CONTINUE TO MONITOR. - Past Medical Family Social History Past Med/Fam/Surg Hx: No changes since H&P Allergies: Allergies prednisone Allergy (Verified 08/28/19 13:06) - Review of Systems ROS: No change since H&P - Vital Signs and I&O's Vital Signs: Temperature 98.2 F Pulse Rate [Right Brachial] 77 Pulse Rate [Left Radial] 72 Pulse Rate 71 Respiratory Rate 20 Blood Pressure [Right Arm] 142/68 Blood Pressure [Left Arm] 154/65 Blood Pressure 103/59 O2 Sat by Pulse Oximetry 98 Intake and Output: Intake & Output 09/18/19 09/19/19 09/20/19 09/21/19 11:59 11:59 11:59 11:59 Intake Total 2180 / 2180 2080 / 2080 1400 / 1400 1140 / 1140 Output Total 175 / 175 200 / 200 Balance 2180 / 2180 2080 / 2080 1225 / 1225 940 / 940 - Physical Exam Oriented: Normal Eyes: Normal Ear: Normal Nose: Normal Throat: Normal Respiratory: Diminished Cardiovascular: Normal : Normal Auscultation: Bowel Sounds: Normal Tenderness: Normal (non tender) Skin: Normal Musculoskeletal: Normal Psychiatric: Normal Mood Description: Calm, Appropriate Affect: Normal Speech Pattern: Clear, Appropriate - Laboratory and Diagnostics Result Diagrams: 09/20/19 05:35 09/20/19 12:04 Labs: 09/18/19 06:23 Drainage Wound Culture - Preliminary 09/14/19 17:23 Blood Blood Culture - Preliminary 09/14/19 17:18 Blood Blood Culture - Preliminary Laboratory WBC 10.4 X10^3/uL (3.6-10.0) H 09/20/19 05:35 RBC 3.00 X10^6/uL (4.7-6.0) L 09/20/19 05:35 Hgb 9.1 g/dL (13.5-18.0) L 09/20/19 05:35 Hct 26.8 % (42.0-54.0) L 09/20/19 05:35 MCV 89.1 fL (80.0-100.0) 09/20/19 05:35 MCH 30.4 pg (27.0-34.0) 09/20/19 05:35 MCHC 34.2 g/dL (33.0-35.0) 09/20/19 05:35 RDW 17.1 % (11.6-16.5) H 09/20/19 05:35 Plt Count 320 X10^3/uL (150.0-450.0) 09/20/19 05:35 Plt Count Comment Adequate (ADEQUATE) 09/16/19 05:33 MPV 8.0 fL (7.4-11.0) 09/20/19 05:35 Neut % (Auto) 73.4 % (42.0-75.0) 09/20/19 05:35 Lymph % (Auto) 14.5 % (21.0-51.0) L 09/20/19 05:35 [place] % (Auto) 11.6 % (0.0-13.0) 09/20/19 05:35 Eos % (Auto) 0.0 % (0.9-2.9) L 09/20/19 05:35 Baso % (Auto) 0.5 % (0.2-1.0) 09/20/19 05:35 Neut # (Auto) 7.6 x10^3/uL (2.2-4.8) H 09/20/19 05:35 Lymph # (Auto) 1.5 X10^3/uL (1.3-2.9) 09/20/19 05:35 [place] # (Auto) 1.2 x10^3/uL (0.3-0.8) H 09/20/19 05:35 Eos # (Auto) 0.0 x10^3/uL (0.0-0.2) 09/20/19 05:35 Baso # (Auto) 0.0 X10^3/uL (0.0-0.1) 09/20/19 05:35 Absolute Nucleated RBC 0.0 /100WBC 09/20/19 05:35 Total Counted 100 09/14/19 13:10 Neutrophils % (Manual) 90 % (39-76) H 09/14/19 13:10 Lymphocytes % (Manual) 10 % (13-43) L 09/14/19 13:10 Plt Morphology Comment Normal (NORMAL) 09/16/19 05:33 RBC Morphology Normal (NORMAL) 09/16/19 05:33 PT 15.7 SECONDS (11.8-14.3) 09/14/19 13:10 INR Target Range - 09/14/19 13:10 INR 1.30 (0.8-1.3) 09/14/19 13:10 APTT 31.8 SECONDS (22.9-36.5) 09/14/19 13:10 PTT Comment - 09/14/19 13:10 Sodium 140 mmol/L (136-145) 09/20/19 05:35 Corrected Sodium TNP 09/20/19 05:35 Potassium 3.4 mmol/L (3.5-5.1) L 09/20/19 12:04 Chloride 109 mmol/L (98-107) H 09/20/19 05:35 Carbon Dioxide 22.9 mmol/L (21-32) 09/20/19 05:35 BUN 4 mg/dL (7-18) L 09/20/19 05:35 Creatinine 0.69 mg/dL (0.70-1.30) L 09/20/19 05:35 Est GFR (MDRD) Af Amer > 60 (>60) 09/20/19 05:35 Est GFR (MDRD) Non-Af > 60 (>60) 09/20/19 05:35 Glucose 92 mg/dL (65-99) 09/20/19 05:35 POC Glucose (mg/dL) 100 mg/dL (65-99) H 09/20/19 16:49 Lactic Acid 2.8 mmol/L (0.4-2.0) H 09/15/19 10:47 Calcium 9.1 mg/dL (8.5-10.1) 09/20/19 05:35 Corrected Calcium 10.6 mg/dL (8.5-10.1) H 09/20/19 05:35 Magnesium 1.8 mg/dL (1.7-2.9) 09/20/19 05:35 Total Bilirubin 0.30 mg/dL (0.2-1.0) 09/20/19 05:35 AST 29 Units/L (15-37) 09/20/19 05:35 ALT 25 Units/L (12-78) 09/20/19 05:35 Alkaline Phosphatase 156 Units/L (46-116) H 09/20/19 05:35 Total Protein 5.2 g/dL (6.4-8.2) L 09/20/19 05:35 Albumin 2.1 g/dL (3.4-5.0) L 09/20/19 05:35 Globulin 3.1 g/dL (2.5-4.5) 09/20/19 05:35 Albumin/Globulin Ratio 0.7 Ratio (1.1-2.1) L 09/20/19 05:35 Specimen Type Clean catch urine 09/14/19 17:05 Urine Color Yellow (YELLOW) 09/14/19 17:05 Urine Appearance Slightly hazy (CLEAR) 09/14/19 17:05 Urine pH 5.0 (5.0 - 8.0) 09/14/19 17:05 Ur Specific [place] 1.020 (1.000-1.030) 09/14/19 17:05 Urine Protein 2+ (NEGATIVE) 09/14/19 17:05 Urine Glucose (UA) Negative (NEGATIVE) 09/14/19 17:05 Urine Ketones 1+ (NEGATIVE) 09/14/19 17:05 Urine Occult Blood 1+ (NEGATIVE) 09/14/19 17:05 Urine Nitrite Negative (NEGATIVE) 09/14/19 17:05 Urine Bilirubin Negative (NEGATIVE) 09/14/19 17:05 Urine Urobilinogen Normal (NORMAL) 09/14/19 17:05 Ur Leukocyte Esterase Negative (NEGATIVE) 09/14/19 17:05 Urine RBC 5-10 /HPF (0-3) A 09/14/19 17:05 Urine WBC 3-5 /HPF (0-5) 09/14/19 17:05 Ur Squamous Epith Cells Few /HPF (NEGATIVE) 09/14/19 17:05 Calcium Oxalate Crystal Moderate /HPF (NEGATIVE) 09/14/19 17:05 Urine Bacteria Trace /HPF (NEGATIVE) 09/14/19 17:05 Urine Mucus Few /HPF (NEGATIVE) 09/14/19 17:05 Ur Culture Indicated? No/not indicated 09/14/19 17:05 Stool Description 20g unformed brown 09/15/19 09:00 Stl Occult Blood (IFOB) Positive (NEGATIVE) A 09/15/19 09:00 Tissue Pathology To follow 09/17/19 14:41 Blood Type O POSITIVE 09/14/19 15:14 Antibody Screen Negative 09/14/19 15:14 Crossmatch See Detail 09/14/19 15:14 - Plan (1) GI bleed Status: Acute Qualifiers: GI bleed type/associated pathology: gastrointestinal hemorrhage with hemate mesis Qualified Code(s): K92.0 - Hematemesis Plan: NS AT 75 ML/HR, ZOSYN 3.375G IV TID, LEVAQUIN 500MG IV DAILY, IV PROTONIX DRIP, HUMULIN R SLIDIDNG SCALE, AND HOME MEDICATIONS WERE RESUMED. EGD TOMORROW, CONTINUE TO MONITOR (2) Anemia Status: Acute Qualifiers: Anemia type: unspecified type Qualified Code(s): D64.9 - Anemia, unspecified Plan: CONTINUE TO MONITOR (3) Cellulitis of right foot Status: Acute Plan: IV ANTIBIOTICS, CONTINUE TO MONITOR (4) Osteomyelitis Status: Acute Qualifiers: Osteomyelitis type: unspecified type Osteomyelitis location: foot Laterality: right Qualified Code(s): M86.9 - Osteomyelitis, unspecified Plan: IV ANTIBIOTICS, CONTINUE TO MONITOR
[2019-09-20] MEDS: LIPITOR TAB 40 MG PO SCH (20:31)
[2019-09-20] MEDS: SNACK - Diabetic Appropriate PO SCH (20:32)
[2019-09-20] MEDS: ARICEPT TAB 5 MG PO SCH (20:33)
[2019-09-20] MEDS: RESTORIL CAP 15 MG PO PRN (20:38)
--- NOTE | 2019-09-20 22:52 | PCM.PROG ---
Progress Note - Progress Note for Day of Date of Exam: 09/20/19 - Subjective Subjective: WAS ADMITTED FOR GI BLEED, ANEMIA, CELLULITIS OF THE RIGHT FOOT, AND OSTEOMYELITIS. 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 HE HAS RECEIVED FOUR UNITS OF PACKED RED BLOOD CELLS SINCE ADMISSION. TODAY, HE IS ALERT AND ORIENTED, LYING IN BED ON MORNING ROUNDS. HE CONTINUES WITH WEAKNESS AND REDNESS TO THE RIGHT LEG. ON EXAMINATION, HEART IS REGULAR IN RATE AND RHYTHM. BILATERAL LUNGS ARE NOTED WITH DIMINISHED LUNG SOUNDS THROUGHOUT. ABDOMEN IS ROUND, SOFT, AND NON-TENDER WITH NORMAL BOWEL SOUNDS NOTED IN ALL QUADRANTS. HIS VITALS THIS MORNING ARE: 98.4-84-20-96%-154/65. LABS WERE OBTAINED. ABNORMAL LAB VALUES INCLUDE THE FOLLOWING: WBC 10.4, RBC 3.00, HGB 9.1, HCT 26.8, POTASSIUM 3.1, CHLORIDE 109, BUN 4, CREATININE 0.69, ALK PHOS 156, TOTAL PROTEIN 5.2, ALBUMIN 2.1. BLOOD CULTURES ARE PENDING. HE IS CURRENTLY RECEIVING NS AT 75 ML/HR, ZOSYN 3.375G IV TID, LEVAQUIN 500MG IV DAILY, IV PROTONIX DRIP, HUMULIN R SLIDIDNG SCALE, AND HOME MEDICATIONS WERE RESUMED. WE WILL CONTINUE WITH CURRENT PLAN OF CARE TODAY. OTHERWISE, WE PLAN TO FOLLOW UP WITH AM LABS AND CONTINUE TO MONITOR. - Past Medical Family Social History Past Med/Fam/Surg Hx: No changes since H&P Allergies: Allergies prednisone Allergy (Verified 08/28/19 13:06) - Review of Systems ROS: No change since H&P - Vital Signs and I&O's Vital Signs: Temperature 98.9 F Pulse Rate [Right Brachial] 74 Pulse Rate [Left Radial] 72 Pulse Rate 71 Respiratory Rate 24 Blood Pressure [Right Arm] 143/72 Blood Pressure [Left Arm] 154/65 Blood Pressure 103/59 O2 Sat by Pulse Oximetry 96 Intake and Output: Intake & Output 09/18/19 09/19/19 09/20/19 09/21/19 11:59 11:59 11:59 11:59 Intake Total 2180 / 2180 2080 / 2080 1400 / 1400 1140 / 1140 Output Total 175 / 175 200 / 200 Balance 2180 / 2180 2080 / 2080 1225 / 1225 940 / 940 - Physical Exam Oriented: Normal Eyes: Normal Ear: Normal Nose: Normal Throat: Normal Respiratory: Diminished Cardiovascular: Normal : Normal Auscultation: Bowel Sounds: Normal Tenderness: Normal (non tender) Skin: Normal Musculoskeletal: Normal Psychiatric: Normal Mood Description: Calm, Appropriate Affect: Normal Speech Pattern: Clear, Appropriate - Laboratory and Diagnostics Result Diagrams: 09/20/19 05:35 09/20/19 12:04 Labs: 09/18/19 06:23 Drainage Wound Culture - Preliminary 09/14/19 17:23 Blood Blood Culture - Preliminary 09/14/19 17:18 Blood Blood Culture - Preliminary Laboratory WBC 10.4 X10^3/uL (3.6-10.0) H 09/20/19 05:35 RBC 3.00 X10^6/uL (4.7-6.0) L 09/20/19 05:35 Hgb 9.1 g/dL (13.5-18.0) L 09/20/19 05:35 Hct 26.8 % (42.0-54.0) L 09/20/19 05:35 MCV 89.1 fL (80.0-100.0) 09/20/19 05:35 MCH 30.4 pg (27.0-34.0) 09/20/19 05:35 MCHC 34.2 g/dL (33.0-35.0) 09/20/19 05:35 RDW 17.1 % (11.6-16.5) H 09/20/19 05:35 Plt Count 320 X10^3/uL (150.0-450.0) 09/20/19 05:35 Plt Count Comment Adequate (ADEQUATE) 09/16/19 05:33 MPV 8.0 fL (7.4-11.0) 09/20/19 05:35 Neut % (Auto) 73.4 % (42.0-75.0) 09/20/19 05:35 Lymph % (Auto) 14.5 % (21.0-51.0) L 09/20/19 05:35 [place] % (Auto) 11.6 % (0.0-13.0) 09/20/19 05:35 Eos % (Auto) 0.0 % (0.9-2.9) L 09/20/19 05:35 Baso % (Auto) 0.5 % (0.2-1.0) 09/20/19 05:35 Neut # (Auto) 7.6 x10^3/uL (2.2-4.8) H 09/20/19 05:35 Lymph # (Auto) 1.5 X10^3/uL (1.3-2.9) 09/20/19 05:35 [place] # (Auto) 1.2 x10^3/uL (0.3-0.8) H 09/20/19 05:35 Eos # (Auto) 0.0 x10^3/uL (0.0-0.2) 09/20/19 05:35 Baso # (Auto) 0.0 X10^3/uL (0.0-0.1) 09/20/19 05:35 Absolute Nucleated RBC 0.0 /100WBC 09/20/19 05:35 Total Counted 100 09/14/19 13:10 Neutrophils % (Manual) 90 % (39-76) H 09/14/19 13:10 Lymphocytes % (Manual) 10 % (13-43) L 09/14/19 13:10 Plt Morphology Comment Normal (NORMAL) 09/16/19 05:33 RBC Morphology Normal (NORMAL) 09/16/19 05:33 PT 15.7 SECONDS (11.8-14.3) 09/14/19 13:10 INR Target Range - 09/14/19 13:10 INR 1.30 (0.8-1.3) 09/14/19 13:10 APTT 31.8 SECONDS (22.9-36.5) 09/14/19 13:10 PTT Comment - 09/14/19 13:10 Sodium 140 mmol/L (136-145) 09/20/19 05:35 Corrected Sodium TNP 09/20/19 05:35 Potassium 3.4 mmol/L (3.5-5.1) L 09/20/19 12:04 Chloride 109 mmol/L (98-107) H 09/20/19 05:35 Carbon Dioxide 22.9 mmol/L (21-32) 09/20/19 05:35 BUN 4 mg/dL (7-18) L 09/20/19 05:35 Creatinine 0.69 mg/dL (0.70-1.30) L 09/20/19 05:35 Est GFR (MDRD) Af Amer > 60 (>60) 09/20/19 05:35 Est GFR (MDRD) Non-Af > 60 (>60) 09/20/19 05:35 Glucose 92 mg/dL (65-99) 09/20/19 05:35 POC Glucose (mg/dL) 113 mg/dL (65-99) H 09/20/19 20:27 Lactic Acid 2.8 mmol/L (0.4-2.0) H 09/15/19 10:47 Calcium 9.1 mg/dL (8.5-10.1) 09/20/19 05:35 Corrected Calcium 10.6 mg/dL (8.5-10.1) H 09/20/19 05:35 Magnesium 1.8 mg/dL (1.7-2.9) 09/20/19 05:35 Total Bilirubin 0.30 mg/dL (0.2-1.0) 09/20/19 05:35 AST 29 Units/L (15-37) 09/20/19 05:35 ALT 25 Units/L (12-78) 09/20/19 05:35 Alkaline Phosphatase 156 Units/L (46-116) H 09/20/19 05:35 Total Protein 5.2 g/dL (6.4-8.2) L 09/20/19 05:35 Albumin 2.1 g/dL (3.4-5.0) L 09/20/19 05:35 Globulin 3.1 g/dL (2.5-4.5) 09/20/19 05:35 Albumin/Globulin Ratio 0.7 Ratio (1.1-2.1) L 09/20/19 05:35 Specimen Type Clean catch urine 09/14/19 17:05 Urine Color Yellow (YELLOW) 09/14/19 17:05 Urine Appearance Slightly hazy (CLEAR) 09/14/19 17:05 Urine pH 5.0 (5.0 - 8.0) 09/14/19 17:05 Ur Specific [place] 1.020 (1.000-1.030) 09/14/19 17:05 Urine Protein 2+ (NEGATIVE) 09/14/19 17:05 Urine Glucose (UA) Negative (NEGATIVE) 09/14/19 17:05 Urine Ketones 1+ (NEGATIVE) 09/14/19 17:05 Urine Occult Blood 1+ (NEGATIVE) 09/14/19 17:05 Urine Nitrite Negative (NEGATIVE) 09/14/19 17:05 Urine Bilirubin Negative (NEGATIVE) 09/14/19 17:05 Urine Urobilinogen Normal (NORMAL) 09/14/19 17:05 Ur Leukocyte Esterase Negative (NEGATIVE) 09/14/19 17:05 Urine RBC 5-10 /HPF (0-3) A 09/14/19 17:05 Urine WBC 3-5 /HPF (0-5) 09/14/19 17:05 Ur Squamous Epith Cells Few /HPF (NEGATIVE) 09/14/19 17:05 Calcium Oxalate Crystal Moderate /HPF (NEGATIVE) 09/14/19 17:05 Urine Bacteria Trace /HPF (NEGATIVE) 09/14/19 17:05 Urine Mucus Few /HPF (NEGATIVE) 09/14/19 17:05 Ur Culture Indicated? No/not indicated 09/14/19 17:05 Stool Description 20g unformed brown 09/15/19 09:00 Stl Occult Blood (IFOB) Positive (NEGATIVE) A 09/15/19 09:00 Tissue Pathology To follow 09/17/19 14:41 Blood Type O POSITIVE 09/14/19 15:14 Antibody Screen Negative 09/14/19 15:14 Crossmatch See Detail 09/14/19 15:14 - Plan (1) GI bleed Status: Acute Qualifiers: GI bleed type/associated pathology: gastrointestinal hemorrhage with he matemesis Qualified Code(s): K92.0 - Hematemesis Plan: NS AT 75 ML/HR, ZOSYN 3.375G IV TID, LEVAQUIN 500MG IV DAILY, IV PROTONIX DRIP, HUMULIN R SLIDIDNG SCALE, AND HOME MEDICATIONS WERE RESUMED. EGD TOMORROW, CONTINUE TO MONITOR (2) Anemia Status: Acute Qualifiers: Anemia type: unspecified type Qualified Code(s): D64.9 - Anemia, unspecified Plan: CONTINUE TO MONITOR (3) Cellulitis of right foot Status: Acute Plan: IV ANTIBIOTICS, CONTINUE TO MONITOR (4) Osteomyelitis Status: Acute Qualifiers: Osteomyelitis type: unspecified type Osteomyelitis location: foot Laterality: right Qualified Code(s): M86.9 - Osteomyelitis, unspecified Plan: IV ANTIBIOTICS, CONTINUE TO MONITOR
[2019-09-21] MEDS: NS 1000 ML 1,000 ML IV SCH ×2 (00:57→12:32)
[2019-09-21] MEDS: ZOSYN VIAL 3.375 GRAMS 3.375 G in NS 100 ML IV + SPIKE MINIBAG* 100 ML IV SCH (05:11)
[2019-09-21] MEDS: APRESOLINE TAB 25 MG PO SCH (05:11)
[2019-09-21] MEDS: NYSTATIN CREAM TOP SCH (05:12)
[2019-09-21] MEDS: PROTONIX INJ 40 MG VIAL 80 MG in NS 100 ML IV 80 ML IV SCH (05:44)
[2019-09-21 06:18] LABS: BASOPHILS % (AUTO) 0.3 % (0.2-1.0); HEMATOCRIT 27.7 % (42.0-54.0); HEMOGLOBIN 9.5 g/dL (13.5-18.0); LYMPHOCYTES # (AUTO) 1.2 X10^3/uL (1.3-2.9); LYMPHOCYTES % (AUTO) 12.3 % (21.0-51.0); MEAN CORPUSCULAR HEMOGLOBIN 30.2 pg (27.0-34.0); MEAN CORPUSCULAR HGB CONC 34.4 g/dL (33.0-35.0); MEAN CORPUSCULAR VOLUME 87.9 fL (80.0-100.0); MEAN PLATELET VOLUME 7.6 fL (7.4-11.0); MONOCYTES # (AUTO) 1.1 x10^3/uL (0.3-0.8); MONOCYTES % (AUTO) 11.5 % (0.0-13.0); NEUTROPHILS # (AUTO) 7.5 x10^3/uL (2.2-4.8); NEUTROPHILS % (AUTO) 75.9 % (42.0-75.0); PLATELET COUNT 326 X10^3/uL (150.0-450.0); RED BLOOD COUNT 3.15 X10^6/uL (4.7-6.0); RED CELL DISTRIBUTION WIDTH 17.2 % (11.6-16.5); WHITE BLOOD COUNT 9.9 X10^3/uL (3.6-10.0)
[2019-09-21 06:30] LABS: ALANINE AMINOTRANSFERASE 23 Units/L (12-78); ALBUMIN 2.2 g/dL (3.4-5.0); ALKALINE PHOSPHATASE 152 Units/L (46-116); ASPARTATE AMINO TRANSFERASE 28 Units/L (15-37); BLOOD UREA NITROGEN 4 mg/dL (7-18); CALCIUM 9.2 mg/dL (8.5-10.1); CARBON DIOXIDE 24.5 mmol/L (21-32); CHLORIDE 108 mmol/L (98-107); COR CA(FOR HYPOALB) 10.6 mg/dL (8.5-10.1); CREATININE 0.64 mg/dL (0.70-1.30); SODIUM 138 mmol/L (136-145); TOTAL PROTEIN 5.4 g/dL (6.4-8.2); eGFR NON BLACK RACES > 60 (>60)
[2019-09-21] MEDS ORDERED: GLUCOPHAGE ONE (09:01)
[2019-09-21] MEDS: LEVAQUIN PREMIX IV 500 MG 500 MG/100 ML BAG IV SCH (09:30)
[2019-09-21] MEDS: TAB-A-VITE PO SCH (09:30)
[2019-09-21] MEDS: NORVASC TAB 10 MG PO SCH (09:30)
[2019-09-21] MEDS: K-DUR TAB 20 MEQ PO PRN (09:30)
[2019-09-21] MEDS: COREG TAB 6.25 MG PO SCH (09:30)
[2019-09-21] MEDS: BENICAR TAB 40 MG PO SCH (09:30)
[2019-09-21] MEDS: NAMENDA TAB 10 MG PO SCH (09:30)
[2019-09-21] MEDS: GLUCOPHAGE PO SCH (09:31)
[2019-09-21] MEDS: ASPIRIN EC 81 MG PO SCH (09:31)
[2019-09-21 12:29] VITALS: BP 162/67
[2019-09-21] MEDS: NYSTATIN POWDER TOP SCH (12:32)
== END 2019-09-21 13:20 | DRG 369 ==
LOC: ER 12:58 → MED/SURG 18:28
PROVIDERS: ADMIT Internal Medicine; ATTEND Internal Medicine
DX: R10.84 Generalized abdominal pain; K29.01 Acute gastritis with bleeding; M79.671 Pain in right foot; D72.828 Other elevated white blood cell count; M86.171 Other acute osteomyelitis, right ankle and foot; K21.9 Gastro-esophageal reflux disease without esophagitis; K22.6 Gastro-esophageal laceration-hemorrhage syndrome; E78.2 Mixed hyperlipidemia; L03.116 Cellulitis of left lower limb; I10 Essential (primary) hypertension; K44.9 Diaphragmatic hernia without obstruction or gangrene; R42 Dizziness and giddiness; E11.65 Type 2 diabetes mellitus with hyperglycemia
CPT/HCPCS: 36415; 36430; 71010; 71045; 73630; 74177; 80053; 81001; 82270; 83605; 83735; 84132; 85014; 85018; 85025; 85610; 85730; 86850; 86900; 86901; 86922; 87040; 87070; 87075; 88305; 96365; 96374; 96375; 97110; 97162; 97166; 99100; 99284; A4217; A4222; C9113; J1200; J1956; J2405; J2543; J2704; J3475; J3490; J7030; J7040; J7050; P9016

== ENCOUNTER 2019-11-09 16:17 | Inpatient (IN) ==
[2019-11-09] MEDS ORDERED: PHARMACY CONSULT - VANCOMYCIN XX SCH (18:00)
[2019-11-09 18:16] LABS: ALANINE AMINOTRANSFERASE 40 Units/L (12-78); ALBUMIN 1.9 g/dL (3.4-5.0); ALKALINE PHOSPHATASE 201 Units/L (46-116); ASPARTATE AMINO TRANSFERASE 48 Units/L (15-37); BASOPHILS % (AUTO) 0.1 % (0.2-1.0); BLOOD UREA NITROGEN 29 mg/dL (7-18); CALCIUM 11.7 mg/dL (8.5-10.1); CARBON DIOXIDE 23.5 mmol/L (21-32); CHLORIDE 103 mmol/L (98-107); COR CA(FOR HYPOALB) 13.4 mg/dL (8.5-10.1); COR NA(FOR HYPERGLY) 137 mmol/L (136-145); CREATININE 0.95 mg/dL (0.70-1.30); HEMATOCRIT 32.7 % (42.0-54.0); HEMOGLOBIN 10.8 g/dL (13.5-18.0); LYMPHOCYTES # (AUTO) 0.9 X10^3/uL (1.3-2.9); LYMPHOCYTES % (AUTO) 5.5 % (21.0-51.0); MEAN CORPUSCULAR HEMOGLOBIN 27.8 pg (27.0-34.0); MEAN CORPUSCULAR HGB CONC 33.1 g/dL (33.0-35.0); MEAN CORPUSCULAR VOLUME 84.1 fL (80.0-100.0); MEAN PLATELET VOLUME 7.9 fL (7.4-11.0); MONOCYTES # (AUTO) 1.5 x10^3/uL (0.3-0.8); MONOCYTES % (AUTO) 9.3 % (0.0-13.0); NEUTROPHILS # (AUTO) 13.4 x10^3/uL (2.2-4.8); NEUTROPHILS % (AUTO) 85.1 % (42.0-75.0); PLATELET COUNT 554 X10^3/uL (150.0-450.0); RED BLOOD COUNT 3.88 X10^6/uL (4.7-6.0); RED CELL DISTRIBUTION WIDTH 17.1 % (11.6-16.5); SODIUM 136 mmol/L (136-145); TOTAL PROTEIN 6.9 g/dL (6.4-8.2); WHITE BLOOD COUNT 15.8 X10^3/uL (3.6-10.0); eGFR NON BLACK RACES > 60 (>60)
[2019-11-09 20:32] VITALS: BMI 21.9
[2019-11-09] MEDS ORDERED: NS 250 ML IV 250 ML IV ONE (20:42)
[2019-11-09] MEDS ORDERED: VANCOMYCIN HCL ONE ×2 (20:42)
[2019-11-09] MEDS: NS 1000 ML 1,000 ML IV SCH (21:29)
[2019-11-09] MEDS: VANCOMYCIN HCL 250 MG, VANCOMYCIN HCL 1 G in NS 250 ML IV 250 ML IV SCH (21:29)
[2019-11-10 06:38] LABS: BASOPHILS % (AUTO) 0.2 % (0.2-1.0); HEMATOCRIT 30.9 % (42.0-54.0); HEMOGLOBIN 10.5 g/dL (13.5-18.0); LYMPHOCYTES # (AUTO) 1.1 X10^3/uL (1.3-2.9); LYMPHOCYTES % (AUTO) 9.1 % (21.0-51.0); MEAN CORPUSCULAR HEMOGLOBIN 28.4 pg (27.0-34.0); MEAN CORPUSCULAR HGB CONC 33.9 g/dL (33.0-35.0); MEAN CORPUSCULAR VOLUME 83.6 fL (80.0-100.0); MEAN PLATELET VOLUME 7.7 fL (7.4-11.0); MONOCYTES # (AUTO) 1.3 x10^3/uL (0.3-0.8); MONOCYTES % (AUTO) 10.5 % (0.0-13.0); NEUTROPHILS # (AUTO) 9.7 x10^3/uL (2.2-4.8); NEUTROPHILS % (AUTO) 80.2 % (42.0-75.0); PLATELET COUNT 484 X10^3/uL (150.0-450.0); RED BLOOD COUNT 3.69 X10^6/uL (4.7-6.0); RED CELL DISTRIBUTION WIDTH 16.9 % (11.6-16.5); WHITE BLOOD COUNT 12.2 X10^3/uL (3.6-10.0)
[2019-11-10 06:44] LABS: ALANINE AMINOTRANSFERASE 40 Units/L (12-78); ALBUMIN 1.7 g/dL (3.4-5.0); ALKALINE PHOSPHATASE 189 Units/L (46-116); ASPARTATE AMINO TRANSFERASE 51 Units/L (15-37); BLOOD UREA NITROGEN 22 mg/dL (7-18); CARBON DIOXIDE 25.2 mmol/L (21-32); CHLORIDE 106 mmol/L (98-107); COR CA(FOR HYPOALB) 12.8 mg/dL (8.5-10.1); COR NA(FOR HYPERGLY) 139 mmol/L (136-145); CREATININE 0.77 mg/dL (0.70-1.30); SODIUM 138 mmol/L (136-145); TOTAL PROTEIN 6.3 g/dL (6.4-8.2); eGFR NON BLACK RACES > 60 (>60)
[2019-11-10] MEDS: NS 1000 ML 1,000 ML IV SCH (06:58)
[2019-11-10] MEDS ORDERED: PERCOCET TAB 5/325 MG PO PRN (10:00)
[2019-11-10] MEDS: ALBUMIN HUMAN 25%- 100 ML 100 ML IV SCH (10:01)
[2019-11-10] MEDS: NAMENDA TAB 10 MG PO SCH ×2 (11:23→21:12)
[2019-11-10] MEDS: TAB-A-VITE PO SCH (11:23)
[2019-11-10] MEDS: NORVASC TAB 10 MG PO SCH (11:23)
[2019-11-10] MEDS: COREG TAB 6.25 MG PO SCH ×2 (11:23→21:12)
[2019-11-10] MEDS: PROTONIX TAB 40 MG PO SCH ×2 (11:23→21:12)
[2019-11-10] MEDS: MOBIC TAB 15 MG PO SCH (11:23)
[2019-11-10] MEDS: CARAFATE PO SCH ×4 (11:24→21:14)
[2019-11-10] MEDS: BENICAR TAB 40 MG PO SCH (11:24)
[2019-11-10] MEDS: APRESOLINE TAB 25 MG PO SCH ×2 (15:39→21:12)
[2019-11-10] MEDS: VANCOMYCIN HCL 250 MG, VANCOMYCIN HCL 1 G in NS 250 ML IV 250 ML IV SCH (17:00)
--- NOTE | 2019-11-10 17:03 | DR.H&P ---
H&P - History & Physical for Day of: H&P Date: 11/09/19 - Chief Complaint Chief Complaint: WEAKNESS, RIGHT FOOT ERYTHEMA AND EDEMA - History of Present Illness History of Present Illness: IS A 84 YEAR OLD PATIENT OF OURS WHO PRESENTED TO THE OFFICE WITH COMPLAINTS OF WEAKNESS AND REDNESS/SWELLING TO THE RIGHT FOOT. SEVERAL MONTHS PRIOR, PATIENT HAD A 5TH DIGIT AMPUTATION AND TREATMENT FOR OSTEOMYELITIS. PATIENT HAS BEEN ON BACTRIM DS 1 TABLET TWICE A DAY FOR THE PAST WEEK WITHOUT IMPROVEMENT IN SYMPTOMS. ON ARRIVAL TO THE ER, VITALS WERE 97.8-68-20-98%-165/78. LABS WERE OBTAINED. ABNORMAL LAB VALUES INCLUDE THE FOLLOWING: WBC 15.8, RBC 3.88, HGB 10.8, HCT 32.7, BUN 29, GLUCOSE 140, CALCIUM 11.7, AST 48, ALK PHOS 201, ALBUMIN 1.9, GLOBULIN 5.0. BLOOD CULTURE WERE SET UP. MRI OBTAINED ON 08/31/19, PRIOR TO AMPUTATION, REVEALED: Diffuse cellulitis with abscess in the dorsum of the foot. Abscess measures 4.1 cm in length and 3.0 x 2.0 cm in axial dimensions. This abscess extend between the 1st and 2nd metatarsals and may involve the 1st and 2nd tarsal-metatarsal joints. Osteomyelitis in the 5th metatarsal and likely the base of the 5th proximal phalanx. New abnormal appearance of the 3rd and 4th metatarsal shafts and base of the 2nd metatarsal. Similar appearance is now seen in the 3rd cuneiform bone and cuboid bone. There is no associated enhancement. This could be devascularized bone. HE WAS STARTED ON NS AT 80 ML/HR, VANCOMYCIN 1G IV Q18H, AND HOME MEDICATIONS WERE RESUMED. TODAY, WE WILL START ALBUMIN 25% IV DAILY AND OBTAIN A REPEAT MRI WITH CONTRAST OF THE RIGHT FOOT. OTHERWISE, WE WILL FOLLOW UP WITH AM LABS AND CONTINUE TO MONITOR. - Past Medical History Past Medical History: Hypertension, Dyslipidemia, Diabetes, GERD, Arthritis - Past Surgical History Surgical History: Angioplasty/Stents, Cholecystectomy, Ortho Surgery, Tonsillectomy, Other - Family History Family Medical History: Diabetes Mellitus, Cancer, Hypertension - Social History Does any household member use tobacco: No Alcohol Use: None Drug Use: None - Medications Home Medications: prednisone Allergy (Verified 08/28/19 13:06) - Physical Exam Vital Signs: Temperature 97.9 F Pulse Rate [Left Brachial] 56 Respiratory Rate 18 Blood Pressure [Left Arm] 166/77 Blood Pressure [Right Arm] 159/75 O2 Sat by Pulse Oximetry 99 - Allergies Allergies/Adverse Reactions: Allergies Allergy/AdvReac Type Severity Reaction Status Date / Time prednisone Allergy Verified 08/28/19 13:06
--- NOTE | 2019-11-10 17:52 | MRI ---
HISTORYRT FOOT CELLULITIS, R/O OSTEOMYELITISSTUDYMRI right foot without and with IV contrastCOMPARISONX-ray 09/14/2019TECHNIQUEMRI of the right footwithout and with IV contrast is performed using standard sequences in multiple planes. 20 cc MultiHance IV contrast.FINDINGSProminent soft tissue edema in the foot which enhances. This is consistent with cellulitis. There are innumerable areas of nonenhancing fluid present throughout the midfoot joint spaces and extending into the subcutaneous soft tissues. This suggests septic arthritis and abscesses. The abscesses are closely associated with extensor tendons and extend into the forefoot laterally at the level of the distal head of the 5th metatarsal. There is skin ulceration near the distal head of the 5th metatarsal which likely drains this abscess.Likely septic peritendinitis is seen associated with the peroneus brevis and longus tendons and flexor hallucis longus tendon. Enhancing edema is seen throughout the cuneiform bones and cuboid bone and navicular bone. This is consistent with osteomyelitis. Similar enhancing edema is seen throughout most of the 2nd-4th metatarsal shafts. There is involvement of the proximal head of the 1st metatarsal. There is destruction of the 5th metatarsal from osteomyelitis. No definite osteomyelitis is seen in the phalanges.There is more heterogeneous edema and enhancement present within the anterior aspect of the talus and calcaneus. This is more likely due to stress reaction/stress fractures but osteomyelitis is not completely excluded.IMPRESSIONProminent cellulitis and septic arthritis. Multiple abscesses and septic peritendinitis are suspected.Osteomyelitis in the 1st-5th metatarsals, cuneiforms, cuboid, and navicular bones. More likely stress reaction/stress fracture in the anterior aspects of the talus and calcaneus but osteomyelitis is not completely excluded here.Electronically signed by: Brock [place] (Nov 10, 2019 17:51:25)
[2019-11-10] MEDS: LIPITOR TAB 40 MG PO SCH (21:12)
[2019-11-10] MEDS: ARICEPT TAB 5 MG PO SCH (21:13)
[2019-11-11] MEDS: NS 1000 ML 1,000 ML IV SCH ×3 (01:14→22:09)
[2019-11-11] MEDS: APRESOLINE TAB 25 MG PO SCH ×3 (05:37→21:56)
[2019-11-11] MEDS: CARAFATE PO SCH ×4 (05:37→21:56)
[2019-11-11 05:41] LABS: BASOPHILS % (AUTO) 0.2 % (0.2-1.0); HEMATOCRIT 28.7 % (42.0-54.0); HEMOGLOBIN 9.8 g/dL (13.5-18.0); LYMPHOCYTES # (AUTO) 1.1 X10^3/uL (1.3-2.9); LYMPHOCYTES % (AUTO) 10.4 % (21.0-51.0); MEAN CORPUSCULAR HEMOGLOBIN 28.8 pg (27.0-34.0); MEAN CORPUSCULAR VOLUME 84.7 fL (80.0-100.0); MONOCYTES # (AUTO) 1.1 x10^3/uL (0.3-0.8); MONOCYTES % (AUTO) 9.7 % (0.0-13.0); NEUTROPHILS # (AUTO) 8.7 x10^3/uL (2.2-4.8); NEUTROPHILS % (AUTO) 79.7 % (42.0-75.0); PLATELET COUNT 450 X10^3/uL (150.0-450.0); RED BLOOD COUNT 3.39 X10^6/uL (4.7-6.0); WHITE BLOOD COUNT 10.8 X10^3/uL (3.6-10.0)
[2019-11-11 06:09] LABS: ALANINE AMINOTRANSFERASE 30 Units/L (12-78); ALBUMIN 1.8 g/dL (3.4-5.0); ALKALINE PHOSPHATASE 179 Units/L (46-116); ASPARTATE AMINO TRANSFERASE 37 Units/L (15-37); BLOOD UREA NITROGEN 13 mg/dL (7-18); CALCIUM 10.6 mg/dL (8.5-10.1); CARBON DIOXIDE 23.6 mmol/L (21-32); CHLORIDE 107 mmol/L (98-107); COR CA(FOR HYPOALB) 12.4 mg/dL (8.5-10.1); COR NA(FOR HYPERGLY) 139 mmol/L (136-145); CREATININE 0.76 mg/dL (0.70-1.30); SODIUM 138 mmol/L (136-145); eGFR NON BLACK RACES > 60 (>60)
[2019-11-11] MEDS ORDERED: POTASSIUM CHL 60 MEQ/NS 0.45% 500 ML IV PRN (06:19)
[2019-11-11] MEDS ORDERED: POTASSIUM CHL 40 MEQ/NS 0.45% 500 ML IV PRN (06:19)
[2019-11-11] MEDS ORDERED: K-RIDER 10 MEQ/NS 100 ML 10 MEQ/100 ML BAG IV PRN (06:19)
[2019-11-11] MEDS ORDERED: POTASSIUM CHLORIDE LIQ 20 MEQ UDC PO PRN (06:19)
[2019-11-11] MEDS ORDERED: MICRO K EXTEN CAP 10 MEQ PO PRN (06:19)
[2019-11-11] MEDS: MOBIC TAB 15 MG PO SCH (10:01)
[2019-11-11] MEDS: COREG TAB 6.25 MG PO SCH ×2 (10:02→21:56)
[2019-11-11] MEDS: NORVASC TAB 10 MG PO SCH (10:02)
[2019-11-11] MEDS: TAB-A-VITE PO SCH (10:02)
[2019-11-11] MEDS: NAMENDA TAB 10 MG PO SCH ×2 (10:02→21:57)
[2019-11-11] MEDS: PROTONIX TAB 40 MG PO SCH ×2 (10:02→21:56)
[2019-11-11] MEDS: ALBUMIN HUMAN 25%- 100 ML 100 ML IV SCH (10:03)
[2019-11-11] MEDS: BENICAR TAB 40 MG PO SCH (10:03)
[2019-11-11] MEDS: K-DUR TAB 20 MEQ PO PRN (10:16)
[2019-11-11] MEDS: MAGNESIUM SULFATE 1 GRAM/100 mL PREMIX 1 GM/100 ML BAG IV PRN ×2 (10:17→16:00)
[2019-11-11] MEDS ORDERED: NS 250 ML IV 250 ML IV ONE ×2 (11:37→21:47)
[2019-11-11] MEDS ORDERED: VANCOMYCIN HCL ONE ×4 (11:38→21:48)
[2019-11-11] MEDS: VANCOMYCIN HCL 250 MG, VANCOMYCIN HCL 1 G in NS 250 ML IV 250 ML IV SCH ×2 (11:46→21:57)
[2019-11-11 21:00] LABS: CREATININE 0.67 mg/dL (0.70-1.30); VANCOMYCIN,TROUGH 9.7 ug/mL (15-20)
[2019-11-11] MEDS: LIPITOR TAB 40 MG PO SCH (21:56)
[2019-11-11] MEDS: ARICEPT TAB 5 MG PO SCH (21:57)
[2019-11-12] MEDS: APRESOLINE TAB 25 MG PO SCH ×3 (05:13→21:01)
[2019-11-12 05:30] LABS: BASOPHILS % (AUTO) 0.4 % (0.2-1.0); HEMATOCRIT 27.1 % (42.0-54.0); HEMOGLOBIN 9.3 g/dL (13.5-18.0); LYMPHOCYTES # (AUTO) 1.1 X10^3/uL (1.3-2.9); LYMPHOCYTES % (AUTO) 10.8 % (21.0-51.0); MEAN CORPUSCULAR HEMOGLOBIN 28.9 pg (27.0-34.0); MEAN CORPUSCULAR HGB CONC 34.3 g/dL (33.0-35.0); MEAN CORPUSCULAR VOLUME 84.2 fL (80.0-100.0); MEAN PLATELET VOLUME 7.9 fL (7.4-11.0); MONOCYTES % (AUTO) 9.7 % (0.0-13.0); NEUTROPHILS # (AUTO) 8.3 x10^3/uL (2.2-4.8); NEUTROPHILS % (AUTO) 79.1 % (42.0-75.0); PLATELET COUNT 425 X10^3/uL (150.0-450.0); RED BLOOD COUNT 3.22 X10^6/uL (4.7-6.0); RED CELL DISTRIBUTION WIDTH 17.2 % (11.6-16.5); WHITE BLOOD COUNT 10.5 X10^3/uL (3.6-10.0)
[2019-11-12] MEDS: CARAFATE PO SCH ×4 (05:36→20:48)
[2019-11-12 05:46] LABS: ALANINE AMINOTRANSFERASE 44 Units/L (12-78); ALBUMIN 1.9 g/dL (3.4-5.0); ALKALINE PHOSPHATASE 187 Units/L (46-116); ASPARTATE AMINO TRANSFERASE 45 Units/L (15-37); BLOOD UREA NITROGEN 11 mg/dL (7-18); CARBON DIOXIDE 22.2 mmol/L (21-32); CHLORIDE 107 mmol/L (98-107); COR CA(FOR HYPOALB) 11.7 mg/dL (8.5-10.1); COR NA(FOR HYPERGLY) 141 mmol/L (136-145); CREATININE 0.83 mg/dL (0.70-1.30); MAGNESIUM 1.7 mg/dL (1.7-2.9); SODIUM 139 mmol/L (136-145); TOTAL PROTEIN 5.9 g/dL (6.4-8.2); eGFR NON BLACK RACES > 60 (>60)
[2019-11-12] MEDS: K-DUR TAB 20 MEQ PO PRN ×2 (06:48→10:53)
[2019-11-12] MEDS: MOBIC TAB 15 MG PO SCH (09:11)
[2019-11-12] MEDS: COREG TAB 6.25 MG PO SCH ×2 (09:11→20:48)
[2019-11-12] MEDS: TAB-A-VITE PO SCH (09:11)
[2019-11-12] MEDS: PROTONIX TAB 40 MG PO SCH ×2 (09:11→20:48)
[2019-11-12] MEDS: NORVASC TAB 10 MG PO SCH (09:11)
[2019-11-12] MEDS: NAMENDA TAB 10 MG PO SCH ×2 (09:12→20:49)
[2019-11-12] MEDS: BENICAR TAB 40 MG PO SCH (09:12)
[2019-11-12] MEDS: ALBUMIN HUMAN 25%- 100 ML 100 ML IV SCH (09:16)
[2019-11-12] MEDS ORDERED: NS 250 ML IV 250 ML IV ONE ×2 (09:30→20:39)
[2019-11-12] MEDS ORDERED: VANCOMYCIN HCL ONE ×4 (09:30→20:40)
[2019-11-12] MEDS: VANCOMYCIN HCL 250 MG, VANCOMYCIN HCL 1 G in NS 250 ML IV 250 ML IV SCH ×2 (09:40→20:49)
[2019-11-12] MEDS ORDERED: PHARMACY COMMENT IV NR (20:30)
[2019-11-12] MEDS: ARICEPT TAB 5 MG PO SCH (20:47)
[2019-11-12] MEDS: NS 1000 ML 1,000 ML IV SCH (20:47)
[2019-11-12] MEDS: LIPITOR TAB 40 MG PO SCH (20:48)
[2019-11-13] MEDS: APRESOLINE TAB 25 MG PO SCH ×3 (05:48→22:33)
[2019-11-13] MEDS: CARAFATE PO SCH ×4 (05:48→22:31)
[2019-11-13 06:20] LABS: BASOPHILS % (AUTO) 0.4 % (0.2-1.0); HEMATOCRIT 27.6 % (42.0-54.0); HEMOGLOBIN 9.3 g/dL (13.5-18.0); LYMPHOCYTES # (AUTO) 1.4 X10^3/uL (1.3-2.9); MEAN CORPUSCULAR HEMOGLOBIN 28.3 pg (27.0-34.0); MEAN CORPUSCULAR HGB CONC 33.6 g/dL (33.0-35.0); MEAN CORPUSCULAR VOLUME 84.4 fL (80.0-100.0); MEAN PLATELET VOLUME 8.1 fL (7.4-11.0); MONOCYTES % (AUTO) 9.2 % (0.0-13.0); NEUTROPHILS # (AUTO) 8.2 x10^3/uL (2.2-4.8); NEUTROPHILS % (AUTO) 77.4 % (42.0-75.0); PLATELET COUNT 437 X10^3/uL (150.0-450.0); RED BLOOD COUNT 3.27 X10^6/uL (4.7-6.0); RED CELL DISTRIBUTION WIDTH 17.3 % (11.6-16.5); WHITE BLOOD COUNT 10.6 X10^3/uL (3.6-10.0)
[2019-11-13 06:42] LABS: ALANINE AMINOTRANSFERASE 48 Units/L (12-78); ALBUMIN 2.1 g/dL (3.4-5.0); ALKALINE PHOSPHATASE 203 Units/L (46-116); ASPARTATE AMINO TRANSFERASE 51 Units/L (15-37); BLOOD UREA NITROGEN 8 mg/dL (7-18); CARBON DIOXIDE 23.9 mmol/L (21-32); CHLORIDE 107 mmol/L (98-107); COR CA(FOR HYPOALB) 11.5 mg/dL (8.5-10.1); COR NA(FOR HYPERGLY) 140 mmol/L (136-145); CREATININE 0.71 mg/dL (0.70-1.30); SODIUM 139 mmol/L (136-145); eGFR NON BLACK RACES > 60 (>60)
[2019-11-13] MEDS: TAB-A-VITE PO SCH (08:38)
[2019-11-13] MEDS: PROTONIX TAB 40 MG PO SCH ×2 (08:38→22:33)
[2019-11-13] MEDS: COREG TAB 6.25 MG PO SCH ×2 (08:38→22:32)
[2019-11-13] MEDS: MOBIC TAB 15 MG PO SCH (08:39)
[2019-11-13] MEDS: NORVASC TAB 10 MG PO SCH (08:39)
[2019-11-13] MEDS: ALBUMIN HUMAN 25%- 100 ML 100 ML IV SCH (08:39)
[2019-11-13] MEDS: NAMENDA TAB 10 MG PO SCH ×2 (08:39→22:32)
[2019-11-13] MEDS: BENICAR TAB 40 MG PO SCH (08:39)
--- NOTE | 2019-11-13 08:41 | PCM.PROG ---
Progress Note - Progress Note for Day of Date of Exam: 11/11/19 - Subjective Subjective: IS BEING TREATED FOR WEAKNESS AND RIGHT FOOT CELLULITIS. TODAY, HE IS ALERT AND ORIENTED, LYING IN BED ON MORNING ROUNDS. HE REPORTS PAIN TO THE RIGHT FOOT THIS MORNING. ON EXAMINATION, HEART IS REGULAR IN RATE AND RHYTHM. BILATERAL LUNGS ARE NOTED WITH DIMINISHED LUNG SOUNDS THROUGHOUT. ABDOMEN IS ROUND, FLAT, SOFT, AND NON-TENDER WITH NORMAL BOWEL SOUNDS NOTED IN ALL QUADRANTS. RIGHT FOOT IS NOTED WITH ERYTHEMA AND 2+ PITTING EDEMA. HIS VITALS THIS MORNING ARE: 98.1-60-20-97%-134/62. LABS WERE OBTAINED. ABNORMAL LAB VALUES INCLUDE THE FOLLOWING: WBC 10.8, RBC 3.39, HGB 9.8, HCT 28.7, POTASSIUM 3.3, GLUCOSE 161, MAGNESIUM 1.6, ALK PHOS 179, TOTAL PROTEIN 6.0, ALBUMIN 1.8. BLOOD AND WOUND CULTURES ARE PENDING. WE OBTAINED A LOWER EXTREMITY MRI YESTERDAY. IT REVEALED: Prominent cellulitis and septic arthritis. Multiple abscesses and septic peritendinitis are suspected. Osteomyelitis in the 1st-5th metatarsals, cuneiforms, cuboid, and navicular bones. More likely stress reaction/stress fracture in the anterior aspects of the talus and calcaneus but osteomyelitis is not completely excluded here. HE IS CURRENTLY RECEIVING NS AT 80 ML/HR, VANCOMYCIN 1G IV Q12H, ALBUMIN 25% IV DAILY, AND HOME MEDICATIONS WERE RESUMED. WE WILL CONTINUE WITH CURRENT PLAN OF CARE TODAY AND CONSULT WITH , ORTHOPEDIC SURGEON. OTHERWISE, WE WILL FOLLOW UP WITH AM LABS AND CONTINUE TO MONITOR. - Past Medical Family Social History Past Med/Fam/Surg Hx: No changes since H&P Allergies: Allergies prednisone Allergy (Verified 08/28/19 13:06) - Review of Systems ROS: No change since H&P - Vital Signs and I&O's Vital Signs: Temperature 98.4 F Pulse Rate [Right Brachial] 72 Pulse Rate [Left Brachial] 62 Respiratory Rate 20 Blood Pressure [Left Arm] 160/69 Blood Pressure [Right Arm] 152/66 O2 Sat by Pulse Oximetry 96 Intake and Output: Intake & Output 11/10/19 11/11/19 11/12/19 11/13/19 11:59 11:59 11:59 11:59 Intake Total 0 / 0 1760 / 1760 1720 / 1720 2570 / 2570 Output Total 250 / 250 125 / 125 Balance - 1510 / 1510 1595 / 1595 2570 / 2570 - Physical Exam Oriented: Normal Eyes: Normal Ear: Normal Nose: Normal Throat: Normal Respiratory: Generalized, Diminished Cardiovascular: Normal : Normal Auscultation: Bowel Sounds: Normal Palpation: Normal Tenderness: Normal Skin: Red, Tender, Hot, Wound (RIGHT SIDE ANTERIOR FOOT ) Musculoskeletal: Right, Foot, Swelling, Tender Psychiatric: Normal Mood Description: Calm Affect: Normal Speech Pattern: Clear, Appropriate - Laboratory and Diagnostics Result Diagrams: 11/13/19 05:51 11/13/19 05:51 Labs: 11/09/19 17:30 Blood Blood Culture - Final Staphylococcus Aureus 11/10/19 11:05 Foot - Right Gram Stain - Final 11/10/19 11:05 Foot - Right Wound Culture - Final Staphylococcus Aureus 11/09/19 17:35 Blood Blood Culture - Preliminary Laboratory WBC 10.6 X10^3/uL (3.6-10.0) H 11/13/19 05:51 RBC 3.27 X10^6/uL (4.7-6.0) L 11/13/19 05:51 Hgb 9.3 g/dL (13.5-18.0) L 11/13/19 05:51 Hct 27.6 % (42.0-54.0) L 11/13/19 05:51 MCV 84.4 fL (80.0-100.0) 11/13/19 05:51 MCH 28.3 pg (27.0-34.0) 11/13/19 05:51 MCHC 33.6 g/dL (33.0-35.0) 11/13/19 05:51 RDW 17.3 % (11.6-16.5) H 11/13/19 05:51 Plt Count 437 X10^3/uL (150.0-450.0) 11/13/19 05:51 MPV 8.1 fL (7.4-11.0) 11/13/19 05:51 Neut % (Auto) 77.4 % (42.0-75.0) H 11/13/19 05:51 Lymph % (Auto) 13.0 % (21.0-51.0) L 11/13/19 05:51 [place] % (Auto) 9.2 % (0.0-13.0) 11/13/19 05:51 Eos % (Auto) 0.0 % (0.9-2.9) L 11/13/19 05:51 Baso % (Auto) 0.4 % (0.2-1.0) 11/13/19 05:51 Neut # (Auto) 8.2 x10^3/uL (2.2-4.8) H 11/13/19 05:51 Lymph # (Auto) 1.4 X10^3/uL (1.3-2.9) 11/13/19 05:51 [place] # (Auto) 1.0 x10^3/uL (0.3-0.8) H 11/13/19 05:51 Eos # (Auto) 0.0 x10^3/uL (0.0-0.2) 11/13/19 05:51 Baso # (Auto) 0.0 X10^3/uL (0.0-0.1) 11/13/19 05:51 Absolute Nucleated RBC 0.0 /100WBC 11/13/19 05:51 Sodium 139 mmol/L (136-145) 11/13/19 05:51 Corrected Sodium 140 mmol/L (136-145) 11/13/19 05:51 Potassium 3.4 mmol/L (3.5-5.1) L 11/13/19 05:51 Chloride 107 mmol/L (98-107) 11/13/19 05:51 Carbon Dioxide 23.9 mmol/L (21-32) 11/13/19 05:51 BUN 8 mg/dL (7-18) 11/13/19 05:51 Creatinine 0.71 mg/dL (0.70-1.30) 11/13/19 05:51 Est GFR (MDRD) Af Amer > 60 (>60) 11/13/19 05:51 Est GFR (MDRD) Non-Af > 60 (>60) 11/13/19 05:51 Glucose 122 mg/dL (65-99) H 11/13/19 05:51 POC Glucose (mg/dL) 161 mg/dL (65-99) H 11/13/19 06:13 Calcium 10.0 mg/dL (8.5-10.1) 11/13/19 05:51 Corrected Calcium 11.5 mg/dL (8.5-10.1) H 11/13/19 05:51 Magnesium 1.7 mg/dL (1.7-2.9) 11/12/19 05:05 Total Bilirubin 0.40 mg/dL (0.2-1.0) 11/13/19 05:51 AST 51 Units/L (15-37) H 11/13/19 05:51 ALT 48 Units/L (12-78) 11/13/19 05:51 Alkaline Phosphatase 203 Units/L (46-116) H 11/13/19 05:51 Total Protein 6.0 g/dL (6.4-8.2) L 11/13/19 05:51 Albumin 2.1 g/dL (3.4-5.0) L 11/13/19 05:51 Globulin 3.9 g/dL (2.5-4.5) 11/13/19 05:51 Albumin/Globulin Ratio 0.5 Ratio (1.1-2.1) L 11/13/19 05:51 Vancomycin Trough 9.7 ug/mL (15-20) L 11/11/19 20:22 - Plan (1) Cellulitis of foot, right Status: Acute Plan: ADMIT, NS AT 80 ML/HR, VANCOMYCIN 1G IV Q12H, ALBUMIN 25% IV DAILY, AND HOME MEDICATIONS WERE RESUMED, CONSULT ORTHO, CONTINUE TO MONITOR (2) Osteomyelitis Status: Acute Qualifiers: Osteomyelitis type: unspecified type Osteomyelitis location: foot Laterality: right Qualified Code(s): M86.9 - Osteomyelitis, unspecified (3) Hypokalemia Status: Acute Plan: POTASSIUM/MAGNESIUM PROTOCOL, CONTINUE TO MONITOR (4) Hypomagnesemia Status: Acute Plan: POTASSIUM/MAGNESIUM PROTOCOL, CONTINUE TO MONITOR (5) Anemia Status: Chronic Qualifiers: Anemia type: iron deficiency Iron deficiency anemia type: chronic blood loss Qualified Code(s): D50.0 - Iron deficiency anemia secondary to blood loss (chronic) Plan: CONTINUE TO MONITOR (6) Dyslipidemia Status: Acute Plan: CONTINUE HOME MEDS, CONTINUE TO MONITOR (7) Hypertension Status: Acute Qualifiers: Hypertension type: essential hypertension Qualified Code(s): I10 - Diana titus (primary) hypertension Plan: CONTINUE HOME MEDS, CONTINUE TO MONITOR
--- NOTE | 2019-11-13 11:13 | PCM.PROG ---
Progress Note - Progress Note for Day of Date of Exam: 11/12/19 - Subjective Subjective: IS BEING TREATED FOR WEAKNESS, RIGHT FOOT CELLULITIS, AND OSTEOMYELITIS. TODAY, HE IS ALERT AND ORIENTED, LYING IN BED ON MORNING ROUNDS. HE CONTINUES WITH PAIN TO THE RIGHT FOOT THIS MORNING. ON EXAMINATION, HEART IS REGULAR IN RATE AND RHYTHM. BILATERAL LUNGS ARE NOTED WITH DIMINISHED LUNG SOUNDS THROUGHOUT. ABDOMEN IS ROUND, FLAT, SOFT, AND NON-TENDER WITH NORMAL BOWEL SOUNDS NOTED IN ALL QUADRANTS. RIGHT FOOT IS NOTED WITH ERYTHEMA AND 2+ PITTING EDEMA. HIS VITALS THIS MORNING ARE: 98.3-62-20-98%-160/69. LABS WERE OBTAINED. ABNORMAL LAB VALUES INCLUDE THE FOLLOWING: WBC 10.5, RBC 3.22, HGB 9.3, HCT 27.1, POTASSIUM 3.3, GLUCOSE 164, AST 45, ALK PHOS 187, TOTAL PROTEIN 5 .9, ALBUMIN 1.9. BLOOD AND WOUND CULTURES ARE PENDING. HE IS CURRENTLY RECEIVING NS AT 80 ML/HR, VANCOMYCIN 1G IV Q12H, ALBUMIN 25% IV DAILY, AND HOME MEDICATIONS WERE RESUMED. WE WILL CONTINUE WITH CURRENT PLAN OF CARE TODAY AND CONSULT WITH , ORTHOPEDIC SURGEON. OTHERWISE, WE WILL FOLLOW UP WITH AM LABS AND CONTINUE TO MONITOR. - Past Medical Family Social History Past Med/Fam/Surg Hx: No changes since H&P Allergies: Allergies prednisone Allergy (Verified 08/28/19 13:06) - Review of Systems ROS: No change since H&P - Vital Signs and I&O's Vital Signs: Temperature 98.5 F Pulse Rate [Right Brachial] 78 Pulse Rate [Left Brachial] 62 Respiratory Rate 20 Blood Pressure [Left Arm] 160/69 Blood Pressure [Right Arm] 148/69 O2 Sat by Pulse Oximetry 96 Intake and Output: Intake & Output 11/10/19 11/11/19 11/12/19 11/13/19 11:59 11:59 11:59 11:59 Intake Total 0 / 0 1760 / 1760 1720 / 1720 2570 / 2570 Output Total 250 / 250 125 / 125 Balance -25 / -25 1510 / 1510 1595 / 1595 2570 / 2570 - Physical Exam Oriented: Normal Eyes: Normal Ear: Normal Nose: Normal Throat: Normal Respiratory: Generalized, Diminished Cardiovascular: Normal : Normal Auscultation: Bowel Sounds: Normal Palpation: Normal Tenderness: Normal Skin: Red, Tender, Hot, Wound (RIGHT SIDE ANTERIOR FOOT ) Musculoskeletal: Right, Foot, Swelling, Tender Psychiatric: Normal Mood Description: Calm Affect: Normal Speech Pattern: Clear, Appropriate - Laboratory and Diagnostics Result Diagrams: 11/13/19 05:51 11/13/19 05:51 Labs: 11/09/19 17:30 Blood Blood Culture - Final Staphylococcus Aureus 11/10/19 11:05 Foot - Right Gram Stain - Final 11/10/19 11:05 Foot - Right Wound Culture - Final Staphylococcus Aureus 11/09/19 17:35 Blood Blood Culture - Preliminary Laboratory WBC 10.6 X10^3/uL (3.6-10.0) H 11/13/19 05:51 RBC 3.27 X10^6/uL (4.7-6.0) L 11/13/19 05:51 Hgb 9.3 g/dL (13.5-18.0) L 11/13/19 05:51 Hct 27.6 % (42.0-54.0) L 11/13/19 05:51 MCV 84.4 fL (80.0-100.0) 11/13/19 05:51 MCH 28.3 pg (27.0-34.0) 11/13/19 05:51 MCHC 33.6 g/dL (33.0-35.0) 11/13/19 05:51 RDW 17.3 % (11.6-16.5) H 11/13/19 05:51 Plt Count 437 X10^3/uL (150.0-450.0) 11/13/19 05:51 MPV 8.1 fL (7.4-11.0) 11/13/19 05:51 Neut % (Auto) 77.4 % (42.0-75.0) H 11/13/19 05:51 Lymph % (Auto) 13.0 % (21.0-51.0) L 11/13/19 05:51 [place] % (Auto) 9.2 % (0.0-13.0) 11/13/19 05:51 Eos % (Auto) 0.0 % (0.9-2.9) L 11/13/19 05:51 Baso % (Auto) 0.4 % (0.2-1.0) 11/13/19 05:51 Neut # (Auto) 8.2 x10^3/uL (2.2-4.8) H 11/13/19 05:51 Lymph # (Auto) 1.4 X10^3/uL (1.3-2.9) 11/13/19 05:51 [place] # (Auto) 1.0 x10^3/uL (0.3-0.8) H 11/13/19 05:51 Eos # (Auto) 0.0 x10^3/uL (0.0-0.2) 11/13/19 05:51 Baso # (Auto) 0.0 X10^3/uL (0.0-0.1) 11/13/19 05:51 Absolute Nucleated RBC 0.0 /100WBC 11/13/19 05:51 Sodium 139 mmol/L (136-145) 11/13/19 05:51 Corrected Sodium 140 mmol/L (136-145) 11/13/19 05:51 Potassium 3.4 mmol/L (3.5-5.1) L 11/13/19 05:51 Chloride 107 mmol/L (98-107) 11/13/19 05:51 Carbon Dioxide 23.9 mmol/L (21-32) 11/13/19 05:51 BUN 8 mg/dL (7-18) 11/13/19 05:51 Creatinine 0.71 mg/dL (0.70-1.30) 11/13/19 05:51 Est GFR (MDRD) Af Amer > 60 (>60) 11/13/19 05:51 Est GFR (MDRD) Non-Af > 60 (>60) 11/13/19 05:51 Glucose 122 mg/dL (65-99) H 11/13/19 05:51 POC Glucose (mg/dL) 161 mg/dL (65-99) H 11/13/19 06:13 Calcium 10.0 mg/dL (8.5-10.1) 11/13/19 05:51 Corrected Calcium 11.5 mg/dL (8.5-10.1) H 11/13/19 05:51 Magnesium 1.7 mg/dL (1.7-2.9) 11/12/19 05:05 Total Bilirubin 0.40 mg/dL (0.2-1.0) 11/13/19 05:51 AST 51 Units/L (15-37) H 11/13/19 05:51 ALT 48 Units/L (12-78) 11/13/19 05:51 Alkaline Phosphatase 203 Units/L (46-116) H 11/13/19 05:51 Total Protein 6.0 g/dL (6.4-8.2) L 11/13/19 05:51 Albumin 2.1 g/dL (3.4-5.0) L 11/13/19 05:51 Globulin 3.9 g/dL (2.5-4.5) 11/13/19 05:51 Albumin/Globulin Ratio 0.5 Ratio (1.1-2.1) L 11/13/19 05:51 Vancomycin Trough 9.7 ug/mL (15-20) L 11/11/19 20:22 - Plan (1) Cellulitis of foot, right Status: Inactive Plan: NS AT 80 ML/HR, VANCOMYCIN 1G IV Q12H, ALBUMIN 25% IV DAILY, AND HOME MEDICATIONS WERE RESUMED, CONSULT ORTHO, CONTINUE TO MONITOR (2) Osteomyelitis Status: Acute Qualifiers: Osteomyelitis type: unspecified type Osteomyelitis location: foot Laterality: right Qualified Code(s): M86.9 - Osteomyelitis, unspecified (3) Hypokalemia Status: Inactive Plan: POTASSIUM/MAGNESIUM PROTOCOL, CONTINUE TO MONITOR (4) Hypomagnesemia Status: Inactive Plan: POTASSIUM/MAGNESIUM PROTOCOL, CONTINUE TO MONITOR (5) Anemia Status: Chronic Qualifiers: Anemia type: iron deficiency Iron deficiency anemia type: chronic blood loss 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
[2019-11-13] MEDS: VANCOMYCIN HCL 250 MG, VANCOMYCIN HCL 1 G in NS 250 ML IV 250 ML IV SCH ×2 (13:24→22:34)
[2019-11-13] MEDS: NS 1000 ML 1,000 ML IV SCH ×2 (17:16)
[2019-11-13 20:40] LABS: CREATININE 0.78 mg/dL (0.70-1.30)
[2019-11-13 20:43] LABS: VANCOMYCIN,TROUGH 30.3 ug/mL (15-20)
[2019-11-13] MEDS: ARICEPT TAB 5 MG PO SCH (22:31)
[2019-11-13] MEDS: LIPITOR TAB 40 MG PO SCH (22:32)
[2019-11-14 01:44] LABS: CREATININE 0.67 mg/dL (0.70-1.30); VANCOMYCIN,TROUGH 11.3 ug/mL (15-20)
[2019-11-14] MEDS: VANCOMYCIN HCL 250 MG, VANCOMYCIN HCL 1 G in NS 250 ML IV 250 ML IV SCH ×3 (02:13→13:00)
[2019-11-14] MEDS: APRESOLINE TAB 25 MG PO SCH ×4 (06:06→22:55)
[2019-11-14] MEDS: NS 1000 ML 1,000 ML IV SCH ×3 (06:06→16:42)
[2019-11-14] MEDS: CARAFATE PO SCH ×4 (06:07→20:32)
[2019-11-14 06:43] LABS: BASOPHILS % (AUTO) 0.2 % (0.2-1.0); HEMATOCRIT 27.6 % (42.0-54.0); HEMOGLOBIN 9.3 g/dL (13.5-18.0); LYMPHOCYTES # (AUTO) 1.3 X10^3/uL (1.3-2.9); LYMPHOCYTES % (AUTO) 12.3 % (21.0-51.0); MEAN CORPUSCULAR HEMOGLOBIN 28.4 pg (27.0-34.0); MEAN CORPUSCULAR HGB CONC 33.9 g/dL (33.0-35.0); MEAN CORPUSCULAR VOLUME 83.7 fL (80.0-100.0); MEAN PLATELET VOLUME 7.9 fL (7.4-11.0); MONOCYTES # (AUTO) 0.9 x10^3/uL (0.3-0.8); MONOCYTES % (AUTO) 8.8 % (0.0-13.0); NEUTROPHILS # (AUTO) 8.1 x10^3/uL (2.2-4.8); NEUTROPHILS % (AUTO) 78.7 % (42.0-75.0); PLATELET COUNT 439 X10^3/uL (150.0-450.0); RED CELL DISTRIBUTION WIDTH 17.2 % (11.6-16.5); WHITE BLOOD COUNT 10.3 X10^3/uL (3.6-10.0)
[2019-11-14 06:52] LABS: ALANINE AMINOTRANSFERASE 42 Units/L (12-78); ALBUMIN 2.1 g/dL (3.4-5.0); ALKALINE PHOSPHATASE 206 Units/L (46-116); ASPARTATE AMINO TRANSFERASE 42 Units/L (15-37); BLOOD UREA NITROGEN 10 mg/dL (7-18); CALCIUM 9.9 mg/dL (8.5-10.1); CARBON DIOXIDE 26.1 mmol/L (21-32); CHLORIDE 107 mmol/L (98-107); COR CA(FOR HYPOALB) 11.4 mg/dL (8.5-10.1); COR NA(FOR HYPERGLY) 139 mmol/L (136-145); CREATININE 0.71 mg/dL (0.70-1.30); SODIUM 139 mmol/L (136-145); TOTAL PROTEIN 5.9 g/dL (6.4-8.2); eGFR NON BLACK RACES > 60 (>60)
[2019-11-14 07:37] LABS: ERYTHROCYTE SEDIMENTATION RATE 58 MM/HOUR (0-15)
[2019-11-14] MEDS: MAGNESIUM SULFATE 1 GRAM/100 mL PREMIX 1 GM/100 ML BAG IV PRN ×2 (08:10→09:26)
[2019-11-14] MEDS: PROTONIX TAB 40 MG PO SCH ×2 (08:12→20:33)
[2019-11-14] MEDS: TAB-A-VITE PO SCH (08:12)
[2019-11-14] MEDS: NORVASC TAB 10 MG PO SCH (08:12)
[2019-11-14] MEDS: MOBIC TAB 15 MG PO SCH (08:12)
[2019-11-14] MEDS: K-DUR TAB 20 MEQ PO PRN (08:12)
[2019-11-14] MEDS: COREG TAB 6.25 MG PO SCH ×2 (08:12→20:33)
[2019-11-14] MEDS: ALBUMIN HUMAN 25%- 100 ML 100 ML IV SCH (08:13)
[2019-11-14] MEDS: NAMENDA TAB 10 MG PO SCH ×2 (08:13→20:33)
[2019-11-14] MEDS: BENICAR TAB 40 MG PO SCH (08:13)
[2019-11-14] MEDS: ARICEPT TAB 5 MG PO SCH (20:32)
[2019-11-14] MEDS: LIPITOR TAB 40 MG PO SCH (20:33)
[2019-11-15] MEDS: VANCOMYCIN HCL 250 MG, VANCOMYCIN HCL 1 G in NS 250 ML IV 250 ML IV SCH ×2 (02:36→13:56)
[2019-11-15] MEDS: NS 1000 ML 1,000 ML IV SCH ×3 (05:16→20:35)
[2019-11-15] MEDS: APRESOLINE TAB 25 MG PO SCH ×3 (05:17→21:37)
[2019-11-15] MEDS: CARAFATE PO SCH ×4 (05:41→20:34)
[2019-11-15 06:01] LABS: BASOPHILS # (AUTO) 0.1 X10^3/uL (0.0-0.1); BASOPHILS % (AUTO) 0.5 % (0.2-1.0); HEMATOCRIT 28.3 % (42.0-54.0); HEMOGLOBIN 9.5 g/dL (13.5-18.0); LYMPHOCYTES # (AUTO) 1.3 X10^3/uL (1.3-2.9); LYMPHOCYTES % (AUTO) 12.2 % (21.0-51.0); MEAN CORPUSCULAR HEMOGLOBIN 28.1 pg (27.0-34.0); MEAN CORPUSCULAR HGB CONC 33.7 g/dL (33.0-35.0); MEAN CORPUSCULAR VOLUME 83.3 fL (80.0-100.0); MEAN PLATELET VOLUME 7.9 fL (7.4-11.0); MONOCYTES # (AUTO) 1.1 x10^3/uL (0.3-0.8); MONOCYTES % (AUTO) 10.1 % (0.0-13.0); NEUTROPHILS % (AUTO) 77.2 % (42.0-75.0); PLATELET COUNT 453 X10^3/uL (150.0-450.0); RED BLOOD COUNT 3.39 X10^6/uL (4.7-6.0); RED CELL DISTRIBUTION WIDTH 17.3 % (11.6-16.5); WHITE BLOOD COUNT 10.4 X10^3/uL (3.6-10.0)
[2019-11-15 06:36] LABS: ALANINE AMINOTRANSFERASE 40 Units/L (12-78); ALBUMIN 2.2 g/dL (3.4-5.0); ALKALINE PHOSPHATASE 219 Units/L (46-116); ASPARTATE AMINO TRANSFERASE 41 Units/L (15-37); BLOOD UREA NITROGEN 7 mg/dL (7-18); CALCIUM 9.7 mg/dL (8.5-10.1); CARBON DIOXIDE 25.8 mmol/L (21-32); CHLORIDE 106 mmol/L (98-107); COR CA(FOR HYPOALB) 11.1 mg/dL (8.5-10.1); COR NA(FOR HYPERGLY) 139 mmol/L (136-145); CREATININE 0.68 mg/dL (0.70-1.30); MAGNESIUM 1.7 mg/dL (1.7-2.9); SODIUM 138 mmol/L (136-145); TOTAL PROTEIN 5.9 g/dL (6.4-8.2); eGFR NON BLACK RACES > 60 (>60)
[2019-11-15] MEDS: MAGNESIUM SULFATE 1 GRAM/100 mL PREMIX 1 GM/100 ML BAG IV PRN (07:56)
[2019-11-15] MEDS: KLOR-CON PO PRN ×2 (08:01→18:02)
[2019-11-15] MEDS: MOBIC TAB 15 MG PO SCH (08:02)
[2019-11-15] MEDS: COREG TAB 6.25 MG PO SCH ×2 (08:02→20:34)
[2019-11-15] MEDS: NAMENDA TAB 10 MG PO SCH ×2 (08:02→20:34)
[2019-11-15] MEDS: TAB-A-VITE PO SCH (08:02)
[2019-11-15] MEDS: NORVASC TAB 10 MG PO SCH (08:02)
[2019-11-15] MEDS: PROTONIX TAB 40 MG PO SCH ×2 (08:02→20:34)
[2019-11-15] MEDS: BENICAR TAB 40 MG PO SCH (08:04)
[2019-11-15] MEDS: ALBUMIN HUMAN 25%- 100 ML 100 ML IV SCH (08:04)
[2019-11-15] MEDS: LIPITOR TAB 40 MG PO SCH (20:34)
[2019-11-15] MEDS: ARICEPT TAB 5 MG PO SCH (20:34)
--- NOTE | 2019-11-15 20:37 | PCM.PROG ---
Progress Note - Progress Note for Day of Date of Exam: 11/13/19 - Subjective Subjective: IS BEING TREATED FOR WEAKNESS, RIGHT FOOT CELLULITIS, AND OSTEOMYELITIS. TODAY, HE IS ALERT AND ORIENTED, LYING IN BED ON MORNING ROUNDS. HE CONTINUES WITH PAIN TO THE RIGHT FOOT THIS MORNING. ON EXAMINATION, HEART IS REGULAR IN RATE AND RHYTHM. BILATERAL LUNGS ARE NOTED WITH DIMINISHED LUNG SOUNDS THROUGHOUT. ABDOMEN IS ROUND, FLAT, SOFT, AND NON-TENDER WITH NORMAL BOWEL SOUNDS NOTED IN ALL QUADRANTS. RIGHT FOOT IS NOTED WITH ERYTHEMA AND 2+ PITTING EDEMA. HIS VITALS THIS MORNING ARE: 98.5-78-20-96%-148/69. LABS WERE OBTAINED. ABNORMAL LAB VALUES INCLUDE THE FOLLOWING: WBC 10.6, RBC 3.27, HGB 9.3, HCT 27.6, POTASSIUM 3.4, GLUCOSE 122, AST 51, ALK PHOS 203, TOTAL PROTEIN 6 .0, ALBUMIN 2.1. BLOOD AND WOUND CULTURES REVEAL GROWTH OF STAPHYLOCOCCUS AUREUS. HE IS CURRENTLY RECEIVING NS AT 80 ML/HR, VANCOMYCIN 1G IV Q12H, ALBUMIN 25% IV DAILY, AND HOME MEDICATIONS WERE RESUMED. WE WILL CONTINUE WITH CURRENT PLAN OF CARE TODAY. WILL HAVE A TELEMEDICINE APPOINTMENT WITH PATIENT TODAY. OTHERWISE, WE WILL FOLLOW UP WITH AM LABS AND CONTINUE TO MONITOR. - Past Medical Family Social History Past Med/Fam/Surg Hx: No changes since H&P Allergies: Allergies prednisone Allergy (Verified 08/28/19 13:06) - Review of Systems ROS: No change since H&P - Vital Signs and I&O's Vital Signs: Temperature 98.9 F Pulse Rate [Right Brachial] 85 Pulse Rate [Left Brachial] 87 Respiratory Rate 20 Blood Pressure [Left Arm] 166/79 Blood Pressure [Right Arm] 189/82 O2 Sat by Pulse Oximetry 92 Intake and Output: Intake & Output 11/13/19 11/14/19 11/15/19 11/16/19 11:59 11:59 11:59 11:59 Intake Total 2570 / 2570 2852 / 2852 3380 / 3380 1030 / 1030 Balance 2570 / 2570 2852 / 2852 3380 / 3380 1030 / 1030 - Physical Exam Oriented: Normal Eyes: Normal Ear: Normal Nose: Normal Throat: Normal Respiratory: Generalized, Diminished Cardiovascular: Normal : Normal Auscultation: Bowel Sounds: Normal Palpation: Normal Tenderness: Normal Skin: Red, Tender, Hot, Wound (RIGHT SIDE ANTERIOR FOOT ) Musculoskeletal: Right, Foot, Swelling, Tender Psychiatric: Normal Mood Description: Calm Affect: Normal Speech Pattern: Clear, Appropriate - Laboratory and Diagnostics Result Diagrams: 11/15/19 04:21 11/15/19 14:35 Labs: 11/09/19 17:35 Blood Blood Culture - Final 11/09/19 17:30 Blood Blood Culture - Final Staphylococcus Aureus 11/10/19 11:05 Foot - Right Gram Stain - Final 11/10/19 11:05 Foot - Right Wound Culture - Final Staphylococcus Aureus Laboratory WBC 10.4 X10^3/uL (3.6-10.0) H 11/15/19 04:21 RBC 3.39 X10^6/uL (4.7-6.0) L 11/15/19 04:21 Hgb 9.5 g/dL (13.5-18.0) L 11/15/19 04:21 Hct 28.3 % (42.0-54.0) L 11/15/19 04:21 MCV 83.3 fL (80.0-100.0) 11/15/19 04:21 MCH 28.1 pg (27.0-34.0) 11/15/19 04:21 MCHC 33.7 g/dL (33.0-35.0) 11/15/19 04:21 RDW 17.3 % (11.6-16.5) H 11/15/19 04:21 Plt Count 453 X10^3/uL (150.0-450.0) H 11/15/19 04:21 MPV 7.9 fL (7.4-11.0) 11/15/19 04:21 Neut % (Auto) 77.2 % (42.0-75.0) H 11/15/19 04:21 Lymph % (Auto) 12.2 % (21.0-51.0) L 11/15/19 04:21 [place] % (Auto) 10.1 % (0.0-13.0) 11/15/19 04:21 Eos % (Auto) 0.0 % (0.9-2.9) L 11/15/19 04:21 Baso % (Auto) 0.5 % (0.2-1.0) 11/15/19 04:21 Neut # (Auto) 8.0 x10^3/uL (2.2-4.8) H 11/15/19 04:21 Lymph # (Auto) 1.3 X10^3/uL (1.3-2.9) 11/15/19 04:21 [place] # (Auto) 1.1 x10^3/uL (0.3-0.8) H 11/15/19 04:21 Eos # (Auto) 0.0 x10^3/uL (0.0-0.2) 11/15/19 04:21 Baso # (Auto) 0.1 X10^3/uL (0.0-0.1) 11/15/19 04:21 Absolute Nucleated RBC 0.0 /100WBC 11/15/19 04:21 ESR 58 MM/HOUR (0-15) H 11/14/19 05:35 Sodium 138 mmol/L (136-145) 11/15/19 04:21 Corrected Sodium 139 mmol/L (136-145) 11/15/19 04:21 Potassium 3.5 mmol/L (3.5-5.1) 11/15/19 14:35 Chloride 106 mmol/L (98-107) 11/15/19 04:21 Carbon Dioxide 25.8 mmol/L (21-32) 11/15/19 04:21 BUN 7 mg/dL (7-18) 11/15/19 04:21 Creatinine 0.68 mg/dL (0.70-1.30) L 11/15/19 04:21 Est GFR (MDRD) Af Amer > 60 (>60) 11/15/19 04:21 Est GFR (MDRD) Non-Af > 60 (>60) 11/15/19 04:21 Glucose 131 mg/dL (65-99) H 11/15/19 04:21 POC Glucose (mg/dL) 150 mg/dL (65-99) H 11/15/19 19:54 Calcium 9.7 mg/dL (8.5-10.1) 11/15/19 04:21 Corrected Calcium 11.1 mg/dL (8.5-10.1) H 11/15/19 04:21 Magnesium 1.7 mg/dL (1.7-2.9) 11/15/19 04:21 Total Bilirubin 0.50 mg/dL (0.2-1.0) 11/15/19 04:21 AST 41 Units/L (15-37) H 11/15/19 04:21 ALT 40 Units/L (12-78) 11/15/19 04:21 Alkaline Phosphatase 219 Units/L (46-116) H 11/15/19 04:21 C-Reactive Protein 62.20 mg/L (0-3.0) H 11/14/19 05:35 Total Protein 5.9 g/dL (6.4-8.2) L 11/15/19 04:21 Albumin 2.2 g/dL (3.4-5.0) L 11/15/19 04:21 Globulin 3.7 g/dL (2.5-4.5) 11/15/19 04:21 Albumin/Globulin Ratio 0.6 Ratio (1.1-2.1) L 11/15/19 04:21 Vancomycin Trough 11.3 ug/mL (15-20) L 11/14/19 00:37 - Plan (1) Cellulitis of foot, right Status: Inactive Plan: NS AT 80 ML/HR, VANCOMYCIN 1G IV Q12H, ALBUMIN 25% IV DAILY, AND HOME MEDICATIONS WERE RESUMED, CONSULT ORTHO, CONTINUE TO MONITOR (2) Osteomyelitis Status: Acute Qualifiers: Osteomyelitis type: unspecified type Osteomyelitis location: foot Laterality: right Qualified Code(s): M86.9 - Osteomyelitis, unspecified (3) Hypokalemia Status: Inactive Plan: POTASSIUM/MAGNESIUM PROTOCOL, CONTINUE TO MONITOR (4) Hypomagnesemia Status: Inactive Plan: POTASSIUM/MAGNESIUM PROTOCOL, CONTINUE TO MONITOR (5) Anemia Status: Chronic Qualifiers: Anemia type: iron deficiency Iron deficiency anemia type: chronic blood loss 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
[2019-11-16 01:49] LABS: CREATININE 0.63 mg/dL (0.70-1.30)
[2019-11-16] MEDS: VANCOMYCIN HCL 250 MG, VANCOMYCIN HCL 1 G in NS 250 ML IV 250 ML IV SCH ×2 (02:23→16:05)
[2019-11-16] MEDS: APRESOLINE TAB 25 MG PO SCH ×2 (05:14→15:03)
[2019-11-16] MEDS: CARAFATE PO SCH ×2 (05:34→11:53)
[2019-11-16 05:42] LABS: BASOPHILS % (AUTO) 0.3 % (0.2-1.0); HEMATOCRIT 28.2 % (42.0-54.0); HEMOGLOBIN 9.6 g/dL (13.5-18.0); LYMPHOCYTES # (AUTO) 1.3 X10^3/uL (1.3-2.9); MEAN CORPUSCULAR HEMOGLOBIN 28.6 pg (27.0-34.0); MEAN CORPUSCULAR HGB CONC 34.1 g/dL (33.0-35.0); MEAN PLATELET VOLUME 8.3 fL (7.4-11.0); MONOCYTES % (AUTO) 9.8 % (0.0-13.0); NEUTROPHILS # (AUTO) 7.8 x10^3/uL (2.2-4.8); NEUTROPHILS % (AUTO) 76.9 % (42.0-75.0); PLATELET COUNT 455 X10^3/uL (150.0-450.0); RED BLOOD COUNT 3.35 X10^6/uL (4.7-6.0); WHITE BLOOD COUNT 10.1 X10^3/uL (3.6-10.0)
[2019-11-16 05:57] LABS: ALANINE AMINOTRANSFERASE 39 Units/L (12-78); ALBUMIN 2.3 g/dL (3.4-5.0); ALKALINE PHOSPHATASE 225 Units/L (46-116); ASPARTATE AMINO TRANSFERASE 37 Units/L (15-37); BLOOD UREA NITROGEN 7 mg/dL (7-18); CALCIUM 9.5 mg/dL (8.5-10.1); CHLORIDE 104 mmol/L (98-107); COR CA(FOR HYPOALB) 10.9 mg/dL (8.5-10.1); COR NA(FOR HYPERGLY) 139 mmol/L (136-145); CREATININE 0.72 mg/dL (0.70-1.30); MAGNESIUM 1.8 mg/dL (1.7-2.9); SODIUM 138 mmol/L (136-145); TOTAL PROTEIN 5.9 g/dL (6.4-8.2); eGFR NON BLACK RACES > 60 (>60)
[2019-11-16] MEDS: KLOR-CON PO PRN (06:24)
[2019-11-16] MEDS: ALBUMIN HUMAN 25%- 100 ML 100 ML IV SCH (09:14)
[2019-11-16] MEDS: NORVASC TAB 10 MG PO SCH (09:15)
[2019-11-16] MEDS: MOBIC TAB 15 MG PO SCH (09:15)
[2019-11-16] MEDS: BENICAR TAB 40 MG PO SCH (09:15)
[2019-11-16] MEDS: TAB-A-VITE PO SCH (09:16)
[2019-11-16] MEDS: COREG TAB 6.25 MG PO SCH (09:16)
[2019-11-16] MEDS: PROTONIX TAB 40 MG PO SCH (09:16)
[2019-11-16] MEDS: NAMENDA TAB 10 MG PO SCH (09:16)
[2019-11-16] MEDS: NS 1000 ML 1,000 ML IV SCH (09:18)
--- NOTE | 2019-11-16 11:31 | PCM.PROG ---
Progress Note - Progress Note for Day of Date of Exam: 11/16/19 - Subjective Subjective: IS BEING TREATED FOR WEAKNESS, RIGHT FOOT CELLULITIS, AND OSTEOMYELITIS. TODAY, HE IS ALERT AND ORIENTED, LYING IN BED ON MORNING ROUNDS. HE CONTINUES WITH PAIN TO THE RIGHT FOOT THIS MORNING, BUT REPORTS SLIGHT IMPROVEMENT SINCE YESTERDAY. HE ALSO REPORTS GENERALIZED WEAKNESS. ON EXAMINATION, HEART IS REGULAR IN RATE AND RHYTHM. BILATERAL LUNGS ARE NOTED WITH DIMINISHED LUNG SOUNDS THROUGHOUT. ABDOMEN IS ROUND, FLAT, SOFT, AND NON-TENDER WITH NORMAL BOWEL SOUNDS NOTED IN ALL QUADRANTS. RIGHT FOOT IS NOTED WITH ERYTHEMA AND 2+ PITTING EDEMA. HIS VITALS THIS MORNING ARE: 98.1 -78-20-96%-183/85. LABS WERE OBTAINED. ABNORMAL LAB VALUES INCLUDE THE FOLLOWING: WBC 10.3, RBC 3.30, HGB 9.3, HCT 27.6, POTASSIUM 3.3, GLUCOSE 120, MAGNESIUM 1.5, AT 42, ALK PHOS 206, CRP 62.20, TOTAL PROTEIN 5.9, ALBUMIN 2.1. BLOOD AND WOUND CULTURES REVEAL GROWTH OF STAPHYLOCOCCUS AUREUS. HE IS CURRENTLY RECEIVING NS AT 80 ML/HR, VANCOMYCIN 1G IV Q12H, ALBUMIN 25% IV DAILY, AND HOME MEDICATIONS WERE RESUMED. WE WILL CONTINUE WITH IV ANTIBIOTICS AND CURRENT PLAN OF CARE TODAY. OTHERWISE, WE WILL FOLLOW UP WITH AM LABS AND CONTINUE TO MONITOR. - Past Medical Family Social History Past Med/Fam/Surg Hx: No changes since H&P Allergies: Allergies prednisone Allergy (Verified 08/28/19 13:06) - Review of Systems ROS: No change since H&P - Vital Signs and I&O's Vital Signs: Temperature 98.5 F Pulse Rate [Right Brachial] 85 Pulse Rate [Left Brachial] 82 Respiratory Rate 20 Blood Pressure [Left Arm] 183/81 Blood Pressure [Right Arm] 189/82 O2 Sat by Pulse Oximetry 92 Intake and Output: Intake & Output 11/13/19 11/14/19 11/15/19 11/16/19 11:59 11:59 11:59 11:59 Intake Total 2570 / 2570 2852 / 2852 3380 / 3380 1600 / 1600 Output Total 0 / 0 Balance 2570 / 2570 2852 / 2852 3380 / 3380 1600 / 1600 - Physical Exam Oriented: Normal Eyes: Normal Ear: Normal Nose: Normal Throat: Normal Respiratory: Generalized, Diminished Cardiovascular: Normal : Normal Auscultation: Bowel Sounds: Normal Tenderness: Normal Skin: Red, Tender, Hot, Wound (RIGHT SIDE ANTERIOR FOOT ) Musculoskeletal: Right, Foot, Swelling, Tender Psychiatric: Normal Mood Description: Calm Affect: Normal Speech Pattern: Clear, Appropriate - Laboratory and Diagnostics Result Diagrams: 11/16/19 04:36 11/16/19 04:36 Labs: 11/09/19 17:35 Blood Blood Culture - Final 11/09/19 17:30 Blood Blood Culture - Final Staphylococcus Aureus 11/10/19 11:05 Foot - Right Gram Stain - Final 11/10/19 11:05 Foot - Right Wound Culture - Final Staphylococcus Aureus Laboratory WBC 10.1 X10^3/uL (3.6-10.0) H 11/16/19 04:36 RBC 3.35 X10^6/uL (4.7-6.0) L 11/16/19 04:36 Hgb 9.6 g/dL (13.5-18.0) L 11/16/19 04:36 Hct 28.2 % (42.0-54.0) L 11/16/19 04:36 MCV 84.0 fL (80.0-100.0) 11/16/19 04:36 MCH 28.6 pg (27.0-34.0) 11/16/19 04:36 MCHC 34.1 g/dL (33.0-35.0) 11/16/19 04:36 RDW 17.0 % (11.6-16.5) H 11/16/19 04:36 Plt Count 455 X10^3/uL (150.0-450.0) H 11/16/19 04:36 MPV 8.3 fL (7.4-11.0) 11/16/19 04:36 Neut % (Auto) 76.9 % (42.0-75.0) H 11/16/19 04:36 Lymph % (Auto) 13.0 % (21.0-51.0) L 11/16/19 04:36 Tucker % (Auto) 9.8 % (0.0-13.0) 11/16/19 04:36 Eos % (Auto) 0.0 % (0.9-2.9) L 11/16/19 04:36 Baso % (Auto) 0.3 % (0.2-1.0) 11/16/19 04:36 Neut # (Auto) 7.8 x10^3/uL (2.2-4.8) H 11/16/19 04:36 Lymph # (Auto) 1.3 X10^3/uL (1.3-2.9) 11/16/19 04:36 Tucker # (Auto) 1.0 x10^3/uL (0.3-0.8) H 11/16/19 04:36 Eos # (Auto) 0.0 x10^3/uL (0.0-0.2) 11/16/19 04:36 Baso # (Auto) 0.0 X10^3/uL (0.0-0.1) 11/16/19 04:36 Absolute Nucleated RBC 0.0 /100WBC 11/16/19 04:36 ESR 38 MM/HOUR (0-15) H 11/16/19 04:36 Sodium 138 mmol/L (136-145) 11/16/19 04:36 Corrected Sodium 139 mmol/L (136-145) 11/16/19 04:36 Potassium 3.3 mmol/L (3.5-5.1) L 11/16/19 04:36 Chloride 104 mmol/L (98-107) 11/16/19 04:36 Carbon Dioxide 27.0 mmol/L (21-32) 11/16/19 04:36 BUN 7 mg/dL (7-18) 11/16/19 04:36 Creatinine 0.72 mg/dL (0.70-1.30) 11/16/19 04:36 Est GFR (MDRD) Af Amer > 60 (>60) 11/16/19 04:36 Est GFR (MDRD) Non-Af > 60 (>60) 11/16/19 04:36 Glucose 151 mg/dL (65-99) H 11/16/19 04:36 POC Glucose (mg/dL) 138 mg/dL (65-99) H 11/16/19 05:04 Calcium 9.5 mg/dL (8.5-10.1) 11/16/19 04:36 Corrected Calcium 10.9 mg/dL (8.5-10.1) H 11/16/19 04:36 Magnesium 1.8 mg/dL (1.7-2.9) 11/16/19 04:36 Magnesium 1.8 mg/dL (1.7-2.9) 11/16/19 04:36 Total Bilirubin 0.50 mg/dL (0.2-1.0) 11/16/19 04:36 AST 37 Units/L (15-37) 11/16/19 04:36 ALT 39 Units/L (12-78) 11/16/19 04:36 Alkaline Phosphatase 225 Units/L (46-116) H 11/16/19 04:36 C-Reactive Protein 49.10 mg/L (0-3.0) H 11/16/19 04:36 Total Protein 5.9 g/dL (6.4-8.2) L 11/16/19 04:36 Albumin 2.3 g/dL (3.4-5.0) L 11/16/19 04:36 Globulin 3.6 g/dL (2.5-4.5) 11/16/19 04:36 Albumin/Globulin Ratio 0.6 Ratio (1.1-2.1) L 11/16/19 04:36 Vancomycin Trough 13.0 ug/mL (15-20) L 11/16/19 01:21 - Plan (1) Cellulitis of foot, right Status: Inactive Plan: NS AT 80 ML/HR, VANCOMYCIN 1G IV Q12H, ALBUMIN 25% IV DAILY, AND HOME MEDICATIONS WERE RESUMED, CONSULT ORTHO, CONTINUE TO MONITOR (2) Staphylococcus aureus bacteremia with sepsis Status: Acute (3) Osteomyelitis Status: Acute Qualifiers: Osteomyelitis type: unspecified type Osteomyelitis location: foot Laterality: right Qualified Code(s): M86.9 - Osteomyelitis, unspecified (4) Hypokalemia Status: Inactive Plan: POTASSIUM/MAGNESIUM PROTOCOL, CONTINUE TO MONITOR (5) Hypomagnesemia Status: Inactive Plan: POTASSIUM/MAGNESIUM PROTOCOL, CONTINUE TO MONITOR (6) Anemia Status: Chronic Qualifiers: Anemia type: iron deficiency Iron deficiency anemia type: chronic blood loss Qualified Code(s): D50.0 - Iron deficiency anemia secondary to blood loss (chronic) Plan: CONTINUE TO MONITOR (7) Dyslipidemia Status: Acute Plan: CONTINUE HOME MEDS, CONTINUE TO MONITOR (8) Hypertension Status: Acute Qualifiers: Hypertension type: essential hypertension Qualified Code(s): I10 - Essential (primary) hypertension Plan: CONTINUE HOME MEDS, CONTINUE TO MONITOR
--- NOTE | 2019-11-16 11:35 | PCM.PROG ---
Progress Note - Progress Note for Day of Date of Exam: 11/15/19 - Subjective Subjective: IS BEING TREATED FOR WEAKNESS, RIGHT FOOT CELLULITIS, OSTEOMYELITIS, AND SEPSIS. TODAY, HE IS ALERT AND ORIENTED, LYING IN BED ON MORNING ROUNDS. HE CONTINUES WITH PAIN TO THE RIGHT FOOT THIS MORNING, BUT REPORTS SLIGHT IMPROVEMENT SINCE YESTERDAY. HE ALSO REPORTS GENERALIZED WEAK NESS. HE IS AMBULATING IN ROOM WITH ONLY MINIMAL ASSISTANCE. ON EXAMINATION, HEART IS REGULAR IN RATE AND RHYTHM. BILATERAL LUNGS ARE NOTED WITH DIMINISHED LUNG SOUNDS THROUGHOUT. ABDOMEN IS ROUND, FLAT, SOFT, AND NON-TENDER WITH NORMAL BOWEL SOUNDS NOTED IN ALL QUADRANTS. RIGHT FOOT IS NOTED WITH ERYTHEMA AND 1+ PITTING EDEMA. HIS VITALS THIS MORNING ARE: 97.9-85-20-95%-189/82. LABS WERE OBTAINED. ABNORMAL LAB VALUES INCLUDE THE FOLLOWING: WBC 10.4, RBC 3.39, HGB 9.5, HCT 28.3, POTASSIUM 3.1, CREATININE 0.68, GLUCOSE 131, AST 41, ALK PHOS 219, TOTAL PROTEIN 5.9, ALBUMIN 2.2. BLOOD AND WOUND CULTURES REVEAL GROWTH OF STAPHYLOCOCCUS AUREUS. HE IS CURRENTLY RECEIVING NS AT 80 ML/HR, VANCOMYCIN 1G IV Q12H, ALBUMIN 25% IV DAILY, THE POTASSIUM AND MAGNESIUM PROTOCOLS, AND HOME MEDICATIONS WERE RESUMED. WE WILL CONTINUE WITH IV ANTIBIOTICS AND CURRENT PLAN OF CARE TODAY AND DECREASE IVF TO KVO. OTHERWISE, WE WILL FOLLOW UP WITH AM LABS AND CONTINUE TO MONITOR. - Past Medical Family Social History Past Med/Fam/Surg Hx: No changes since H&P Allergies: Allergies prednisone Allergy (Verified 08/28/19 13:06) - Review of Systems ROS: No change since H&P - Vital Signs and I&O's Vital Signs: Temperature 98.5 F Pulse Rate [Right Brachial] 85 Pulse Rate [Left Brachial] 82 Respiratory Rate 20 Blood Pressure [Left Arm] 183/81 Blood Pressure [Right Arm] 189/82 O2 Sat by Pulse Oximetry 92 Intake and Output: Intake & Output 11/13/19 11/14/19 11/15/19 11/16/19 11:59 11:59 11:59 11:59 Intake Total 2570 / 2570 2852 / 2852 3380 / 3380 1600 / 1600 Output Total 0 / 0 Balance 2570 / 2570 2852 / 2852 3380 / 3380 1600 / 1600 - Physical Exam Oriented: Normal Eyes: Normal Ear: Normal Nose: Normal Throat: Normal Respiratory: Generalized, Diminished Cardiovascular: Normal : Normal Auscultation: Bowel Sounds: Normal Palpation: Normal Tenderness: Normal Skin: Red, Tender, Hot, Wound (RIGHT SIDE ANTERIOR FOOT ) Musculoskeletal: Right, Foot, Swelling, Tender Psychiatric: Normal Mood Description: Calm Affect: Normal Speech Pattern: Clear, Appropriate - Laboratory and Diagnostics Result Diagrams: 11/16/19 04:36 11/16/19 04:36 Labs: 11/09/19 17:35 Blood Blood Culture - Final 11/09/19 17:30 Blood Blood Culture - Final Staphylococcus Aureus 11/10/19 11:05 Foot - Right Gram Stain - Final 11/10/19 11:05 Foot - Right Wound Culture - Final Staphylococcus Aureus Laboratory WBC 10.1 X10^3/uL (3.6-10.0) H 11/16/19 04:36 RBC 3.35 X10^6/uL (4.7-6.0) L 11/16/19 04:36 Hgb 9.6 g/dL (13.5-18.0) L 11/16/19 04:36 Hct 28.2 % (42.0-54.0) L 11/16/19 04:36 MCV 84.0 fL (80.0-100.0) 11/16/19 04:36 MCH 28.6 pg (27.0-34.0) 11/16/19 04:36 MCHC 34.1 g/dL (33.0-35.0) 11/16/19 04:36 RDW 17.0 % (11.6-16.5) H 11/16/19 04:36 Plt Count 455 X10^3/uL (150.0-450.0) H 11/16/19 04:36 MPV 8.3 fL (7.4-11.0) 11/16/19 04:36 Neut % (Auto) 76.9 % (42.0-75.0) H 11/16/19 04:36 Lymph % (Auto) 13.0 % (21.0-51.0) L 11/16/19 04:36 [place] % (Auto) 9.8 % (0.0-13.0) 11/16/19 04:36 Eos % (Auto) 0.0 % (0.9-2.9) L 11/16/19 04:36 Baso % (Auto) 0.3 % (0.2-1.0) 11/16/19 04:36 Neut # (Auto) 7.8 x10^3/uL (2.2-4.8) H 11/16/19 04:36 Lymph # (Auto) 1.3 X10^3/uL (1.3-2.9) 11/16/19 04:36 [place] # (Auto) 1.0 x10^3/uL (0.3-0.8) H 11/16/19 04:36 Eos # (Auto) 0.0 x10^3/uL (0.0-0.2) 11/16/19 04:36 Baso # (Auto) 0.0 X10^3/uL (0.0-0.1) 11/16/19 04:36 Absolute Nucleated RBC 0.0 /100WBC 11/16/19 04:36 ESR 38 MM/HOUR (0-15) H 11/16/19 04:36 Sodium 138 mmol/L (136-145) 11/16/19 04:36 Corrected Sodium 139 mmol/L (136-145) 11/16/19 04:36 Potassium 3.3 mmol/L (3.5-5.1) L 11/16/19 04:36 Chloride 104 mmol/L (98-107) 11/16/19 04:36 Carbon Dioxide 27.0 mmol/L (21-32) 11/16/19 04:36 BUN 7 mg/dL (7-18) 11/16/19 04:36 Creatinine 0.72 mg/dL (0.70-1.30) 11/16/19 04:36 Est GFR (MDRD) Af Amer > 60 (>60) 11/16/19 04:36 Est GFR (MDRD) Non-Af > 60 (>60) 11/16/19 04:36 Glucose 151 mg/dL (65-99) H 11/16/19 04:36 POC Glucose (mg/dL) 138 mg/dL (65-99) H 11/16/19 05:04 Calcium 9.5 mg/dL (8.5-10.1) 11/16/19 04:36 Corrected Calcium 10.9 mg/dL (8.5-10.1) H 11/16/19 04:36 Magnesium 1.8 mg/dL (1.7-2.9) 11/16/19 04:36 Magnesium 1.8 mg/dL (1.7-2.9) 11/16/19 04:36 Total Bilirubin 0.50 mg/dL (0.2-1.0) 11/16/19 04:36 AST 37 Units/L (15-37) 11/16/19 04:36 ALT 39 Units/L (12-78) 11/16/19 04:36 Alkaline Phosphatase 225 Units/L (46-116) H 11/16/19 04:36 C-Reactive Protein 49.10 mg/L (0-3.0) H 11/16/19 04:36 Total Protein 5.9 g/dL (6.4-8.2) L 11/16/19 04:36 Albumin 2.3 g/dL (3.4-5.0) L 11/16/19 04:36 Globulin 3.6 g/dL (2.5-4.5) 11/16/19 04:36 Albumin/Globulin Ratio 0.6 Ratio (1.1-2.1) L 11/16/19 04:36 Vancomycin Trough 13.0 ug/mL (15-20) L 11/16/19 01:21 - Plan (1) Cellulitis of foot, right Status: Inactive Plan: NS AT 30 ML/HR, VANCOMYCIN 1G IV Q12H, ALBUMIN 25% IV DAILY, AND HOME MEDICATIONS WERE RESUMED, CONSULT ORTHO, CONTINUE TO MONITOR (2) Staphylococcus aureus bacteremia with sepsis Status: Acute (3) Osteomyelitis Status: Acute Qualifiers: Osteomyelitis type: unspecified type Osteomyelitis location: foot Laterality: right Qualified Code(s): M86.9 - Osteomyelitis, unspecified (4) Hypokalemia Status: Inactive Plan: POTASSIUM/MAGNESIUM PROTOCOL, CONTINUE TO MONITOR (5) Hypomagnesemia Status: Inactive Plan: POTASSIUM/MAGNESIUM PROTOCOL, CONTINUE TO MONITOR (6) Anemia Status: Chronic Qualifiers: Anemia type: iron deficiency Iron deficiency anemia type: chronic blood loss Qualified Code(s): D50.0 - Iron deficiency anemia secondary to blood loss (chronic) Plan: CONTINUE TO MONITOR (7) Dyslipidemia Status: Acute Plan: CONTINUE HOME MEDS, CONTINUE TO MONITOR (8) Hypertension Status: Acute Qualifiers: Hypertension type: essential hypertension Qualified Code(s): I10 - Essential (primary) hypertension Plan: CONTINUE HOME MEDS, CONTINUE TO MONITOR
[2019-11-16 17:53] VITALS: BP 169/74
== END 2019-11-16 17:45 | disposition home or self-care (01) | DRG 872 ==
LOC: MED/SURG 16:18
PROVIDERS: ADMIT Internal Medicine; ATTEND Internal Medicine
DX: D50.0 Iron deficiency anemia secondary to blood loss (chronic); B95.61 Methicillin susceptible Staphylococcus aureus infection as the cause of diseases classified elsewhere; Z11.59 Encounter for screening for other viral diseases; E78.2 Mixed hyperlipidemia; E87.6 Hypokalemia; L03.115 Cellulitis of right lower limb; E11.621 Type 2 diabetes mellitus with foot ulcer; E83.42 Hypomagnesemia; R26.89 Other abnormalities of gait and mobility; R53.1 Weakness; E11.65 Type 2 diabetes mellitus with hyperglycemia; K21.9 Gastro-esophageal reflux disease without esophagitis; M86.171 Other acute osteomyelitis, right ankle and foot; A41.01 Sepsis due to Methicillin susceptible Staphylococcus aureus; I10 Essential (primary) hypertension